=== PATIENT | male | born 1965 | race Caucasian/White ===

== ENCOUNTER 2017-09-20 08:11 | Emergency (ER) | payer SELFPAY ==
[~2017-09-20] VITALS: Ht 180.3 cm; Wt 84.0 kg
[~2017-09-20 08:11] MED LIST: ASPI81TA82 PO; DOXY100T PO; HYDR-3533 PO; SULF-154 PO
[2017-09-20 08:15] VITALS: BP 157/87; PULSE 79; RESP 16; TEMP 97.5; O2SAT 97
[2017-09-20] MEDS ORDERED: SODIUM CHLOR 0.9% 1000 ML INJ 1,000 ML IV SCH (08:56)
[2017-09-20] MEDS ORDERED: SODIUM CHLORIDE 0.9% FLUSH 10 ML FLUSH IV FLUSH PRN (09:00)
[2017-09-20] MEDS ORDERED: ONDANSETRON HCL 4 MG/2 ML VIAL IVP ONE (09:00)
--- NOTE | 2017-09-20 09:21 | PD ---
HPI . 1 month post-meal emesis Chief Complaint: GI Complaint Time Seen by Provider: 08:54 Travel History International Travel<30 days: No Contact w/Intl Traveler<30days: No Traveled to known affect area: No History of Present Illness HPI 51 yo C M presents to ED with 1 month of post-meal emesis, bloody stool and weight loss. He states it feels as if something is stuck in his throat/chest and after the first bite begins retching and vomiting immediately. He is still able to tolerate liquids. His main source of sustenance is Ensure. He states his emesis is a dark brown color but denies an appearance similar to coffee grounds, yellow/green in color or any bloody emesis. He also complains of bright red stool for the last month. The stools have remained firm. He has lost 45 pounds in the last 3 months. Symptoms have been continuous. There have been no modifying factors. He is also complaining of a diffuse itchy rash present on bilateral arms, chest , abdomen and bilateral legs. PFSH Past Medical History Arthritis: No Autoimmune Disease: No Blood Disorders: No Anxiety: No Depression: No Heart Rhythm Problems: No Cancer: No Cardiac Catheterization: Yes Cardiovascular Problems: Yes High Cholesterol: Yes Chemotherapy: No Chest Pain: Yes Congestive Heart Failure: No COPD: No Cerebrovascular Accident: No Coronary Artery Disease: Yes Diabetes: Yes (type 2 ) Patient Takes Glucophage: No Diminished Hearing: No Endocrine: Yes Gastrointestinal Disorders: Yes (PANCREATITIS) GERD: No Genitourinary: Yes Hiatal Hernia: No Hypertension: Yes Immune Disorder: No Kidney Stones: Yes Musculoskeletal: No Neurologic: No Psychiatric: No Reproductive: No Respiratory: No Migraines: No Myocardial Infarction: Yes ( 02/2009. ) Pancreatitis: Yes Radiation Therapy: No Renal Failure: No Seizures: No Sickle Cell Disease: No Sleep Apnea: No Thyroid Disease: No Ulcer: No Tetanus Vaccination: > 5 Years Influenza Vaccination: No Past Surgical History Abdominal Surgery: No AICD: No Arteriovenous Shunt: No Cardiac Surgery: Yes Coronary Stent: Yes Ear Surgery: No Endocrine Surgery: No Eye Surgery: No Genitourinary Surgery: Yes (KIDNEY STONE SURGICALLY REMOVED) Gynecologic Surgery: No Insulin Pump: No Joint Replacement: No Oral Surgery: Yes (WISDOM TEETH REMOVED) Pacemaker: No Thoracic Surgery: No Social History Alcohol Use: No Tobacco Use: Yes (1/2 cigs daily) Substance Use: No Allergies-Medications (Allergen,Severity, Reaction): Coded Allergies: No Known Allergies (Verified Adverse Reaction, Unknown, 09/20/17) Reported Meds & Prescriptions Reported Meds & Active Scripts Active No Active Prescriptions or Reported Medications Review of Systems Except as stated in HPI: all other systems reviewed are Neg General / Constitutional: Positive: Weight Loss, No: Fever, Chills Gastrointestinal: Positive: Nausea, Vomiting, No: Diarrhea, Abdominal Pain, Hematemesis, Hematochezia, Constipation, Loss of Appetite Genitourinary: No: Hematuria Skin: Positive Rash, Positive Itching Physical Exam Narrative General: alert and oriented middle aged male laying in bed in no acute distress HEENT: Atraumatic, normocephalic. Pupils round and symmetric. No scleral icterus. No nasal discharge. Nasal mucosa pink and moist. Oral mucosa pink and moist. Cardiovascular: Normal sinus rhythm. No rubs, murmurs or gallops. Capillary refill < 3 secs Pulmonary: No accessory muscle use. Clear to auscultation bilaterally. No wheezes, rales, rhonchi. Abdomen: Soft, non-tender, non-distended abdomen. No rebound tenderness. Skin: diffuse pinpoint rash with excoriations present on bilateral arms, chest, back, abdomen and bilateral legs. Musculoskeletal: Able to move all 4 extremities Neuro: No obvious cranial nerve deficits Data Data Last Documented VS Vital Signs Date Time Temp Pulse Resp B/P (MAP) Pulse Ox O2 Delivery O2 Flow Rate FiO2 09/20/17 11:10 62 16 141/95 (110) 99 Room Air 09/20/17 08:15 97.5 Orders Orders Complete Blood Count With Diff (09/20/17 08:56) Comprehensive Metabolic Panel (09/20/17 08:56) Lipase (09/20/17 08:56) Lactic Acid (09/20/17 08:56) Prothrombin Time / Inr (Pt) (09/20/17 08:56) Act Partial Throm Time (Ptt) (09/20/17 08:56) Urinalysis - C+S If Indicated (09/20/17 08:56) Iv Access Insert/Monitor (09/20/17 08:56) Ecg Monitoring (09/20/17 08:56) Oximetry (09/20/17 08:56) Ondansetron Inj (Zofran Inj) (09/20/17 09:00) Sodium Chlor 0.9% 1000 Ml Inj (Ns 1000 M (09/20/17 08:56) Sodium Chloride 0.9% Flush (Ns Flush) (09/20/17 09:00) Ct Abd/Pel W Iv Contrast(Rout) (09/20/17 09:08) Iohexol 350 Inj (Omnipaque 350 Inj) (09/20/17 10:41) Labs Laboratory Tests Test 09/20/17 09:10 09/20/17 09:16 White Blood Count 4.9 TH/MM3 Red Blood Count 4.32 MIL/MM3 Hemoglobin 12.6 GM/DL Hematocrit 37.0 % Mean Corpuscular Volume 85.8 FL Mean Corpuscular Hemoglobin 29.1 PG Mean Corpuscular Hemoglobin Concent 34.0 % Red Cell Distribution Width 14.9 % Platelet Count 150 TH/MM3 Mean Platelet Volume 7.2 FL Neutrophils (%) (Auto) 38.1 % Lymphocytes (%) (Auto) 34.0 % Monocytes (%) (Auto) 7.3 % Eosinophils (%) (Auto) 19.8 % Basophils (%) (Auto) 0.8 % Neutrophils # (Auto) 1.8 TH/MM3 Lymphocytes # (Auto) 1.6 TH/MM3 Monocytes # (Auto) 0.4 TH/MM3 Eosinophils # (Auto) 1.0 TH/MM3 Basophils # (Auto) 0.0 TH/MM3 CBC Comment DIFF FINAL Differential Comment Prothrombin Time 10.1 SEC Prothromb Time International Ratio 1.0 RATIO Activated Partial Thromboplast Time 25.9 SEC Blood Urea Nitrogen 21 MG/DL Creatinine 0.90 MG/DL Random Glucose 241 MG/DL Total Protein 8.7 GM/DL Albumin 3.2 GM/DL Calcium Level 8.3 MG/DL Alkaline Phosphatase 77 U/L Aspartate Amino Transf (AST/SGOT) 37 U/L Alanine Aminotransferase (ALT/SGPT) 62 U/L Total Bilirubin 0.4 MG/DL Sodium Level 138 MEQ/L Potassium Level 4.0 MEQ/L Chloride Level 102 MEQ/L Carbon Dioxide Level 26.2 MEQ/L Anion Gap 10 MEQ/L Estimat Glomerular Filtration Rate 89 ML/MIN Lactic Acid Level 0.9 mmol/L Lipase 224 U/L Urine Collection Type CLEAN CATCH Urine Color YELLOW Urine Turbidity CLEAR Urine pH 6.0 Urine Specific [place] 1.021 Urine Protein 300 OR GREATER mg/dL Urine Glucose (UA) NEG mg/dL Urine Ketones NEG mg/dL Urine Occult Blood NEG Urine Nitrite NEG Urine Bilirubin NEG Urine Leukocyte Esterase NEG Urine WBC 0-2 /hpf Urine Mucus FEW /lpf Microscopic Urinalysis Comment CULT NOT INDICATED MDM Medical Decision Making Medical Screen Exam Complete: Yes Emergency Medical Condition: Yes Differential Diagnosis cancer, gastric outlet obstruction, peptic ulcer, pyloric stenosis, bezoar, volvulus, cyclical vomiting syndrome Narrative Course This patient presents for the evaluation of vomiting after eating and a 45 pound weight loss over the last 3 months. He looks cachectic. CBC Diagram 09/20/17 09:10 UA>>neg except for protein Coags are normal. Last Impressions Abdomen/Pelvis CT 09/20/17 09 Signed Impressions: Service Date/Time: , September 20, 2017 10:27 - CONCLUSION: 1. Innumerable, subcentimeter punctate nonobstructing renal calculi bilaterally, right greater than left. 2. Diminished hepatic attenuation suggesting some degree of fatty infiltration. 3. Benign 3.2 cm cyst medially at the junction of the upper and midpole of the right kidney. 4. Atrophic changes of the right rectus abdominis muscle. Has the patient had previous abdominal surgery? Lawrence Oshea MD BMP Diagram 09/20/17 09:10 Total Protein 8.7 H, Albumin 3.2 L, Calcium Level 8.3 L, Alkaline Phosphatase 77 , Aspartate Amino Transf (AST/SGOT) 37, Alanine Aminotransferase (ALT/SGPT) 62, Total Bilirubin 0.4 The history, exam, diagnostic testing, and current condition do not suggest any significant pathology to warrant further testing, continued ED treatment, admission, or surgical evaluation at this point. No EMC was found. The patient 's condition is stable and appropriate for discharge. It sounds like this patient has lost his insurance and primary care provider. I will give him a referral to [facility]. Diagnosis Primary Impression: Emesis, persistent Additional Impression: Unexplained weight loss Referrals: [facility] Patient Instructions: Acute Nausea and Vomiting (DC), General Instructions Med/Other Pt SpecificInfo: Prescription(s) given Scripts Ondansetron (Zofran) 4 Mg Tab 4 MG PO Q6HR Y for NAUSEA OR VOMITING, #15 TAB 0 Refills Prov: Tram Baird MD 09/20/17 Disposition: 01 DISCHARGE HOME Condition: Stable Tram Baird MD Sep 20, 2017 09:21
[2017-09-20 09:24] LABS: AUTOMATED NEUTROPHIL # 1.8 TH/MM3 (1.8-7.7); BASOPHIL % 0.8 % (0.0-2.0); EOSINOPHIL % 19.8 % (0.0-4.0); HEMOGLOBIN 12.6 GM/DL (13.0-17.0); LYMPHOCYTE # 1.6 TH/MM3 (1.0-4.8); MEAN CELL VOLUME 85.8 FL (80.0-100.0); MEAN CORPUSCULAR HEMOGLOBIN 29.1 PG (27.0-34.0); MEAN PLATELET VOLUME 7.2 FL (7.0-11.0); MONO % 7.3 % (0.0-8.0); MONOCYTE # 0.4 TH/MM3 (0-0.9); NEUT % 38.1 % (16.0-70.0); PLATELET COUNT 150 TH/MM3 (150-450); RED BLOOD COUNT 4.32 MIL/MM3 (4.50-5.90); RED CELL DISTRIBUTION WIDTH 14.9 % (11.6-17.2); WHITE BLOOD COUNT 4.9 TH/MM3 (4.0-11.0)
[2017-09-20 09:27] LABS: BILIRUBIN, URINE NEG (NEG); BLOOD, URINE NEG (NEG); GLUCOSE,URINE NEG (NEG); KETONE, URINE NEG (NEG); NITRITE,URINE NEG (NEG); URINE LEUKOCYTE ESTERASE NEG (NEG)
[2017-09-20 09:31] LABS: URINE COLOR YELLOW (YELLW/STRAW)
[2017-09-20 09:33] LABS: MUCUS URINE FEW /lpf (OCC); WBC, URINE 0-2 /hpf (0-5)
[2017-09-20 09:36] LABS: PROTHROMBIN TIME - PATIENT 10.1 SEC (9.8-11.6)
[2017-09-20 09:45] LABS: BLOOD UREA NITROGEN 21 MG/DL (7-18); CHLORIDE 102 MEQ/L (98-107); GLOMERULAR FILTRATION RATE 89 ML/MIN (>89); GLUCOSE,RANDOM 241 MG/DL (74-106); SODIUM (NA) 138 MEQ/L (136-145)
[2017-09-20 10:18] VITALS: O2SAT 96
[2017-09-20] MEDS ORDERED: IOHEXOL 350 MG/ML 10 ML VIAL (for RAD DIAG) IVCONTRAST ONE (10:41)
--- NOTE | 2017-09-20 11:08 | RADRPT ---
EXAM DATE/TIME: 09/20/2017 10:27 [facility] COMPARISON: No previous studies available for comparison. INDICATIONS : Post meal emesis x 1 month, bloody stool and weight loss. Constipation x 2 days. IV CONTRAST: 90 cc Omnipaque 350 (iohexol) IV ORAL CONTRAST: No oral contrast ingested. RADIATION DOSE: 14.41 CTDIvol (mGy) MEDICAL HISTORY : Renal calculi. Myocardial infarction. Pancreatitis.Diabetes. SURGICAL HISTORY : Coronary artery stent. ENCOUNTER: Initial ACUITY: 1 month PAIN SCALE: 0/10 LOCATION: Abdomen. TECHNIQUE: Volumetric scanning of the abdomen and pelvis was performed. Using automated exposure control and ad justment of the mA and/or kV according to patient size, radiation dose was kept as low as reasonably achievable to obtain optimal diagnostic quality images. DICOM format image data is available electro nically for review and comparison. FINDINGS: LOWER LUNGS: Minimal atelectatic changes dependently at both lung bases. No confluent infiltrate LIVER: Homogeneous, but decreased density without lesion. There is no dilation of the biliary tree. No glenys cified gallstones. SPLEEN: Normal size without lesion. PANCREAS: Within normal limits. KIDNEYS: Normal in size and shape. Benign-appearing 3.3 cm cyst medially at the junction of the upper and midp ole of left kidney. Multiple nonobstructing subcentimeter renal calculi bilaterally, right greater th an left. ADRENAL GLANDS: Within normal limits. VASCULAR: There is no aortic aneurysm. BOWEL/MESENTERY: The stomach, small bowel, and colon demonstrate no acute abnormality. There is no free intraperitone al air or fluid. Benign-appearing 1 cm calcification posterior to the ascending colon in the upper ri ght pelvis probably represents a small lymph node. ABDOMINAL WALL: Atrophic changes in the right rectus abdominis RETROPERITONEUM: There is no lymphadenopathy. BLADDER: No wall thickening or mass. REPRODUCTIVE: Within normal limits. INGUINAL: There is no lymphadenopathy or hernia. MUSCULOSKELETAL: Within normal limits for patient age. CONCLUSION: 1. Innumerable, subcentimeter punctate nonobstructing renal calculi bilaterally, right greater than l eft. 2. Diminished hepatic attenuation suggesting some degree of fatty infiltration. 3. Benign 3.2 cm cyst medially at the junction of the upper and midpole of the right kidney. 4. Atrophic changes of the right rectus abdominis muscle. Has the patient had previous abdominal surg paul? Lawrence Oshea MD on September 20, 2017 at 10:50 Board Certified Radiologist. This report was verified electronically.
[2017-09-20 11:10] VITALS: BP 141/95; PULSE 62; RESP 16; O2SAT 99
[2017-09-20 12:19] LABS: ALBUMIN 3.2 GM/DL (3.4-5.0); AST (GOT) 37 U/L (15-37); BICARBONATE 26.2 MEQ/L (21.0-32.0); CALCIUM 8.3 MG/DL (8.5-10.1); LIPASE 224 U/L (73-393)
[2017-09-20 12:31] LABS: ALKALINE PHOSPHATASE 77 U/L (45-117); ALT (GPT) 62 U/L (12-78); TOTAL BILIRUBIN ADULT 0.4 MG/DL (0.2-1.0); TOTAL PROTEIN 8.7 GM/DL (6.4-8.2)
[2017-09-20] MEDS ORDERED: ZOFR4TAB PO (12:41)
[2017-09-20 13:04] VITALS: BP 143/80
== END 2017-09-20 13:06 | disposition home or self-care (01) ==
LOC: PHED 08:11
DX: R11.10 Vomiting, unspecified (principal); R63.4 Abnormal weight loss; R21 Rash and other nonspecific skin eruption; N20.0 Calculus of kidney; F17.210 Nicotine dependence, cigarettes, uncomplicated; K92.1 Melena
CPT/HCPCS: 74177; 80053; 81001; 83605; 83690; 85025; 85610; 85730; 96361; 96374; 99285; J2405; J7030; Q9967

== ENCOUNTER 2018-01-09 08:59 | Emergency (ER) | payer SELFPAY ==
[~2018-01-09] VITALS: Ht 180.3 cm; Wt 77.0 kg
[~2018-01-09 08:59] MED LIST changes: -ASPI81TA82 PO; -DOXY100T PO; -HYDR-3533 PO; -SULF-154 PO; +ZOFR4TAB PO
[2018-01-09 09:10] VITALS: BP 141/81; PULSE 85; RESP 18; TEMP 97.4; O2SAT 98
[2018-01-09] MEDS: RESP: ALBUTEROL 2.5 MG/3 ML NEB (SCH) INH (09:26)
[2018-01-09] MEDS ORDERED: SODIUM CHLORIDE 0.9% FLUSH 10 ML FLUSH IVF PRN (09:30)
[2018-01-09 09:35] VITALS: RESP 16; O2SAT 97
[2018-01-09 09:40] VITALS: BP 136/80; PULSE 88; RESP 16; O2SAT 97
[2018-01-09 09:44] LABS: AUTOMATED NEUTROPHIL # 3.1 TH/MM3 (1.8-7.7); BASOPHIL % 0.7 % (0.0-2.0); EOSINOPHIL # 0.7 TH/MM3 (0-0.4); EOSINOPHIL % 11.6 % (0.0-4.0); HEMATOCRIT 37.8 % (39.0-51.0); HEMOGLOBIN 13.1 GM/DL (13.0-17.0); LYMPH % 30.1 % (9.0-44.0); LYMPHOCYTE # 1.8 TH/MM3 (1.0-4.8); MEAN CELL VOLUME 85.5 FL (80.0-100.0); MEAN CORPUSCULAR HEMOGLOBIN 29.6 PG (27.0-34.0); MEAN CORPUSCULAR HGB CONC 34.7 % (32.0-36.0); MEAN PLATELET VOLUME 7.5 FL (7.0-11.0); MONO % 8.1 % (0.0-8.0); MONOCYTE # 0.5 TH/MM3 (0-0.9); NEUT % 49.5 % (16.0-70.0); PLATELET COUNT 132 TH/MM3 (150-450); RED BLOOD COUNT 4.42 MIL/MM3 (4.50-5.90); RED CELL DISTRIBUTION WIDTH 16.6 % (11.6-17.2); WHITE BLOOD COUNT 6.1 TH/MM3 (4.0-11.0)
--- NOTE | 2018-01-09 09:45 | PD ---
HPI Chief Complaint: Respiratory Symptoms Time Seen by Provider: 09:13 Travel History International Travel<30 days: No Contact w/Intl Traveler<30days: No Traveled to known affect area: No History of Present Illness HPI 52-year-old male describes shortness of breath and dyspnea on exertion for approximately one month. It he reports it seems to be intermittent. There is no chest pain. Associated symptoms include nausea and occasional vomiting. Occasional diarrhea is reported. The patient quit smoking about one month ago. He denies a history of asthma/COPD. The patient reports a history of coronary artery disease and one stent. Coronary catheter was 6 years ago at an outside hospital. He denies aspirin compliance. He has a history of diabetes. At one point took medication for hypertension however has not been taking any lately. He denies a history of hyperlipidemia. Patient denies cough. He reports night sweats. He has no primary care provider right now. The reason has had difficulty maintaining compliance with medications. PFSH Past Medical History Arthritis: No Autoimmune Disease: No Blood Disorders: No Anxiety: No Depression: No Heart Rhythm Problems: No Cancer: No Cardiac Catheterization: Yes Cardiovascular Problems: Yes High Cholesterol: Yes Chemotherapy: No Chest Pain: Yes Congestive Heart Failure: No COPD: No Cerebrovascular Accident: No Coronary Artery Disease: Yes Diabetes: Yes (type 2 ) Patient Takes Glucophage: No Diminished Hearing: No Endocrine: Yes Gastrointestinal Disorders: Yes (PANCREATITIS) GERD: No Genitourinary: Yes Hiatal Hernia: No Hypertension: Yes Immune Disorder: No Kidney Stones: Yes Musculoskeletal: No Neurologic: No Psychiatric: No Reproductive: No Respiratory: No Migraines: No Myocardial Infarction: Yes ( 02/2009. ) Pancreatitis: Yes Radiation Therapy: No Renal Failure: No Seizures: No Sickle Cell Disease: No Sleep Apnea: No Thyroid Disease: No Ulcer: No Influenza Vaccination: No ?: Not Past Surgical History Abdominal Surgery: No AICD: No Arteriovenous Shunt: No Cardiac Surgery: Yes Coronary Stent: Yes Ear Surgery: No Endocrine Surgery: No Eye Surgery: No Genitourinary Surgery: Yes (KIDNEY STONE SURGICALLY REMOVED) Gynecologic Surgery: No Insulin Pump: No Joint Replacement: No Oral Surgery: Yes (WISDOM TEETH REMOVED) Pacemaker: No Thoracic Surgery: No Other Surgery: Yes Social History Alcohol Use: No Tobacco Use: Yes (1/2 cigs daily) Substance Use: No Allergies-Medications (Allergen,Severity, Reaction): Coded Allergies: No Known Allergies (Verified Adverse Reaction, Unknown, 01/09/18) Reported Meds & Prescriptions Reported Meds & Active Scripts Active Proventil Hfa 6.7 GM Inh (Albuterol Sulfate) 90 Mcg/Act Aer 2 Puff INH Q6H PRN Prednisone 20 Mg Tab 40 Mg PO DAILY 5 Days Take 40 mg (2 tablets) daily for 5 days Azithromycin 250 Mg Tab 250 Mg PO DIRECTED Take 2 tabs (500 mg) on day 1 then 1 tab daily x 4 days. Review of Systems Except as stated in HPI: all other systems reviewed are Neg General / Constitutional: No: Fever Physical Exam Narrative GENERAL: 32-year-old male pleasant well-nourished well-developed Vital Signs Date Time Temp Pulse Resp B/P (MAP) Pulse Ox O2 Delivery O2 Flow Rate FiO2 01/09/18 09:10 97.4 85 18 141/81 (101) 98 SKIN: Warm and dry. HEAD: Atraumatic. Normocephalic. EYES: Pupils equal and round. No scleral icterus. No injection or drainage. ENT: No nasal bleeding or discharge. Mucous membranes pink and moist. NECK: Trachea midline. No JVD. CARDIOVASCULAR: Regular rate and rhythm. RESPIRATORY: There is wheezing in the right lung. There is no significant tachypnea or dyspnea. GASTROINTESTINAL: Abdomen soft, non-tender, nondistended. Hepatic and splenic margins not palpable. MUSCULOSKELETAL: Extremities without clubbing, cyanosis, or edema. No obvious deformities. NEUROLOGICAL: Awake and alert. No obvious cranial nerve deficits. Motor grossly within normal limits. Five out of 5 muscle strength in the arms and legs. Normal speech. PSYCHIATRIC: Appropriate mood and affect; insight and judgment normal. Data Data Last Documented VS Vital Signs Date Time Temp Pulse Resp B/P (MAP) Pulse Ox O2 Delivery O2 Flow Rate FiO2 01/09/18 10:10 92 16 118/68 (85) 96 Room Air 01/09/18 09:10 97.4 Orders Orders Complete Blood Count With Diff (01/09/18 09:18) Comprehensive Metabolic Panel (01/09/18 09:18) B-Type Natriuretic Peptide (01/09/18 09:18) D-Dimer (01/09/18 09:18) Act Partial Throm Time (Ptt) (01/09/18 09:18) Prothrombin Time / Inr (Pt) (01/09/18 09:18) Ckmb (Isoenzyme) Profile (01/09/18 09:18) Troponin I (01/09/18 09:18) Iv Access Insert/Monitor (01/09/18 09:18) Electrocardiogram (01/09/18 09:18) Ecg Monitoring (01/09/18 09:18) Oximetry (01/09/18 09:18) Oxygen Administration (01/09/18 09:18) Chest, Pa & Lat (01/09/18 09:18) Sodium Chloride 0.9% Flush (Ns Flush) (01/09/18 09:30) Albuterol Neb (Albuterol Neb) (01/09/18 09:30) Ct Pulmonary Angiogram (01/09/18 10:35) Sodium Chlor 0.9% 1000 Ml Inj (Ns 1000 M (01/09/18 10:45) Iohexol 350 Inj (Omnipaque 350 Inj) (01/09/18 11:22) Ed Discharge Order (01/09/18 12:02) Labs Laboratory Tests Test 01/09/18 09:35 White Blood Count 6.1 TH/MM3 Red Blood Count 4.42 MIL/MM3 Hemoglobin 13.1 GM/DL Hematocrit 37.8 % Mean Corpuscular Volume 85.5 FL Mean Corpuscular Hemoglobin 29.6 PG Mean Corpuscular Hemoglobin Concent 34.7 % Red Cell Distribution Width 16.6 % Platelet Count 132 TH/MM3 Mean Platelet Volume 7.5 FL Neutrophils (%) (Auto) 49.5 % Lymphocytes (%) (Auto) 30.1 % Monocytes (%) (Auto) 8.1 % Eosinophils (%) (Auto) 11.6 % Basophils (%) (Auto) 0.7 % Neutrophils # (Auto) 3.1 TH/MM3 Lymphocytes # (Auto) 1.8 TH/MM3 Monocytes # (Auto) 0.5 TH/MM3 Eosinophils # (Auto) 0.7 TH/MM3 Basophils # (Auto) 0.0 TH/MM3 CBC Comment DIFF FINAL Differential Comment Prothrombin Time 10.5 SEC Prothromb Time International Ratio 1.0 RATIO Activated Partial Thromboplast Time 27.0 SEC D-Dimer Quantitative (PE/DVT) 0.68 MG/L FEU Blood Urea Nitrogen 28 MG/DL Creatinine 1.00 MG/DL Random Glucose 152 MG/DL Total Protein 9.0 GM/DL Albumin 3.1 GM/DL Calcium Level 8.2 MG/DL Alkaline Phosphatase 91 U/L Aspartate Amino Transf (AST/SGOT) 31 U/L Alanine Aminotransferase (ALT/SGPT) 47 U/L Total Bilirubin 0.5 MG/DL Sodium Level 138 MEQ/L Potassium Level 3.9 MEQ/L Chloride Level 106 MEQ/L Carbon Dioxide Level 25.7 MEQ/L Anion Gap 6 MEQ/L Estimat Glomerular Filtration Rate 78 ML/MIN Total Creatine Kinase 27 U/L Troponin I LESS THAN 0.02 NG/ML B-Type Natriuretic Peptide 8 PG/ML MDM Medical Decision Making Medical Screen Exam Complete: Yes Emergency Medical Condition: Yes Medical Record Reviewed: Yes Differential Diagnosis COPD, CHF, pneumonia, anemia, coronary disease Narrative Course CBC & BMP Diagram 01/09/18 09:35 Total Protein 9.0 H, Albumin 3.1 L, Calcium Level 8.2 L, Alkaline Phosphatase 91 , Aspartate Amino Transf (AST/SGOT) 31, Alanine Aminotransferase (ALT/SGPT) 47, Total Bilirubin 0.5 BNP/TN unremarkable we discussed the need for follow-up for the CT chest abnormalities patient agreeable with plan. Overall presentation could reflect infectious etiology with an inflammatory component. Scripts as below. Diagnosis Primary Impression: URI (upper respiratory infection) Qualified Codes: J06.9 - Acute upper respiratory infection, unspecified Additional Impression: Abnormal CT of the chest Referrals: [facility] call for appointment Additional Instructions: FOLLOW UP WITH THE [facility] IN THREE MONTHS FOR A REPEAT CT SCAN OF THE CHEST. WE WANT TO BE SURE YOUR LUNGS ARE CLEAR OF ANY SERIOUS DISEASE INCLUDING POTENTIALLY A CANCER SO BE SURE TO FOLLOW UP WITHOUT FAIL. Med/Other Pt SpecificInfo: Prescription(s) given Scripts Albuterol 6.7 GM Inh (Proventil Hfa 6.7 GM Inh) 90 Mcg/Act Aer 2 PUFF INH Q6H Y for SHORTNESS OF BREATH, #1 INHALER 0 Refills Prov: Chaim Sanchez MD 01/09/18 Prednisone (Prednisone) 20 Mg Tab 40 MG PO DAILY for 5 Days, #10 TAB 0 Refills Take 40 mg (2 tablets) daily for 5 days Prov: Chaim Sanchez MD 01/09/18 Azithromycin (Azithromycin) 250 Mg Tab 250 MG PO DIRECTED for Infection, #6 TAB 0 Refills Take 2 tabs (500 mg) on day 1 then 1 tab daily x 4 days. Prov: Chaim Sanchez MD 01/09/18 Disposition: 01 DISCHARGE HOME Condition: Chaim Baltazar MD January 09, 2018 09:45
[2018-01-09 10:10] VITALS: BP 118/68; PULSE 92; RESP 16; O2SAT 96
--- NOTE | 2018-01-09 10:10 | RADRPT ---
EXAM DATE/TIME: 01/09/2018 09:30 [facility] COMPARISON: No previous studies available for comparison. INDICATIONS : Short of breath. MEDICAL HISTORY : Renal calculi. Myocardial infarction. Pancreatitis.Diabetes.hypertension SURGICAL HISTORY : Coronary artery stent ENCOUNTER: Initial ACUITY: 1 month PAIN SCORE: 0/10 LOCATION: Bilateral chest FINDINGS: PA and lateral views of the chest demonstrate the lungs to be symmetrically aerated without evidence of mass, infiltrate or effusion. There is some coarsening of lung markings bilaterally suggestive of chronic interstitial changes. The cardiomediastinal contours are unremarkable. Osseous structures a re intact. CONCLUSION: No acute disease. Joseluis Moise MD on January 09, 2018 at 10:08 Board Certified Radiologist. This report was verified electronically.
[2018-01-09 10:16] LABS: CHLORIDE 106 MEQ/L (98-107); SODIUM (NA) 138 MEQ/L (136-145)
[2018-01-09 10:23] LABS: BICARBONATE 25.7 MEQ/L (21.0-32.0); BLOOD UREA NITROGEN 28 MG/DL (7-18); CALCIUM 8.2 MG/DL (8.5-10.1); GLUCOSE,RANDOM 152 MG/DL (74-106)
[2018-01-09 10:26] LABS: ALBUMIN 3.1 GM/DL (3.4-5.0); AST (GOT) 31 U/L (15-37); GLOMERULAR FILTRATION RATE 78 ML/MIN (>89)
[2018-01-09 10:27] LABS: TOTAL BILIRUBIN ADULT 0.5 MG/DL (0.2-1.0)
[2018-01-09 10:28] LABS: ALKALINE PHOSPHATASE 91 U/L (45-117)
[2018-01-09 10:29] LABS: ALT (GPT) 47 U/L (12-78); PROTHROMBIN TIME - PATIENT 10.5 SEC (9.8-11.6)
[2018-01-09 10:30] LABS: D-DIMER 0.68 MG/L FEU (0.00-0.50)
[2018-01-09 10:31] LABS: TROPONIN I LESS THAN 0.02 NG/ML (0.02-0.05)
[2018-01-09] MEDS ORDERED: SODIUM CHLOR 0.9% 1000 ML INJ 1,000 ML IV ONE (10:45)
[2018-01-09] MEDS ORDERED: IOHEXOL 350 MG/ML 10 ML VIAL (for RAD DIAG) IVCONTRAST ONE (11:22)
--- NOTE | 2018-01-09 11:42 | RADRPT ---
EXAM DATE/TIME: 01/09/2018 11:09 [facility] COMPARISON: CT ABDOMEN & PELVIS W CONTRAST, September 20, 2017, 10:27. CHEST PA & LAT, January 09, 2018, 9:30. INDICATIONS : Short of breath. IV CONTRAST: 75 cc Omnipaque 350 (iohexol) IV RADIATION DOSE: 13.52 CTDIvol (mGy) MEDICAL HISTORY : Renal calculi. Myocardial infarction. Pancreatitis.Diabetes. SURGICAL HISTORY : Coronary artery stent. ENCOUNTER: Initial ACUITY: 1 month PAIN SCALE: 0/10 LOCATION: chest TECHNIQUE: Volumetric scanning of the chest was performed using a pulmonary embolism protocol MIP images were re constructed. Using automated exposure control and adjustment of the mA and/or kV according to patien t size, radiation dose was kept as low as reasonably achievable to obtain optimal diagnostic quality images. DICOM format image data is available electronically for review and comparison. Follow-up recommendations for detected pulmonary nodules are based at a minimum on nodule size and pa tient risk factors according to Fleischner Society Guidelines. FINDINGS: PULMONARY ARTERIES: No filling defects are seen in the pulmonary arteries through the segmental level. LUNGS: There are mild patchy areas of groundglass attenuation in the left upper lobe. No consolidation or pn eumothorax is present. There is mild dependent atelectasis bilaterally. No concerning pulmonary nodul e is seen. PLEURAE: There is no pleural thickening or pleural effusion. MEDIASTINUM: Heart and great vessels demonstrate no acute finding. There is mild coronary artery calcification. Se cretions appear to be present within the trachea. MUSCULOSKELETAL: No acute abnormality is identified. MISCELLANEOUS: The visualized upper abdominal organs demonstrate no acute abnormality. Spleen is mildly enlarged luda suring 13.4 cm in length. CONCLUSION: 1. No PE is identified. 2. Mild patchy areas of groundglass opacity in the left upper lobe. This is a nonspecific finding but typically it is associated with inflammatory or infectious processes. Consider followup to confirm r esolution. 3. Secretions in the trachea suggesting aspiration. Chin Wilson MD on January 09, 2018 at 11:30 Board Certified Radiologist. This report was verified electronically.
[2018-01-09] MEDS ORDERED: PRED20 PO (12:04)
[2018-01-09] MEDS ORDERED: ALBU6.7H INH (12:04)
[2018-01-09] MEDS ORDERED: AZIT250T3 PO (12:04)
[2018-01-09 12:35] VITALS: BP 113/80
--- NOTE | 2018-01-09 12:39 | EKG ---
Date Performed: 01/09/2018 Time Performed: 09:12:15 PTAGE: 52 years EKG: Normal Sinus rhythm PREVIOUS TRACING 05/04/11 Cannot exclude old lateral and inferior infarcts, but no change from the prior tracing. DOCTOR: Krish Dye Interpretating Date/Time 01/09/2018 12:39:13
== END 2018-01-09 12:40 | disposition home or self-care (01) ==
LOC: PHED 08:59
DX: J06.9 Acute upper respiratory infection, unspecified (principal); R91.8 Other nonspecific abnormal finding of lung field; I25.10 Atherosclerotic heart disease of native coronary artery without angina pectoris; E11.9 Type 2 diabetes mellitus without complications; I10 Essential (primary) hypertension; E78.00 Pure hypercholesterolemia, unspecified; I25.2 Old myocardial infarction; Z87.891 Personal history of nicotine dependence; Z95.5 Presence of coronary angioplasty implant and graft
CPT/HCPCS: 71046; 71275; 80053; 82550; 83880; 84484; 85025; 85379; 85610; 85730; 93005; 94640; 94664; 96360; 96361; 99285; J7030; J7613; Q9967

== ENCOUNTER 2018-03-16 17:06 | Inpatient (IN) ==
[2018-03-16] MEDS ORDERED: Aspirin 325 MG Tablet PO ONE (17:34)
[2018-03-16 18:15] LABS: Chloride 101 meq/L (98-107); Sodium 134 meq/L (136-145)
[2018-03-16 18:19] LABS: Albumin 2.7 g/dL (3.4-5.0); Anion Gap 10 meq/L (5-15); Calcium 8.6 mg/dL (8.5-10.1); Carbon Dioxide 23.3 meq/L (21.0-32.0); Glucose,Random 103 mg/dL (74-106); Lipase 209 U/L (73-393)
[2018-03-16 18:20] LABS: Blood Urea Nitrogen 22 mg/dL (7-18)
[2018-03-16 18:22] LABS: Alanine Aminotransferase 20 U/L (12-78); Aspartate Aminotransferase 23 U/L (15-37); Glomerular Filtration Rate 78 mL/min (>89)
[2018-03-16 18:24] LABS: Total Protein 9.1 g/dL (6.4-8.2)
[2018-03-16 18:25] LABS: Alkaline Phosphatase 89 U/L (45-117); Baso % (Auto) 0.4 % (0.0-2.0); Eos # (Auto) 0.4 th/mm3 (0.0-0.4); Eos % (Auto) 6.8 % (0.0-4.0); Hematocrit 36.4 % (39.0-51.0); Hemoglobin 11.9 gm/dL (13.0-17.0); Lymph # (Auto) 0.9 th/mm3 (1.0-4.8); Lymph % (Auto) 17.2 % (9.0-44.0); Mean Corpuscular HGB Conc 32.8 % (32.0-36.0); Mean Corpuscular Hemoglobin 28.3 pg (27.0-34.0); Mean Corpuscular Volume 86.1 fL (80.0-100.0); Mean Platelet Volume 6.7 fL (7.0-11.0); Mono # (Auto) 0.4 th/mm3 (0.0-0.9); Mono % (Auto) 6.8 % (0.0-8.0); Neut # (Auto) 3.7 th/mm3 (1.8-7.7); Neut % (Auto) 68.8 % (16.0-70.0); Platelet Count 153 th/mm3 (150-450); Red Blood Count 4.23 mil/mm3 (4.50-5.90); Red Cell Distribution Width 15.6 % (11.6-17.2); White Blood Count 5.4 th/mm3 (4.0-11.0)
[2018-03-16] MEDS ORDERED: Morphine Sulfate Inj 2 MG/ML Vial IV.PUSH ONE (18:25)
--- NOTE | 2018-03-16 18:26 | XR ---
EXAM DATE: 03/16/2018 6:04 PM EDT AGE/SEX: 52 years / Male INDICATIONS: Angina. CLINICAL DATA: This is the patient's initial encounter. Patient reports that signs and symptoms have been present for 1 day and indicates a pain score of 8/10. MEDICAL/SURGICAL HISTORY: . Diabetes. Renal calculi. . Cardiac catheter. COMPARISON: [facility], CHEST PA & LAT, 01/09/2018. . FINDINGS: Compare January 09. There is development of bilateral mostly patchy airspace disease. Heart size upper alas its normal. No significant effusion. No pneumothorax. No acute bony abnormality. CONCLUSION: Patchy bilateral airspace disease of unknown etiology. Differential diagnosis atelectasis and broncho pneumonia. Electronically signed by: Sid Huff MD 03/16/2018 6:25 PM EDT
[2018-03-16 18:40] LABS: D-Dimer 1.11 mg/L FEU (0.00-0.50)
[2018-03-16 18:41] LABS: Activated Partial Thrombo Time 28.5 sec (24.3-30.1); Creatine Kinase 23 U/L (39-308); INR 1.1 Ratio; Prothrombin Time 10.9 sec (9.8-11.6)
--- NOTE | 2018-03-16 19:20 | ED ---
HPI General Chief complaint: Chest Pain Stated complaint: Chest Pain/Sob Time Seen by Provider: 03/16/18 17:34 History of Present Illness HPI narrative: 52-year-old male history of diabetes presented to the ER for evaluation of chest pain that has been going on and off for the last week ago got worse this morning. Pain is located in the mid chest, no radiation, rated 6 out of 10, constant for the last 40 minutes prior to arrival to the ER, occurred at rest while watching TV, no sweating or palpitations, no cough or fever or chills or night sweats. Patient history of smoking 1 pack a day, he had 2 cardiac stents done at an outside facility. Denies any lung disease. Related Data Home Medications Medication Instructions Recorded Confirmed metformin 500 mg PO BID 03/11/18 03/16/18 aspirin 325 mg PO DAILY 03/16/18 03/16/18 Allergies Allergy/AdvReac Type Severity Reaction Status Date / Time No Known Allergies Allergy Verified 03/16/18 17:23 Review of Systems Except as stated in HPI: all other systems reviewed are negative [facility] Medical History Medical History Myocardial infarction (Acute) Decreased vision (Acute) Diabetes (Acute) History of dental problems (Acute) Kidney stones (Acute) Surgical History Surgical History Hx of cardiac cath (Acute) Social History Social History Substance History: No History of Abuse Second Hand Smoke Exposure: No Smoking Status: Former smoker Tobacco Type: Cigarettes How Often Do You Have a Drink Containing Alcohol: Never Recent Travel in [facility] within the Last 8 Weeks: No Recent Out of Country Travel within the Last 8 Weeks: No Immunization History Tetanus Immunization: >5 Years Hx Influenza Vaccine This Season: No Exam Narrative Exam Narrative: GENERAL: Alert oriented 3 no acute distress. SKIN: Focused skin assessment warm/dry. HEAD: Atraumatic. Normocephalic. EYES: Pupils equal and round. No scleral icterus. No injection or drainage. ENT: No nasal bleeding or discharge. Mucous membranes pink and moist. NECK: Trachea midline. No JVD. CARDIOVASCULAR: Regular rate and rhythm. No murmur appreciated. RESPIRATORY: No accessory muscle use. Clear to auscultation. Breath sounds equal bilaterally. GASTROINTESTINAL: Abdomen soft, non-tender, nondistended. Hepatic and splenic margins not palpable. MUSCULOSKELETAL: No obvious deformities. No clubbing. No cyanosis. No edema. NEUROLOGICAL: Awake and alert. No obvious cranial nerve deficits. Motor grossly within normal limits. Normal speech. PSYCHIATRIC: Appropriate mood and affect; insight and judgment normal. Course Initial Documented Vital Signs Temperature 97.4 F L 03/16/18 17:21 Pulse Rate 88 03/16/18 17:21 Respiratory Rate 18 03/16/18 17:21 Blood Pressure 127/84 03/16/18 17:21 Pulse Oximetry 93 L 03/16/18 17:21 Last Documented Vital Signs Temperature 97.4 F L 03/16/18 17:21 Pulse Rate 78 03/16/18 19:20 Respiratory Rate 16 03/16/18 20:01 Blood Pressure 125/82 03/16/18 19:20 Pulse Oximetry 98 03/16/18 19:20 Clinical Decision Support HEART Score Questions History: Moderately suspicious EKG: Normal Age: 45-64 years Risk Factors: 3 or more Risk Factors or Hx of Atherosclerotic Disease Initial Troponin: Normal Limit Heart Score HEART Score: 4 Medical Decision Making [facility] Narrative Medical decision making narrative: 51-year-old male history of diabetes he takes oral glycemic for, here for chest pain, occurred at rest, first EKG showed Q waves but no ST segment elevation or depression, normal sinus rhythm with left axis deviation, T-wave inversion on, V4 repeat EKG unchanged. First troponin is negative, chest x-ray shows right lower lobe infiltrate, elevated d- dimer, CTA lung shows groundglass appearance in the upper lobes which is suspicious for hypersensitivity reaction of some kind which also could explain the Eosinophilia. I am unsure if the patient has pneumonia but his chest pain could be due to the lung rather than the heart. For now patient heart score is for which high risk for KS so we will admit the patient for chest pain to rule out KS and to further evaluate the groundglass appearance on the CTA. Lab Data Result diagrams: 03/16/18 17:50 03/16/18 17:50 Lab Results 03/16/18 03/16/18 03/16/18 Range/Units 17:50 17:50 17:50 CBC w Diff WBC (4.0-11.0) th/mm3 RBC (4.50-5.90) mil/mm3 Hgb (13.0-17.0) gm/dL Hct (39.0-51.0) % MCV (80.0-100.0) fL MCH (27.0-34.0) pg MCHC (32.0-36.0) % RDW (11.6-17.2) % Plt Count (150-450) th/mm3 MPV (7.0-11.0) fL Neut % (Auto) (16.0-70.0) % Lymph % (Auto) (9.0-44.0) % [place] % (Auto) (0.0-8.0) % Eos % (Auto) (0.0-4.0) % Baso % (Auto) (0.0-2.0) % Neut # (Auto) (1.8-7.7) th/mm3 Lymph # (Auto) (1.0-4.8) th/mm3 [place] # (Auto) (0.0-0.9) th/mm3 Eos # (Auto) (0.0-0.4) th/mm3 Baso # (Auto) (0.0-0.2) th/mm3 WBC Differential Differential Comment PT (9.8-11.6) sec INR Ratio APTT (24.3-30.1) sec D-Dimer Quant (PE/DVT) Cancelled Sodium (136-145) meq/L Potassium (3.5-5.1) meq/L Chloride (98-107) meq/L Carbon Dioxide (21.0-32.0) meq/L Anion Gap (5-15) meq/L BUN (7-18) mg/dL Creatinine (0.60-1.30) mg/dL Estimated GFR (>89) mL/min Random Glucose (74-106) mg/dL Calcium (8.5-10.1) mg/dL Total Bilirubin (0.2-1.0) mg/dL AST (15-37) U/L ALT (12-78) U/L Alkaline Phosphatase (45-117) U/L Total Creatine Kinase (39-308) U/L Troponin I (0.02-0.05) ng/mL B-Natriuretic Peptide 17 (0-100) pg/mL Total Protein (6.4-8.2) g/dL Albumin (3.4-5.0) g/dL Lipase Cancelled 07/07/18 07/07/18 07/07/18 Range/Units 17:50 17:50 17:50 CBC w Diff Auto diff final WBC 5.4 (4.0-11.0) th/mm3 RBC 4.23 L (4.50-5.90) mil/mm3 Hgb 11.9 L (13.0-17.0) gm/dL Hct 36.4 L (39.0-51.0) % MCV 86.1 (80.0-100.0) fL MCH 28.3 (27.0-34.0) pg MCHC 32.8 (32.0-36.0) % RDW 15.6 (11.6-17.2) % Plt Count 153 (150-450) th/mm3 MPV 6.7 L (7.0-11.0) fL Neut % (Auto) 68.8 (16.0-70.0) % Lymph % (Auto) 17.2 (9.0-44.0) % [place] % (Auto) 6.8 (0.0-8.0) % Eos % (Auto) 6.8 H (0.0-4.0) % Baso % (Auto) 0.4 (0.0-2.0) % Neut # (Auto) 3.7 (1.8-7.7) th/mm3 Lymph # (Auto) 0.9 L (1.0-4.8) th/mm3 [place] # (Auto) 0.4 (0.0-0.9) th/mm3 Eos # (Auto) 0.4 (0.0-0.4) th/mm3 Baso # (Auto) 0.0 (0.0-0.2) th/mm3 WBC Differential . Differential Comment . PT 10.9 (9.8-11.6) sec INR 1.1 Ratio APTT 28.5 (24.3-30.1) sec D-Dimer Quant (PE/DVT) 1.11 H Sodium 134 L (136-145) meq/L Potassium 4.0 (3.5-5.1) meq/L Chloride 101 (98-107) meq/L Carbon Dioxide 23.3 (21.0-32.0) meq/L Anion Gap 10 (5-15) meq/L BUN 22 H (7-18) mg/dL Creatinine 1.00 (0.60-1.30) mg/dL Estimated GFR 78 L (>89) mL/min Random Glucose 103 (74-106) mg/dL Calcium 8.6 (8.5-10.1) mg/dL Total Bilirubin 0.6 (0.2-1.0) mg/dL AST 23 (15-37) U/L ALT 20 (12-78) U/L Alkaline Phosphatase 89 (45-117) U/L Total Creatine Kinase 23 L (39-308) U/L Troponin I Less than 0.02 L (0.02-0.05) ng/mL B-Natriuretic Peptide (0-100) pg/mL Total Protein 9.1 H (6.4-8.2) g/dL Albumin 2.7 L (3.4-5.0) g/dL Lipase 209 Imaging Data Radiologist's impression: ITS Impressions Chest X-Ray 03/16/18 17:35 CONCLUSION: Patchy bilateral airspace disease of unknown etiology. Differential diagnosis atelectasis and bronchopneumonia. Chest CTA 03/16/18 18:47 CONCLUSION: 1. Negative for pulmonary embolus. 2. Marked progression of predominantly upper lobe lung disease since January 09, 2018. Differential diagnosis includes drug reaction or chronic hypersensitivity type reaction to extrinsic exposure. Also consider infection. Discharge Plan Discharge Disposition Patient Disposition: 30 Still Patient Discharge Condition Condition: Stable Physicians Team ED Provider: Maximo Rodríguez Primary Care Provider: Primary Care Shante Akbar Rxs /Orders / Referrals /Forms Prescriptions: No Action aspirin 325 mg Tablet 325 mg PO DAILY RF: 0 metformin 1,000 mg Tablet 500 mg PO BID RF: 0 Discharge Instructions Patient Printed Instructions: Chest Pain (ED) Discharge Interventions Interventions: Vital Signs Last Done: 03/16/18 19:20 Status ED Status: Pending Admission
--- NOTE | 2018-03-16 19:40 | CT ---
EXAM DATE: 03/16/2018 7:25 PM EDT AGE/SEX: 52 years / Male INDICATIONS: Shortness of breath. CLINICAL DATA: This is the patient's initial encounter. Patient reports that signs and symptoms have been present for 1 day and indicates a pain score of 0/10. MEDICAL/SURGICAL HISTORY: Diabetes. . Cardiac cath. RADIATION DOSE: 11.15 CTDI (mGy) COMPARISON: [facility], CT PULMONARY ANGIOGRAM, 01/09/2018. . TECHNIQUE: Volumetric scanning was performed using a multi-row detector CT scanner during bolus infu [place] of 73 ml Omnipaque 350 (iohexol) nonionic water-soluble contrast as a single exam dose. The devang a was post processed with a variety of visualization algorithms including full volume maximum intensi ty projection and sliding thin slab reformation. Using automated exposure control and adjustment of the mA and/or kV according to patient size, radiation dose was kept as low as reasonably achievable t o obtain optimal diagnostic quality images. DICOM format image data is available electronically for review and comparison. FINDINGS: No filling defects identified to suggest pulmonary embolic disease. Compared with January 09 there is quite marked progression in lung disease predominantly at the lung apice s with patchy airspace disease, intralobular septal thickening, groundglass opacity and probably some fibrosis. There is basilar disease but is less prevalent. Moderate coronary artery calcifications ar e noted. CONCLUSION: 1. Negative for pulmonary embolus. 2. Marked progression of predominantly upper lobe lung disease since January 09, 2018. Differential diagn osis includes drug reaction or chronic hypersensitivity type reaction to extrinsic exposure. 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 Electronically signed by: Sid Huff MD 03/16/2018 7:39 PM EDT
[2018-03-16] MEDS ORDERED: Bisacodyl 10 MG Supp RECTAL PRN (20:06)
[2018-03-16] MEDS ORDERED: Acetaminophen 325 MG Tablet PO PRN (20:06)
[2018-03-16] MEDS: Sod Chloride 0.9% Inj 1,000 ML IV.CONT SCH (20:53)
[2018-03-16] MEDS: Morphine Sulfate Inj 2 MG/ML Vial IV.PUSH PRN (20:56)
--- NOTE | 2018-03-16 23:07 | ECG ---
Date Performed: 03/16/2018 Time Performed: 18:43:38 PTAGE: 52 years EKG: Sinus rhythm LATERAL MYOCARDIAL INFARCTION ABNORMAL ECG PREVIOUS TRACING : 01/09/2018 09.12 No significant change from previous tracing noted. DOCTOR: Rhett Flores Interpretating Date/Time 03/16/2018 23:06:22
--- NOTE | 2018-03-16 23:12 | ECG ---
Date Performed: 03/16/2018 Time Performed: 17:15:52 PTAGE: 52 years EKG: Sinus rhythm LEFT AXIS DEVIATION LATERAL MYOCARDIAL INFARCTION ABNORMAL ECG INTERPRETATION BASED ON A DEFAULT AGE OF 89 YEARS NO PREVIOUS TRACING DOCTOR: Rhett Flores Interpretating Date/Time 03/16/2018 23:10:38
[2018-03-16 23:49] LABS: Creatine Kinase 21 U/L (39-308)
[2018-03-17] MEDS: Morphine Sulfate Inj 2 MG/ML Vial IV.PUSH PRN ×4 (04:29→17:31)
[2018-03-17] MEDS: Senna/Docusate Sodium 8.6/50 MG Tablet PO SCH ×3 (05:13→21:01)
[2018-03-17 06:22] LABS: Baso % (Auto) 0.2 % (0.0-2.0); Eos # (Auto) 0.3 th/mm3 (0.0-0.4); Eos % (Auto) 8.1 % (0.0-4.0); Hematocrit 31.3 % (39.0-51.0); Hemoglobin 10.8 gm/dL (13.0-17.0); Lymph # (Auto) 0.8 th/mm3 (1.0-4.8); Lymph % (Auto) 20.6 % (9.0-44.0); Mean Corpuscular HGB Conc 34.3 % (32.0-36.0); Mean Corpuscular Volume 84.6 fL (80.0-100.0); Mean Platelet Volume 7.1 fL (7.0-11.0); Mono # (Auto) 0.3 th/mm3 (0.0-0.9); Mono % (Auto) 8.6 % (0.0-8.0); Neut # (Auto) 2.5 th/mm3 (1.8-7.7); Neut % (Auto) 62.5 % (16.0-70.0); Platelet Count 137 th/mm3 (150-450); Red Cell Distribution Width 15.8 % (11.6-17.2); White Blood Count 3.9 th/mm3 (4.0-11.0)
[2018-03-17 06:30] LABS: Potassium 3.9 meq/L (3.5-5.1)
[2018-03-17 06:32] LABS: Calcium 8.6 mg/dL (8.5-10.1); Carbon Dioxide 23.5 meq/L (21.0-32.0)
[2018-03-17 06:45] LABS: Creatine Kinase 18 U/L (39-308)
[2018-03-17] MEDS: Sod Chloride 0.9% Inj 1,000 ML IV.CONT SCH ×2 (06:58→17:32)
[2018-03-17] MEDS ORDERED: Dextrose 50% in Water 50 ML Vial IV.PUSH PRN (08:40)
[2018-03-17] MEDS: Aspirin 325 MG Tablet PO SCH (08:41)
--- NOTE | 2018-03-17 08:50 | P.HP ---
History of Present Illness Primary Care Physician: No Primary Care Physician Chief Complaint: Chest pain History of Present Illness: 52-year-old male with known history of coronary disease status post stenting, history of myocardial infarction, hyperlipidemia, diabetes, family history of heart disease, history of tobacco use who presented to the hospital because of acute onset of chest pain. Patient states that he was in normal state of health yesterday until 2 PM when he developed the sudden onset of chest pressure 8/10 on a pain scale while he was watching TV. There is some mild radiation into his back. He did have associated shortness of breath. Denied any nausea, vomiting, diaphoresis, lightheadedness, dizziness. Patient states that the pain remained constant until he came to emergency department last evening and was given morphine with complete resolution of his pain. Patient had workup done in the emergency department and found to have a abnormal CT scan with worsening of bilateral upper lobe lung opacities which radiologist indicates could be multiple etiologies to include inflammatory, medication induced, infective. Because the above reasons is recommended by the ER physician that the patient be observed in the hospital for further evaluation and management. Patient denies any fever, chills, night sweats, cough, congestion, abdominal pain. - Diagnosis (1) Chest pain (2) Pancytopenia (3) Abnormal CT of the chest (4) Diabetes Review of Systems All other systems reviewed negative except as stated in HPI Cardiovascular: Reports chest pain, Reports shortness of breath PMFSH - History History Provided By: Patient, Medical Record - Medical History Medical History: Medical History (Last Updated 03/17/18 @ 08:21 by NANDINI Spence) Coronary artery disease History of nephrolithiasis History of pancreatitis Hyperlipemia Myocardial infarction Decreased vision Diabetes History of dental problems Kidney stones - Surgical History Surgical History: Surgical History (Last Updated 03/17/18 @ 08:16 by NANDINI Spence) History of coronary artery stent placement History of lithotripsy Hx of cardiac cath - Family History Family History: Family History (Last Updated 03/17/18 @ 08:24 by NANDINI Spence) Mother Family history of renal failure Grandparent No problems noted. Father Family history of coronary artery disease - Tobacco History Second Hand Smoke Exposure: No Smoking Status: Former smoker Tobacco Type: Cigarettes - Alcohol History How Often Do You Have a Drink Containing Alcohol: Never - Substance Use History Substance History: No History of Abuse - Travel History Recent Travel in the [place] Within the Last 8 Weeks: No Recent Travel Out of the Country Within the Last 8 Weeks: No - Immunization History Tetanus Immunization: >5 Years Hx Influenza Vaccine This Season: No Medications and Allergies Active Medications: Active Medications Acetaminophen (Tylenol) 650 mg PO Q4H PRN PRN Reason: Temp > 100.4 Al Hydroxide/Mg Hydroxide (Milk Of Magnesia Liq) 30 ml PO Q12H PRN PRN Reason: Mild Constipation Aspirin (Aspirin) 325 mg PO DAILY [facility] Bisacodyl (Dulcolax Supp) 10 mg RECTAL DAILY PRN PRN Reason: SEVERE CONSITIPATION Sodium Chloride (Ns Inj) 1,000 mls @ 100 mls/hr IV.CONT .Q10H [facility] Last Admin: 03/17/18 06:58 Dose: 100 mls/hr Lactulose (Lactulose Liq) 30 ml PO DAILY PRN PRN Reason: SEVERE CONSITIPATION Morphine Sulfate (Morphine Inj) 2 mg IV.PUSH Q3H PRN PRN Reason: pain 6-10 Last Admin: 03/17/18 04:29 Dose: 2 mg Ondansetron HCl (Zofran Inj) 4 mg IV.PUSH Q6H PRN PRN Reason: NAUSEA OR VOMITING Senna/Docusate Sodium (Amada-Colace) 1 tab PO BID [facility] Last Admin: 03/17/18 05:13 Dose: Not Given Sennosides (Senokot) 17.2 mg PO Q12H PRN PRN Reason: Moderate Constipation Temazepam (Restoril) 15 mg PO HS PRN PRN Reason: INSOMNIA Allergies Allergy/AdvReac Type Severity Reaction Status Date / Time No Known Allergies Allergy Verified 03/16/18 17:23 Home Medications Medication Instructions Recorded Confirmed Type metformin 500 mg PO BID 03/11/18 03/16/18 History aspirin 325 mg PO DAILY 03/16/18 03/16/18 History Exam Vital signs: Vital Signs 03/16/18 17:21 03/16/18 17:45 03/16/18 19:20 Temperature 97.4 F L Pulse Rate 88 86 78 Respiratory Rate 18 18 16 Blood Pressure 127/84 120/82 125/82 Pulse Oximetry 93 L 94 L 98 03/16/18 20:01 03/16/18 20:06 07/07/18 20:58 Temperature Pulse Rate 74 78 Respiratory Rate 16 16 16 Blood Pressure 114/72 108/69 Pulse Oximetry 99 03/16/18 22:10 03/16/18 23:50 03/17/18 03:20 Temperature Pulse Rate 78 85 Respiratory Rate 16 16 16 Blood Pressure 108/70 122/68 Pulse Oximetry 99 03/17/18 06:04 03/17/18 06:59 03/17/18 07:48 Temperature 97.8 F Pulse Rate 74 72 75 Respiratory Rate 16 16 20 Blood Pressure 117/66 120/79 129/82 Pulse Oximetry 97 93 L Intake & Output 03/16/18 03/17/18 03/17/18 18:59 06:59 18:59 Intake Total 1000 / 1000 Balance 1000 / 1000 Weight 75.8 kg Intake: IV 1000 / 1000 NS Inj 1,000 ML @ 100 mls/hr IV 1000 / 1000 .CONT .Q10H ELENA Rx#:[id number] Narrative: GENERAL: Well-developed, well-nourished, in no acute distress. alert and orientated HEENT: Head is normocephalic without any lesions or masses noted. Facial features are symmetric. Eyes: Pupils equal round reactive to light. Extraocular muscles are intact. Conjunctivae were clear. Oropharyngeal: Pharynx without any erythema edema. Tongue is midline without deviation. Buccal mucosa is moist without any masses or lesions NECK: Supple without any masses. Trachea midline no deviation. No JVD, no bruits are appreciated CARDIAC: Regular rhythm, regular rate. S1/S2 are heard. No murmurs gallops or rubs. LUNGS: Clear to auscultation bilaterally. No wheeze, rhonchi or rales. No use of accessory muscles on inspiration or expiration. ABDOMEN: Soft, nontender. Nondistended. Bowel sounds heard in all 4 quadrants. No organomegaly or masses. Negative rebound, negative guarding EXTREMITIES: No edema, pulses are equal bilaterally. No cyanosis or clubbing NEUROLOGY: Mood and affect appear appropriate. Cranial nerves II through XII grossly intact. Muscle strength 5/5 in upper and lower extremities bilaterally. Deep tendon reflexes are 2+ in upper and lower extremities bilaterally. Results - Labs CBC & Chem 7: 03/17/18 06:00 03/17/18 06:00 Labs: Laboratory Results - last 24 hr 03/16/18 03/16/18 03/16/18 17:50 17:50 17:50 CBC w Diff WBC RBC Hgb Hct MCV MCH MCHC RDW Plt Count MPV Neut % (Auto) Lymph % (Auto) [place] % (Auto) Eos % (Auto) Baso % (Auto) Neut # (Auto) Lymph # (Auto) [place] # (Auto) Eos # (Auto) Baso # (Auto) WBC Differential Differential Comment PT INR APTT D-Dimer Quant (PE/DVT) Cancelled Sodium Potassium Chloride Carbon Dioxide Anion Gap BUN Creatinine Estimated GFR Random Glucose Calcium Total Bilirubin AST ALT Alkaline Phosphatase Total Creatine Kinase Troponin I B-Natriuretic Peptide 17 Total Protein Albumin Lipase Cancelled 03/16/18 03/16/18 03/16/18 17:50 17:50 17:50 CBC w Diff Auto diff final WBC 5.4 RBC 4.23 L Hgb 11.9 L Hct 36.4 L MCV 86.1 MCH 28.3 MCHC 32.8 RDW 15.6 Plt Count 153 MPV 6.7 L Neut % (Auto) 68.8 Lymph % (Auto) 17.2 [place] % (Auto) 6.8 Eos % (Auto) 6.8 H Baso % (Auto) 0.4 Neut # (Auto) 3.7 Lymph # (Auto) 0.9 L [place] # (Auto) 0.4 Eos # (Auto) 0.4 Baso # (Auto) 0.0 WBC Differential . Differential Comment . PT 10.9 INR 1.1 APTT 28.5 D-Dimer Quant (PE/DVT) 1.11 H Sodium 134 L Potassium 4.0 Chloride 101 Carbon Dioxide 23.3 Anion Gap 10 BUN 22 H Creatinine 1.00 Estimated GFR 78 L Random Glucose 103 Calcium 8.6 Total Bilirubin 0.6 AST 23 ALT 20 Alkaline Phosphatase 89 Total Creatine Kinase 23 L Troponin I Less than 0.02 L B-Natriuretic Peptide Total Protein 9.1 H Albumin 2.7 L Lipase 209 03/16/18 03/17/18 03/17/18 22:33 06:00 06:00 CBC w Diff Auto diff final WBC 3.9 L RBC 3.70 L Hgb 10.8 L Hct 31.3 L MCV 84.6 MCH 29.0 MCHC 34.3 RDW 15.8 Plt Count 137 L MPV 7.1 Neut % (Auto) 62.5 Lymph % (Auto) 20.6 [place] % (Auto) 8.6 H Eos % (Auto) 8.1 H Baso % (Auto) 0.2 Neut # (Auto) 2.5 Lymph # (Auto) 0.8 L [place] # (Auto) 0.3 Eos # (Auto) 0.3 Baso # (Auto) 0.0 WBC Differential . Differential Comment . PT INR APTT D-Dimer Quant (PE/DVT) Sodium Potassium Chloride Carbon Dioxide Anion Gap BUN Creatinine Estimated GFR Random Glucose Calcium Total Bilirubin AST ALT Alkaline Phosphatase Total Creatine Kinase 21 L 18 L Troponin I Less than 0.02 L Less than 0.02 L B-Natriuretic Peptide Total Protein Albumin Lipase 03/17/18 06:00 CBC w Diff WBC RBC Hgb Hct MCV MCH MCHC RDW Plt Count MPV Neut % (Auto) Lymph % (Auto) [place] % (Auto) Eos % (Auto) Baso % (Auto) Neut # (Auto) Lymph # (Auto) [place] # (Auto) Eos # (Auto) Baso # (Auto) WBC Differential Differential Comment PT INR APTT D-Dimer Quant (PE/DVT) Sodium 137 Potassium 3.9 Chloride 103 Carbon Dioxide 23.5 Anion Gap 11 BUN 21 H Creatinine 0.94 Estimated GFR 84 L Random Glucose 99 Calcium 8.6 Total Bilirubin AST ALT Alkaline Phosphatase Total Creatine Kinase Troponin I B-Natriuretic Peptide Total Protein Albumin Lipase - Imaging Impressions Chest X-Ray 03/16/18 17:35 CONCLUSION: Patchy bilateral airspace disease of unknown etiology. Differential diagnosis atelectasis and bronchopneumonia. Chest CTA 03/16/18 18:47 CONCLUSION: 1. Negative for pulmonary embolus. 2. Marked progression of predominantly upper lobe lung disease since January 09, 2018. Differential diagnosis includes drug reaction or chronic hypersensitivity type reaction to extrinsic exposure. Also consider infection. Caprini VTE Risk Assessment Caprini VTE Risk Assessment: Moderate/High Risk (score >= 2) Caprini Risk Assessment Model: Point Value = 1 Point Value = 2 Point Value = 3 Point Value = 5 Age 41-60 Minor surgery BMI > 25 kg/m2 Swollen legs Varicose veins or History of unexplained or recurrent spontaneous Oral contraceptives or hormone replacement Sepsis (< 1 month) Serious lung disease, including pneumonia (< 1 month) Abnormal pulmonary function Acute myocardial infarction Congestive heart failure (< 1 month) History of inflammatory bowel disease Medical patient at bed rest Age 61-74 Arthroscopic surgery Major open surgery (> 45 min) Laparoscopic surgery (> 45 min) Malignancy Confined to bed (> 72 hours) Immobilizing plaster cast Central venous access Age >= 75 History of VTE Family history of VTE Factor V Leiden Prothrombin [id number] Lupus anticoagulant Anticardiolipin antibodies Elevated serum homocysteine Heparin-induced thrombocytopenia Other congenital or acquired thrombophilia Stroke (< 1 month) Elective arthroplasty Hip, pelvis, or leg fracture Acute spinal cord injury (< 1 month) Prophylaxis Regimen: Total Risk Factor Score Risk Level Prophylaxis Regimen 0-1 Low Early ambulation 2 Moderate Order ONE of the following: *Sequential Compression Device (SCD) *Heparin 5000 units SQ BID 3-4 Higher Order ONE of the following medications: *Heparin 5000 units SQ TID *Enoxaparin/Lovenox 40 mg SQ daily (WT < 150 kg, CrCl > 30 mL/min) *Enoxaparin/Lovenox 30 mg SQ daily (WT < 150 kg, CrCl > 10-29 mL/min) *Enoxaparin/Lovenox 30 mg SQ BID (WT < 150 kg, CrCl > 30 mL/min) AND/OR *Sequential Compression Device (SCD) 5 or more Highest Order ONE of the following medications: *Heparin 5000 units SQ TID (Preferred with Epidurals) *Enoxaparin/Lovenox 40 mg SQ daily (WT < 150 kg, CrCl > 30 mL/min) *Enoxaparin/Lovenox 30 mg SQ daily (WT < 150 kg, CrCl > 10-29 mL/min) *Enoxaparin/Lovenox 30 mg SQ BID (WT < 150 kg, CrCl > 30 mL/min) AND *Sequential Compression Device (SCD) Assessment and Plan - Assessment (1) Chest pain Code(s): R07.9 - Chest pain, unspecified Status: Acute Plan: -Patient does have increased risk factors include age, male, history of myocardial infarction, coronary disease, history of tobacco use, hyperlipidemia , family history of heart disease, diabetes -Patient has been ruled out for acute coronary event with serial cardiac enzymes that have remained negative -Serial EKGs reviewed by myself shows changes indicative of old inferior and lateral WA. No acute changes -Myocardial perfusion study was performed and indicated -Continue aspirin, nitroglycerin as needed, morphine for pain control -Continue monitor telemetry -Continue oxygen as needed -Obtain lipid panel (2) Pancytopenia Code(s): D61.818 - Other pancytopenia Status: Acute Plan: -Etiology unknown at this time, liver enzymes are unremarkable for any underlying liver disease. Will need further evaluation -Obtain anemia workup, autoimmune testing (3) Abnormal CT of the chest Code(s): R93.8 - Abnormal findings on diagnostic imaging of other specified body structures Status: Acute Plan: -CT scan shows worsening upper lobe lung disease of unknown etiology -Patient has not been having any clinical symptoms, patient does not have any fever, cough. No leukocytosis -We will need to obtain further testing to include sputum culture, Legionella testing, pneumococcal testing, mycoplasma and testing, sed rate, C-reactive protein, EMELI, RA, alpha-1 antitrypsin -Consult pulmonology for further evaluation and recommendations -Discussed with president + publisher who indicated the patient would also benefit from HIV testing, patient will require bronchoscopy with lavage and biopsy. Unable to schedule until Sunday. Plan transfer to the [facility] tomorrow (4) Diabetes Code(s): E11.9 - Type 2 diabetes mellitus without complications Status: Chronic Plan: -We will start diabetic diet after stress testing -Accu-Cheks with sliding scale insulin - Plan DVT prevention -Sequential compression devices
--- NOTE | 2018-03-17 11:12 | ECG ---
Date Performed: 03/17/2018 Time Performed: 05:49:35 PTAGE: 52 years EKG: Sinus rhythm LATERAL MYOCARDIAL INFARCTION NONSPECIFIC LATERAL T WAVE ABNORMALITY ABNORMAL ECG PREVIOUS TRACING : 03/16/2018 18.43 No significant change from previous tracing noted. DOCTOR: Rhett Flores Interpretating Date/Time 03/17/2018 11:11:02
[2018-03-17] MEDS: Insulin NovoLOG Aspart Correctional Sugar Inj SQ SCH ×3 (12:38→21:01)
[2018-03-17 12:52] LABS: Reticulocyte Percent 1.7 % (0.4-3.0)
[2018-03-17 13:12] LABS: Chol/HDL Ratio 3.87 Ratio; HDL Cholesterol 30.2 mg/dL (40.0-60.0)
[2018-03-17] MEDS ORDERED: Regadenoson Inj 0.4 MG/5 ML Syringe IV.PUSH ONE (13:13)
[2018-03-17 13:35] LABS: % Iron Saturation 13.4 % (20-50); Ferritin 1548 ng/mL (26-388); Folate 16.6 ng/mL (3.1-17.5); Iron 26 mcg/dL (65-175); Lactate Dehydrogenase 201 U/L (87-241); Total Iron Binding Capacity 195 mcg/dL (250-450); Vitamin B12 409 pg/mL (193-986)
--- NOTE | 2018-03-17 14:09 | NM ---
EXAM DATE: 03/17/2018 2:05 PM EDT AGE/SEX: 52 years / Male INDICATIONS:Angina. Myocardial infarction Mid chest pain for one day. CLINICAL DATA: This is the patient's initial encounter. Patient reports that signs and symptoms have been present for 1 day and indicates a pain score of 4/10. MEDICAL/SURGICAL HISTORY: Diabetes mellitus type II. Cardiovascular disease. Coronary artery s tent. COMPARISON: No prior exams available for comparison. No external comparison. DOSE: 8.6 mCi Tc 99m Myoview at rest 25.5 mCi [id number] at stress 0.4 mg Lexiscan STRESS SYMPTOMS: Shortness of breath with nausea. EJECTION FRACTION: 52 % TECHNIQUE: The patient underwent pharmacologic stress with infusion of prescribed dose. Continuous ECG tracing was monitored during stress. Gated SPECT imaging was performed after stress and conventi onal SPECT imaging was performed at rest. The examination was performed on a SPECT/CT scanner, both attenuation and non-corrected datasets were reviewed. FINDINGS: Distribution: The maximum perfused segment at stress is in the wall. Perfusion Study: No reversible perfusion defects. Matched defect inferior wall likely infarct.. Gated Study: There are intact wall motion and wall thickening without hypokinetic or dyskinetic segm ents. The ejection fraction is calculated at 52%. RISK CATEGORY: Intermediate (1-3 % Annual Mortality Rate) CONCLUSION: 1. No reversible perfusion defects to suggest ischemia. 2. 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 3. Ejection fraction 52%. Electronically signed by: Carmine Cruz MD 03/17/2018 2:08 PM EDT
--- NOTE | 2018-03-17 16:44 | MB ---
cc: Vonda Lopez MD DATE: 03/17/2018 HISTORY OF PRESENT ILLNESS: Mr. Gentile is a 52-year-old white male who has been chronically ill for months with weight loss, loss of appetite, persistent cough, intermittent chest discomfort who presented on 03/16/2018 with chest discomfort. He has a significant prior cardiac history including coronary artery disease and cardiac stents. Cardiac evaluation during this hospital stay has been negative, including a nuclear stress test, which was done today and revealed no reversible ischemia and an ejection fraction of 52%. It does not appear that his chest pain at present is due to angina. The patient has had a nonproductive cough and progressive dyspnea. He has been a smoker since the age of 12, but he says he has not smoked within the last 2 or 3 weeks because he had difficulty breathing. CT scan was done because chest discomfort and there was no evidence of thromboembolism, but he has diffuse predominantly mid to upper lobe ground glass densities and bronchial thickening. This could be consistent with an inflammatory response to infection, inhalation or possibly an interstitial lung disease. No effusions noted. Laboratory was also remarkable for white count of only 3900, platelet count of 137 and a hemoglobin of 10.8. Multiple serologies have been sent and an HIV is being sent as well, as he is homosexual living with a male partner. Sedimentation rate was elevated at 140. CRP high at 2.1. LDH was normal. Liver functions were normal. The patient has had no recent change in environment. No obvious inhalation exposures that are new. Smoking noted, although no prior history of pulmonary disease including pneumonia, asthma or emphysema. No animals at home. He has had no travel within the last 3 months. Apparently had an HIV study about 4 years ago, which was negative. PAST MEDICAL HISTORY: Coronary artery disease. History of pancreatitis several years ago, not clear what it was caused by. Diabetes, which he really has not cared for other than taking metformin. He said he could not afford insulin and he has had no primary care within the last 5-7 years consistently. History of kidney stones. History of lithotripsy. SOCIAL HISTORY: Homosexual, lives with a male partner for about 6-7 years. No animal exposures. Currently unemployed. 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 He worked in the business for about 4 years, from [id number] and did have exposure to formaldehyde and fixatives, preparing bodies. None since 2005, however. He denies current alcohol use and quit smoking 2-3 weeks ago. REVIEW OF SYSTEMS: He denies nausea or vomiting. Appetite has been very poor though and he has lost 50 to 60 pounds over about the last 6 months. No diarrhea. No swelling in his legs. No headaches. No skin rashes. PHYSICAL EXAMINATION: GENERAL: Thin, chronically ill-appearing white male, in no acute distress. VITAL SIGNS: Afebrile, pulse is 77, respirations are 16-18. O2 saturation on room air is 94%. His blood pressure is 130/80. HEENT: Sclerae pale and anicteric. He does have thrush on his tongue. NECK: No palpable adenopathy in the neck or supraclavicular region. CHEST: Remarkably clear, somewhat diminished. No basilar rales. No congestion or wheezing. HEART: Regular rhythm. No harsh murmur. ABDOMEN: Soft. No hepatosplenomegaly. EXTREMITIES: No peripheral edema or calf tenderness. No cyanosis or clubbing. DISCUSSION: Mr. Gentile presents with a very abnormal CT scan. Also, an active homosexual, possibly at risk for human immunodeficiency virus. Also a smoker. This may be a respiratory bronchiolitis or one of the other interstitial diseases. In light of the severe decline in status over the last several months, including weight loss and progressive dyspnea with this CT scan, I have recommended proceeding with a diagnostic bronchoscopy to try to establish a more definitive diagnosis. I have explained this procedure to him in simple terms so that he understands what it involves. I have also reviewed risks including, although not limited to anesthetic risks, respiratory failure post-bronchoscopy, bleeding or pneumothorax. He also understands that it may not be a definitive procedure and he could need to proceed with an open biopsy if no answers are forthcoming. I have discussed this with the hospitalist. I have suggested putting him in respiratory isolation as well in light of multiple potential etiologies, including TB. Further diagnostic and/or therapeutic intervention will depend on his ongoing clinical course and the results of these initial diagnostic studies. He is agreeable to proceed with bronchoscopy. R. MD KENA Jacob/SPENSER , 04:19 PM , 04:41 PM
[2018-03-17 18:11] LABS: Bilirubin,Urine Negative (Negative); Clarity,Urine Clear (Clear); Color,Urine Yellow (Yellw/Straw); Glucose,Urine (UA) Negative (Negative); Leukocyte Esterase,Urine Negative (Negative); Nitrite,Urine Negative (Negative); Specific Gravity,Urine 1.015 (1.002-1.035)
[2018-03-17 18:17] LABS: RBC,Urine 0-3 /hpf (0-3); WBC,Urine 0-5 /hpf (0-5)
[2018-03-18] MEDS: Sod Chloride 0.9% Inj 1,000 ML IV.CONT SCH ×3 (02:04→22:36)
[2018-03-18 05:16] LABS: Baso % (Auto) 0.1 % (0.0-2.0); Eos # (Auto) 0.2 th/mm3 (0.0-0.4); Eos % (Auto) 3.6 % (0.0-4.0); Hematocrit 30.4 % (39.0-51.0); Hemoglobin 10.4 gm/dL (13.0-17.0); Lymph # (Auto) 0.7 th/mm3 (1.0-4.8); Lymph % (Auto) 15.4 % (9.0-44.0); Mean Corpuscular Hemoglobin 28.6 pg (27.0-34.0); Mean Platelet Volume 6.9 fL (7.0-11.0); Mono # (Auto) 0.3 th/mm3 (0.0-0.9); Mono % (Auto) 7.2 % (0.0-8.0); Neut # (Auto) 3.1 th/mm3 (1.8-7.7); Neut % (Auto) 73.7 % (16.0-70.0); Platelet Count 133 th/mm3 (150-450); Red Blood Count 3.62 mil/mm3 (4.50-5.90); White Blood Count 4.3 th/mm3 (4.0-11.0)
[2018-03-18] MEDS: Morphine Sulfate Inj 2 MG/ML Vial IV.PUSH PRN ×3 (05:21→15:37)
[2018-03-18 05:23] LABS: Chloride 103 meq/L (98-107); Potassium 3.8 meq/L (3.5-5.1); Sodium 135 meq/L (136-145)
[2018-03-18 05:26] LABS: Anion Gap 10 meq/L (5-15); Calcium 7.9 mg/dL (8.5-10.1); Carbon Dioxide 22.1 meq/L (21.0-32.0); Glucose,Random 107 mg/dL (74-106)
[2018-03-18 05:27] LABS: Blood Urea Nitrogen 19 mg/dL (7-18)
[2018-03-18 05:30] LABS: Glomerular Filtration Rate Greater Than 89 mL/min (>89)
[2018-03-18] MEDS: Aspirin 325 MG Tablet PO SCH (09:52)
[2018-03-18] MEDS: Senna/Docusate Sodium 8.6/50 MG Tablet PO SCH ×2 (09:52→22:35)
--- NOTE | 2018-03-18 10:04 | P.PN ---
Subjective Interval history: Patient seen and examined today for follow-up on chest pain, abnormal CT. Patient resting comfortably on oxygen. Patient denies any recurrent chest pain. Still awaiting for the results. Awaiting for transfer to main hospital so patient undergo bronchoscopy as requested by twine reeling machine operator. Vital signs are stable, patient remains afebrile. Physical Exam Vital signs: Vital Signs 03/17/18 11:24 03/17/18 12:34 03/17/18 16:17 Temperature 97.4 F L 97.9 F Pulse Rate 77 74 Respiratory Rate 20 18 20 Blood Pressure 132/78 128/80 Pulse Oximetry 94 L 94 L 03/17/18 17:33 03/17/18 19:54 03/17/18 20:00 Temperature 99.5 F Pulse Rate 80 Respiratory Rate 18 20 Blood Pressure 131/81 Pulse Oximetry 94 L 88 L 03/18/18 00:00 03/18/18 04:00 03/18/18 06:44 Temperature 99.8 F H 98.2 F Pulse Rate 85 89 Respiratory Rate 20 20 Blood Pressure 159/84 H 148/87 H Pulse Oximetry 95 94 L 95 03/18/18 08:00 03/18/18 08:18 Temperature 96.5 F L Pulse Rate 74 Respiratory Rate 18 Blood Pressure 134/82 Pulse Oximetry 97 97 Intake & Output 03/17/18 03/18/18 03/18/18 18:59 06:59 18:59 Intake Total 780 / 780 1240 / 1240 Output Total 700 / 700 Balance 80 / 80 1240 / 1240 Weight 76 kg Intake: IV 1000 / 1000 NS Inj 1,000 ML @ 100 mls/hr IV 1000 / 1000 .CONT .Q10H [facility] Rx#:[id number] Oral 780 / 780 240 / 240 Output: Urine 700 / 700 Other: # Voids 1 # Bowel Movements 0 Narrative: GENERAL: Well-developed, well-nourished, in no acute distress. alert and orientated HEENT: Head is normocephalic without any lesions or masses noted. Facial features are symmetric. Eyes: Extraocular muscles are intact. Conjunctivae were clear. NECK: Supple without any masses. Trachea midline no deviation. No JVD, CARDIAC: Regular rhythm, regular rate. S1/S2 are heard. No murmurs gallops or rubs. LUNGS: Clear to auscultation bilaterally. No wheeze, rhonchi or rales. No use of accessory muscles on inspiration or expiration. ABDOMEN: Soft, nontender. Nondistended. Bowel sounds heard in all 4 quadrants. No organomegaly or masses. Negative rebound, negative guarding EXTREMITIES: No edema, pulses are equal bilaterally. No cyanosis or clubbing NEUROLOGY: Mood and affect appear appropriate. Cranial nerves II through XII grossly intact. Moving all extremities, speech is clear Results - Labs CBC & Chem 7: 03/18/18 04:53 03/18/18 04:53 Laboratory Results - last 24 hr 03/17/18 03/17/18 03/17/18 09:50 09:50 09:50 CBC w Diff WBC RBC Hgb Hct MCV MCH MCHC RDW Plt Count MPV Neut % (Auto) Lymph % (Auto) Sac % (Auto) Eos % (Auto) Baso % (Auto) Neut # (Auto) Lymph # (Auto) Sac # (Auto) Eos # (Auto) Baso # (Auto) WBC Differential Differential Comment ESR Greater than 140 H Retic Count 1.7 Absolute Retic 61.8 Haptoglobin Sodium Potassium Chloride Carbon Dioxide Anion Gap BUN Creatinine Estimated GFR POC Glucose Random Glucose Calcium Iron TIBC % Saturation Ferritin Lactate Dehydrogenase C-Reactive Protein C-React Prot High Sens Cancelled Triglycerides Cholesterol LDL Cholesterol, Calc HDL Cholesterol Cholesterol/HDL Ratio Vitamin B12 Folate Urine Color Urine Clarity Urine pH Ur Specific [place] Urine Protein Urine Glucose (UA) Urine Ketones Urine Occult Blood Urine Nitrate Urine Bilirubin Urine Urobilinogen Ur Leukocyte Esterase Urine RBC Urine WBC Urine Culture Comments Rheumatoid Factor Scrn Rheumatoid Factor Titer 03/17/18 03/17/18 03/17/18 09:50 09:50 09:50 CBC w Diff WBC RBC Hgb Hct MCV MCH MCHC RDW Plt Count MPV Neut % (Auto) Lymph % (Auto) Sac % (Auto) Eos % (Auto) Baso % (Auto) Neut # (Auto) Lymph # (Auto) Sac # (Auto) Eos # (Auto) Baso # (Auto) WBC Differential Differential Comment ESR Retic Count Absolute Retic Haptoglobin 279 H Sodium Potassium Chloride Carbon Dioxide Anion Gap BUN Creatinine Estimated GFR POC Glucose Random Glucose Calcium Iron 26 L TIBC 195 L % Saturation 13.4 L Ferritin 1548 H Lactate Dehydrogenase 201 C-Reactive Protein 2.14 H C-React Prot High Sens Triglycerides 255 H Cholesterol 117 L LDL Cholesterol, Calc 36 HDL Cholesterol 30.2 L Cholesterol/HDL Ratio 3.87 Vitamin B12 409 Folate 16.6 Urine Color Urine Clarity Urine pH Ur Specific [place] Urine Protein Urine Glucose (UA) Urine Ketones Urine Occult Blood Urine Nitrate Urine Bilirubin Urine Urobilinogen Ur Leukocyte Esterase Urine RBC Urine WBC Urine Culture Comments Rheumatoid Factor Scrn Negative Rheumatoid Factor Titer Not Reportable 03/17/18 03/17/18 03/17/18 12:38 16:53 17:50 CBC w Diff WBC RBC Hgb Hct MCV MCH MCHC RDW Plt Count MPV Neut % (Auto) Lymph % (Auto) Sac % (Auto) Eos % (Auto) Baso % (Auto) Neut # (Auto) Lymph # (Auto) Sac # (Auto) Eos # (Auto) Baso # (Auto) WBC Differential Differential Comment ESR Retic Count Absolute Retic Haptoglobin Sodium Potassium Chloride Carbon Dioxide Anion Gap BUN Creatinine Estimated GFR POC Glucose 101 105 Random Glucose Calcium Iron TIBC % Saturation Ferritin Lactate Dehydrogenase C-Reactive Protein C-React Prot High Sens Triglycerides Cholesterol LDL Cholesterol, Calc HDL Cholesterol Cholesterol/HDL Ratio Vitamin B12 Folate Urine Color Yellow Urine Clarity Clear Urine pH 6.0 Ur Specific [place] 1.015 Urine Protein 100 H Urine Glucose (UA) Negative Urine Ketones Negative Urine Occult Blood Negative Urine Nitrate Negative Urine Bilirubin Negative Urine Urobilinogen 2.0 H Ur Leukocyte Esterase Negative Urine RBC 0-3 Urine WBC 0-5 Urine Culture Comments Culture not ind Rheumatoid Factor Scrn Rheumatoid Factor Titer 03/17/18 03/18/18 03/18/18 20:49 04:53 04:53 CBC w Diff Auto diff final WBC 4.3 RBC 3.62 L Hgb 10.4 L Hct 30.4 L MCV 84.0 MCH 28.6 MCHC 34.0 RDW 16.0 Plt Count 133 L MPV 6.9 L Neut % (Auto) 73.7 H Lymph % (Auto) 15.4 Sac % (Auto) 7.2 Eos % (Auto) 3.6 Baso % (Auto) 0.1 Neut # (Auto) 3.1 Lymph # (Auto) 0.7 L Sac # (Auto) 0.3 Eos # (Auto) 0.2 Baso # (Auto) 0.0 WBC Differential . Differential Comment . ESR Retic Count Absolute Retic Haptoglobin Sodium 135 L Potassium 3.8 Chloride 103 Carbon Dioxide 22.1 Anion Gap 10 BUN 19 H Creatinine 0.85 Estimated GFR Greater than 89 POC Glucose 108 Random Glucose 107 H Calcium 7.9 L Iron TIBC % Saturation Ferritin Lactate Dehydrogenase C-Reactive Protein C-React Prot High Sens Triglycerides Cholesterol LDL Cholesterol, Calc HDL Cholesterol Cholesterol/HDL Ratio Vitamin B12 Folate Urine Color Urine Clarity Urine pH Ur Specific [place] Urine Protein Urine Glucose (UA) Urine Ketones Urine Occult Blood Urine Nitrate Urine Bilirubin Urine Urobilinogen Ur Leukocyte Esterase Urine RBC Urine WBC Urine Culture Comments Rheumatoid Factor Scrn Rheumatoid Factor Titer Microbiology 03/17/18 17:50 Urine - Clean Catch Urine Streptococcus pneumoniae Antigen ( M - Final Presumptive negative for streptococcus pneumoniae antigen, suggesting no current or recent infection. Infection due to Streptococcus pneumoniae cannot be ruled out since the antigen present in the sample may be below the detection limit of the test. 03/17/18 17:50 Urine - Clean Catch Urine Legionella Antigen - Final Presumptive negative for Legionella pneumophila serogroup 1 antigen in urine, suggesting no recent or recurrent infection. Infection due to Legionella cannot be ruled out since other serogroups and species may cause disease, antigen may not be present in urine in early infection, and the level of antigen present in the urine may be below the detection limit of the test. - Imaging Impressions Myocardial Perfusion Scan Nuc Med 03/17/18 08:24 CONCLUSION: 1. No reversible perfusion defects to suggest ischemia. 2. 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 3. Ejection fraction 52%. Assessment and Plan - Assessment (1) Chest pain Code(s): R07.9 - Chest pain, unspecified Status: Acute Plan: -Patient does have increased risk factors include age, male, history of myocardial infarction, coronary disease, history of tobacco use, hyperlipidemia , family history of heart disease, diabetes -Patient has been ruled out for acute coronary event with serial cardiac enzymes that have remained negative -Serial EKGs reviewed by myself shows changes indicative of old inferior and lateral UT. No acute changes -Myocardial perfusion study was performed and indicated no signs of ischemia, low risk -Continue aspirin, nitroglycerin as needed, -Continue monitor telemetry -Continue oxygen as needed -LDL 36 (2) Pancytopenia Code(s): D61.818 - Other pancytopenia Status: Acute Plan: -Etiology unknown at this time, liver enzymes are unremarkable for any underlying liver disease. Will need further evaluation -B12, folate, reticulocyte count are all within normal limits. Patient does have a low iron, however elevated ferritin level, haptoglobin also mildly elevated, however LDH is normal. -Obtain protein and hemoglobin electrophoresis -Consult hematology for recommendations (3) Abnormal CT of the chest Code(s): R93.8 - Abnormal findings on diagnostic imaging of other specified body structures Status: Acute Plan: -CT scan shows worsening upper lobe lung disease of unknown etiology -Patient has not been having any clinical symptoms, patient does not have any fever, cough. No leukocytosis -Patient does have elevated sed rate, C-reactive protein -Rheumatoid factor with negative, Streptococcus pneumonia antigen, Legionella antigen were negative -HIV, mycoplasma testing, alpha-1 antitrypsin are still pending -Awaiting sputum culture -Consult pulmonology for further evaluation and recommendations -Discussed with twine reeling machine operator who requested the patient be transferred to the main hospital for bronchoscopy, twine reeling machine operator requested patient have airborne isolation (4) Diabetes Code(s): E11.9 - Type 2 diabetes mellitus without complications Status: Chronic Plan: -We will start diabetic diet after stress testing -Accu-Cheks with sliding scale insulin - Plan DVT prevention -Sequential compression devices Discharge Planning: Discharge planning in 2-3 days depending on when patient is to have bronchoscopy and cleared by twine reeling machine operator
[2018-03-18] MEDS ORDERED: RESP: Lidocaine PF 4% 5 ML Neb NEB SCH (12:30)
[2018-03-18] MEDS ORDERED: RESP: Albuterol Concentrated 2.5 MG/0.5 ML Neb NEB SCH (12:30)
[2018-03-18] MEDS: Insulin NovoLOG Aspart Correctional Sugar Inj SQ SCH ×4 (17:44→22:26)
--- NOTE | 2018-03-18 19:00 | P.CON ---
History of Present Illness Service: Hematology/oncology Consult date: 03/18/18 Primary Care Provider: No Primary Care Physician Family Provider: No Primary Care Physician Chief Complaint: Substernal chest pain. 100 pound unintended weight loss over the past 4mth History of Present Illness: Mr. 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 Patient reports over the past month and a half having had unexplained weight loss of up to 100 pounds. He tells me his appetite had been fair but despite eating close to normal quantities of food he has lost significant amount of weight. On the day of presentation to this facility he developed substernal chest pain which was sudden in onset. Reports generalized difficulty breathing with exertion and a dry chronic cough. After presentation to the hospital the patient underwent CT angiogram of the chest to rule out pulmonary embolism as a part of the chest pain workup. There was no evidence of pulmonary emboli however he was found to have diffuse patchy infiltrates involving all lobes of the lungs bilaterally. The patient has been ovale by pulmonology and has been recommended bronchoscopy with bronchial washings and possible biopsies. CBC revealed anemia which is unexplained as well as thrombocytopenia which is mild. The patient has a normal WBC count but absolute lymphocyte count is depleted. LDH levels are noted to be elevated, there is no definite evidence of hemolysis given normal total bilirubin levels. HIV testing and hepatitis panel is pending. Review of Systems Constitutional: Reports fatigue, Reports lack of energy, Reports malaise, Reports weakness, Reports weight loss, Denies anorexia, Denies body ache(s), Denies chills, Denies daytime sleepiness, Denies excessive sweating, Denies fever(s), Denies headache(s), Denies increased appetite, Denies night sweats, Denies weight gain Ears, Nose, Mouth, and Throat: Denies abnormal hearing, Denies bleeding gums, Denies bad breath, Denies change in voice, Denies dental pain, Denies difficulty swallowing, Denies dizziness, Denies dry mouth, Denies ear discharge , Denies ear pain, Denies facial pain, Denies headache(s), Denies hearing loss, Denies hoarseness, Denies lip swelling, Denies nosebleed, Denies mouth lesions, Denies mouth pain, Denies nasal congestion, Denies nasal discharge, Denies nasal obstruction, Denies nasal trauma, Denies neck lump, Denies neck pain, Denies nose pain, Denies pain with swallowing, Denies poor balance, Denies post nasal drip, Denies ringing in the ears, Denies sinus pain, Denies sinus pressure , Denies sore throat, Denies throat swelling, Denies tongue swelling, Denies other Cardiovascular: Reports chest pain, Reports chest pain at rest, Reports shortness of breath when lying down, Denies chest pain with activity, Denies excessive sweating, Denies fainting, Denies fast heart rate, Denies foot swelling, Denies generalized swelling, Denies irregular heart rhythm, Denies leg pain with activity, Denies leg sores, Denies leg swelling, Denies lightheadedness, Denies radiating jaw, neck or arm pain, Denies rapid, pounding , or irregular heartbeat, Denies shortness of breath, Denies shortness of breath with activity, Denies shortness of breath causing sudden awakening, Denies slow heart rate, Denies other Respiratory: Reports change in phlegm color, Reports cough, Reports pain on inspiration, Reports shortness of breath, Reports shortness of breath with activity, Denies chest congestion, Denies coughing up blood, Denies excessive phlegm production, Denies pain with cough, Denies snoring, Denies stridor, Denies wheezing Gastrointestinal: Reports change in bowel habits, Reports loose stools, Denies abdominal pain, Denies belching, Denies black, tarry stools, Denies bloating, Denies bright, red blood in stools, Denies constant urge to pass stool, Denies change in stools, Denies coffee ground vomit, Denies constipation, Denies cramping, Denies difficulty swallowing, Denies excessive passing of gas, Denies feeling full early, Denies heartburn, Denies incontinent of stools, Denies nausea, Denies pain with swallowing, Denies vomiting, Denies vomiting blood Genitourinary: Denies blood in semen, Denies blood in urine, Denies decreased urination, Denies difficulty urinating, Denies difficulty with ejaculations, Denies erectile dysfunction, Denies genital lesions, Denies genital pain, Denies painful urination, Denies side pain, Denies frequent nighttime urination , Denies painful ejaculations, Denies penile discharge, Denies scrotal swelling , Denies testicle lump, Denies testicle pain, Denies urinary frequency, Denies urinary hesitancy, Denies urinary incontinence, Denies urinary urgency, Denies other Musculoskeletal: Denies abnormal walking, Denies back pain, Denies body aches, Denies decreased muscle mass, Denies deformity, Denies joint pain, Denies joint swelling, Denies limited joint movement, Denies loss of height, Denies muscle cramps, Denies muscle weakness, Denies neck pain, Denies numbness, Denies radiating pain into limb, Denies stiffness, Denies tingling, Denies other Skin/Breast: Denies acne, Denies bleeding lesions, Denies boil, Denies breast swelling, Denies breast skin changes, Denies breast pain, Denies breast lump, Denies change in breast shape, Denies change in hair, Denies change in skin color, Denies changing lesions, Denies dry skin, Denies excessive hair growth, Denies hair loss, Denies itching, Denies lesions, Denies nail changes, Denies new lesions, Denies nipple discharge, Denies non-healing lesions, Denies redness , Denies sensitivity to light, Denies rash, Denies skin pain, Denies skin ulcer , Denies sores, Denies stretch muller, Denies unusual bruising, Denies wounds, Denies yellowing of the skin, Denies other Neurologic: Denies abnormal hearing, Denies abnormal movements, Denies abnormal speech, Denies abnormal walking, Denies behavioral changes, Denies burning sensations, Denies confusion, Denies dizziness, Denies fainting, Denies frequent falls, Denies headache(s), Denies lack of coordination, Denies localized weakness, Denies loss of vision, Denies memory loss, Denies numbness, Denies other visual disturbances, Denies radiating pain, Denies restless legs, Denies convulsions, Denies seizure-like activity, Denies sensory deficit, Denies tingling, Denies tingling/numbness/burning sensations, Denies tremor(s), Denies unsteadiness, Denies weakness, Denies other Psychiatric: Denies abnormal sleep pattern, Denies anxiety, Denies behavioral changes, Denies change in appetite, Denies change in sex drive, Denies confusion , Denies depression, Denies difficulty concentrating, Denies hearing things others do not hear, Denies hopelessness, Denies irritability, Denies lack of enjoyment, Denies memory loss, Denies mood swings, Denies panic attacks, Denies paranoia, Denies seeing things others do not see, Denies sensing things others do not sense, Denies tactile hallucinations, Denies thoughts of hurting/killing others, Denies thoughts of hurting/killing yourself, Denies other Endocrine: Denies cold intolerance, Denies excessive sweating, Denies flushing, Denies heat intolerance, Denies increased hunger, Denies increased thirst, Denies increased urination, Denies rapid, pounding, or irregular heartbeat, Denies other Hematologic/Lymphatic: Denies easy bleeding, Denies easy bruising, Denies enlarged lymph nodes, Denies other Allergic/Immunologic: Denies GI upset with certain foods, Denies hives, Denies itchy eyes, Denies lip swelling, Denies seasonal runny nose, Denies throat swelling, Denies tongue swelling, Denies wheezing, Denies other PMFSH - History History Provided By: Patient, Medical Record - Medical History Medical History: Medical History (Last Updated 03/17/18 @ 08:21 by NANDINI Spence) Coronary artery disease History of nephrolithiasis History of pancreatitis Hyperlipemia Myocardial infarction Decreased vision Diabetes History of dental problems Kidney stones - Surgical History Surgical History: Surgical History (Last Updated 03/17/18 @ 08:16 by NANDINI Spence) History of coronary artery stent placement History of lithotripsy Hx of cardiac cath - Family History Family History: Family History (Last Updated 03/17/18 @ 08:24 by NANDINI Spence) Mother Family history of renal failure Grandparent No problems noted. Father Family history of coronary artery disease - Tobacco History Second Hand Smoke Exposure: No Tobacco Use In Past 30 Days: Yes Smoking Status: Former smoker (Smoked for total of 30 years, quit 2 months ago.) Tobacco Type: Cigarettes - Alcohol History How Often Do You Have a Drink Containing Alcohol: Never - Substance Use History Substance History: No History of Abuse - Travel History Recent Travel in the [place] Within the Last 8 Weeks: No Recent Travel Out of the Country Within the Last 8 Weeks: No - Immunization History Tetanus Immunization: >5 Years Hx Influenza Vaccine This Season: No Medications and Allergies Active Medications: Active Medications Acetaminophen (Tylenol) 650 mg PO Q4H PRN PRN Reason: Temp > 100.4 Hydrocodone Bitart/Acetaminophen ([place] 7.5/325) 1 tab PO Q6H PRN PRN Reason: PAIN SCALE 6 TO 10 Al Hydroxide/Mg Hydroxide (Milk Of Magnesia Liq) 30 ml PO Q12H PRN PRN Reason: Mild Constipation Albuterol (Albuterol Concentrated Neb) 2.5 mg [employer] [facility] Stop: 03/22/18 12:29 Bisacodyl (Dulcolax Supp) 10 mg RECTAL DAILY PRN PRN Reason: SEVERE CONSITIPATION Dextrose (D50w Vial) 50 ml IV.PUSH UNSCH PRN PRN Reason: PER HYPOGLYCEMIA PROTOCOL Glucagon (Glucagon Inj) 1 mg OTHER PRN PRN PRN Reason: for Hypoglycemia Protocol Sodium Chloride (Ns Inj) 1,000 mls @ 100 mls/hr IV.CONT .Q10H [facility] Last Admin: 03/18/18 15:39 Dose: Not Given Dextrose/Sodium Chloride (D5w/1/2 Ns Inj) 1,000 mls @ 30 mls/hr IV.CONT .Q24H [facility] Stop: 03/19/18 20:00 Insulin Aspart (Novolog Insulin Suppl Scale Inj) 0 unit SQ ACHS [facility]; Protocol Last Admin: 03/18/18 17:46 Dose: Not Given Lactulose (Lactulose Liq) 30 ml PO DAILY PRN PRN Reason: SEVERE CONSITIPATION Lidocaine HCl (Lidocaine Pf 4% Neb) 3 ml [employer] [facility] Stop: 03/22/18 12:29 Nitroglycerin (Nitrostat Sl) 0.4 mg SL Q5M PRN PRN Reason: CHEST PAIN Ondansetron HCl (Zofran Inj) 4 mg IV.PUSH Q6H PRN PRN Reason: NAUSEA OR VOMITING Senna/Docusate Sodium (Amada-Colace) 1 tab PO BID [facility] Last Admin: 03/18/18 09:52 Dose: 1 tab Sennosides (Senokot) 17.2 mg PO Q12H PRN PRN Reason: Moderate Constipation Temazepam (Restoril) 15 mg PO HS PRN PRN Reason: INSOMNIA Allergies Allergy/AdvReac Type Severity Reaction Status Date / Time No Known Allergies Allergy Verified 03/16/18 17:23 Home Medications Medication Instructions Recorded Confirmed Type metformin 500 mg PO BID 03/11/18 03/16/18 History aspirin 325 mg PO DAILY 03/16/18 03/16/18 History Physical Exam Vital signs: Vital Signs 03/17/18 19:54 03/17/18 20:00 03/18/18 00:00 Temperature 99.5 F 99.8 F H Pulse Rate 80 85 Respiratory Rate 20 20 Blood Pressure 131/81 159/84 H Pulse Oximetry 94 L 88 L 95 03/18/18 04:00 03/18/18 06:44 03/18/18 08:00 Temperature 98.2 F 96.5 F L Pulse Rate 89 74 Respiratory Rate 20 18 Blood Pressure 148/87 H 134/82 Pulse Oximetry 94 L 95 97 03/18/18 08:18 03/18/18 12:00 03/18/18 16:00 Temperature 96.8 F L 97.0 F L Pulse Rate 67 64 Respiratory Rate 16 16 Blood Pressure 134/77 149/82 H Pulse Oximetry 97 92 L 93 L 03/18/18 16:20 Temperature Pulse Rate Respiratory Rate Blood Pressure Pulse Oximetry 91 L Intake & Output 03/17/18 03/18/18 03/18/18 18:59 06:59 18:59 Intake Total 780 / 780 1240 / 1240 Output Total 700 / 700 Balance 80 / 80 1240 / 1240 Weight 76 kg Intake: IV 1000 / 1000 NS Inj 1,000 ML @ 100 mls/hr IV 1000 / 1000 .CONT .Q10H [facility] Rx#:[id number] Oral 780 / 780 240 / 240 Output: Urine 700 / 700 Other: # Voids 1 # Bowel Movements 0 - Constitutional no acute distress, somnolent - Routine HEENT Exam Head: Present: normocephalic, atraumatic. Absent: cushingoid faces, abrasion, laceration, hematoma, Guaman's sign, CSF rhinorrhea, CSF otorrhea, scalp tenderness, tenderness of temporal artery, facial swelling Eye: Present: EOMI, PERRL, normal accommodation. Absent: conjunctival icterus, scleral injection, conjunctivae pink, periorbital ecchymosis, periorbital swelling, periorbital tenderness ENT: Present: mucous membranes moist, oropharynx clear. Absent: dentition normal, nares patent, sinus tenderness, septal deviation, external ear normal - Routine Neck Exam Present: supple, full ROM. Absent: carotid bruit, normal carotid upstroke, lymphadenopathy, thyromegaly, tenderness, swelling, trachea midline, tracheal deviation, trauma - Routine Respiratory Exam Present: prolonged expiratory phase, crackles (Faint crackles). Absent: accessory muscle use, patient mechanically ventilated, decreased breath sounds, rales, respiratory distress, rhonchi, stridor, wheezes, distant breath sounds, diminished air movement - Routine Cardiovascular Exam Present: RRR, S1, S2. Absent: murmur, gallop, rubs, S3, S4, click, bradycardia , tachycardia, irregular rhythm - Routine Abdominal Exam Present: soft, normoactive bowel sounds, guarding. Absent: tenderness, distended, rebound, firm, rigid, organomegaly, mass, hernia, bruit, surgical scars - Routine Extremities Exam Absent: cyanosis, clubbing, edema, full ROM, pulses intact, normal capillary refill, calf tenderness, palpable cord, Blessing's sign, tenderness, joint swelling - Routine Skin Exam Present: intact, warm. Absent: cyanosis, erythema, dry, pallor, mottling, petechiae, urticaria, lesions, jaundice, normal turgor, scars, rash - Routine Neurological Exam Present: alert, oriented X3, CN II-XII intact, moving all extremities, normal tone, vision grossly intact, hearing grossly intact, normal speech. Absent: sensory deficit, motor deficit, plantar reflex, altered mental status, nystagmus , hemineglect, fasciculations, facial asymmetry, tremors, asterixis - Detailed Neurological Exam: Coma Scale Eye Opening: Spontaneous Verbal Response: Oriented Motor Response: Obey commands Mily Coma Scale Total: 15 - Routine Psychiatric Exam Present: normal affect - Additional findings Additional findings: CT angiogram dated 03/16/2018: Conclusion: 1. Negative for pulmonary embolus. 2. Marked progression of predominantly upper lobe parenchymal disease when compared to 01/09/2018. Differential diagnosis includes drug reaction, chronic hypersensitivity or atypical infection. Assessment and Plan - Assessment (1) Anemia Code(s): D64.9 - Anemia, unspecified Status: Acute Plan: Review peripheral blood smear. Initiate anemia workup including serum iron studies, folic acid and vitamin B12 levels. Serum protein electrophoresis has been ordered. Patient's LDH and ESR elevated indicating possible inflammatory process. We will order stool for occult blood testing. (2) Thrombocytopenia Code(s): D69.6 - Thrombocytopenia, unspecified Status: Acute Plan: Review peripheral smear. Hepatitis and HIV screening studies ordered. Possibly related to acute inflammatory process such as atypical pneumonia. - Plan Await results of anemia and thrombocytopenia workup. I suspect the anemia and thrombus cytopenia both secondary to acute inflammatory issues which are likely causing the bilateral pulmonary infiltrates. HIV and hepatitis panels are pending; the patient is a homosexual. 100 pound unintended weight loss of past several months; only increases my concern of a chronic inflammatory/infectious disorder. The distribution and appearance of the bilateral patchy infiltrates in the lungs raise the concern for possible underlying opportunistic pneumonia. Discussed Condition With: Patient (1) Anemia Qualifiers: Anemia type: unspecified type Qualified Code(s): D64.9 - Anemia, unspecified
[2018-03-19 02:15] LABS: Hepatitis A IgM Antibody Nonreactive (Nonreactive); Hepatitits B Surface Antigen Nonreactive (Nonreactive)
[2018-03-19] MEDS ORDERED: Dextrose 5%/NaCl 0.45% Inj 1,000 ML IV.CONT SCH (09:30)
--- NOTE | 2018-03-19 15:01 | P.PN ---
Subjective Interval history: Follow up for chest pain, abnormal chest CT, pancytopenia. The patient reports continued diffuse anterior chest pain, only with deep inspiration and occasional dry nonproductive cough. Denies fevers/chills. He does report occasional night sweats but none recently. Denies any shortness of breath. He is anxious to proceed with bronchoscopy today. He has no other medical complaints at this time. Physical Exam Vital signs: Vital Signs 03/18/18 16:00 03/18/18 16:20 03/18/18 20:00 Temperature 97.0 F L 98.8 F Pulse Rate 64 61 Respiratory Rate 16 18 Blood Pressure 149/82 H 141/82 H Pulse Oximetry 93 L 91 L 94 L 03/18/18 23:35 03/19/18 03:35 03/19/18 05:55 Temperature 99.3 F 99.3 F Pulse Rate 78 82 74 Respiratory Rate 20 20 Blood Pressure 154/76 H 138/81 Pulse Oximetry 94 L 93 L 03/19/18 07:34 Temperature 98.2 F Pulse Rate 79 Respiratory Rate 18 Blood Pressure 129/81 Pulse Oximetry 97 Intake & Output 03/18/18 03/19/18 03/19/18 18:59 06:59 18:59 Intake Total 720 / 720 750 / 750 Output Total 950 / 950 Balance -230 / -230 750 / 750 Weight 76 kg Intake: Oral 720 / 720 750 / 750 Output: Urine 950 / 950 Other: # Voids 3 # Bowel Movements 1 Narrative: GENERAL: Well-nourished, well-developed middle aged male patient in [facility]. SKIN: Warm and dry. No rash. HEENT: Normocephalic. Atraumatic. Pupils equal and round. Mucous membranes pink and moist. NECK: Supple. Trachea midline. CARDIOVASCULAR: Regular rate and rhythm. No murmur appreciated. RESPIRATORY: No accessory muscle use. Clear to auscultation. Breath sounds equal bilaterally. GASTROINTESTINAL: Abdomen soft, non-tender, nondistended. Normoactive bowel sounds x4. MUSCULOSKELETAL: No obvious deformities. Extremities without clubbing, cyanosis , or edema. NEUROLOGICAL: Awake and alert. No obvious cranial nerve deficits. Motor grossly within normal limits. Moving all extremities spontaneously. Normal speech. PSYCHIATRIC: Appropriate mood and affect; insight and judgment normal. Results - Labs CBC & Chem 7: 03/18/18 04:53 03/18/18 04:53 Laboratory Results - last 24 hr 03/17/18 03/18/18 03/18/18 09:50 10:34 17:44 POC Glucose 129 H Total Protein (PEP) 7.6 Vitamin B12 Folate Hepatitis A IgM Ab Hep Bs Antigen Hep B Core IgM Ab Hep C IgG Ab M. pneumoniae Interp . Mycoplasma pneumon IgG Positive Mycoplasma pneumon IgM Negative 03/18/18 03/18/18 03/18/18 19:28 19:28 19:28 POC Glucose Total Protein (PEP) Vitamin B12 364 Folate 13.5 Hepatitis A IgM Ab Nonreactive Hep Bs Antigen Nonreactive Hep B Core IgM Ab Nonreactive Hep C IgG Ab Nonreactive M. pneumoniae Interp Mycoplasma pneumon IgG Mycoplasma pneumon IgM 03/18/18 03/19/18 21:19 10:33 POC Glucose 120 H 98 Total Protein (PEP) Vitamin B12 Folate Hepatitis A IgM Ab Hep Bs Antigen Hep B Core IgM Ab Hep C IgG Ab M. pneumoniae Interp Mycoplasma pneumon IgG Mycoplasma pneumon IgM Assessment and Plan - Assessment (1) Chest pain Code(s): R07.9 - Chest pain, unspecified Status: Acute (2) Pancytopenia Code(s): D61.818 - Other pancytopenia Status: Acute (3) Abnormal CT of the chest Code(s): R93.8 - Abnormal findings on diagnostic imaging of other specified body structures Status: Acute (4) Diabetes Code(s): E11.9 - Type 2 diabetes mellitus without complications Status: Chronic - Plan 52-year-old male with known history of CAD/UT s/p stenting, hyperlipidemia, diabetes, history of tobacco use who presented to the hospital due to acute onset of chest pain. Chest Pain: atypical. Patient does have increased risk factors include age, male , history of CAD/UT, history of tobacco use, hyperlipidemia, family history of heart disease, diabetes. -ACS ruled out with negative serial cardiac enzymes -EKGs reviewed, no acute ischemic changes -Nuclear stress test negative for ischemia, low risk -Continue aspirin, nitro prn, O2 prn -Monitor on telemetry -LDL 36 -Suspect pleuritic with abnormal chest CT, and pain mostly on deep inspiration, see below Pancytopenia: WBC 3.9, Hgb 10.8, Hct 31.3, Plt 137K -Etiology unknown at this time, liver enzymes are unremarkable for any underlying liver disease. -B12, folate, reticulocyte count are all within normal limits. -Patient does have a low iron, however elevated ferritin level, haptoglobin also mildly elevated, however LDH is normal. -Obtain protein and hemoglobin electrophoresis -Obtain stool Hemoccult -Consult hematology, appreciate recommendations Abnormal Chest CT: Patient has minimal clinical symptoms, nonproductive cough with mild pleuritic chest pain. No fever, no sputum production, no leukocytosis. -CT scan shows worsening upper lobe lung disease of unknown etiology -Patient does have elevated sed rate, C-reactive protein -Rheumatoid factor negative, Streptococcus pneumonia antigen negative, Legionella antigen were negative -HIV pending -mycoplasma IgG positive -alpha-1 antitrypsin are still pending -Awaiting sputum culture however patient without any sputum production -Consulted pulmonology, plan for bronchoscopy today -traffic recorder requested patient to have airborne isolation Diabetes Mellitus: -Start diabetic diet after bronchoscopy -Monitor Accu-checks and cover with sliding scale insulin DVT Prophylaxis: teds/SCDs Discharge Planning: Discharge pending bronchoscopy and clearance from pulmonology and hematology.
[2018-03-19] MEDS ORDERED: Sugammadex Inj 200 MG/2 ML Vial IV.PUSH ONE (16:44)
--- NOTE | 2018-03-19 16:48 | MP ---
cc: Vonda Lopez MD, Steven MD DATE OF OPERATION: 03/19/2018 PROCEDURE PERFORMED: Bronchoscopy. INDICATIONS FOR PROCEDURE: Diffuse pulmonary infiltrate. PROCEDURAL STATEMENT: After informed consent was obtained, the patient underwent diagnostic bronchoscopy with general anesthesia. Examination of the mid to distal trachea was unremarkable. Examination of the left upper lobe, lingula and lower lobe orifices was entirely unremarkable. Examination of the right main stem bronchus, right upper lobe, lower lobe, middle lobe, all normal with no endobronchial pathology. In light of the diffuse nature of the infiltrates, left upper lobe was cannulated and lavaged and submitted for cytologies P. carinii as well as cytology. Examination of the right upper lobe and then cannulation with bronchoalveolar lavage submitted for all cultures including AFB and fungus. P. carinii and cytology. Utilizing fluoroscopic guidance, we then did a transbronchial biopsy from the right upper lobe. There was fairly brisk bleeding initially that was controlled with iced saline. No active bleeding at the end of the procedure and fluoroscopically the right upper lobe looked normal. The patient is being prepared for recovery. Portable chest x-ray Stat is pending. RMD KENA Carrion/ , 04:35 PM , 04:46 PM
[2018-03-19] MEDS ORDERED: MethylPREDNISolone Sod Succinate Inj 40 MG/ML Vial ONE (17:09)
[2018-03-19] MEDS ORDERED: fentaNYL Citrate Inj 100 MCG/2 ML Ampul ONE (17:17)
[2018-03-19 17:24] LABS: HIV 1 Antibody Positive (Negative); HIV 2 Antibody Negative (Negative)
[2018-03-19] MEDS: Insulin NovoLOG Aspart Correctional Sugar Inj SQ SCH ×4 (17:58→21:21)
--- NOTE | 2018-03-19 18:16 | XR ---
EXAM DATE: 03/19/2018 6:12 PM EDT AGE/SEX: 52 years / Male INDICATIONS: Status post bronchoscopy. Evaluate for pneumothorax. CLINICAL DATA: This is the patient's subsequent encounter. Patient reports that signs and symptoms h ave been present for 1 day and indicates a pain score of Nonresponsive. MEDICAL/SURGICAL HISTORY: . Diabetes. Renal calculi. . Cardiac catheter. COMPARISON: [facility], CHEST 1V SINGLE AP, 03/16/2018. . FINDINGS: Patchy airspace consolidation seen of both lungs. An area of more confluent and probably worsening co nsolidation is seen in the right upper lobe. No pleural effusion. No pneumothorax. Heart size stable, within normal limits. CONCLUSION: No pneumothorax. Patchy bilateral and right upper lobe infiltrates are again seen. Please see above. Electronically signed by: Chin Jaffe MD 03/19/2018 6:14 PM EDT
[2018-03-19] MEDS: Senna/Docusate Sodium 8.6/50 MG Tablet PO SCH ×2 (20:15→21:41)
[2018-03-19] MEDS: Sod Chloride 0.9% Inj 1,000 ML IV.CONT SCH ×2 (21:41→21:43)
[2018-03-19] MEDS: MethylPREDNISolone Sod Succinate Inj 40 MG/ML Vial IV.PUSH SCH (21:42)
[2018-03-20] MEDS: MethylPREDNISolone Sod Succinate Inj 40 MG/ML Vial IV.PUSH SCH ×3 (05:53→22:17)
[2018-03-20] MEDS: Sod Chloride 0.9% Inj 1,000 ML IV.CONT SCH ×2 (05:53→17:26)
[2018-03-20] MEDS: Insulin NovoLOG Aspart Correctional Sugar Inj SQ SCH ×4 (08:50→22:11)
[2018-03-20] MEDS: Senna/Docusate Sodium 8.6/50 MG Tablet PO SCH ×2 (08:50→22:12)
[2018-03-20 10:39] LABS: Baso % (Auto) 0.2 % (0.0-2.0); Hematocrit 31.1 % (39.0-51.0); Hemoglobin 10.4 gm/dL (13.0-17.0); Lymph # (Auto) 0.2 th/mm3 (1.0-4.8); Lymph % (Auto) 6.4 % (9.0-44.0); Mean Corpuscular HGB Conc 33.6 % (32.0-36.0); Mean Corpuscular Hemoglobin 28.3 pg (27.0-34.0); Mean Corpuscular Volume 84.2 fL (80.0-100.0); Mean Platelet Volume 7.1 fL (7.0-11.0); Mono # (Auto) 0.1 th/mm3 (0.0-0.9); Neut # (Auto) 2.6 th/mm3 (1.8-7.7); Neut % (Auto) 88.4 % (16.0-70.0); Platelet Count 140 th/mm3 (150-450); Red Blood Count 3.69 mil/mm3 (4.50-5.90); Red Cell Distribution Width 16.4 % (11.6-17.2)
[2018-03-20 11:00] LABS: Calcium 8.3 mg/dL (8.5-10.1); Carbon Dioxide 20.8 meq/L (21.0-32.0); Potassium 3.7 meq/L (3.5-5.1)
--- NOTE | 2018-03-20 11:27 | P.PN ---
Subjective Interval history: Follow up for pleuritic chest pain, atypical pulmonary infiltrates with hypoxemia, newly diagnosed HIV. The patient reports continued dry nonproductive cough with associated pleuritic chest pains across bilateral upper anterior chest. Denies any fevers/chills/night sweats overnight. He states when he starts coughing, sometimes he has trouble catching his breath. Denies any wheezing. Denies any dyspnea on exertion. Denies any lower extremity edema or orthopnea. We discussed his new diagnosis of HIV. Recommended the patient become established with HIV provider as outpatient. Also discussed importance of notifying any sexual contacts. Multiple questions answered. He has no other medical complaints at this time. Physical Exam Vital signs: Vital Signs 03/19/18 16:00 03/19/18 17:04 03/19/18 17:15 Temperature 97.5 F L Pulse Rate 83 83 80 Respiratory Rate 18 15 16 Blood Pressure 128/77 117/78 Pulse Oximetry 93 L 95 03/19/18 17:30 03/19/18 17:45 03/19/18 17:59 Temperature 97.8 F Pulse Rate 79 78 79 Respiratory Rate 20 16 20 Blood Pressure 118/74 118/75 114/68 Pulse Oximetry 96 95 95 03/19/18 20:00 03/19/18 21:41 03/19/18 23:59 Temperature 98.4 F 98.5 F Pulse Rate 76 76 74 Respiratory Rate 17 15 18 Blood Pressure 115/80 126/77 Pulse Oximetry 96 95 03/20/18 03:15 03/20/18 03:34 03/20/18 08:36 Temperature Pulse Rate 72 86 73 Respiratory Rate 17 17 18 Blood Pressure 134/75 Pulse Oximetry 93 L 85 L Intake & Output 03/19/18 03/20/18 03/20/18 18:59 06:59 18:59 Intake Total 1720 / 1720 Balance 1720 / 1720 Intake: IV 1000 / 1000 NS Inj 1,000 ML @ 100 mls/hr IV 1000 / 1000 .CONT .Q10H [facility] Rx#:[id number] Oral 720 / 720 Other: # Voids 2 3 # Incontinent Voids 1 Date of Last Bowel Movement 03/19/18 03/19/18 # Incontinent Bowel Movements 1 Narrative: GENERAL: Well-nourished, well-developed middle aged male patient in [facility]. SKIN: Warm and dry. No rash. HEENT: Normocephalic. Atraumatic. Pupils equal and round. Mucous membranes pink and moist. CARDIOVASCULAR: Regular rate and rhythm. No murmur appreciated. RESPIRATORY: No accessory muscle use. Faint rales at bilateral upper lobes, otherwise clear to auscultation. Breath sounds equal bilaterally. GASTROINTESTINAL: Abdomen soft, non-tender, nondistended. Normoactive bowel sounds x4. MUSCULOSKELETAL: No obvious deformities. Extremities without clubbing, cyanosis , or edema. NEUROLOGICAL: Awake and alert. No obvious cranial nerve deficits. Motor grossly within normal limits. Moving all extremities spontaneously. Normal speech. PSYCHIATRIC: Appropriate mood and affect; insight and judgment normal. Results - Labs CBC & Chem 7: 03/20/18 10:12 03/20/18 10:12 Laboratory Results - last 24 hr 03/17/18 03/17/18 03/17/18 09:50 09:50 21:23 WBC RBC Hgb Hct MCV MCH MCHC RDW Plt Count MPV Neut % (Auto) Lymph % (Auto) [place] % (Auto) Eos % (Auto) Baso % (Auto) Neut # (Auto) Lymph # (Auto) [place] # (Auto) Eos # (Auto) Baso # (Auto) WBC Differential Differential Comment Sodium Potassium Chloride Carbon Dioxide Anion Gap BUN Creatinine Estimated GFR POC Glucose Random Glucose Calcium C-React Prot High Sens Cancelled [id number] 171 HIV-1 Antibody Positive HIV-2 Antibody Negative HIV (1&2) Ag & Ab Refer Reactive M. pneumoniae Interp . Mycoplasma pneumon IgG Positive Mycoplasma pneumon IgM Negative Misc Test Result Misc Test Comment 03/19/18 03/19/18 03/19/18 15:31 16:15 17:30 WBC RBC Hgb Hct MCV MCH MCHC RDW Plt Count MPV Neut % (Auto) Lymph % (Auto) [place] % (Auto) Eos % (Auto) Baso % (Auto) Neut # (Auto) Lymph # (Auto) [place] # (Auto) Eos # (Auto) Baso # (Auto) WBC Differential Differential Comment Sodium Potassium Chloride Carbon Dioxide Anion Gap BUN Creatinine Estimated GFR POC Glucose 94 152 H Random Glucose Calcium C-React Prot High Sens [id number] HIV-1 Antibody HIV-2 Antibody HIV (1&2) Ag & Ab Refer M. pneumoniae Interp Mycoplasma pneumon IgG Mycoplasma pneumon IgM Misc Test Result Cancelled Misc Test Comment Cancelled 03/19/18 03/20/18 03/20/18 21:12 10:12 10:12 WBC 3.0 L RBC 3.69 L Hgb 10.4 L Hct 31.1 L MCV 84.2 MCH 28.3 MCHC 33.6 RDW 16.4 Plt Count 140 L MPV 7.1 Neut % (Auto) 88.4 H Lymph % (Auto) 6.4 L [place] % (Auto) 5.0 Eos % (Auto) 0.0 Baso % (Auto) 0.2 Neut # (Auto) 2.6 Lymph # (Auto) 0.2 L [place] # (Auto) 0.1 Eos # (Auto) 0.0 Baso # (Auto) 0.0 WBC Differential . Differential Comment Auto diff final Sodium 138 Potassium 3.7 Chloride 104 Carbon Dioxide 20.8 L Anion Gap 13 BUN 22 H Creatinine 1.02 Estimated GFR 76 L POC Glucose 169 H Random Glucose 234 H Calcium 8.3 L C-React Prot High Sens [id number] HIV-1 Antibody HIV-2 Antibody HIV (1&2) Ag & Ab Refer M. pneumoniae Interp Mycoplasma pneumon IgG Mycoplasma pneumon IgM Misc Test Result Misc Test Comment - Imaging Impressions Chest X-Ray 03/19/18 16:27 CONCLUSION: No pneumothorax. Patchy bilateral and right upper lobe infiltrates are again seen. Please see above. Chest CTA 03/16/18 18:47 CONCLUSION: 1. Negative for pulmonary embolus. 2. Marked progression of predominantly upper lobe lung disease since January 09, 2018. Differential diagnosis includes drug reaction or chronic hypersensitivity type reaction to extrinsic exposure. Also consider infection. Myocardial Perfusion Scan Nuc Med 03/17/18 08:24 CONCLUSION: 1. No reversible perfusion defects to suggest ischemia. 2. 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 3. Ejection fraction 52%. - Procedures 03/19/18 - Bronchoscopy with washings, by Dr. Lopez Assessment and Plan - Assessment (1) Chest pain Code(s): R07.9 - Chest pain, unspecified Status: Acute (2) Pancytopenia Code(s): D61.818 - Other pancytopenia Status: Acute (3) Abnormal CT of the chest Code(s): R93.8 - Abnormal findings on diagnostic imaging of other specified body structures Status: Acute (4) Diabetes Code(s): E11.9 - Type 2 diabetes mellitus without complications Status: Chronic - Plan 52-year-old male with known history of CAD/SC s/p stenting, hyperlipidemia, diabetes, history of tobacco use who presented to the hospital due to acute onset of chest pain. Chest Pain: atypical. Patient does have increased risk factors include age, male , history of CAD/SC, history of tobacco use, hyperlipidemia, family history of heart disease, diabetes. -ACS ruled out with negative serial cardiac enzymes -EKGs reviewed, no acute ischemic changes -Nuclear stress test negative for ischemia, low risk -Continue aspirin, nitro prn, O2 prn -Monitor on telemetry -LDL 36 -Suspect pleuritic with abnormal chest CT, and pain mostly on deep inspiration, see below Pancytopenia: WBC 3.9, Hgb 10.8, Hct 31.3, Plt 137K. Suspect secondary to HIV. -Liver enzymes are unremarkable for any underlying liver disease. -B12, folate, reticulocyte count are all within normal limits. -Patient does have a low iron, however elevated ferritin level, haptoglobin also mildly elevated, however LDH is normal. -Obtain protein and hemoglobin electrophoresis -Obtain stool Hemoccult -Consult hematology, appreciate recommendations Bilateral Pulmonary Infiltrates: Abnormal Chest CT shows worsening upper lobe lung disease. Patient with nonproductive cough, pleuritic chest pain. No fever, no sputum production, no leukocytosis. -Patient does have elevated sed rate, C-reactive protein -Rheumatoid factor negative, Streptococcus pneumonia antigen negative, Legionella antigen were negative -HIV POSITIVE -mycoplasma IgG positive -alpha-1 antitrypsin wnl -Ordered sputum culture however patient without any sputum production -Consulted pulmonology, performed bronchoscopy 03/19, washings sent for studies -continue airborne isolation until TB ruled out -consulted infectious disease, appreciate recommendations HIV Positive: patient diagnosed with HIV on this admission -consult ID -needs to establish with HIV provider as outpatient -started on empiric Bactrim 2tab po tid -lymphocyte profile pending Diabetes Mellitus: -Diabetic diet -Monitor Accu-checks and cover with sliding scale insulin DVT Prophylaxis: teds/SCDs I spent 35 minutes [id number] with the patient or on the mcdowell discussing the patient's disposition, prognosis, and plan of care with his caregivers. Over half the time spent was devoted to counseling the patient regarding placement and coordinating care with caregivers and other providers. Discharge Planning: Discharge pending further clinical improvement, culture results, and clearance from pulmonology, hematology, and ID.
--- NOTE | 2018-03-20 13:47 | P.CONID ---
History of Present Illness Service: Infectious disease Consult date: 03/20/18 Requesting Physician: Gio Gordillo Reason for Consult: Evaluate patient with bilateral infiltrates, newly diagnosed HIV Primary Care Provider: No Primary Care Physician Family Provider: No Primary Care Physician Chief Complaint: Substernal chest pain. 100 pound unintended weight loss over the past 4mth History of Present Illness: Patient seen and examined. Records reviewed. Patient is a 52-year-old male, who has had problem with weight loss, poor appetite, and some intermittent chest pain and dry cough for several months. He actually had an ED visit, and at that time he had a CT of the chest which showed some groundglass opacity in his left upper lobe. He presented this time because of worsening chest pain and increasing shortness of breath and was initially admitted at [facility] on March 16. There is been no fever chills or sweats. He has a fairly dry cough which is not bad, and has not had any problem with nausea vomiting, diaphoresis, dizziness, lightheadedness, or abdominal pain. He has not had any exposure to animals or recent travel or anyone with known infection or tuberculosis. He has had some exposure to formaldehyde in fixatives when he was to work in the [employer] business from 2001- 2005. On his admission he was found to have bilateral infiltrates, and CT of the chest did not show any evidence of pulmonary embolism, but did show progression of the groundglass densities which is now involving both upper lung ruggiero as well as mid lung ruggiero. He was also found to be pancytopenic. HIV testing was done and it came back positive. Patient underwent bronchoscopy yesterday and there was no endobronchial lesions seen, and specimens were sent for cytology and he also had lung biopsy. Since admission he has not been febrile. He has been increasingly requiring more oxygen and currently on Ventimask. Patient has not been on any systemic antibiotics, but he was started on steroids yesterday. Patient feels a little bit better compared to on admission. He has fairly dry cough. His chest discomfort is better. His cardiac workup on this admission has been negative. CD4 counts are pending, and his LDH is normal. Infectious disease consultation has been requested to evaluate this patient with newly diagnosed HIV, and with bilateral infiltrates. Patient stated that he is homosexual, and has been with his partner for at least 7-8 years. Before he started his relationship he had HIV testing which was reportedly negative. He has had previous multiple partners prior to this current partner. Review of Systems Constitutional: Reports anorexia, Reports malaise, Reports weight loss, Denies chills, Denies fever(s) Eyes: Denies change in vision, Denies discharge, Denies dry eyes Ears, Nose, Mouth, and Throat: Denies dizziness, Denies dry mouth, Denies headache(s), Denies nasal discharge, Denies sore throat, Denies throat swelling Cardiovascular: Reports chest pain, Reports shortness of breath Respiratory: Reports cough, Reports shortness of breath, Denies coughing up blood, Denies pain with cough Gastrointestinal: Denies abdominal pain, Denies loose stools, Denies nausea, Denies pain with swallowing, Denies vomiting Genitourinary: Denies painful urination, Denies penile discharge Musculoskeletal: Denies joint pain, Denies muscle weakness Skin/Breast: Denies rash Neurologic: Denies headache(s) [facility] - History History Provided By: Patient, Medical Record - Medical History Medical History: Medical History (Last Updated 03/17/18 @ 08:21 by NANDINI Spence) Coronary artery disease History of nephrolithiasis History of pancreatitis Hyperlipemia Myocardial infarction Decreased vision Diabetes History of dental problems Kidney stones - Surgical History Surgical History: Surgical History (Last Updated 03/17/18 @ 08:16 by NANDINI Spence) History of coronary artery stent placement History of lithotripsy Hx of cardiac cath - Family History Family History: Family History (Last Updated 03/17/18 @ 08:24 by NANDINI Spence) Mother Family history of renal failure Grandparent No problems noted. Father Family history of coronary artery disease - Tobacco History Second Hand Smoke Exposure: No Tobacco Use In Past 30 Days: Yes Smoking Status: Former smoker (Smoked for total of 30 years, quit 2 months ago.) Tobacco Type: Cigarettes - Alcohol History How Often Do You Have a Drink Containing Alcohol: Never - Substance Use History Substance History: No History of Abuse - Travel History Recent Travel in the [place] Within the Last 8 Weeks: No Recent Travel Out of the Country Within the Last 8 Weeks: No - Immunization History Tetanus Immunization: >5 Years Hx Influenza Vaccine This Season: No Medications and Allergies Active Medications: Active Medications Acetaminophen (Tylenol) 650 mg PO Q4H PRN PRN Reason: Temp > 100.4 Hydrocodone Bitart/Acetaminophen ([place] 7.5/325) 1 tab PO Q6H PRN PRN Reason: PAIN SCALE 6 TO 10 Last Admin: 03/20/18 08:49 Dose: 1 tab Al Hydroxide/Mg Hydroxide (Milk Of Magnesia Liq) 30 ml PO Q12H PRN PRN Reason: Mild Constipation Albuterol (Albuterol Concentrated Neb) 2.5 mg NEB [employer] [facility] Stop: 03/22/18 12:29 Last Admin: 03/19/18 17:22 Dose: 2.5 mg Albuterol (Duoneb Neb ([facility])) 1 ampul NEB Q6HR NEB [facility] Last Admin: 03/20/18 08:33 Dose: 1 ampul Bisacodyl (Dulcolax Supp) 10 mg RECTAL DAILY PRN PRN Reason: SEVERE CONSITIPATION Dextrose (D50w Vial) 50 ml IV.PUSH UNSCH PRN PRN Reason: PER HYPOGLYCEMIA PROTOCOL Glucagon (Glucagon Inj) 1 mg OTHER PRN PRN PRN Reason: for Hypoglycemia Protocol Sodium Chloride (Ns Inj) 1,000 mls @ 100 mls/hr IV.CONT .Q10H [facility] Last Admin: 03/20/18 05:53 Dose: 100 mls/hr Insulin Aspart (Novolog Insulin Suppl Scale Inj) 0 unit SQ [facility]; Protocol Last Admin: 03/20/18 13:13 Dose: Not Given Lactulose (Lactulose Liq) 30 ml PO DAILY PRN PRN Reason: SEVERE CONSITIPATION Lidocaine HCl (Lidocaine Pf 4% Neb) 3 ml NEB [employer] [facility] Stop: 03/22/18 12:29 Last Admin: 03/19/18 17:23 Dose: 3 ml Methylprednisolone Sodium Succinate (Solumedrol Inj) 40 mg IV.PUSH Q8HR [facility] Last Admin: 03/20/18 05:53 Dose: 40 mg Miscellaneous Information ([facility] Information) 1 each OTHER UNSCH PRN PRN Reason: SEE LABEL COMMENTS Stop: 03/20/18 17:04 Nitroglycerin (Nitrostat Sl) 0.4 mg SL Q5M PRN PRN Reason: CHEST PAIN Ondansetron HCl (Zofran Inj) 4 mg IV.PUSH Q6H PRN PRN Reason: NAUSEA OR VOMITING Senna/Docusate Sodium (Amada-Colace) 1 tab PO BID [facility] Last Admin: 03/20/18 08:50 Dose: Not Given Sennosides (Senokot) 17.2 mg PO Q12H PRN PRN Reason: Moderate Constipation Temazepam (Restoril) 15 mg PO HS PRN PRN Reason: INSOMNIA Trimethoprim/Sulfamethoxazole (Bactrim Ds) 2 tab PO Q8HR [facility] Allergies Allergy/AdvReac Type Severity Reaction Status Date / Time No Known Allergies Allergy Verified 03/16/18 17:23 Home Medications Medication Instructions Recorded Confirmed Type metformin 500 mg PO BID 03/11/18 03/16/18 History aspirin 325 mg PO DAILY 03/16/18 03/16/18 History Exam Vital signs: Vital Signs 03/19/18 16:00 03/19/18 17:04 03/19/18 17:15 Temperature 97.5 F L Pulse Rate 83 83 80 Respiratory Rate 18 15 16 Blood Pressure 128/77 117/78 Pulse Oximetry 93 L 95 03/19/18 17:30 03/19/18 17:45 03/19/18 17:59 Temperature 97.8 F Pulse Rate 79 78 79 Respiratory Rate 20 16 20 Blood Pressure 118/74 118/75 114/68 Pulse Oximetry 96 95 95 03/19/18 20:00 03/19/18 21:41 03/19/18 23:59 Temperature 98.4 F 98.5 F Pulse Rate 76 76 74 Respiratory Rate 17 15 18 Blood Pressure 115/80 126/77 Pulse Oximetry 96 95 03/20/18 03:15 03/20/18 03:34 03/20/18 08:26 Temperature Pulse Rate 72 86 73 Respiratory Rate 17 17 Blood Pressure 134/75 Pulse Oximetry 93 L 03/20/18 08:36 03/20/18 12:18 03/20/18 13:12 Temperature 98.4 F Pulse Rate 73 84 Respiratory Rate 18 20 18 Blood Pressure 136/78 Pulse Oximetry 85 L Intake & Output 03/19/18 03/20/18 03/20/18 18:59 06:59 18:59 Intake Total 1720 / 1720 Balance 1720 / 1720 Intake: IV 1000 / 1000 NS Inj 1,000 ML @ 100 mls/hr IV 1000 / 1000 .CONT .Q10H [facility] Rx#:[id number] Oral 720 / 720 Other: # Voids 2 3 # Incontinent Voids 1 Date of Last Bowel Movement 03/19/18 03/19/18 03/19/18 # Incontinent Bowel Movements 1 Narrative: Physical Examination GENERAL: Patient is a well-nourished, well-developed male, awake and alert, not in respiratory distress. SKIN: Warm and dry. No generalized rash, no ecchymoses and no evidence of embolic lesions. HEAD: Atraumatic. Normocephalic. No temporal wasting, or tenderness. EYES: [place] conjunctiva. No petechia or hemorrhage. Pupils equal, round and reactive to light. Extraocular movements full and intact. No scleral icterus. No injection or drainage. EARS, NOSE AND THROAT: Nose without bleeding or purulent nasal discharge. No sinus tenderness. Mucous membranes pink and moist. No oral lesions noted. No exudate. No oral thrush. Has hairy leukoplakia NECK: Trachea midline. Supple and not tender, no meningeal signs CARDIOVASCULAR: Regular rate and rhythm. No murmurs, rubs or gallops heard RESPIRATORY: Breath sounds equal bilaterally. No wheezing or rhonchi. Few rales upper lung ruggiero ABDOMEN: Soft, non-tender, nondistended. Bowel sounds present and normoactive. No guarding. No rebound. No organomegaly. EXTREMITIES: No clubbing, cyanosis, or edema.No joint effusion, has good ROM. No calf tenderness. Well perfused and warm. NEUROLOGICAL: Awake and alert. Cranial nerves grossly intact. Motor grossly within normal limits. PSYCHIATRIC: Normal affect, calm and cooperative. LINE: No evidence of infection Results - Labs CBC & Chem 7: 03/20/18 10:12 03/20/18 10:12 Labs: Laboratory Results - last 24 hr 03/17/18 03/17/18 03/17/18 09:50 09:50 21:23 WBC RBC Hgb Hct MCV MCH MCHC RDW Plt Count MPV Neut % (Auto) Lymph % (Auto) [place] % (Auto) Eos % (Auto) Baso % (Auto) Neut # (Auto) Lymph # (Auto) [place] # (Auto) Eos # (Auto) Baso # (Auto) WBC Differential Differential Comment Sodium Potassium Chloride Carbon Dioxide Anion Gap BUN Creatinine Estimated GFR POC Glucose Random Glucose Calcium C-React Prot High Sens Cancelled [id number] 171 HIV-1 Antibody Positive HIV-2 Antibody Negative HIV (1&2) Ag & Ab Refer Reactive M. pneumoniae Interp . Mycoplasma pneumon IgG Positive Mycoplasma pneumon IgM Negative Misc Test Result Misc Test Comment 03/19/18 03/19/18 03/19/18 15:31 16:15 17:30 WBC RBC Hgb Hct MCV MCH MCHC RDW Plt Count MPV Neut % (Auto) Lymph % (Auto) [place] % (Auto) Eos % (Auto) Baso % (Auto) Neut # (Auto) Lymph # (Auto) [place] # (Auto) Eos # (Auto) Baso # (Auto) WBC Differential Differential Comment Sodium Potassium Chloride Carbon Dioxide Anion Gap BUN Creatinine Estimated GFR POC Glucose 94 152 H Random Glucose Calcium C-React Prot High Sens [id number] HIV-1 Antibody HIV-2 Antibody HIV (1&2) Ag & Ab Refer M. pneumoniae Interp Mycoplasma pneumon IgG Mycoplasma pneumon IgM Misc Test Result Cancelled Misc Test Comment Cancelled 03/19/18 03/20/18 03/20/18 21:12 10:12 10:12 WBC 3.0 L RBC 3.69 L Hgb 10.4 L Hct 31.1 L MCV 84.2 MCH 28.3 MCHC 33.6 RDW 16.4 Plt Count 140 L MPV 7.1 Neut % (Auto) 88.4 H Lymph % (Auto) 6.4 L [place] % (Auto) 5.0 Eos % (Auto) 0.0 Baso % (Auto) 0.2 Neut # (Auto) 2.6 Lymph # (Auto) 0.2 L [place] # (Auto) 0.1 Eos # (Auto) 0.0 Baso # (Auto) 0.0 WBC Differential . Differential Comment Auto diff final Sodium 138 Potassium 3.7 Chloride 104 Carbon Dioxide 20.8 L Anion Gap 13 BUN 22 H Creatinine 1.02 Estimated GFR 76 L POC Glucose 169 H Random Glucose 234 H Calcium 8.3 L C-React Prot High Sens [id number] HIV-1 Antibody HIV-2 Antibody HIV (1&2) Ag & Ab Refer M. pneumoniae Interp Mycoplasma pneumon IgG Mycoplasma pneumon IgM Misc Test Result Misc Test Comment - Imaging Impressions Chest X-Ray 03/19/18 16:27 CONCLUSION: No pneumothorax. Patchy bilateral and right upper lobe infiltrates are again seen. Please see above. Chest CTA 03/16/18 18:47 CONCLUSION: 1. Negative for pulmonary embolus. 2. Marked progression of predominantly upper lobe lung disease since January 09, 2018. Differential diagnosis includes drug reaction or chronic hypersensitivity type reaction to extrinsic exposure. Also consider infection. Myocardial Perfusion Scan Nuc Med 03/17/18 08:24 CONCLUSION: 1. No reversible perfusion defects to suggest ischemia. 2. 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 3. Ejection fraction 52%. Assessment and Plan - Plan Impression Bilateral pulmpnary infiltrates, with hypoxemia, patient with newly diagnosed HIV, CD4 not known - ?PCP, LDH normal - ?other interstitial lung disease Known CAD, and previous stent Recommendation Follow path report and cytology Will repeat LDH On steroids Follow CD4 counts Add empiric PCP Rx - Bactrim If CD4 counts high, will D/C PCP RX Will need referral with HIV provider Will follow along with you Thank you for this consultation D/W Dr Cesario Lopez ([employer]) Explained plan to the patient I will be off March 21- Other ID MD covering in my absence
[2018-03-21] MEDS: Sod Chloride 0.9% Inj 1,000 ML IV.CONT SCH ×3 (05:44→20:56)
[2018-03-21] MEDS: MethylPREDNISolone Sod Succinate Inj 40 MG/ML Vial IV.PUSH SCH ×4 (05:45→21:02)
[2018-03-21] MEDS: Insulin NovoLOG Aspart Correctional Sugar Inj SQ SCH ×4 (10:12→21:01)
[2018-03-21] MEDS: Senna/Docusate Sodium 8.6/50 MG Tablet PO SCH ×2 (10:13→20:46)
[2018-03-21] MEDS ORDERED: Lidocaine PF 1% Inj 5 ML Syringe INFILTRATN ONE (12:00)
[2018-03-21] MEDS ORDERED: Glycopyrrolate Inj 1 MG/5 ML Syringe IV.PUSH ONE (12:00)
[2018-03-21] MEDS ORDERED: Neostigmine Inj 5 MG/5 ML Syringe IV.PUSH ONE (12:00)
[2018-03-21] MEDS ORDERED: Labetalol HCl Inj 100 MG/20 ML Vial IV.CONT ONE (12:00)
[2018-03-21] MEDS ORDERED: Sodium Chlor 0.9% Inj 1,000 ML IV.SIG ONE (12:00)
--- NOTE | 2018-03-21 14:31 | P.PN ---
Subjective Interval history: Follow up for bilateral pulmonary infiltrates, newly diagnosed HIV. The patient reports feeling slightly better today. He reports continued nonproductive cough. Denies fevers/chills. He is using less oxygen today, currently on room air. He complains of a headache that started yesterday, requesting medication. Denies any other medical complaints at this time. Physical Exam Vital signs: Vital Signs 03/20/18 16:00 03/20/18 19:19 03/20/18 20:55 Temperature 97.6 F 98.2 F Pulse Rate 86 65 74 Respiratory Rate 18 17 18 Blood Pressure 139/79 125/75 Pulse Oximetry 91 L 91 L 03/21/18 00:00 03/21/18 03:00 03/21/18 03:43 Temperature 98.4 F Pulse Rate 92 H 91 H Respiratory Rate 18 18 Blood Pressure 128/64 Pulse Oximetry 90 L 94 L 03/21/18 03:55 03/21/18 09:15 03/21/18 09:36 Temperature 98.4 F 98.4 F Pulse Rate 95 H 82 83 Respiratory Rate 17 20 20 Blood Pressure 126/69 130/69 Pulse Oximetry 96 03/21/18 10:38 03/21/18 14:01 Temperature 98.5 F Pulse Rate 80 Respiratory Rate 18 18 Blood Pressure 129/69 Pulse Oximetry Intake & Output 03/20/18 03/21/18 03/21/18 18:59 06:59 18:59 Intake Total 1240 / 1240 1000 / 1000 720 / 720 Balance 1240 / 1240 1000 / 1000 720 / 720 Intake: IV 1000 / 1000 1000 / 1000 NS Inj 1,000 ML @ 100 mls/hr IV 1000 / 1000 1000 / 1000 .CONT .Q10H [facility] Rx#:[id number] Oral 240 / 240 720 / 720 Other: # Voids 3 Date of Last Bowel Movement 03/19/18 Narrative: GENERAL: Well-nourished, well-developed middle aged male patient in [facility]. SKIN: Warm and dry. Dry eczematous diffuse facial rash. HEENT: Normocephalic. Atraumatic. Pupils equal and round. Mucous membranes pink and moist. CARDIOVASCULAR: Regular rate and rhythm. No murmur appreciated. RESPIRATORY: No accessory muscle use. Mostly clear to auscultation today. Breath sounds equal bilaterally. GASTROINTESTINAL: Abdomen soft, non-tender, nondistended. Normoactive bowel sounds x4. MUSCULOSKELETAL: No obvious deformities. Extremities without clubbing, cyanosis , or edema. NEUROLOGICAL: Awake and alert. No obvious cranial nerve deficits. Motor grossly within normal limits. Moving all extremities spontaneously. Normal speech. PSYCHIATRIC: Appropriate mood and affect; insight and judgment normal. Results - Labs CBC & Chem 7: 03/20/18 10:12 03/20/18 10:12 Laboratory Results - last 24 hr 03/18/18 03/20/18 03/21/18 10:34 22:10 07:51 POC Glucose 135 H 257 H Albumin (PEP) 3.14 L Albumin/Globulin Ratio 0.70 L Zwjtk-1-Rracsfjsf 0.28 Sirtj-5-Eptuyqcfi 0.91 Beta Globulins 0.87 Gamma Globulins 2.40 H 03/21/18 12:56 POC Glucose 186 H Albumin (PEP) Albumin/Globulin Ratio Rhcqm-3-Uqmpihhbi Ftzev-1-Vaqbfadln Beta Globulins Gamma Globulins Microbiology 03/19/18 16:15 Bronchial Washings - Right Upper Lobe Acid Fast Bacilli Smear - Final No acid fast bacilli seen 03/19/18 16:15 Bronchial Washings - Left Upper Lobe Acid Fast Bacilli Smear - Final No acid fast bacilli seen 03/19/18 16:15 Bronchial - Right Upper Lobe Gram Stain - Final 03/19/18 16:15 Bronchial - Right Upper Lobe Bronchial Culture - Preliminary Moderate growth normal respiratory batsheva at 24 hours 03/19/18 16:15 Bronchial - Left Upper Lobe Gram Stain - Final 03/19/18 16:15 Bronchial - Left Upper Lobe Bronchial Culture - Preliminary Rare growth normal respiratory batsheva at 24 hours 03/19/18 16:15 Bronchial Washings - Right Upper Lobe Fungal Smear - Final No fungal elements seen 03/19/18 16:15 Bronchial Washings - Left Upper Lobe Fungal Smear - Final No fungal elements seen - Procedures 03/19/18 - Bronchoscopy with washings, by Dr. Lopez Assessment and Plan - Assessment (1) Chest pain Code(s): R07.9 - Chest pain, unspecified Status: Acute (2) Pancytopenia Code(s): D61.818 - Other pancytopenia Status: Acute (3) Abnormal CT of the chest Code(s): R93.8 - Abnormal findings on diagnostic imaging of other specified body structures Status: Acute (4) Diabetes Code(s): E11.9 - Type 2 diabetes mellitus without complications Status: Chronic - Plan 52-year-old male with known history of CAD/OK s/p stenting, hyperlipidemia, diabetes, history of tobacco use who presented to the hospital due to acute onset of chest pain. Chest Pain: atypical. Patient does have increased risk factors include age, male , history of CAD/OK, history of tobacco use, hyperlipidemia, family history of heart disease, diabetes. -ACS ruled out with negative serial cardiac enzymes -EKGs reviewed, no acute ischemic changes -Nuclear stress test negative for ischemia, low risk -Continue aspirin, nitro prn, O2 prn -Monitor on telemetry -LDL 36 -Suspect pleuritic with abnormal chest CT, and pain mostly on deep inspiration, see below Pancytopenia: WBC 3.9, Hgb 10.8, Hct 31.3, Plt 137K. Suspect secondary to HIV. -Liver enzymes are unremarkable for any underlying liver disease. -B12, folate, reticulocyte count are all within normal limits. -Patient does have a low iron, however elevated ferritin level, haptoglobin also mildly elevated, however LDH is normal. -Obtain protein and hemoglobin electrophoresis -Consult hematology, appreciate recommendations Bilateral Pulmonary Infiltrates: Abnormal Chest CT shows worsening upper lobe lung disease. Patient with nonproductive cough, pleuritic chest pain. No fever, no sputum production, no leukocytosis. -Patient does have elevated sed rate, C-reactive protein -Rheumatoid factor negative, Streptococcus pneumonia antigen negative, Legionella antigen were negative -HIV POSITIVE -mycoplasma IgG positive -alpha-1 antitrypsin wnl -Ordered sputum culture however patient without any sputum production -Consulted pulmonology, performed bronchoscopy 03/19, washings sent for studies, pending -continue airborne isolation until TB ruled out -consulted infectious disease, appreciate recommendations -discussed with Dr. Goins, started on IV Rocephin and Azithro HIV+: patient diagnosed with HIV on this admission -consult ID -needs to establish with HIV provider as outpatient -started on empiric Bactrim 2tab po tid -lymphocyte profile pending Diabetes Mellitus: -Diabetic diet -Monitor Accu-checks and cover with sliding scale insulin DVT Prophylaxis: teds/SCDs Discharge Planning: Discharge pending further clinical improvement, culture results, and clearance from pulmonology, hematology, and ID.
--- NOTE | 2018-03-21 14:51 | P.PNID ---
Subjective Remarks: Patient is a 52-year-old male, who has had problem with weight loss, poor appetite, and some intermittent chest pain and dry cough for several months. He actually had an ED visit, and at that time he had a CT of the chest which showed some groundglass opacity in his left upper lobe. He presented this time because of worsening chest pain and increasing shortness of breath and was initially admitted at [facility] on March 16. There is been no fever chills or sweats. He has a fairly dry cough which is not bad, and has not had any problem with nausea vomiting, diaphoresis, dizziness, lightheadedness, or abdominal pain. He has not had any exposure to animals or recent travel or anyone with known infection or tuberculosis. He has had some exposure to formaldehyde in fixatives when he was to work in the [employer] business from 2001- 2005. On his admission he was found to have bilateral infiltrates, and CT of the chest did not show any evidence of pulmonary embolism, but did show progression of the groundglass densities which is now involving both upper lung ruggiero as well as mid lung ruggiero. He was also found to be pancytopenic. HIV testing was done and it came back positive. Patient underwent bronchoscopy yesterday and there was no endobronchial lesions seen, and specimens were sent for cytology and he also had lung biopsy. Since admission he has not been febrile. He has been increasingly requiring more oxygen and currently on Ventimask. Patient has not been on any systemic antibiotics, but he was started on steroids yesterday. Patient feels a little bit better compared to on admission. He has fairly dry cough. His chest discomfort is better. His cardiac workup on this admission has been negative. CD4 counts are pending, and his LDH is normal. Infectious disease consultation has been requested to evaluate this patient with newly diagnosed HIV, and with bilateral infiltrates. Patient stated that he is homosexual, and has been with his partner for at least 7-8 years. Before he started his relationship he had HIV testing which was reportedly negative. He has had previous multiple partners prior to this current partner. Overnight events reviewed No fevers No rash Needs oxygen off and on Reports dry cough. Antibiotics: Vanco oral Dificid oral Asacol oral Lines: Line sites okay Hemodialysis catheter site okay Past Medical History: Medical History: Medical History Coronary artery disease History of nephrolithiasis History of pancreatitis Hyperlipemia Myocardial infarction Decreased vision Diabetes History of dental problems Kidney stones Surgical History History of coronary artery stent placement History of lithotripsy Hx of cardiac cath Allergies/Adverse Reactions: Allergies No Known Allergies Allergy (Verified 03/16/18 17:23) Objective Vital Signs 03/20/18 16:00 03/20/18 19:19 03/20/18 20:55 Temperature 97.6 F 98.2 F Pulse Rate 86 65 74 Respiratory Rate 18 17 18 Blood Pressure 139/79 125/75 Pulse Oximetry 91 L 91 L 03/21/18 00:00 03/21/18 03:00 03/21/18 03:43 Temperature 98.4 F Pulse Rate 92 H 91 H Respiratory Rate 18 18 Blood Pressure 128/64 Pulse Oximetry 90 L 94 L 03/21/18 03:55 03/21/18 09:15 03/21/18 09:36 Temperature 98.4 F 98.4 F Pulse Rate 95 H 82 83 Respiratory Rate 17 20 20 Blood Pressure 126/69 130/69 Pulse Oximetry 96 03/21/18 10:38 03/21/18 14:01 Temperature 98.5 F Pulse Rate 80 Respiratory Rate 18 18 Blood Pressure 129/69 Pulse Oximetry Intake & Output 03/20/18 03/21/18 03/21/18 18:59 06:59 18:59 Intake Total 1240 / 1240 1000 / 1000 720 / 720 Balance 1240 / 1240 1000 / 1000 720 / 720 Intake: IV 1000 / 1000 1000 / 1000 NS Inj 1,000 ML @ 100 mls/hr IV 1000 / 1000 1000 / 1000 .CONT .Q10H [facility] Rx#:[id number] Oral 240 / 240 720 / 720 Other: # Voids 3 Date of Last Bowel Movement 03/19/18 03/19/18 16:15 Bronchial Washings - Right Upper Lobe Acid Fast Bacilli Smear - Final No acid fast bacilli seen 03/19/18 16:15 Bronchial Washings - Right Upper Lobe Mycobacterial Culture - Pending 03/19/18 16:15 Bronchial Washings - Left Upper Lobe Acid Fast Bacilli Smear - Final No acid fast bacilli seen 03/19/18 16:15 Bronchial Washings - Left Upper Lobe Mycobacterial Culture - Pending 03/19/18 16:15 Bronchial - Right Upper Lobe Gram Stain - Final 03/19/18 16:15 Bronchial - Right Upper Lobe Bronchial Culture - Preliminary Moderate growth normal respiratory batsheva at 24 hours 03/19/18 16:15 Bronchial - Left Upper Lobe Gram Stain - Final 03/19/18 16:15 Bronchial - Left Upper Lobe Bronchial Culture - Preliminary Rare growth normal respiratory batsheva at 24 hours 03/19/18 16:15 Bronchial Washings - Right Upper Lobe Fungal Smear - Final No fungal elements seen 03/19/18 16:15 Bronchial Washings - Right Upper Lobe Fungal Culture - Pending 03/19/18 16:15 Bronchial Washings - Left Upper Lobe Fungal Smear - Final No fungal elements seen 03/19/18 16:15 Bronchial Washings - Left Upper Lobe Fungal Culture - Pending Lab - Hematology Results 03/20/18 10:12 WBC 3.0 L RBC 3.69 L Hgb 10.4 L Hct 31.1 L MCV 84.2 MCH 28.3 MCHC 33.6 RDW 16.4 Plt Count 140 L MPV 7.1 Neut % (Auto) 88.4 H Lymph % (Auto) 6.4 L [place] % (Auto) 5.0 Eos % (Auto) 0.0 Baso % (Auto) 0.2 Neut # (Auto) 2.6 Lymph # (Auto) 0.2 L [place] # (Auto) 0.1 Eos # (Auto) 0.0 Baso # (Auto) 0.0 WBC Differential . Differential Comment Auto diff final Lab - Chemistry Results 03/17/18 03/18/18 03/19/18 09:50 10:34 15:31 Sodium Potassium Chloride Carbon Dioxide Anion Gap BUN Creatinine Estimated GFR POC Glucose 94 Random Glucose Calcium Lactate Dehydrogenase C-React Prot High Sens Cancelled Albumin (PEP) 3.14 L Albumin/Globulin Ratio 0.70 L Kjuxg-9-Qlfozqfhc 0.28 Elysr-5-Hhbgyuahu 0.91 Beta Globulins 0.87 Gamma Globulins 2.40 H Vjvsr-5-Qzmimwjbktv 171 03/19/18 03/19/18 03/20/18 17:30 21:12 10:12 Sodium 138 Potassium 3.7 Chloride 104 Carbon Dioxide 20.8 L Anion Gap 13 BUN 22 H Creatinine 1.02 Estimated GFR 76 L POC Glucose 152 H 169 H Random Glucose 234 H Calcium 8.3 L Lactate Dehydrogenase C-React Prot High Sens Albumin (PEP) Albumin/Globulin Ratio Pkfbk-7-Ygaskbenx Rhxbq-8-Vlsolazgp Beta Globulins Gamma Globulins Qpnhf-5-Upamhfylsvw 03/20/18 03/20/18 03/21/18 10:12 22:10 07:51 Sodium Potassium Chloride Carbon Dioxide Anion Gap BUN Creatinine Estimated GFR POC Glucose 135 H 257 H Random Glucose Calcium Lactate Dehydrogenase 184 C-React Prot High Sens Albumin (PEP) Albumin/Globulin Ratio Uxoef-8-Lydhqlmly Qodcl-1-Roxspepkw Beta Globulins Gamma Globulins Wncez-9-Gtujjhluetj 03/21/18 12:56 Sodium Potassium Chloride Carbon Dioxide Anion Gap BUN Creatinine Estimated GFR POC Glucose 186 H Random Glucose Calcium Lactate Dehydrogenase C-React Prot High Sens Albumin (PEP) Albumin/Globulin Ratio Asijp-3-Sqlgyimmv Grutx-5-Jkqurpbcs Beta Globulins Gamma Globulins Gpzse-8-Weequxnmoqg Imaging: ITS Impressions Chest CTA 03/16/18 18:47 CONCLUSION: 1. Negative for pulmonary embolus. 2. Marked progression of predominantly upper lobe lung disease since January 09, 2018. Differential diagnosis includes drug reaction or chronic hypersensitivity type reaction to extrinsic exposure. Also consider infection. Myocardial Perfusion Scan Nuc Med 03/17/18 08:24 CONCLUSION: 1. No reversible perfusion defects to suggest ischemia. 2. 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 3. Ejection fraction 52%. Chest X-Ray 03/19/18 16:27 CONCLUSION: No pneumothorax. Patchy bilateral and right upper lobe infiltrates are again seen. Please see above. Physical Exam: GENERAL: Well-nourished well-developed, not in acute distress SKIN: Cool and dry, no generalized rash HEAD: Atraumatic. Normocephalic. No temporal or scalp tenderness. EYES: Pupils equal round and reactive. Scleral icterus. No injection or drainage. No petechia ENT: Nothing abnormal detected NECK: Trachea midline. Supple, nontender, no meningeal signs. CARDIOVASCULAR: HS audible. RESPIRATORY: Clear to auscultation bilaterally. GASTROINTESTINAL: Abdomen soft nontender. MUSCULOSKELETAL: Extremities without clubbing, cyanosis. NEUROLOGICAL: Alert oriented 3. Nonfocal. Psych cooperative IV line sites ok. Assessment and Plan - Plan Impression Bilateral pulmonary infiltrates, with hypoxemia, patient with newly diagnosed HIV, CD4 not known - ?PCP, LDH normal - ?other interstitial lung disease Will cover for community-acquired pneumonia as well Known CAD, and previous stent Recommendation Start ceftriaxone IV Start azithromycin oral Continue Bactrim oral for now. Pathology reported as positive for PCP now, reports seen at 8:22 PM Follow CD4 count to determine if prophylaxis for CRISTIANE needed. Follow path and cytology On steroids Follow CD4 counts If CD4 counts high, will D/C PCP RX Will need referral with HIV provider
[2018-03-21] MEDS: Azithromycin 250 MG Tablet PO SCH (16:55)
[2018-03-21] MEDS: Temazepam 15 MG Capsule PO PRN (21:00)
[2018-03-22] MEDS: MethylPREDNISolone Sod Succinate Inj 40 MG/ML Vial IV.PUSH SCH ×2 (06:51→14:09)
[2018-03-22] MEDS: Sod Chloride 0.9% Inj 1,000 ML IV.CONT SCH ×2 (06:51→21:30)
[2018-03-22] MEDS: Senna/Docusate Sodium 8.6/50 MG Tablet PO SCH ×2 (09:04→21:29)
[2018-03-22] MEDS: Insulin NovoLOG Aspart Correctional Sugar Inj SQ SCH ×4 (10:09→21:33)
--- NOTE | 2018-03-22 10:28 | P.PN ---
Subjective Interval history: Follow up for newly diagnosed HIV, pneumonia. The patient reports feeling slightly better today. Still with pleuritic chest pains and mild shortness of breath. He reports cough, now productive of yellow sputum. Denies fevers/ chills. Denies any other medical complaints at this time. Physical Exam Vital signs: Vital Signs 03/21/18 10:38 03/21/18 14:01 03/21/18 19:04 Temperature 98.5 F 98.4 F Pulse Rate 80 81 Respiratory Rate 18 18 17 Blood Pressure 129/69 131/76 Pulse Oximetry 91 L 03/21/18 21:00 03/22/18 00:00 03/22/18 03:11 Temperature 98.7 F 98.5 F Pulse Rate 95 H 76 79 Respiratory Rate 18 17 17 Blood Pressure 137/73 132/78 Pulse Oximetry 93 L 95 92 L 03/22/18 03:38 03/22/18 08:00 03/22/18 09:15 Temperature 98.3 F Pulse Rate 98 H 77 104 H Respiratory Rate 18 18 16 Blood Pressure 138/81 Pulse Oximetry 91 L Intake & Output 03/21/18 03/22/18 03/22/18 18:59 06:59 18:59 Intake Total 1820 / 1820 1999 Balance 1820 / 1820 1999 Intake: IV 1100 / 1100 1999 NS Inj 1,000 ML @ 100 mls/hr IV 1000 / 1000 1999 .CONT .Q10H [facility] Rx#:[id number] Rocephin Inj 1,000 MG In NS Inj 100 / 100 100 ML @ 200 mls/hr IV.SIG Q24H [facility] Rx#:[id number] Oral 720 / 720 Other: # Voids 3 Date of Last Bowel Movement 03/19/18 Narrative: GENERAL: Well-nourished, well-developed middle aged male patient in [facility]. SKIN: Warm and dry. Dry eczematous diffuse facial rash. HEENT: Normocephalic. Atraumatic. Pupils equal and round. Mucous membranes pink and moist. CARDIOVASCULAR: Regular rate and rhythm. No murmur appreciated. RESPIRATORY: No accessory muscle use. Mostly clear to auscultation today. Breath sounds equal bilaterally. GASTROINTESTINAL: Abdomen soft, non-tender, nondistended. Normoactive bowel sounds x4. MUSCULOSKELETAL: No obvious deformities. Extremities without clubbing, cyanosis , or edema. NEUROLOGICAL: Awake and alert. No obvious cranial nerve deficits. Motor grossly within normal limits. Moving all extremities spontaneously. Normal speech. PSYCHIATRIC: Appropriate mood and affect; insight and judgment normal. Results - Labs CBC & Chem 7: 03/20/18 10:12 03/20/18 10:12 Laboratory Results - last 24 hr 03/20/18 03/21/18 03/21/18 11:54 12:56 21:00 POC Glucose 186 H 250 H Absolute Lymphocytes 233 L % CD3 Cells 76 Absolute CD3 Count 178 L % CD3-/CD16+/CD56+ 13 Abs CD3-/CD16+/CD56+ 31 L % CD4 Cells 11 L Absolute CD4 Count 25 L T-Help/Suppress Ratio 0.20 L % CD8 Cells 64 H Absolute CD8 Count 144 L % CD19 Cells 10 Absolute CD19 Count 24 L Microbiology 03/19/18 16:15 Bronchial - Right Upper Lobe Gram Stain - Final 03/19/18 16:15 Bronchial - Right Upper Lobe Bronchial Culture - Preliminary Moderate growth normal respiratory batsheva at 24 hours 03/19/18 16:15 Bronchial - Left Upper Lobe Gram Stain - Final 03/19/18 16:15 Bronchial - Left Upper Lobe Bronchial Culture - Final Rare growth normal respiratory batsheva 03/19/18 16:15 Bronchial Washings - Right Upper Lobe Acid Fast Bacilli Smear - Final No acid fast bacilli seen 03/19/18 16:15 Bronchial Washings - Left Upper Lobe Acid Fast Bacilli Smear - Final No acid fast bacilli seen - Procedures 03/19/18 - Bronchoscopy with washings, by Dr. Lopez Assessment and Plan - Assessment (1) Chest pain Code(s): R07.9 - Chest pain, unspecified Status: Acute Plan: -Patient does have increased risk factors include age, male, history of myocardial infarction, coronary disease, history of tobacco use, hyperlipidemia , family history of heart disease, diabetes -Patient has been ruled out for acute coronary event with serial cardiac enzymes that have remained negative -Serial EKGs reviewed by myself shows changes indicative of old inferior and lateral ME. No acute changes -Myocardial perfusion study was performed and indicated no signs of ischemia, low risk -Continue aspirin, nitroglycerin as needed, -Continue monitor telemetry -Continue oxygen as needed -LDL 36 (2) Pancytopenia Code(s): D61.818 - Other pancytopenia Status: Acute Plan: -Etiology unknown at this time, liver enzymes are unremarkable for any underlying liver disease. Will need further evaluation -B12, folate, reticulocyte count are all within normal limits. Patient does have a low iron, however elevated ferritin level, haptoglobin also mildly elevated, however LDH is normal. -Obtain protein and hemoglobin electrophoresis -Consult hematology for recommendations (3) Abnormal CT of the chest Code(s): R93.8 - Abnormal findings on diagnostic imaging of other specified body structures Status: Acute Plan: -CT scan shows worsening upper lobe lung disease of unknown etiology -Patient has not been having any clinical symptoms, patient does not have any fever, cough. No leukocytosis -Patient does have elevated sed rate, C-reactive protein -Rheumatoid factor with negative, Streptococcus pneumonia antigen, Legionella antigen were negative -HIV, mycoplasma testing, alpha-1 antitrypsin are still pending -Awaiting sputum culture -Consult pulmonology for further evaluation and recommendations -Discussed with [employer] consultant who requested the patient be transferred to the main hospital for bronchoscopy, [employer] financial[employer] consultant requested patient have airborne isolation (4) Diabetes Code(s): E11.9 - Type 2 diabetes mellitus without complications Status: Chronic Plan: -We will start diabetic diet after stress testing -Accu-Cheks with sliding scale insulin - Plan 52-year-old male with known history of CAD/ME s/p stenting, hyperlipidemia, diabetes, history of tobacco use who presented to the hospital due to acute onset of chest pain. Chest Pain: atypical. Patient does have increased risk factors include age, male , history of CAD/ME, history of tobacco use, hyperlipidemia, family history of heart disease, diabetes. -ACS ruled out with negative serial cardiac enzymes -EKGs reviewed, no acute ischemic changes -Nuclear stress test negative for ischemia, low risk -Continue aspirin, nitro prn, O2 prn -Monitor on telemetry -LDL 36 -Suspect pleuritic with abnormal chest CT and pain mostly on deep inspiration , see below Pancytopenia: WBC 3.9, Hgb 10.8, Hct 31.3, Plt 137K. Suspect secondary to newly diagnosed HIV. -Liver enzymes are unremarkable for any underlying liver disease. -B12, folate, reticulocyte count are all within normal limits. -Patient does have a low iron, however elevated ferritin level, haptoglobin also mildly elevated, however LDH is normal. -Obtain protein and hemoglobin electrophoresis -Consult hematology, appreciate recommendations, likely secondary to HIV Bilateral Pulmonary Infiltrates, +PCP: Abnormal Chest CT shows worsening upper lobe lung disease. Patient with nonproductive cough, pleuritic chest pain. No fever, no sputum production, no leukocytosis. -Patient does have elevated sed rate, C-reactive protein -Rheumatoid factor negative, Streptococcus pneumonia antigen negative, Legionella antigen were negative -HIV POSITIVE -mycoplasma IgG positive -alpha-1 antitrypsin wnl -Ordered sputum culture however patient without any sputum production -Consulted pulmonology, performed bronchoscopy 03/19, washings sent for studies -pathology positive for pneumocytis -continue airborne isolation until TB ruled out -consulted infectious disease, appreciate recommendations -discussed with Dr. Goins, started on IV Rocephin and Azithro, also on Bactrim HIV+ with AIDS: patient diagnosed with HIV on this admission -consult ID -needs to establish with HIV provider as outpatient, patient without insurance, will need referral to [facility] -started on empiric Bactrim 2tab po tid -lymphocyte profile with CD4 count of 25 Diabetes Mellitus: -Diabetic diet -Monitor Accu-checks and cover with sliding scale insulin DVT Prophylaxis: teds/SCDs Discharge Planning: Discharge pending further clinical improvement, and clearance from pulmonology and ID.
[2018-03-22] MEDS ORDERED: predniSONE 20 MG Tablet PO ONE (14:39)
[2018-03-22] MEDS: Azithromycin 250 MG Tablet PO SCH (15:54)
--- NOTE | 2018-03-22 16:45 | P.PNONC ---
Subjective Interval history: Patient seen and examined, vital signs, labs, medications imaging studies, procedure notes and microbiology reviewed. Subjective; patient denies acute complaints. He reports feeling comfortable. He is visibly denies overt bleeding, worsening fevers or chills or difficulty breathing. Objective Vital Signs/Intake & Output: Vital Signs 03/21/18 19:04 03/21/18 21:00 03/22/18 00:00 Temperature 98.4 F 98.7 F Pulse Rate 81 95 H 76 Respiratory Rate 17 18 17 Blood Pressure 131/76 137/73 Pulse Oximetry 91 L 93 L 95 03/22/18 03:11 03/22/18 03:38 03/22/18 08:00 Temperature 98.5 F 98.3 F Pulse Rate 79 98 H 77 Respiratory Rate 17 18 18 Blood Pressure 132/78 138/81 Pulse Oximetry 92 L 91 L 03/22/18 09:15 03/22/18 11:46 03/22/18 15:39 Temperature Pulse Rate 104 H 82 89 Respiratory Rate 16 18 16 Blood Pressure 141/78 H Pulse Oximetry 03/22/18 16:00 Temperature 98.2 F Pulse Rate 81 Respiratory Rate 18 Blood Pressure 147/79 H Pulse Oximetry 91 L Intake & Output 03/21/18 03/22/18 03/22/18 18:59 06:59 18:59 Intake Total 1820 / 1820 1999 Balance 1820 / 1820 1999 Intake: IV 1100 / 1100 1999 NS Inj 1,000 ML @ 100 mls/hr IV 1000 / 1000 1999 .CONT .Q10H [facility] Rx#:[id number] Rocephin Inj 1,000 MG In NS Inj 100 / 100 100 ML @ 200 mls/hr IV.SIG Q24H [facility] Rx#:[id number] Oral 720 / 720 Other: # Voids 3 Date of Last Bowel Movement 03/19/18 03/19/18 Result Diagrams: 03/20/18 10:12 03/20/18 10:12 Laboratory Results: Laboratory Results - last 24 hr 03/18/18 03/18/18 03/20/18 10:34 10:34 11:54 Hgb ELP Interp Adult normal hgb POC Glucose PEP Pathologist Comment Absolute Lymphocytes 233 L % CD3 Cells 76 Absolute CD3 Count 178 L % CD3-/CD16+/CD56+ 13 Abs CD3-/CD16+/CD56+ 31 L % CD4 Cells 11 L Absolute CD4 Count 25 L T-Help/Suppress Ratio 0.20 L % CD8 Cells 64 H Absolute CD8 Count 144 L % CD19 Cells 10 Absolute CD19 Count 24 L M.tuberculosis DNA (PCR) Rifampin Resistance 03/21/18 03/22/18 03/22/18 21:00 09:50 11:48 Hgb ELP Interp POC Glucose 250 H 228 H PEP Pathologist Comment Absolute Lymphocytes % CD3 Cells Absolute CD3 Count % CD3-/CD16+/CD56+ Abs CD3-/CD16+/CD56+ % CD4 Cells Absolute CD4 Count T-Help/Suppress Ratio % CD8 Cells Absolute CD8 Count % CD19 Cells Absolute CD19 Count M.tuberculosis DNA (PCR) Not detected Rifampin Resistance Not Reportable Culture Results: Microbiology 03/19/18 16:15 Gram Stain - Final Bronchial - Right Upper Lobe Bronchial Culture - Final Moderate growth normal respiratory batsheva 03/19/18 16:15 Gram Stain - Final Bronchial - Left Upper Lobe Bronchial Culture - Final Rare growth normal respiratory batsheva 03/19/18 16:15 Acid Fast Bacilli Smear - Final Bronchial Washings - Right Upper Lobe No acid fast bacilli seen 03/19/18 16:15 Acid Fast Bacilli Smear - Final Bronchial Washings - Left Upper Lobe No acid fast bacilli seen 03/19/18 16:15 Fungal Smear - Final Bronchial Washings - Right Upper Lobe No fungal elements seen 03/19/18 16:15 Fungal Smear - Final Bronchial Washings - Left Upper Lobe No fungal elements seen Medications: Active Medications Generic Name Dose Route Start Last Admin Trade Name Freq PRN Reason Stop Dose Admin Hydrocodone Bitart/Acetaminophen 1 tab 03/18/18 16:48 03/22/18 11:49 [place] 7.5/325 PO 1 tab Q6H PRN Administration PAIN SCALE 6 TO 10 Albuterol 1 ampul 03/19/18 22:00 03/22/18 15:38 Duoneb Neb ([facility]) NEB 1 ampul Q6HR NEB HELEN Administration Azithromycin 500 mg 03/21/18 16:00 03/22/18 15:54 Zithromax PO 500 mg Q24H HELEN Administration Sodium Chloride 1,000 mls @ 100 mls/hr 03/16/18 20:15 03/22/18 06:51 Ns Inj IV.CONT 100 mls/hr .Q10H HELEN Administration Ceftriaxone Sodium 1,000 mg/ 100 mls @ 200 mls/hr 03/21/18 16:00 03/22/18 15: 52 Sodium Chloride IV.SIG 100 mls/hr Q24H HELEN Administration Insulin Aspart 0 unit 03/17/18 12:00 03/22/18 14:09 Novolog Insulin Suppl Scale Inj SQ 3 unit ACHS HELEN Administration Protocol Ondansetron HCl 4 mg 03/22/18 15:44 03/22/18 15:55 Zofran Odt SL 4 mg Q6H PRN Administration NAUSEA OR VOMITING Senna/Docusate Sodium 1 tab 03/16/18 21:00 03/22/18 09:04 Amada-Colace PO Not Given BID HELEN Temazepam 15 mg 03/16/18 20:06 03/21/18 21:00 Restoril PO 15 mg HS PRN Administration INSOMNIA Trimethoprim/Sulfamethoxazole 2 tab 03/20/18 15:00 03/22/18 15:55 Bactrim Ds PO 2 tab Q8HR HELEN Administration Objective Remarks: GENERAL: Middle-aged male, sitting up in bed, no acute distress. SKIN: Warm and dry. HEAD: Normocephalic. EYES: No scleral icterus. No injection or drainage. NECK: Supple, trachea midline. No JVD or lymphadenopathy. LYMPHATIC: No adenopathy. CARDIOVASCULAR: Regular rate and rhythm without murmurs. RESPIRATORY: Good air movement bilaterally over the upper, middle and lower lung zones, bibasilar crepitus noted.. GASTROINTESTINAL: Abdomen soft, non-tender, nondistended. EXTREMITIES: No cyanosis, or edema. MUSCULOSKELETAL: Adequate muscle tone. NEUROLOGICAL: No obvious focal deficit. Awake, alert, and oriented x3. PSYCHIATRIC: Appropriate mood and affect; insight and judgment normal. Assessment/Plan (1) Anemia Code(s): D64.9 - Anemia, unspecified Status: Acute (2) Thrombocytopenia Code(s): D69.6 - Thrombocytopenia, unspecified Status: Acute - Plan Mr. Gentile is a 52-year-old male with a new diagnosis of HIV, CD4 count is less than 25, he presented to the hospital with unintended weight loss, difficulty breathing, chest pain and cough. Was found to have bilateral patchy infiltrates concerning for atypical pneumonia. The patient was evaluated by hematology initially due to cytopenias. A workup revealed positivity for HIV, this is a new diagnosis. Based on his new diagnosis of HIV and pneumonia it would be my assessment that the patient's cytopenias are secondary and related to uncontrolled HIV and his acute infectious issue which is an opportunistic pneumonia. Typically; cytopenias tend to improve as HIV titers received specifically the lymphopenia and thrombus cytopenia. bone marrow biopsy is not required at this time. Thank you for asking us to evaluate this patient for cytopenias. (1) Anemia Qualifiers: Anemia type: unspecified type Qualified Code(s): D64.9 - Anemia, unspecified
--- NOTE | 2018-03-22 17:40 | P.PNID ---
Subjective Remarks: Patient is a 52-year-old male, who has had problem with weight loss, poor appetite, and some intermittent chest pain and dry cough for several months. He actually had an ED visit, and at that time he had a CT of the chest which showed some groundglass opacity in his left upper lobe. He presented this time because of worsening chest pain and increasing shortness of breath and was initially admitted at [facility] on March 16. There is been no fever chills or sweats. He has a fairly dry cough which is not bad, and has not had any problem with nausea vomiting, diaphoresis, dizziness, lightheadedness, or abdominal pain. He has not had any exposure to animals or recent travel or anyone with known infection or tuberculosis. He has had some exposure to formaldehyde in fixatives when he was to work in the [employer] business from 2001- 2005. On his admission he was found to have bilateral infiltrates, and CT of the chest did not show any evidence of pulmonary embolism, but did show progression of the groundglass densities which is now involving both upper lung ruggiero as well as mid lung ruggiero. He was also found to be pancytopenic. HIV testing was done and it came back positive. Patient underwent bronchoscopy yesterday and there was no endobronchial lesions seen, and specimens were sent for cytology and he also had lung biopsy. Since admission he has not been febrile. He has been increasingly requiring more oxygen and currently on Ventimask. Patient has not been on any systemic antibiotics, but he was started on steroids yesterday. Patient feels a little bit better compared to on admission. He has fairly dry cough. His chest discomfort is better. His cardiac workup on this admission has been negative. CD4 counts are pending, and his LDH is normal. Infectious disease consultation has been requested to evaluate this patient with newly diagnosed HIV, and with bilateral infiltrates. Patient stated that he is homosexual, and has been with his partner for at least 7-8 years. Before he started his relationship he had HIV testing which was reportedly negative. He has had previous multiple partners prior to this current partner. Overnight events reviewed No fevers No rash Needs oxygen off and on Reports dry cough. Antibiotics: Bactrim DS Prednisone Azithro oral Rocephin IV Lines: Line sites okay Hemodialysis catheter site okay Past Medical History: Medical History: Medical History Coronary artery disease History of nephrolithiasis History of pancreatitis Hyperlipemia Myocardial infarction Decreased vision Diabetes History of dental problems Kidney stones Surgical History History of coronary artery stent placement History of lithotripsy Hx of cardiac cath Allergies/Adverse Reactions: Allergies No Known Allergies Allergy (Verified 03/16/18 17:23) Objective Vital Signs 03/21/18 19:04 03/21/18 21:00 03/22/18 00:00 Temperature 98.4 F 98.7 F Pulse Rate 81 95 H 76 Respiratory Rate 17 18 17 Blood Pressure 131/76 137/73 Pulse Oximetry 91 L 93 L 95 03/22/18 03:11 03/22/18 03:38 03/22/18 08:00 Temperature 98.5 F 98.3 F Pulse Rate 79 98 H 77 Respiratory Rate 17 18 18 Blood Pressure 132/78 138/81 Pulse Oximetry 92 L 91 L 03/22/18 09:15 03/22/18 11:46 03/22/18 15:39 Temperature Pulse Rate 104 H 82 89 Respiratory Rate 16 18 16 Blood Pressure 141/78 H Pulse Oximetry 03/22/18 16:00 Temperature 98.2 F Pulse Rate 81 Respiratory Rate 18 Blood Pressure 147/79 H Pulse Oximetry 91 L Intake & Output 03/21/18 03/22/18 03/22/18 18:59 06:59 18:59 Intake Total 1820 / 1820 1999 Balance 1820 / 1820 1999 Intake: IV 1100 / 1100 1999 NS Inj 1,000 ML @ 100 mls/hr IV 1000 / 1000 1999 .CONT .Q10H [facility] Rx#:[id number] Rocephin Inj 1,000 MG In NS Inj 100 / 100 100 ML @ 200 mls/hr IV.SIG Q24H [facility] Rx#:[id number] Oral 720 / 720 Other: # Voids 3 Date of Last Bowel Movement 03/19/18 03/19/18 03/19/18 16:15 Bronchial - Right Upper Lobe Gram Stain - Final 03/19/18 16:15 Bronchial - Right Upper Lobe Bronchial Culture - Final Moderate growth normal respiratory batshvea 03/19/18 16:15 Bronchial - Left Upper Lobe Gram Stain - Final 03/19/18 16:15 Bronchial - Left Upper Lobe Bronchial Culture - Final Rare growth normal respiratory batsheva 03/19/18 16:15 Bronchial Washings - Right Upper Lobe Acid Fast Bacilli Smear - Final No acid fast bacilli seen 03/19/18 16:15 Bronchial Washings - Right Upper Lobe Mycobacterial Culture - Pending 03/19/18 16:15 Bronchial Washings - Left Upper Lobe Acid Fast Bacilli Smear - Final No acid fast bacilli seen 03/19/18 16:15 Bronchial Washings - Left Upper Lobe Mycobacterial Culture - Pending 03/19/18 16:15 Bronchial Washings - Right Upper Lobe Fungal Smear - Final No fungal elements seen 03/19/18 16:15 Bronchial Washings - Right Upper Lobe Fungal Culture - Pending 03/19/18 16:15 Bronchial Washings - Left Upper Lobe Fungal Smear - Final No fungal elements seen 03/19/18 16:15 Bronchial Washings - Left Upper Lobe Fungal Culture - Pending Lab - Hematology Results 03/18/18 10:34 Hgb ELP Interp Adult normal hgb Lab - Chemistry Results 03/18/18 03/20/18 03/21/18 10:34 22:10 07:51 POC Glucose 135 H 257 H Albumin (PEP) 3.14 L Albumin/Globulin Ratio 0.70 L Pckfe-9-Rixjfxrnd 0.28 Yrbtz-6-Zyjefkrgq 0.91 Beta Globulins 0.87 Gamma Globulins 2.40 H PEP Pathologist Comment 03/21/18 03/21/18 03/22/18 12:56 21:00 11:48 POC Glucose 186 H 250 H 228 H Albumin (PEP) Albumin/Globulin Ratio Kdazg-0-Zhftoarwd Kmohm-8-Adodnvpud Beta Globulins Gamma Globulins PEP Pathologist Comment Imaging: ITS Impressions Chest CTA 03/16/18 18:47 CONCLUSION: 1. Negative for pulmonary embolus. 2. Marked progression of predominantly upper lobe lung disease since January 09, 2018. Differential diagnosis includes drug reaction or chronic hypersensitivity type reaction to extrinsic exposure. Also consider infection. Myocardial Perfusion Scan Nuc Med 03/17/18 08:24 CONCLUSION: 1. No reversible perfusion defects to suggest ischemia. 2. 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 3. Ejection fraction 52%. Chest X-Ray 03/19/18 16:27 CONCLUSION: No pneumothorax. Patchy bilateral and right upper lobe infiltrates are again seen. Please see above. Physical Exam: GENERAL: Well-nourished well-developed, not in acute distress SKIN: Cool and dry, no generalized rash HEAD: Atraumatic. Normocephalic. No temporal or scalp tenderness. EYES: Pupils equal round and reactive. Scleral icterus. No injection or drainage. No petechia ENT: Nothing abnormal detected NECK: Trachea midline. Supple, nontender, no meningeal signs. CARDIOVASCULAR: HS audible. RESPIRATORY: Clear to auscultation bilaterally. GASTROINTESTINAL: Abdomen soft nontender. MUSCULOSKELETAL: Extremities without clubbing, cyanosis. NEUROLOGICAL: Alert oriented 3. Nonfocal. Psych cooperative IV line sites ok. Assessment and Plan - Plan Impression HIV AIDS with CD4 count of 24. Bilateral pulmonary infiltrates, with hypoxemia, patient with newly diagnosed HIV, CD4 not known PCP pneumonia Will cover for community-acquired pneumonia as well Known CAD, and previous stent Recommendation Continue ceftriaxone IV Continue azithromycin oral Continue Bactrim oral for now. Pathology reported as positive for PCP. Will need CRISTIANE prophylaxis with azithromycin 1200 mg p.o. once a week on discharge. Follow path and cytology On steroids Follow CD4 counts Will need referral with HIV provider at [facility]. Dr. Deluca to resume care on March 25, 2018. Dr. Gilman covering over the weekend.
[2018-03-22] MEDS: Temazepam 15 MG Capsule PO PRN (21:29)
--- NOTE | 2018-03-23 13:44 | P.PN ---
Subjective Interval history: Follow up for newly diagnosed HIV/AIDS, atypical PNA, PCP. The patient is seen immediately after a fall report was called to his room. He states he was sitting on the side of the bed using the urinal and upon completion, he stood up to pull up his pants, became weak, and just slowly lowered himself to the ground. Denies any lightheadedness/dizziness or loss of consciousness. Denies hitting his head. He denies suffering any injury. He reports continued diffuse anterior pleuritic chest pains with some mild associated shortness of breath. He states his cough is improving, productive of yellow sputum. Denies fevers/ chills. Discussed extensively with patient and patient's aunt at bedside. Physical Exam Vital signs: Vital Signs 03/22/18 15:39 03/22/18 16:00 03/22/18 20:34 Temperature 98.2 F 98.0 F Pulse Rate 89 81 76 Respiratory Rate 16 18 21 Blood Pressure 147/79 H 136/81 Pulse Oximetry 91 L 91 L 03/22/18 21:26 03/23/18 00:09 03/23/18 04:22 Temperature 97.6 F 97.8 F Pulse Rate 90 69 78 Respiratory Rate 20 18 21 Blood Pressure 116/62 121/71 Pulse Oximetry 96 91 L 91 L 03/23/18 07:41 03/23/18 08:51 03/23/18 12:00 Temperature 98.3 F 98.3 F Pulse Rate 73 73 93 H Respiratory Rate 14 15 14 Blood Pressure 133/79 136/74 Pulse Oximetry 90 L 98 91 L Intake & Output 03/22/18 03/23/18 03/23/18 18:59 06:59 18:59 Intake Total 1000 / 1000 Output Total 600 / 600 Balance 1000 / 1000 -600 / -600 Intake: IV 1000 / 1000 NS Inj 1,000 ML @ 100 mls/hr IV 1000 / 1000 .CONT .Q10H [facility] Rx#:[id number] Output: Urine 600 / 600 Other: Date of Last Bowel Movement 03/19/18 Narrative: GENERAL: Well-nourished, well-developed middle aged male patient in [facility]. SKIN: Warm and dry. Dry eczematous diffuse facial rash. HEENT: Normocephalic. Atraumatic. Pupils equal and round. Mucous membranes pink and moist. CARDIOVASCULAR: Regular rate and rhythm. No murmur appreciated. RESPIRATORY: No accessory muscle use. Mostly clear to auscultation today. Breath sounds equal bilaterally. GASTROINTESTINAL: Abdomen soft, non-tender, nondistended. Normoactive bowel sounds x4. MUSCULOSKELETAL: No obvious deformities. Extremities without clubbing, cyanosis , or edema. NEUROLOGICAL: Awake and alert. No obvious cranial nerve deficits. Motor grossly within normal limits. Moving all extremities spontaneously. Normal speech. PSYCHIATRIC: Appropriate mood and affect; insight and judgment normal. Results - Labs CBC & Chem 7: 03/20/18 10:12 03/20/18 10:12 Laboratory Results - last 24 hr 03/18/18 03/18/18 03/22/18 10:34 10:34 09:50 Hgb ELP Interp Adult normal hgb POC Glucose PEP Pathologist Comment M.tuberculosis DNA (PCR) Not detected Rifampin Resistance Not Reportable 03/22/18 03/23/18 17:57 09:26 Hgb ELP Interp POC Glucose 196 H 83 PEP Pathologist Comment M.tuberculosis DNA (PCR) Rifampin Resistance Microbiology 03/19/18 16:15 Bronchial - Right Upper Lobe Gram Stain - Final 03/19/18 16:15 Bronchial - Right Upper Lobe Bronchial Culture - Final Moderate growth normal respiratory batsheva 03/19/18 16:15 Bronchial - Left Upper Lobe Gram Stain - Final 03/19/18 16:15 Bronchial - Left Upper Lobe Bronchial Culture - Final Rare growth normal respiratory batsheva - Procedures 03/19/18 - Bronchoscopy with washings, by Dr. Lopez Assessment and Plan - Assessment (1) Chest pain Code(s): R07.9 - Chest pain, unspecified Status: Acute Plan: -Patient does have increased risk factors include age, male, history of myocardial infarction, coronary disease, history of tobacco use, hyperlipidemia , family history of heart disease, diabetes -Patient has been ruled out for acute coronary event with serial cardiac enzymes that have remained negative -Serial EKGs reviewed by myself shows changes indicative of old inferior and lateral [place]. No acute changes -Myocardial perfusion study was performed and indicated no signs of ischemia, low risk -Continue aspirin, nitroglycerin as needed, -Continue monitor telemetry -Continue oxygen as needed -LDL 36 (2) Pancytopenia Code(s): D61.818 - Other pancytopenia Status: Acute Plan: -Etiology unknown at this time, liver enzymes are unremarkable for any underlying liver disease. Will need further evaluation -B12, folate, reticulocyte count are all within normal limits. Patient does have a low iron, however elevated ferritin level, haptoglobin also mildly elevated, however LDH is normal. -Obtain protein and hemoglobin electrophoresis -Consult hematology for recommendations (3) Abnormal CT of the chest Code(s): R93.8 - Abnormal findings on diagnostic imaging of other specified body structures Status: Acute Plan: -CT scan shows worsening upper lobe lung disease of unknown etiology -Patient has not been having any clinical symptoms, patient does not have any fever, cough. No leukocytosis -Patient does have elevated sed rate, C-reactive protein -Rheumatoid factor with negative, Streptococcus pneumonia antigen, Legionella antigen were negative -HIV, mycoplasma testing, alpha-1 antitrypsin are still pending -Awaiting sputum culture -Consult pulmonology for further evaluation and recommendations -Discussed with dredge mechanic who requested the patient be transferred to the main hospital for bronchoscopy, dredge mechanic requested patient have airborne isolation (4) Diabetes Code(s): E11.9 - Type 2 diabetes mellitus without complications Status: Chronic Plan: -We will start diabetic diet after stress testing -Accu-Cheks with sliding scale insulin - Plan 52-year-old male with known history of CAD/[place] s/p stenting, hyperlipidemia, diabetes, history of tobacco use who presented to the hospital due to acute onset of chest pain. Chest Pain: atypical. Patient does have increased risk factors include age, male , history of CAD/[place], history of tobacco use, hyperlipidemia, family history of heart disease, diabetes. -ACS ruled out with negative serial cardiac enzymes -EKGs reviewed, no acute ischemic changes -Nuclear stress test negative for ischemia, low risk -Continue aspirin, nitro prn, O2 prn -Monitor on telemetry -LDL 36 -Suspect pleuritic with abnormal chest CT and pain mostly on deep inspiration , see below Pancytopenia: WBC 3.9, Hgb 10.8, Hct 31.3, Plt 137K. Suspect secondary to newly diagnosed HIV. -Liver enzymes are unremarkable for any underlying liver disease. -B12, folate, reticulocyte count are all within normal limits. -Patient does have a low iron, however elevated ferritin level, haptoglobin also mildly elevated, however LDH is normal. -Obtain protein and hemoglobin electrophoresis -Consult hematology, appreciate recommendations, likely secondary to HIV Bilateral Pulmonary Infiltrates, +PCP: Abnormal Chest CT shows worsening upper lobe lung disease. Patient with nonproductive cough, pleuritic chest pain. No fever, no sputum production, no leukocytosis. -Patient does have elevated sed rate, C-reactive protein -Rheumatoid factor negative, Streptococcus pneumonia antigen negative, Legionella antigen were negative -HIV POSITIVE -mycoplasma IgG positive, alpha-1 antitrypsin wnl -Consulted pulmonology, performed bronchoscopy 03/19, washings sent for studies -pathology positive for PCP -TB ruled out, discontinue Airborne isolation -consulted infectious disease, appreciate recommendations -discussed with Dr. Goins, started on IV Rocephin and po Azithro, also on Bactrim HIV+ with AIDS: patient diagnosed with HIV on this admission -consult ID -needs to establish with HIV provider as outpatient, patient without insurance, will need referral to [facility], case management consulted -started on empiric Bactrim 2tab po tid -lymphocyte profile with CD4 count of 25 -Will need CRISTIANE prophylaxis with azithromycin 1200 mg p.o. once a week on discharge, per ID Acute Hypoxic Respiratory Failure: O2 sat dropped to 88% today 03/23, secondary to above -continue nebs -give Incentive Spirometer, Acapella -consult respiratory therapist -give O2 as need to keep O2 sat > 92% -continue on prednisone 40mg bid Diabetes Mellitus: chronic -Diabetic diet however patient not eating due to diet restrictions, will give regular diet and advise to choose diabetic friendly foods, add ensure to meals -Monitor Accu-checks and cover with sliding scale insulin Generalized Weakness: suspect to above diagnoses -consult PT Insomnia: patient requesting sleeping medication while in hospital -will give Restoril 15mg hs prn insomnia DVT Prophylaxis: teds/SCDs Discharge Planning: Discharge pending further clinical improvement, and clearance from pulmonology and ID.
[2018-03-23] MEDS: Sod Chloride 0.9% Inj 1,000 ML IV.CONT SCH (19:00)
[2018-03-23] MEDS: Temazepam 15 MG Capsule PO PRN (21:31)
[2018-03-23] MEDS: predniSONE 20 MG Tablet PO SCH (21:33)
[2018-03-23] MEDS: Senna/Docusate Sodium 8.6/50 MG Tablet PO SCH (21:35)
[2018-03-23] MEDS: Insulin NovoLOG Aspart Correctional Sugar Inj SQ SCH (21:35)
[2018-03-24] MEDS: Sod Chloride 0.9% Inj 1,000 ML IV.CONT SCH ×3 (04:11→14:31)
[2018-03-24] MEDS: predniSONE 20 MG Tablet PO SCH ×2 (09:35→20:57)
[2018-03-24] MEDS: Senna/Docusate Sodium 8.6/50 MG Tablet PO SCH ×2 (09:35→21:02)
[2018-03-24] MEDS: Insulin NovoLOG Aspart Correctional Sugar Inj SQ SCH ×4 (09:36→21:03)
--- NOTE | 2018-03-24 12:18 | P.PN ---
Subjective Interval history: Follow-up PCP/AIDS/chest pain March 24, 2018-patient seen and examined, afebrile and denies any chest pain or shortness of breath. Physical Exam Vital signs: Vital Signs 03/23/18 13:45 03/23/18 14:34 03/23/18 15:45 Temperature 98.7 F 98.4 F Pulse Rate 95 H 95 H 70 Respiratory Rate 14 12 16 Blood Pressure 136/78 137/78 Pulse Oximetry 92 L 88 L 03/23/18 16:00 03/23/18 20:00 03/23/18 20:04 Temperature 98.4 F 98.2 F Pulse Rate 99 H 84 82 Respiratory Rate 14 22 19 Blood Pressure 128/77 133/79 Pulse Oximetry 92 L 95 03/23/18 20:05 03/24/18 00:00 03/24/18 04:00 Temperature 98.1 F 98.2 F Pulse Rate 74 72 Respiratory Rate 20 20 Blood Pressure 128/78 130/78 Pulse Oximetry 94 L 96 95 03/24/18 08:00 Temperature 97.8 F Pulse Rate 65 Respiratory Rate 20 Blood Pressure 135/82 Pulse Oximetry 96 Intake & Output 03/23/18 03/24/18 03/24/18 18:59 06:59 18:59 Intake Total 1000 / 1000 Output Total 350 / 350 Balance 650 / 650 Intake: IV 1000 / 1000 NS Inj 1,000 ML @ 100 mls/hr IV 1000 / 1000 .CONT .Q10H ELENA Rx#:[id number] Output: Urine 350 / 350 Other: # Bowel Movements 1 Narrative: GENERAL: NAD. SKIN: Warm and dry. Dry eczematous diffuse facial rash. HEENT: Normocephalic. Atraumatic. Pupils equal and round. Mucous membranes pink and moist. CARDIOVASCULAR: Regular rate and rhythm. No murmur appreciated. RESPIRATORY: No accessory muscle use. Mostly clear to auscultation today. Breath sounds equal bilaterally. GASTROINTESTINAL: Abdomen soft, non-tender, nondistended. Normoactive bowel sounds x4. MUSCULOSKELETAL: No obvious deformities. Extremities without clubbing, cyanosis , or edema. NEUROLOGICAL: Awake and alert. No obvious cranial nerve deficits. Motor grossly within normal limits. Moving all extremities spontaneously. Normal speech. PSYCHIATRIC: Appropriate mood and affect; insight and judgment normal. Results - Labs CBC & Chem 7: 03/20/18 10:12 03/20/18 10:12 Laboratory Results - last 24 hr 03/23/18 03/23/18 03/24/18 15:53 20:32 07:33 POC Glucose 103 113 H 189 H - Procedures 03/19/18 - Bronchoscopy with washings, by Dr. Lopez Assessment and Plan - Assessment (1) Chest pain Code(s): R07.9 - Chest pain, unspecified Status: Acute Plan: -Patient does have increased risk factors include age, male, history of myocardial infarction, coronary disease, history of tobacco use, hyperlipidemia , family history of heart disease, diabetes -Patient has been ruled out for acute coronary event with serial cardiac enzymes that have remained negative -Serial EKGs reviewed by myself shows changes indicative of old inferior and lateral OR. No acute changes -Myocardial perfusion study was performed and indicated no signs of ischemia, low risk -Continue aspirin, nitroglycerin as needed, -Continue monitor telemetry -Continue oxygen as needed -LDL 36 (2) Pancytopenia Code(s): D61.818 - Other pancytopenia Status: Acute Plan: -Etiology unknown at this time, liver enzymes are unremarkable for any underlying liver disease. Will need further evaluation -B12, folate, reticulocyte count are all within normal limits. Patient does have a low iron, however elevated ferritin level, haptoglobin also mildly elevated, however LDH is normal. -Obtain protein and hemoglobin electrophoresis -Consult hematology for recommendations (3) Abnormal CT of the chest Code(s): R93.8 - Abnormal findings on diagnostic imaging of other specified body structures Status: Acute Plan: -CT scan shows worsening upper lobe lung disease of unknown etiology -Patient has not been having any clinical symptoms, patient does not have any fever, cough. No leukocytosis -Patient does have elevated sed rate, C-reactive protein -Rheumatoid factor with negative, Streptococcus pneumonia antigen, Legionella antigen were negative -HIV, mycoplasma testing, alpha-1 antitrypsin are still pending -Awaiting sputum culture -Consult pulmonology for further evaluation and recommendations -Discussed with prize fighter who requested the patient be transferred to the main hospital for bronchoscopy, prize fighter requested patient have airborne isolation (4) Diabetes Code(s): E11.9 - Type 2 diabetes mellitus without complications Status: Chronic Plan: -We will start diabetic diet after stress testing -Accu-Cheks with sliding scale insulin - Plan 52-year-old man with Chest Pain: atypical. Patient does have increased risk factors include age, male , history of CAD/OR, history of tobacco use, hyperlipidemia, family history of heart disease, diabetes. -ACS ruled out with negative serial cardiac enzymes -Nuclear stress test negative for ischemia, low risk -Continue aspirin, nitro prn, O2 prn -Suspect pleuritic with abnormal chest CT and pain mostly on deep inspiration , see below Pancytopenia: Suspect secondary to newly diagnosed HIV. -Liver enzymes are unremarkable for any underlying liver disease. -B12, folate, reticulocyte count are all within normal limits. -Patient does have a low iron, however elevated ferritin level, haptoglobin also mildly elevated, however LDH is normal. -Obtain protein and hemoglobin electrophoresis -Consult hematology, appreciate recommendations, likely secondary to HIV Bilateral Pulmonary Infiltrates, +PCP: Abnormal Chest CT shows worsening upper lobe lung disease. Patient with nonproductive cough, pleuritic chest pain. No fever, no sputum production, no leukocytosis. 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 once a week on discharge, per ID Acute Hypoxic Respiratory Failure: O2 sat dropped to 88% today 03/23, secondary to above -continue nebs -continue on prednisone 40mg bid Diabetes Mellitus: chronic -Monitor Accu-checks and cover with sliding scale insulin Generalized Weakness: suspect to above diagnoses - PT to treat Insomnia: patient requesting sleeping medication while in hospital -Restoril 15mg hs prn insomnia DVT Prophylaxis: teds/SCDs
--- NOTE | 2018-03-24 13:10 | P.DIET ---
Nutritional Evaluation Type of nutrition evaluation: initial Nutrition screening: Weight Loss > 10 lbs Subjective Subjective Comments: Pt reports wt loss and a poor appetite Objective - Diagnosis Chest Pain, SOB - Objective % IBW: 97 Body Weight Used for Calculations: Actual (76kg) Energy Needs - Lower Range (kCal/kg): 33 Energy Needs - Upper Range (kCal/kg): 38 Lower Limit kCal/kg (kCals): 2,508 Upper Limit kCal/kg (kCals): 2,888 Lower Limit Protein Factor (Grams per Kg): 1.2 Upper Limit Protein Factor (Grams per Kg): 1.5 Lower Protein Needs (Protein): 91 Upper Protein Needs (Protein): 114 Fluid Factor (ml/kg): 33 Estimated Fluid Needs (ml): 2,508 Dietitian Reviewed in Medical Record: Current diet, Curent medications, Intake & Output, Labs, Medical history Objective Comments: PMH: CAD s/p SC, stent, DM, HLD, pancreatitis, nephrolithiasis New dx HIV/AIDS with CD4 count of 24 Labs include: POC Glu 189, 107 +1 BM Assessment Assessment: Pt at nutritional risk r/t recent reported wt loss, new dx of HIV/AIDS. Nutritional needs as assessed above. Pt has been eating 75-100% of most meals. Pt is receiving Enlive tid, each provides 350 kcals and 20 gms protein. Will continue to monitor po intake, clinical course. Recommendations: Regular diet w/Enlive TID Dietitian to Monitor: Lab values, Diet tolerance, Weight change, PO Intake, Medical course
[2018-03-24] MEDS: Azithromycin 250 MG Tablet PO SCH ×2 (17:59→18:01)
[2018-03-24] MEDS: Temazepam 15 MG Capsule PO PRN (20:57)
[2018-03-25] MEDS: Sod Chloride 0.9% Inj 1,000 ML IV.CONT SCH ×4 (00:32→20:27)
[2018-03-25] MEDS: predniSONE 20 MG Tablet PO SCH ×2 (08:03→20:26)
[2018-03-25] MEDS: Senna/Docusate Sodium 8.6/50 MG Tablet PO SCH ×2 (08:06→20:28)
[2018-03-25] MEDS: Insulin NovoLOG Aspart Correctional Sugar Inj SQ SCH ×3 (10:14→18:57)
--- NOTE | 2018-03-25 11:53 | P.PNIM ---
Subjective Interval history: Breathing much better trying to do well off the oxygen. No active shortness of breath or chest pain at this time. Physical Exam Vital signs: Vital Signs 03/24/18 12:00 03/24/18 16:00 03/24/18 20:00 Temperature 98 F 98 F 98.0 F Pulse Rate 73 78 72 Respiratory Rate 20 20 20 Blood Pressure 142/85 H 142/85 H 137/86 Pulse Oximetry 95 95 94 L 03/24/18 20:40 03/25/18 00:00 03/25/18 01:53 Temperature 98 F Pulse Rate 69 67 61 Respiratory Rate 18 Blood Pressure 122/78 Pulse Oximetry 92 L 03/25/18 04:00 03/25/18 08:00 Temperature 97.3 F L 97.7 F Pulse Rate 68 64 Respiratory Rate 20 18 Blood Pressure 131/74 132/78 Pulse Oximetry 93 L 96 Intake & Output 03/24/18 03/25/18 03/25/18 18:59 06:59 18:59 Intake Total 1340 / 1340 1100 / 1100 Output Total 600 / 600 Balance 740 / 740 1100 / 1100 Intake: IV 1100 / 1100 1100 / 1100 NS Inj 1,000 ML @ 100 mls/hr IV 1000 / 1000 1000 / 1000 .CONT .Q10H ELENA Rx#:[id number] Rocephin Inj 1,000 MG In NS Inj 100 / 100 100 / 100 100 ML @ 200 mls/hr IV.SIG Q24H ELENA Rx#:[id number] Oral 240 / 240 Output: Urine 600 / 600 Other: Date of Last Bowel Movement 03/19/18 03/24/18 03/24/18 Narrative: GENERAL: This is a well-nourished, well-developed patient, in no apparent distress. CARDIOVASCULAR: Regular rate and rhythm RESPIRATORY: Relatively clear to auscultation. Breath sounds equal bilaterally. No wheezes, rales, or rhonchi. GASTROINTESTINAL: Abdomen soft, non-tender, nondistended. Normal active bowel sounds MUSCULOSKELETAL: Extremities without clubbing, cyanosis, or edema. NEURO: Alert & Oriented x4 to person, place, time, situation. Moves all ext x4 Results - Labs CBC & Chem 7: 03/20/18 10:12 03/20/18 10:12 Laboratory Results - last 24 hr 03/24/18 03/24/18 03/24/18 12:30 17:20 20:55 POC Glucose 107 184 H 143 H 03/25/18 08:42 POC Glucose 157 H - Procedures 03/19/18 - Bronchoscopy with washings, by Dr. Lopez Assessment and Plan - Assessment (1) Chest pain Code(s): R07.9 - Chest pain, unspecified Status: Acute (2) Pancytopenia Code(s): D61.818 - Other pancytopenia Status: Acute (3) Abnormal CT of the chest Code(s): R93.8 - Abnormal findings on diagnostic imaging of other specified body structures Status: Acute (4) Diabetes Code(s): E11.9 - Type 2 diabetes mellitus without complications Status: Chronic Plan: - - Plan 52-year-old man with Chest Pain: atypical. Likely due to PCP. Patient does have increased risk factors include age, male, history of CAD/AR, history of tobacco use, hyperlipidemia, family history of heart disease, diabetes mellitus. -ACS ruled out with negative serial cardiac enzymes -Nuclear stress test negative for ischemia, low risk -Continue aspirin, nitro prn, O2 prn -Suspect pleuritic with abnormal chest CT and pain mostly on deep inspiration , see below Pancytopenia: Suspect secondary to newly diagnosed HIV. -Liver enzymes are unremarkable for any underlying liver disease. -B12, folate, reticulocyte count are all within normal limits. -Patient does have a low iron, however elevated ferritin level, haptoglobin also mildly elevated, however LDH is normal. -Obtain protein and hemoglobin electrophoresis -Appreciate hematology recommendations, likely secondary to HIV Bilateral Pulmonary Infiltrates, +PCP: Abnormal Chest CT shows worsening upper lobe lung disease. Patient with nonproductive cough, pleuritic chest pain. No fever, no sputum production, no leukocytosis. -HIV POSITIVE -mycoplasma IgG positive, alpha-1 antitrypsin wnl -Consulted pulmonology, performed bronchoscopy 03/19, washings sent for studies -pathology positive for PCP -consulted infectious disease, appreciate recommendations -On IV Rocephin and po Azithro, also on Bactrim, will need 1200 mg of p.o. 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 once a week on discharge, per ID Acute Hypoxic Respiratory Failure: O2 sat dropped to 88% on 03/23, secondary to above -continue nebs -continue on prednisone 40mg bid Will continue to wean off oxygen and obtain and walk fit test today Diabetes Mellitus type II: chronic -Monitor Accu-checks and cover with sliding scale insulin Generalized Weakness: suspect to above diagnoses - PT to treat Insomnia: patient requesting sleeping medication while in hospital -Restoril 15mg hs prn insomnia DVT Prophylaxis: teds/SCDs (4) Diabetes Qualifiers: Diabetes mellitus type: type 2
--- NOTE | 2018-03-25 12:28 | P.PNID ---
Subjective Remarks: Patient is a 52-year-old male, who has had problem with weight loss, poor appetite, and some intermittent chest pain and dry cough for several months. He actually had an ED visit, and at that time he had a CT of the chest which showed some groundglass opacity in his left upper lobe. He presented this time because of worsening chest pain and increasing shortness of breath and was initially admitted at [facility] on March 16. There is been no fever chills or sweats. He has a fairly dry cough which is not bad, and has not had any problem with nausea vomiting, diaphoresis, dizziness, lightheadedness, or abdominal pain. He has not had any exposure to animals or recent travel or anyone with known infection or tuberculosis. He has had some exposure to formaldehyde in fixatives when he was to work in the [employer] business from 2001- 2005. On his admission he was found to have bilateral infiltrates, and CT of the chest did not show any evidence of pulmonary embolism, but did show progression of the groundglass densities which is now involving both upper lung ruggiero as well as mid lung ruggiero. He was also found to be pancytopenic. HIV testing was done and it came back positive. Patient underwent bronchoscopy yesterday and there was no endobronchial lesions seen, and specimens were sent for cytology and he also had lung biopsy. Since admission he has not been febrile. He has been increasingly requiring more oxygen and currently on Ventimask. Patient has not been on any systemic antibiotics, but he was started on steroids yesterday. Patient feels a little bit better compared to on admission. He has fairly dry cough. His chest discomfort is better. His cardiac workup on this admission has been negative. CD4 counts are pending, and his LDH is normal. Infectious disease consultation has been requested to evaluate this patient with newly diagnosed HIV, and with bilateral infiltrates. Patient stated that he is homosexual, and has been with his partner for at least 7-8 years. Before he started his relationship he had HIV testing which was reportedly negative. He has had previous multiple partners prior to this current partner. Notes reviewed No fever Still requiring O2 - on simple FM, but e takes it off, on and off cause it bothers him CD4 25 PCP (+) No rash Antibiotics: Bactrim DS Prednisone Azithro oral Rocephin IV Past Medical History: Medical History: Medical History Coronary artery disease History of nephrolithiasis History of pancreatitis Hyperlipemia Myocardial infarction Decreased vision Diabetes History of dental problems Kidney stones Surgical History History of coronary artery stent placement History of lithotripsy Hx of cardiac cath Allergies/Adverse Reactions: Allergies No Known Allergies Allergy (Verified 03/16/18 17:23) Objective Vital Signs 03/24/18 16:00 03/24/18 20:00 03/24/18 20:40 Temperature 98 F 98.0 F Pulse Rate 78 72 69 Respiratory Rate 20 20 Blood Pressure 142/85 H 137/86 Pulse Oximetry 95 94 L 03/25/18 00:00 03/25/18 01:53 03/25/18 04:00 Temperature 98 F 97.3 F L Pulse Rate 67 61 68 Respiratory Rate 18 20 Blood Pressure 122/78 131/74 Pulse Oximetry 92 L 93 L 03/25/18 08:00 Temperature 97.7 F Pulse Rate 64 Respiratory Rate 18 Blood Pressure 132/78 Pulse Oximetry 96 Intake & Output 03/24/18 03/25/18 03/25/18 18:59 06:59 18:59 Intake Total 1340 / 1340 1100 / 1100 Output Total 600 / 600 Balance 740 / 740 1100 / 1100 Intake: IV 1100 / 1100 1100 / 1100 NS Inj 1,000 ML @ 100 mls/hr IV 1000 / 1000 1000 / 1000 .CONT .Q10H ELENA Rx#:[id number] Rocephin Inj 1,000 MG In NS Inj 100 / 100 100 / 100 100 ML @ 200 mls/hr IV.SIG Q24H ELENA Rx#:[id number] Oral 240 / 240 Output: Urine 600 / 600 Other: Date of Last Bowel Movement 03/19/18 03/24/18 03/24/18 03/19/18 16:15 Bronchial - Right Upper Lobe Gram Stain - Final 03/19/18 16:15 Bronchial - Right Upper Lobe Bronchial Culture - Final Moderate growth normal respiratory batsheva 03/19/18 16:15 Bronchial - Left Upper Lobe Gram Stain - Final 03/19/18 16:15 Bronchial - Left Upper Lobe Bronchial Culture - Final Rare growth normal respiratory batsheva Lab - Chemistry Results 03/23/18 03/23/18 03/24/18 15:53 20:32 07:33 POC Glucose 103 113 H 189 H 03/24/18 03/24/18 03/24/18 12:30 17:20 20:55 POC Glucose 107 184 H 143 H 03/25/18 08:42 POC Glucose 157 H Imaging: ITS Impressions Chest CTA 03/16/18 18:47 CONCLUSION: 1. Negative for pulmonary embolus. 2. Marked progression of predominantly upper lobe lung disease since January 09, 2018. Differential diagnosis includes drug reaction or chronic hypersensitivity type reaction to extrinsic exposure. Also consider infection. Myocardial Perfusion Scan Nuc Med 03/17/18 08:24 CONCLUSION: 1. No reversible perfusion defects to suggest ischemia. 2. 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 3. Ejection fraction 52%. Chest X-Ray 03/19/18 16:27 CONCLUSION: No pneumothorax. Patchy bilateral and right upper lobe infiltrates are again seen. Please see above. Physical Exam: GENERAL: Well-nourished well-developed, not in acute distress SKIN: Cool and dry, no generalized rash HEAD: Atraumatic. Normocephalic. No temporal or scalp tenderness. EYES: Pupils equal round and reactive. Scleral icterus. No injection or drainage. No petechia ENT: Nothing abnormal detected NECK: Trachea midline. Supple, nontender, no meningeal signs. CARDIOVASCULAR: HS audible. RESPIRATORY: Clear to auscultation bilaterally. GASTROINTESTINAL: Abdomen soft nontender. MUSCULOSKELETAL: Extremities without clubbing, cyanosis. NEUROLOGICAL: Alert oriented 3. Nonfocal. Psych cooperative IV line sites ok. Assessment and Plan - Plan Impression HIV AIDS with CD4 count of 24. Bilateral pulmonary infiltrates, with hypoxemia, path and cytology C/W PCP - still requiring O2 PCP pneumonia Will cover for community-acquired pneumonia as well Known CAD, and previous stent Recommendation Stop ceftriaxone IV Stop azithromycin oral Continue Bactrim oral for now. Pathology reported as positive for PCP. Will start CRISTIANE prophylaxis with azithromycin 1200 mg p.o. once a week on discharge. On steroids Will need referral with HIV provider at [facility] Repeat CXR He needs 3 weeks of PCP RX, and tapering dose of steroids Explained plan to patient D/W Dr Kevon Akhtar ([facility])
--- NOTE | 2018-03-25 12:58 | XR ---
EXAM DATE: 03/25/2018 12:51 PM EDT AGE/SEX: 52 years / Male INDICATIONS: . Short of breath. CLINICAL DATA: This is the patient's subsequent encounter. Patient reports that signs and symptoms h ave been present for 1 week and indicates a pain score of 2/10. MEDICAL/SURGICAL HISTORY: . Diabetes. Renal calculi. None. COMPARISON: No prior exams available for comparison. FINDINGS: AP and lateral views of the chest demonstrate bilateral patchy infiltrates greater in the upper lobes and greatest within the left upper lobe. The cardiomediastinal contours are unremarkable. Osseous structures are intact. CONCLUSION: Bilateral upper lobe infiltrates greater left upper lobe. Electronically signed by: Carmine rCuz MD 03/25/2018 12:57 PM EDT
[2018-03-25] MEDS: Temazepam 15 MG Capsule PO PRN (20:27)
[2018-03-26] MEDS: Insulin NovoLOG Aspart Correctional Sugar Inj SQ SCH ×5 (04:07→20:13)
[2018-03-26] MEDS: Sod Chloride 0.9% Inj 1,000 ML IV.CONT SCH ×2 (04:08→17:38)
[2018-03-26] MEDS: Senna/Docusate Sodium 8.6/50 MG Tablet PO SCH ×3 (08:39→20:14)
[2018-03-26] MEDS: predniSONE 20 MG Tablet PO SCH ×2 (08:39→20:14)
--- NOTE | 2018-03-26 09:41 | P.PNIM ---
Subjective Interval history: Patient eating breakfast. Reports no shortness of breath. No coughing. Still feeling weak and ambulates at the bedside commode. Physical Exam Vital signs: Vital Signs 03/25/18 12:00 03/25/18 13:45 03/25/18 16:00 Temperature 97.9 F 97.9 F Pulse Rate 73 65 Respiratory Rate 18 18 Blood Pressure 129/77 147/81 H Pulse Oximetry 94 L 93 L Pulse Oximetry [Exertion on Room Air] 87 L Pulse Oximetry [Exertion with Oxygen] 92 L Pulse Oximetry [Resting on Room Air] 94 L 03/25/18 17:26 03/25/18 20:00 03/26/18 00:00 Temperature 98.9 F 99 F Pulse Rate 55 L 61 Respiratory Rate 18 17 Blood Pressure 115/70 107/82 Pulse Oximetry 94 L 95 94 L Pulse Oximetry [Exertion on Room Air] Pulse Oximetry [Exertion with Oxygen] Pulse Oximetry [Resting on Room Air] 03/26/18 04:00 Temperature 98 F Pulse Rate 64 Respiratory Rate 16 Blood Pressure 129/57 L Pulse Oximetry 95 Pulse Oximetry [Exertion on Room Air] Pulse Oximetry [Exertion with Oxygen] Pulse Oximetry [Resting on Room Air] Intake & Output 03/25/18 03/26/18 03/26/18 18:59 06:59 18:59 Intake Total 1480 / 1480 1240 / 1240 Output Total 1000 / 1000 1000 / 1000 Balance 480 / 480 240 / 240 Weight 73.7 kg Intake: IV 1000 / 1000 1000 / 1000 NS Inj 1,000 ML @ 100 mls/hr IV 1000 / 1000 1000 / 1000 .CONT .Q10H [facility] Rx#:[id number] Oral 480 / 480 240 / 240 Output: Urine 1000 / 1000 1000 / 1000 Other: Date of Last Bowel Movement 03/24/18 # Bowel Movements 0 Weight On Admission 73.7 kg Narrative: GENERAL: This is a well-nourished, well-developed patient, in no apparent distress. CARDIOVASCULAR: Regular rate and rhythm RESPIRATORY: Diminished breath sounds bilaterally GASTROINTESTINAL: Abdomen soft, non-tender, nondistended. Normal active bowel sounds MUSCULOSKELETAL: Extremities without clubbing, cyanosis, or edema. NEURO: Alert & Oriented x4 to person, place, time, situation. Moves all ext x4 Results - Labs CBC & Chem 7: 03/20/18 10:12 03/20/18 10:12 Laboratory Results - last 24 hr 03/25/18 03/25/18 03/25/18 12:53 16:39 21:10 POC Glucose 172 H 196 H 106 03/26/18 07:47 POC Glucose 161 H - Imaging Impressions Chest X-Ray 03/25/18 00:00 CONCLUSION: Bilateral upper lobe infiltrates greater left upper lobe. - Procedures 03/19/18 - Bronchoscopy with washings, by Dr. Lopez Assessment and Plan - Assessment (1) Chest pain Code(s): R07.9 - Chest pain, unspecified Status: Acute (2) Pancytopenia Code(s): D61.818 - Other pancytopenia Status: Acute (3) Abnormal CT of the chest Code(s): R93.8 - Abnormal findings on diagnostic imaging of other specified body structures Status: Acute Plan: - (4) Diabetes Code(s): E11.9 - Type 2 diabetes mellitus without complications Status: Chronic Plan: - - Plan 52-year-old man with Chest Pain: atypical. Likely due to PCP. Patient does have increased risk factors include age, male, history of CAD/MS, history of tobacco use, hyperlipidemia, family history of heart disease, diabetes mellitus. -ACS ruled out with negative serial cardiac enzymes -Nuclear stress test negative for ischemia, low risk -Continue aspirin, nitro prn, O2 prn -Suspect pleuritic with abnormal chest CT and pain mostly on deep inspiration , see below Pancytopenia: Suspect secondary to newly diagnosed HIV. -Liver enzymes are unremarkable for any underlying liver disease. -B12, folate, reticulocyte count are all within normal limits. -Patient does have a low iron, however elevated ferritin level, haptoglobin also mildly elevated, however LDH is normal. -Obtain protein and hemoglobin electrophoresis -Appreciate hematology recommendations, likely secondary to HIV Bilateral Pulmonary Infiltrates, +PCP: Abnormal Chest CT shows worsening upper lobe lung disease. Patient with nonproductive cough, pleuritic chest pain. No fever, no sputum production, no leukocytosis. -HIV POSITIVE -mycoplasma IgG positive, alpha-1 antitrypsin wnl -Consulted pulmonology, performed bronchoscopy 03/19, washings sent for studies -pathology positive for PCP -consulted infectious disease, appreciate recommendations -On IV Rocephin, also on Bactrim for treatment, will need 1200 mg of p.o. 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 once a week on discharge, per ID Acute Hypoxic Respiratory Failure: O2 sat dropped to 88% on 03/23, secondary to above -continue nebs -continue on prednisone 40mg bid Will continue to wean off oxygen and obtain walk fit test yesterday which showed a O2 sat of 87% room air Diabetes Mellitus type II: chronic -Monitor Accu-checks and cover with sliding scale insulin Generalized Weakness: suspect to above diagnoses - PT to treat DVT Prophylaxis: teds/SCDs Discharge Planning: Patient continues to be hypoxic, will need improved O2 sat prior to discharge to home on oral medication. (4) Diabetes Qualifiers: Diabetes mellitus type: type 2
[2018-03-26] MEDS: Temazepam 15 MG Capsule PO PRN (21:27)
[2018-03-27] MEDS: Sod Chloride 0.9% Inj 1,000 ML IV.CONT SCH (04:58)
[2018-03-27] MEDS: Senna/Docusate Sodium 8.6/50 MG Tablet PO SCH (08:11)
[2018-03-27] MEDS: predniSONE 20 MG Tablet PO SCH (08:11)
[2018-03-27] MEDS: Insulin NovoLOG Aspart Correctional Sugar Inj SQ SCH ×2 (08:11→13:08)
--- NOTE | 2018-03-27 09:59 | P.DS ---
Date of admission: 03/20/18 13:53 Primary care physician: No Primary Care Physician Anticipated date of discharge: 03/27/18 Brief History from admission: 52-year-old male with known history of coronary disease status post stenting, history of myocardial infarction, hyperlipidemia, diabetes, family history of heart disease, history of tobacco use who presented to the hospital because of acute onset of chest pain. Patient states that he was in normal state of health yesterday until 2 PM when he developed the sudden onset of chest pressure 8/10 on a pain scale while he was watching TV. There is some mild radiation into his back. He did have associated shortness of breath. Denied any nausea, vomiting, diaphoresis, lightheadedness, dizziness. Patient states that the pain remained constant until he came to emergency department last evening and was given morphine with complete resolution of his pain. Patient had workup done in the emergency department and found to have a abnormal CT scan with worsening of bilateral upper lobe lung opacities which radiologist indicates could be multiple etiologies to include inflammatory, medication induced, infective. Because the above reasons is recommended by the ER physician that the patient be observed in the hospital for further evaluation and management. Patient denies any fever, chills, night sweats, cough, congestion, abdominal pain. DS: Diagnosis - Discharge Diagnosis (1) PCP (pneumocystis carinii pneumonia) Status: Acute (2) Pancytopenia Status: Chronic (3) Abnormal CT of the chest Status: Acute (4) Diabetes Status: Chronic (5) HIV (human immunodeficiency virus infection) Status: Chronic DS: Summary Hospital Course: These are the medical issues addressed during this hospitalization: 52-year-old man with Chest Pain: atypical. Likely due to PCP. Patient does have increased risk factors include age, male, history of CAD/AL, history of tobacco use, hyperlipidemia, family history of heart disease, diabetes mellitus. -ACS ruled out with negative serial cardiac enzymes -Nuclear stress test negative for ischemia, low risk -Continue aspirin, nitro prn, O2 prn -Suspect pleuritic with abnormal chest CT and pain mostly on deep inspiration , see below Pancytopenia: Suspect secondary to newly diagnosed HIV. -Liver enzymes are unremarkable for any underlying liver disease. -B12, folate, reticulocyte count are all within normal limits. -Patient does have a low iron, however elevated ferritin level, haptoglobin also mildly elevated, however LDH is normal. -Obtain protein and hemoglobin electrophoresis -Appreciate hematology recommendations, likely secondary to HIV Bilateral Pulmonary Infiltrates, +PCP: Abnormal Chest CT shows worsening upper lobe lung disease. Patient with nonproductive cough, pleuritic chest pain. No fever, no sputum production, no leukocytosis. -HIV POSITIVE -mycoplasma IgG positive, alpha-1 antitrypsin wnl -Consulted pulmonology, performed bronchoscopy 03/19, washings sent for studies -pathology positive for PCP -consulted infectious disease, appreciate recommendations -On IV Rocephin, also on Bactrim for treatment, will need 1200 mg of p.o. azithromycin on discharge weekly Appreciate infectious disease recommendations for Bactrim DS 1 p.o. 3 times daily for 3 more weeks along with prednisone taper for 3 more weeks. 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 once a week on discharge, per ID Acute Hypoxic Respiratory Failure: O2 sat dropped to 88% on 03/23, secondary to above -continue nebs -continue on prednisone 40mg bid Will continue to wean off oxygen and obtain walk fit test today to ensure greater than 92% prior to discharge. Diabetes Mellitus type II: chronic -Monitor Accu-checks and cover with sliding scale insulin, resume home metformin. Generalized Weakness: suspect to above diagnoses - PT to treat At this time, patient has gained maximum benefit from hospitalization and ready to be discharged to home. DVT Prophylaxis: teds/SCDs - Time Spent with Patient Total time spent providing and/or coordinating discharge services: Less than 30 minutes - Quality: VTE Deep Vein Thrombosis/Pulmonary Embolism Present on Admission: No Exam Vital signs: Vital Signs 03/26/18 13:36 03/26/18 15:55 03/26/18 15:57 Temperature 97.6 F Pulse Rate 70 70 Respiratory Rate 18 18 Blood Pressure 119/76 Pulse Oximetry 96 96 03/26/18 16:00 03/26/18 19:42 03/26/18 20:00 Temperature 97.7 F 97.4 F L Pulse Rate 87 87 97 H Respiratory Rate 18 16 19 Blood Pressure 119/71 159/73 H Pulse Oximetry 94 L 95 03/27/18 04:09 03/27/18 04:17 Temperature 98.8 F Pulse Rate 68 90 Respiratory Rate 20 16 Blood Pressure 143/78 H Pulse Oximetry 96 Intake & Output 03/26/18 03/27/18 03/27/18 18:59 06:59 18:59 Intake Total 1840 / 1840 0 / 0 Output Total 700 / 700 1600 / 1600 Balance 1140 / 1140 -1600 / -1600 Weight 74.3 kg Intake: IV 1000 / 1000 0 / 0 NS Inj 1,000 ML @ 100 mls/hr IV 1000 / 1000 0 / 0 .CONT .Q10H [facility] Rx#:[id number] Oral 840 / 840 Output: Urine 700 / 700 1600 / 1600 Other: Date of Last Bowel Movement 03/26/18 Narrative: GENERAL: This is a well-nourished, well-developed patient, in no apparent distress. CARDIOVASCULAR: Regular rate and rhythm RESPIRATORY: Clear to auscultation. Breath sounds equal bilaterally. No wheezes , rales, or rhonchi. GASTROINTESTINAL: Abdomen soft, non-tender, nondistended. Normal active bowel sounds MUSCULOSKELETAL: Extremities without clubbing, cyanosis, or edema. NEURO: Alert & Oriented x4 to person, place, time, situation. Moves all ext x4 Results Procedures completed during hospitalization: 03/19/18 - Bronchoscopy with washings, by Dr. Lopez Labs on day of discharge: Labs from last 24 hours 03/27/18 03/26/18 03/26/18 07:28 20:12 17:13 POC Glucose 315 H 273 H 211 H 03/26/18 12:40 POC Glucose 178 H Preliminary micro results at discharge 03/19/18 16:15 Fungal Culture - Preliminary Bronchial Washings - Right Upper Lobe No growth in 1 week 03/19/18 16:15 Mycobacterial Culture - Preliminary Bronchial Washings - Right Upper Lobe No growth in 1 week 03/19/18 16:15 Fungal Culture - Preliminary Bronchial Washings - Left Upper Lobe No growth in 1 week 03/19/18 16:15 Mycobacterial Culture - Preliminary Bronchial Washings - Left Upper Lobe No growth in 1 week - Impressions ITS Impressions Chest CTA 03/16/18 18:47 CONCLUSION: 1. Negative for pulmonary embolus. 2. Marked progression of predominantly upper lobe lung disease since January 09, 2018. Differential diagnosis includes drug reaction or chronic hypersensitivity type reaction to extrinsic exposure. Also consider infection. Myocardial Perfusion Scan Nuc Med 03/17/18 08:24 CONCLUSION: 1. No reversible perfusion defects to suggest ischemia. 2. 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 3. Ejection fraction 52%. Chest X-Ray 03/25/18 00:00 CONCLUSION: Bilateral upper lobe infiltrates greater left upper lobe. Discharge Plan - Discharge Disposition Patient Disposition: 01 Discharge Home - Discharge Condition Condition: Stable - Discharge Order Discharge Orders: Discharge Order (Routine); Ordered 03/27/18 Ordered By: Nicole Akhtar - Discharge Details Anticipated Discharge Date: 03/27/18 - Physicians Team Primary Care Provider: Primary Care Shante Akbar Attending Provider: Nicole Akhtar Other Providers: Tyrell Lopez MD ; Loyda Deluca MD ; Jacob Mello MD
[2018-03-28 20:47] LABS: Darunavir w Ritonavir SUSC; Fosamprenavir w Ritonavir SUSC; HIV 1 Genotyping INTERP; Indinavir w Ritonavir SUSC; Lopinavir w Ritonavir SUSC; Nefinavir SUSC; Saquinavir w Ritonavir SUSC; Tipranavir with Ritanavir SUSC
== END 2018-03-27 14:14 | disposition home or self-care (01) ==
LOC: PHEDA 17:06 → PHED 17:06 → PH3 03-17 07:36 → NEPHCDU 03-18 20:53 → N04 03-23 18:26 → UNDODISIN 03-26 10:43
PROVIDERS: ADMIT Family Medicine; ATTEND Family Medicine
DX: I25.10 Atherosclerotic heart disease of native coronary artery without angina pectoris; H54.7 Unspecified visual loss; B59 Pneumocystosis; G47.00 Insomnia, unspecified; Z87.891 Personal history of nicotine dependence; Z83.3 Family history of diabetes mellitus; E11.9 Type 2 diabetes mellitus without complications; Z95.5 Presence of coronary angioplasty implant and graft; R63.4 Abnormal weight loss; Z79.84 Long term (current) use of oral hypoglycemic drugs; J96.01 Acute respiratory failure with hypoxia; E78.5 Hyperlipidemia, unspecified; Z82.49 Family history of ischemic heart disease and other diseases of the circulatory system; I25.2 Old myocardial infarction; B20 Human immunodeficiency virus [HIV] disease

== ENCOUNTER 2018-04-03 16:39 | Inpatient (IN) ==
[2018-04-03] MEDS ORDERED: Acetaminophen 325 MG Tablet PO ONE (16:56)
[2018-04-03] MEDS ORDERED: Vancomycin Inj 1,200 MG in Sodium Chlor 0.9% Inj 250 ML IV.SIG STA (17:01)
--- NOTE | 2018-04-03 17:04 | ED ---
HPI General Chief complaint: Fever Stated complaint: Nausea/Vomiting Time Seen by Provider: 04/03/18 16:56 Source: patient Mode of arrival: EMS Limitations: no limitations History of Present Illness HPI Narrative: Patient is a 52-year-old male, with recent diagnosis of HIV with AIDS and PCP pneumonia, discharged from the hospital yesterday, who presents with complaint of general ill feeling. He states that while in the hospital he had started to feel better after being discharged yesterday he has started to feel worse. He has had a productive sputum and believes he had a fever. He has also had several episodes of nausea and nonbilious, nonbloody emesis without abdominal pain. EMS reports that he was febrile en route here today. He denies diarrhea, chest pain, dyspnea. He denies headache, neck pain. He reports taking the medications he was prescribed which include antibiotics and steroids. MD Complaint: generalized weakness and lack of energy Related Data Home Medications Medication Instructions Recorded Confirmed metformin 500 mg PO BID 03/11/18 03/16/18 aspirin 325 mg PO DAILY 03/16/18 03/16/18 Previous Rx's Medication Instructions Recorded albuterol sulfate [Ventolin HFA] 2 puff INHALATION Q4H PRN #1 g 03/27/18 azithromycin 1,200 mg PO WEEKLY #10 tab 03/27/18 prednisone 40 mg PO BID #25 tab 03/27/18 sulfamethoxazole-trimethoprim 2 tab PO Q8HR #42 tab 03/27/18 Allergies Allergy/AdvReac Type Severity Reaction Status Date / Time No Known Allergies Allergy Verified 04/03/18 16:43 Review of Systems Except as stated in HPI: all other systems reviewed are negative Constitutional Reports chills, Reports fatigue, Reports fever(s), Reports malaise and Reports weakness Eyes Denies blurry vision ENT Denies nasal congestion Cardiovascular Denies chest pain Respiratory Reports cough Gastrointestinal Denies abdominal pain, Denies diarrhea, Reports nausea and Reports vomiting Genitourinary Denies flank pain Musculoskeletal Denies back pain Integumentary/Breasts Denies wounds Neurologic Denies headache(s) Psychiatric Denies confusion Endocrine Reports fatigue Hematologic/Lymphatic Denies easy bruising [facility] Medical History Medical History Coronary artery disease (Acute) Decreased vision (Acute) Diabetes (Acute) History of dental problems (Acute) History of nephrolithiasis (Acute) History of pancreatitis (Acute) Hyperlipemia (Acute) Kidney stones (Acute) Myocardial infarction (Acute) Surgical History Surgical History History of coronary artery stent placement (Acute) History of lithotripsy (Acute) Hx of cardiac cath (Acute) Family History Family History Mother Family history of renal failure Grandparent No problems noted. Father Family history of coronary artery disease Social History Social History Substance History: No History of Abuse Second Hand Smoke Exposure: No Smoking Status: Former smoker Tobacco Type: Cigarettes How Often Do You Have a Drink Containing Alcohol: Never Recent Travel in [facility] within the Last 8 Weeks: No Recent Out of Country Travel within the Last 8 Weeks: No Exam Narrative Exam Narrative: GENERAL: Ill-appearing, disheveled male, in no acute distress SKIN: Focused skin assessment warm/dry. HEAD: Atraumatic. Normocephalic. EYES: Pupils equal and round. No scleral icterus. No injection or drainage. ENT: No nasal bleeding or discharge. Mucous membranes pink and moist. NECK: Trachea midline. No JVD. CARDIOVASCULAR: Tachycardic but regular. No murmur appreciated. Intact peripheral pulses RESPIRATORY: No accessory muscle use. Rhonchi present throughout. Breath sounds equal bilaterally. GASTROINTESTINAL: Abdomen soft, non-tender, nondistended. Hepatic and splenic margins not palpable. MUSCULOSKELETAL: No obvious deformities. No clubbing. No cyanosis. No edema. NEUROLOGICAL: Awake and alert. No obvious cranial nerve deficits. Motor grossly within normal limits. Normal speech. PSYCHIATRIC: Appropriate mood and affect; insight and judgment normal. Course Hospital Course: On patient arrival he was placed on a residential monitor and IV was established. Sepsis protocol was initiated including a 30 cc/kg bolus of fluids and antibiotics including vancomycin, cefepime and micafungin. Labs were drawn and sent. Initial Documented Vital Signs Temperature 100.8 F H 04/03/18 16:45 Pulse Rate 117 H 04/03/18 16:45 Respiratory Rate 20 04/03/18 16:45 Blood Pressure 142/74 H 04/03/18 16:45 Pulse Oximetry 94 L 04/03/18 16:45 Last Documented Vital Signs Temperature 99.7 F H 04/03/18 18:39 Pulse Rate 115 H 04/03/18 18:39 Respiratory Rate 20 04/03/18 18:39 Blood Pressure 99/60 L 04/03/18 18:39 Pulse Oximetry 95 04/03/18 18:39 Critical Care Time Critical Care Time: Yes Total Critical Care Time: 32 Attestation: Aggregate critical care time was 32 minutes. Time to perform other separately billable procedures was not included in the critical care time. My time did not include minutes spent treating any other patients simultaneously or on activities that did not directly contribute to the patient's treatment. The services I provided to this patient were to treat and/or prevent clinically significant deterioration that could result in: , disability. I provided critical care services requiring my management, as noted below: Chart data review, documentation time, medication orders and management, vital sign assessments/reviewing monitor data, ordering and reviewing lab tests, ordering and interpreting/reviewing x-rays and diagnostic studies, care of the patient and discussion of the patient with the admitting physicians. Medical Decision Making MDM Narrative Medical decision making narrative: Patient is a 52-year-old male, with recent diagnosis of HIV and AIDS, who presents with complaint of generalized ill feeling after being discharged yesterday. On arrival he was febrile and tachycardic at which time the sepsis bundle was initiated. He was given vancomycin, cefepime, micafungin empirically. He was also given 30/kg of fluids as a bolus, after which he remained tachycardic and blood pressure was in the 90s. I spoke with Dr. Jeanmarie De La Fuente, hospitalist regarding the patient's admission and she suggested that we send the patient to the ICU at the [facility] in case he needs further intervention such as vasopressors later this evening. Differential Diagnosis Differential Diagnosis: Differential diagnosis includes but is not limited to ongoing PCP pneumonia, AIDS, hospital-acquired pneumonia, hospital-acquired urinary tract infection, meningitis. Medical Records Medical records reviewed: Yes I reviewed the patient's medical records. Medical records reveal a recent diagnosis of HIV with AIDS and PCP pneumonia, patient was discharged yesterday. Lab Data Lab results reviewed: Yes I reviewed the patient's lab results. Lab results narrative: Labs reveal hyponatremia, hyperglycemia, and lactic acidosis. Result diagrams: 04/03/18 17:00 04/03/18 17:00 Lab Results 04/03/18 04/03/18 04/03/18 Range/Units 17:00 17:00 17:00 CBC w Diff Auto diff final WBC 8.5 (4.0-11.0) th/mm3 RBC 3.72 L (4.50-5.90) mil/mm3 Hgb 10.8 L (13.0-17.0) gm/dL Hct 31.1 L (39.0-51.0) % MCV 83.6 (80.0-100.0) fL MCH 29.1 (27.0-34.0) pg MCHC 34.8 (32.0-36.0) % RDW 17.2 (11.6-17.2) % Plt Count 131 L (150-450) th/mm3 MPV 7.1 (7.0-11.0) fL Neut % (Auto) 96.8 H (16.0-70.0) % Lymph % (Auto) 1.5 L (9.0-44.0) % [place] % (Auto) 1.0 (0.0-8.0) % Eos % (Auto) 0.7 (0.0-4.0) % Baso % (Auto) 0.0 (0.0-2.0) % Neut # (Auto) 8.2 H (1.8-7.7) th/mm3 Lymph # (Auto) 0.1 L (1.0-4.8) th/mm3 [place] # (Auto) 0.1 (0.0-0.9) th/mm3 Eos # (Auto) 0.1 (0.0-0.4) th/mm3 Baso # (Auto) 0.0 (0.0-0.2) th/mm3 WBC Differential . Differential Comment . Sodium 132 L (136-145) meq/L Potassium 3.9 (3.5-5.1) meq/L Chloride 98 (98-107) meq/L Carbon Dioxide 25.7 (21.0-32.0) meq/L Anion Gap 8 (5-15) meq/L BUN 15 (7-18) mg/dL Creatinine 0.87 (0.60-1.30) mg/dL Estimated GFR Greater than 89 (>89) mL/min POC Glucose (68-110) mg/dl Random Glucose 265 H (74-106) mg/dL Lactic Acid 2.9 H (0.4-2.0) mmol/L Calcium 8.2 L (8.5-10.1) mg/dL Total Bilirubin 0.5 (0.2-1.0) mg/dL AST 23 (15-37) U/L ALT 32 (12-78) U/L Alkaline Phosphatase 102 (45-117) U/L Total Protein 7.2 (6.4-8.2) g/dL Albumin 2.3 L (3.4-5.0) g/dL Lipase 131 (73-393) U/L 04/03/18 Range/Units 18:11 CBC w Diff WBC (4.0-11.0) th/mm3 RBC (4.50-5.90) mil/mm3 Hgb (13.0-17.0) gm/dL Hct (39.0-51.0) % MCV (80.0-100.0) fL MCH (27.0-34.0) pg MCHC (32.0-36.0) % RDW (11.6-17.2) % Plt Count (150-450) th/mm3 MPV (7.0-11.0) fL Neut % (Auto) (16.0-70.0) % Lymph % (Auto) (9.0-44.0) % [place] % (Auto) (0.0-8.0) % Eos % (Auto) (0.0-4.0) % Baso % (Auto) (0.0-2.0) % Neut # (Auto) (1.8-7.7) th/mm3 Lymph # (Auto) (1.0-4.8) th/mm3 [place] # (Auto) (0.0-0.9) th/mm3 Eos # (Auto) (0.0-0.4) th/mm3 Baso # (Auto) (0.0-0.2) th/mm3 WBC Differential Differential Comment Sodium (136-145) meq/L Potassium (3.5-5.1) meq/L Chloride (98-107) meq/L Carbon Dioxide (21.0-32.0) meq/L Anion Gap (5-15) meq/L BUN (7-18) mg/dL Creatinine (0.60-1.30) mg/dL Estimated GFR (>89) mL/min POC Glucose 254 H (68-110) mg/dl Random Glucose (74-106) mg/dL Lactic Acid (0.4-2.0) mmol/L Calcium (8.5-10.1) mg/dL Total Bilirubin (0.2-1.0) mg/dL AST (15-37) U/L ALT (12-78) U/L Alkaline Phosphatase (45-117) U/L Total Protein (6.4-8.2) g/dL Albumin (3.4-5.0) g/dL Lipase (73-393) U/L Imaging Data Attestation: I personally reviewed and interpreted this imaging study as follows : My impression: X-ray shows improved aeration in comparison to the previous. Radiologist's impression: Chest X-Ray 04/03/18 16:56 CONCLUSION: ECG Data EKG Prior to Arrival: No Attestation: I personally reviewed and interpreted this ECG as follows: (Sinus tachycardia at a rate of [address] depression in lead V2, otherwise no acute ST or T-wave changes.) Discharge Plan Discharge Disposition Patient Disposition: 30 Still Patient Discharge Condition Condition: Serious Discharge Details Diagnosis: Sepsis, HIV (human immunodeficiency virus infection) Physicians Team ED Provider: Belle Stringer Primary Care Provider: Primary Care Shante Akbar Rxs /Orders / Referrals /Forms Prescriptions: No Action aspirin 325 mg Tablet 325 mg PO DAILY RF: 0 prednisone 20 mg Tablet 40 mg PO BID Qty: 25 RF: 0 sulfamethoxazole-trimethoprim 800-160 mg Tablet 2 tab PO Q8HR Qty: 42 RF: 0 azithromycin 600 mg Tablet 1,200 mg PO WEEKLY Qty: 10 RF: 0 albuterol sulfate [Ventolin HFA] 90 mcg/actuation Hfa Aerosol Inhaler 2 puff INHALATION Q4H PRN (Reason: sob) Qty: 1 RF: 0 metformin 1,000 mg Tablet 500 mg PO BID RF: 0 Discharge Interventions Interventions: Vital Signs Last Done: 04/03/18 18:39 Status ED Status: With Doctor
[2018-04-03] MEDS ORDERED: Sod Chloride 0.9% Inj 400 ML IV.SIG SCH (17:15)
[2018-04-03] MEDS ORDERED: Sod Chloride 0.9% Inj 1,000 ML IV.SIG SCH ×2 (17:15)
[2018-04-03 17:38] LABS: Eos # (Auto) 0.1 th/mm3 (0.0-0.4); Eos % (Auto) 0.7 % (0.0-4.0); Hematocrit 31.1 % (39.0-51.0); Hemoglobin 10.8 gm/dL (13.0-17.0); Lymph # (Auto) 0.1 th/mm3 (1.0-4.8); Lymph % (Auto) 1.5 % (9.0-44.0); Mean Corpuscular HGB Conc 34.8 % (32.0-36.0); Mean Corpuscular Hemoglobin 29.1 pg (27.0-34.0); Mean Corpuscular Volume 83.6 fL (80.0-100.0); Mean Platelet Volume 7.1 fL (7.0-11.0); Mono # (Auto) 0.1 th/mm3 (0.0-0.9); Neut # (Auto) 8.2 th/mm3 (1.8-7.7); Neut % (Auto) 96.8 % (16.0-70.0); Platelet Count 131 th/mm3 (150-450); Red Blood Count 3.72 mil/mm3 (4.50-5.90); Red Cell Distribution Width 17.2 % (11.6-17.2); White Blood Count 8.5 th/mm3 (4.0-11.0)
[2018-04-03 17:53] LABS: Chloride 98 meq/L (98-107); Potassium 3.9 meq/L (3.5-5.1); Sodium 132 meq/L (136-145)
[2018-04-03 17:56] LABS: Calcium 8.2 mg/dL (8.5-10.1)
[2018-04-03 17:57] LABS: Albumin 2.3 g/dL (3.4-5.0); Anion Gap 8 meq/L (5-15); Blood Urea Nitrogen 15 mg/dL (7-18); Carbon Dioxide 25.7 meq/L (21.0-32.0); Glucose,Random 265 mg/dL (74-106); Lipase 131 U/L (73-393)
[2018-04-03 18:00] LABS: Alanine Aminotransferase 32 U/L (12-78); Aspartate Aminotransferase 23 U/L (15-37); Glomerular Filtration Rate Greater Than 89 mL/min (>89)
[2018-04-03 18:01] LABS: Total Protein 7.2 g/dL (6.4-8.2)
[2018-04-03 18:03] LABS: Alkaline Phosphatase 102 U/L (45-117)
--- NOTE | 2018-04-03 18:18 | XR ---
EXAM DATE: 04/03/2018 6:02 PM EDT AGE/SEX: 52 years / Male INDICATIONS: . Cough. CLINICAL DATA: This is the patient's initial encounter. Patient reports that signs and symptoms have been present for 3 days and indicates a pain score of 0/10. MEDICAL/SURGICAL HISTORY: . Diabetes. Renal calculi None. COMPARISON: [facility] [place] [facility] [place] 2[place] AP&LAT, 03/25/2018. . FINDINGS: The heart size is normal. The lungs demonstrate diffuse prominence of interstitial markings. There is minimal residual left perihilar consolidation. Aeration in the lungs has improved when compared to t he prior exam. The right lung appears free of focal alveolar consolidation. No effusion is seen. CONCLUSION: Prominence of the interstitium which may reflect underlying interstitial disease versus pulmonary dexter ous hypertension. When compared to the prior exam, the aeration of the lungs, especially in the upper lungs, has improved. Electronically signed by: Chin Longo MD 04/03/2018 6:16 PM EDT
[2018-04-03] MEDS ORDERED: fentaNYL Citrate Inj 100 MCG/2 ML Ampul IV.PUSH ONE (19:33)
--- NOTE | 2018-04-03 21:38 | ECG ---
Date Performed: 04/03/2018 Time Performed: 17:10:46 PTAGE: 52 years EKG: SINUS TACHYCARDIA MARKED LEFT AXIS DEVIATION NONSPECIFIC T-WAVE ABNORMALITY ABNORMAL ECG Co mpared to prior electrocardiogram, rate has increased. PREVIOUS TRACING : 03/17/2018 05.49 DOCTOR: Shahbaz Segovia Interpretating Date/Time 04/03/2018 21:37:29
[2018-04-04] MEDS ORDERED: Acetaminophen 325 MG Tablet PO PRN (00:19)
[2018-04-04] MEDS ORDERED: Morphine Sulfate Inj 2 MG/ML Vial IV.PUSH PRN (00:27)
[2018-04-04] MEDS ORDERED: Morphine Inj 4 MG/ML Vial IV.PUSH PRN (00:30)
[2018-04-04] MEDS ORDERED: Bisacodyl 10 MG Supp RECTAL PRN (03:11)
[2018-04-04] MEDS ORDERED: HYDROmorphone PF Inj 2 MG/ML Vial IV.PUSH ONE (03:30)
[2018-04-04] MEDS ORDERED: Chlorhexidine Gluconate 2% 1 Pack (2 Cloths) TOPICAL PRN (04:00)
[2018-04-04] MEDS: Sod Chloride 0.9% Inj 1,000 ML IV.CONT SCH ×3 (04:06→23:45)
--- NOTE | 2018-04-04 04:10 | P.HPIM ---
History of Present Illness Primary Care Physician: No Primary Care Physician History of Present Illness: 52 y/o male recently diagnosed with HIV and PCP pneumonia was discharged on March 27. Today he presents with worsening ill feeling. He states he just does not feel up to par. Patient is confused and states he was just discharged from the hospital yesterday. He is complaining of sternal chest pain, worse with a deep breath and no associated symptoms. He is also complaining of a cough with productive sputum and fevers. Denies any nausea or vomiting. Inpatient Certification: I certify that the inpatient services were ordered in accordance with Medicare regulations governing the order. 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 - Medical History Medical History: Medical History (Last Reviewed 04/03/18 @ 17:51 by Belle Stringer MD) Coronary artery disease Decreased vision Diabetes History of dental problems History of nephrolithiasis History of pancreatitis Hyperlipemia Kidney stones Myocardial infarction - Surgical History Surgical History: Surgical History (Last Reviewed 04/03/18 @ 17:51 by Belle Stringer MD) History of coronary artery stent placement History of lithotripsy Hx of cardiac cath - Family History Family History: Family History (Last Reviewed 04/03/18 @ 17:51 by Belle Stringer MD) Mother Family history of renal failure Grandparent No problems noted. Father Family history of coronary artery disease - Tobacco History Second Hand Smoke Exposure: No Tobacco Use In Past 30 Days: No Smoking Status: Former smoker Tobacco Type: Cigarettes - Alcohol History How Often Do You Have a Drink Containing Alcohol: Never - Substance Use History Substance History: No History of Abuse - Travel History Recent Travel in the [place] Within the Last 8 Weeks: No Recent Travel Out of the Country Within the Last 8 Weeks: No - Immunization History Tetanus Immunization: Unsure Hx Influenza Vaccine This Season: No Medications and Allergies Active Medications: Active Medications Acetaminophen (Tylenol) 650 mg PO Q4H PRN PRN Reason: FEVER > 101 F Last Admin: 04/04/18 00:36 Dose: 650 mg Al Hydroxide/Mg Hydroxide (Milk Of Magnesia Liq) 30 ml PO Q12H PRN PRN Reason: Mild Constipation Albuterol (Duoneb Neb (Prn)) 1 ampul NEB Q4HR NEB PRN PRN Reason: SHORTNESS OF BREATH/WHEEZING Bisacodyl (Dulcolax Supp) 10 mg RECTAL DAILY PRN PRN Reason: SEVERE CONSITIPATION Chlorhexidine Gluconate (Chlorhexidine 2% Cloth) 3 pack TOPICAL DAILY@0400 ELENA Stop: 04/09/18 03:59 Chlorhexidine Gluconate (Chlorhexidine 2% Cloth) 3 pack TOPICAL DAILY@0400 PRN PRN Reason: Extra cloth needed Stop: 04/09/18 03:59 Last Admin: 04/04/18 04:07 Dose: 3 pack Heparin Sodium (Porcine) (Heparin Inj) 5,000 units SQ Q8H ELENA Sodium Chloride (Ns Inj) 1,000 mls @ 0 mls/hr IV.SIG .Q0M [facility] Last Infusion: 04/03/18 17:54 Dose: Infused Sodium Chloride (Ns Inj) 1,000 mls @ 0 mls/hr IV.SIG .Q0M ELE[facility] Last Infusion: 04/03/18 18:31 Dose: Infused Sodium Chloride (Ns Inj) 400 mls @ 0 mls/hr IV.SIG .Q0M [facility] Last Infusion: 04/03/18 18:31 Dose: Infused Cefepime HCl 2,000 mg/ Sodium (Chloride) 100 mls @ 200 mls/hr IV.SIG Q8H [facility] Last Admin: 04/04/18 01:57 Dose: 100 mls/hr Sodium Chloride (Ns Inj) 1,000 mls @ 100 mls/hr IV.CONT .Q10H [facility] Last Admin: 04/04/18 04:06 Dose: 100 mls/hr Lactulose (Lactulose Liq) 30 ml PO DAILY PRN PRN Reason: SEVERE CONSITIPATION Morphine Sulfate (Morphine Inj) 2 mg IV.PUSH Q3H PRN PRN Reason: PAIN SCALE 6 TO 10 Last Admin: 04/04/18 00:36 Dose: 2 mg Ondansetron HCl (Zofran Inj) 4 mg IV.PUSH Q6H PRN PRN Reason: NAUSEA OR VOMITING Sennosides (Senokot) 17.2 mg PO Q12H PRN PRN Reason: Moderate Constipation Allergies Allergy/AdvReac Type Severity Reaction Status Date / Time No Known Allergies Allergy Verified 04/03/18 16:43 Home Medications Medication Instructions Recorded Confirmed Type metformin 500 mg PO BID 03/11/18 03/16/18 History aspirin 325 mg PO DAILY 03/16/18 03/16/18 History Exam Vital signs: Vital Signs 04/03/18 16:45 04/03/18 18:05 04/03/18 18:39 Temperature 100.8 F H 99.7 F H Pulse Rate 117 H 116 H 115 H Respiratory Rate 20 20 20 Blood Pressure 142/74 H 119/61 99/60 L Pulse Oximetry 94 L 94 L 95 04/03/18 20:03 04/03/18 22:02 04/03/18 23:00 Temperature Pulse Rate 109 H 104 H 98 H Respiratory Rate 20 18 22 Blood Pressure 89/52 L 87/53 L 106/74 Pulse Oximetry 04/04/18 00:38 Temperature 98.1 F Pulse Rate 99 H Respiratory Rate 22 Blood Pressure 99/62 L Pulse Oximetry Intake & Output 04/03/18 04/03/18 04/04/18 06:59 18:59 06:59 Intake Total 2400 / 2400 200 / 200 Balance 2400 / 2400 200 / 200 Weight 76 kg Intake: IV 2400 / 2400 200 / 200 Maxipime Inj 2,000 MG In NS Inj 100 / 100 100 ML @ 200 mls/hr IV.SIG Q8H [facility] Rx#:[id number] Mycamine Inj 100 MG In NS Inj 100 / 100 100 ML @ 100 mls/hr IV.SIG STAT STA Rx#:[id number] NS Inj 400 ML @ Wide Open IV. 2400 / 2400 SIG .Q0M ELENA Rx#:[id number] Narrative: GENERAL: This is a well-nourished, well-developed patient, in no apparent distress. CARDIOVASCULAR: tachycardic rate and rhythm without murmurs, gallops, or rubs. RESPIRATORY: Scattered rhonchi throughout GASTROINTESTINAL: Abdomen soft, non-tender, nondistended. Normal active bowel sounds MUSCULOSKELETAL: Extremities without clubbing, cyanosis, or edema. NEURO: Alert & Oriented x4 to person, place, time, situation. Moves all ext x4 Results - Labs CBC & Chem 7: 04/03/18 17:00 04/03/18 17:00 Labs: Short CBC 04/03/18 Range/Units 17:00 WBC 8.5 (4.0-11.0) th/mm3 Hgb 10.8 L (13.0-17.0) gm/dL Hct 31.1 L (39.0-51.0) % Plt Count 131 L (150-450) th/mm3 BMP 04/03/18 17:00 Sodium 132 L Potassium 3.9 Chloride 98 Carbon Dioxide 25.7 BUN 15 Creatinine 0.87 Calcium 8.2 L Liver Function 04/03/18 Range/Units 17:00 Total Bilirubin 0.5 (0.2-1.0) mg/dL AST 23 (15-37) U/L ALT 32 (12-78) U/L Alkaline Phosphatase 102 (45-117) U/L Albumin 2.3 L (3.4-5.0) g/dL - Imaging Impressions Chest X-Ray 04/03/18 16:56 CONCLUSION: Caprini VTE Risk Assessment Caprini VTE Risk Assessment: Moderate/High Risk (score >= 2) Caprini Risk Assessment Model: Point Value = 1 Point Value = 2 Point Value = 3 Point Value = 5 Age 41-60 Minor surgery BMI > 25 kg/m2 Swollen legs Varicose veins or History of unexplained or recurrent spontaneous Oral contraceptives or hormone replacement Sepsis (< 1 month) Serious lung disease, including pneumonia (< 1 month) Abnormal pulmonary function Acute myocardial infarction Congestive heart failure (< 1 month) History of inflammatory bowel disease Medical patient at bed rest Age 61-74 Arthroscopic surgery Major open surgery (> 45 min) Laparoscopic surgery (> 45 min) Malignancy Confined to bed (> 72 hours) Immobilizing plaster cast Central venous access Age >= 75 History of VTE Family history of VTE Factor V Leiden Prothrombin [id number] Lupus anticoagulant Anticardiolipin antibodies Elevated serum homocysteine Heparin-induced thrombocytopenia Other congenital or acquired thrombophilia Stroke (< 1 month) Elective arthroplasty Hip, pelvis, or leg fracture Acute spinal cord injury (< 1 month) Prophylaxis Regimen: Total Risk Factor Score Risk Level Prophylaxis Regimen 0-1 Low Early ambulation 2 Moderate Order ONE of the following: *Sequential Compression Device (SCD) *Heparin 5000 units SQ BID 3-4 Higher Order ONE of the following medications: *Heparin 5000 units SQ TID *Enoxaparin/Lovenox 40 mg SQ daily (WT < 150 kg, CrCl > 30 mL/min) *Enoxaparin/Lovenox 30 mg SQ daily (WT < 150 kg, CrCl > 10-29 mL/min) *Enoxaparin/Lovenox 30 mg SQ BID (WT < 150 kg, CrCl > 30 mL/min) AND/OR *Sequential Compression Device (SCD) 5 or more Highest Order ONE of the following medications: *Heparin 5000 units SQ TID (Preferred with Epidurals) *Enoxaparin/Lovenox 40 mg SQ daily (WT < 150 kg, CrCl > 30 mL/min) *Enoxaparin/Lovenox 30 mg SQ daily (WT < 150 kg, CrCl > 10-29 mL/min) *Enoxaparin/Lovenox 30 mg SQ BID (WT < 150 kg, CrCl > 30 mL/min) AND *Sequential Compression Device (SCD) Assessment and Plan - Plan sepsis, HR 10, lactic 2.9, hypotension source PCP pneumonia Chest xray shows some improvement in consolidation -Antibiotics: cefepime IV -IVF -Duonebs -Repeat lactic in am -Morphine IV prn -consult ID for further recommendation if patient worsens Diabetes, chronic -Accu checks with SSI -Diabetic diet HIV, chronic -Patient will need to follow outpatient for antivirals DVT prophylaxis: heparin Discussed Condition With: patient and rn H&P: Quality - VTE Deep Vein Thrombosis/Pulmonary Embolism Present on Admission: No
[2018-04-04] MEDS ORDERED: Dextrose 50% in Water 50 ML Vial IV.PUSH PRN (04:14)
[2018-04-04 04:56] LABS: Baso % (Auto) 0.8 % (0.0-2.0); Eos # (Auto) 0.2 th/mm3 (0.0-0.4); Eos % (Auto) 3.9 % (0.0-4.0); Hematocrit 28.4 % (39.0-51.0); Hemoglobin 9.7 gm/dL (13.0-17.0); Lymph # (Auto) 0.2 th/mm3 (1.0-4.8); Lymph % (Auto) 4.9 % (9.0-44.0); Mean Corpuscular Hemoglobin 28.5 pg (27.0-34.0); Mean Corpuscular Volume 83.7 fL (80.0-100.0); Mono # (Auto) 0.3 th/mm3 (0.0-0.9); Neut # (Auto) 4.2 th/mm3 (1.8-7.7); Neut % (Auto) 84.4 % (16.0-70.0); Platelet Count 103 th/mm3 (150-450); Red Cell Distribution Width 17.7 % (11.6-17.2)
[2018-04-04 05:25] LABS: Anion Gap 10 meq/L (5-15); Blood Urea Nitrogen 14 mg/dL (7-18); Calcium 7.6 mg/dL (8.5-10.1); Carbon Dioxide 24.1 meq/L (21.0-32.0); Chloride 105 meq/L (98-107); Glomerular Filtration Rate Greater Than 89 mL/min (>89); Glucose,Random 146 mg/dL (74-106); Sodium 139 meq/L (136-145)
[2018-04-04] MEDS: Heparin - SQ 10,000 UNITS/ML Vial SQ SCH ×3 (05:46→21:59)
[2018-04-04 06:46] LABS: Bilirubin,Urine Negative (Negative); Clarity,Urine Clear (Clear); Color,Urine Yellow (Yellw/Straw); Glucose,Urine (UA) 50 mg/dL (Negative); Leukocyte Esterase,Urine Negative (Negative); Mucus,Urine Few /lpf (Occasional); Nitrite,Urine Negative (Negative); Specific Gravity,Urine 1.014 (1.002-1.035); Squamous Epithelial Cell,Urine <1 /hpf (0-5)
[2018-04-04] MEDS: Insulin NovoLOG Aspart Correctional Sugar Inj SQ SCH ×4 (08:27→21:58)
--- NOTE | 2018-04-04 09:43 | P.PN ---
Subjective Interval history: BRIEF NOTE -patient seen, lying in bed, no acute distress, unlabored breathing. Remarkably clear lungs bilaterally. Has sternal tenderness to palpation which the patient affirms is his pleuritic chest pain. I independently reviewed the plain films of his chest x-ray which show substantial improvement upon this admission. The source of his fever is not clear. I will resume steroids as this was something the patient was discharged on as a tapering regimen per infectious disease upon the patient's most recent hospitalization for PCP+ PNA. Will consult infectious disease to help co-manage antibiotics given that the patient was discharged on Bactrim, and CRISTIANE prophylaxis with azithromycin, along with steroids. Physical Exam Vital signs: Vital Signs 04/03/18 16:45 04/03/18 18:05 04/03/18 18:39 Temperature 100.8 F H 99.7 F H Pulse Rate 117 H 116 H 115 H Respiratory Rate 20 20 20 Blood Pressure 142/74 H 119/61 99/60 L Pulse Oximetry 94 L 94 L 95 04/03/18 20:03 04/03/18 22:02 04/03/18 23:00 Temperature Pulse Rate 109 H 104 H 98 H Respiratory Rate 20 18 22 Blood Pressure 89/52 L 87/53 L 106/74 Pulse Oximetry 04/04/18 00:38 04/04/18 04:00 Temperature 98.1 F 99.3 F Pulse Rate 99 H 81 Respiratory Rate 22 22 Blood Pressure 99/62 L 111/64 Pulse Oximetry 95 Intake & Output 04/03/18 04/04/18 04/04/18 18:59 06:59 18:59 Intake Total 2400 / 2400 200 / 200 100 / 100 Output Total 915 / 915 Balance 2400 / 2400 200 / 200 -815 / -815 Weight 76 kg Intake: IV 2400 / 2400 200 / 200 100 / 100 Maxipime Inj 2,000 MG In NS Inj 100 / 100 100 / 100 100 ML @ 200 mls/hr IV.SIG Q8H [facility] Rx#:[id number] Mycamine Inj 100 MG In NS Inj 100 / 100 100 ML @ 100 mls/hr IV.SIG STAT STA Rx#:[id number] NS Inj 400 ML @ Wide Open IV. 2400 / 2400 SIG .Q0M [facility]LE[facility] Rx#:[id number] Output: Urine Amount (Catheter) 915 / 915 Straight 915 / 915 - Urinary Catheter Management Straight Cath placed during this visit: no Results - Labs CBC & Chem 7: 04/04/18 04:45 04/04/18 04:45 Laboratory Results - last 24 hr 04/03/18 04/03/18 04/03/18 17:00 17:00 17:00 CBC w Diff Auto diff final WBC 8.5 RBC 3.72 L Hgb 10.8 L Hct 31.1 L MCV 83.6 MCH 29.1 MCHC 34.8 RDW 17.2 Plt Count 131 L MPV 7.1 Neut % (Auto) 96.8 H Lymph % (Auto) 1.5 L [place] % (Auto) 1.0 Eos % (Auto) 0.7 Baso % (Auto) 0.0 Neut # (Auto) 8.2 H Lymph # (Auto) 0.1 L [place] # (Auto) 0.1 Eos # (Auto) 0.1 Baso # (Auto) 0.0 WBC Differential . Differential Comment . Sodium 132 L Potassium 3.9 Chloride 98 Carbon Dioxide 25.7 Anion Gap 8 BUN 15 Creatinine 0.87 Estimated GFR Greater than 89 POC Glucose Random Glucose 265 H Lactic Acid 2.9 H Calcium 8.2 L Total Bilirubin 0.5 AST 23 ALT 32 Alkaline Phosphatase 102 Total Protein 7.2 Albumin 2.3 L Lipase 131 Urine Color Urine Clarity Urine pH Ur Specific [place] Urine Protein Urine Glucose (UA) Urine Ketones Urine Occult Blood Urine Nitrate Urine Bilirubin Urine Urobilinogen Ur Leukocyte Esterase Urine RBC Urine WBC Ur Squamous Epith Cells Urine Mucus Micro UA Comment Urine Culture Comments Nasal Screen MRSA (PCR) 04/03/18 04/03/18 04/04/18 18:11 22:10 01:40 CBC w Diff WBC RBC Hgb Hct MCV MCH MCHC RDW Plt Count MPV Neut % (Auto) Lymph % (Auto) [place] % (Auto) Eos % (Auto) Baso % (Auto) Neut # (Auto) Lymph # (Auto) [place] # (Auto) Eos # (Auto) Baso # (Auto) WBC Differential Differential Comment Sodium Potassium Chloride Carbon Dioxide Anion Gap BUN Creatinine Estimated GFR POC Glucose 254 H Random Glucose Lactic Acid 2.9 H Calcium Total Bilirubin AST ALT Alkaline Phosphatase Total Protein Albumin Lipase Urine Color Urine Clarity Urine pH Ur Specific [place] Urine Protein Urine Glucose (UA) Urine Ketones Urine Occult Blood Urine Nitrate Urine Bilirubin Urine Urobilinogen Ur Leukocyte Esterase Urine RBC Urine WBC Ur Squamous Epith Cells Urine Mucus Micro UA Comment Urine Culture Comments Nasal Screen MRSA (PCR) Not detected 04/04/18 04/04/18 04/04/18 04:45 04:45 04:45 CBC w Diff WBC 5.0 RBC 3.40 L Hgb 9.7 L Hct 28.4 L MCV 83.7 MCH 28.5 MCHC 34.0 RDW 17.7 H Plt Count 103 L MPV 7.0 Neut % (Auto) 84.4 H Lymph % (Auto) 4.9 L [place] % (Auto) 6.0 Eos % (Auto) 3.9 Baso % (Auto) 0.8 Neut # (Auto) 4.2 Lymph # (Auto) 0.2 L [place] # (Auto) 0.3 Eos # (Auto) 0.2 Baso # (Auto) 0.0 WBC Differential . Differential Comment Auto diff final Sodium 139 Potassium 4.0 Chloride 105 Carbon Dioxide 24.1 Anion Gap 10 BUN 14 Creatinine 0.77 Estimated GFR Greater than 89 POC Glucose Random Glucose 146 H D Lactic Acid 1.8 Calcium 7.6 L Total Bilirubin AST ALT Alkaline Phosphatase Total Protein Albumin Lipase Urine Color Urine Clarity Urine pH Ur Specific [place] Urine Protein Urine Glucose (UA) Urine Ketones Urine Occult Blood Urine Nitrate Urine Bilirubin Urine Urobilinogen Ur Leukocyte Esterase Urine RBC Urine WBC Ur Squamous Epith Cells Urine Mucus Micro UA Comment Urine Culture Comments Nasal Screen MRSA (PCR) 04/04/18 04/04/18 05:51 07:32 CBC w Diff WBC RBC Hgb Hct MCV MCH MCHC RDW Plt Count MPV Neut % (Auto) Lymph % (Auto) [place] % (Auto) Eos % (Auto) Baso % (Auto) Neut # (Auto) Lymph # (Auto) [place] # (Auto) Eos # (Auto) Baso # (Auto) WBC Differential Differential Comment Sodium Potassium Chloride Carbon Dioxide Anion Gap BUN Creatinine Estimated GFR POC Glucose 142 H Random Glucose Lactic Acid Calcium Total Bilirubin AST ALT Alkaline Phosphatase Total Protein Albumin Lipase Urine Color Yellow Urine Clarity Clear Urine pH 6.0 Ur Specific [place] 1.014 Urine Protein 30 H Urine Glucose (UA) 50 Urine Ketones Negative Urine Occult Blood Negative Urine Nitrate Negative Urine Bilirubin Negative Urine Urobilinogen Less than 2 Ur Leukocyte Esterase Negative Urine RBC 3 Urine WBC 1 Ur Squamous Epith Cells <1 Urine Mucus Few H Micro UA Comment Cath-culture not ind Urine Culture Comments Cath-cult not ind Nasal Screen MRSA (PCR) - Imaging Impressions Chest X-Ray 04/03/18 16:56 CONCLUSION:
[2018-04-04] MEDS: predniSONE 20 MG Tablet PO SCH ×2 (10:14→21:58)
[2018-04-04] MEDS: Ketorolac Inj 30 MG/ML (IVP) Vial IV.PUSH PRN ×3 (10:15→23:48)
--- NOTE | 2018-04-04 11:44 | P.CONID ---
History of Present Illness Service: Infectious disease Consult date: 04/04/18 Requesting Physician: Gaurang Nickerson Reason for Consult: Evaluate patient with HIV, and recurrent fevers Primary Care Provider: No Primary Care Physician Family Provider: No Primary Care Physician History of Present Illness: Patient seen and examined. Records reviewed. Patient is a 52-year-old male, who was recently hospitalized here at [facility] March 20 - March 27. During that admission he was worked up for respiratory problem and pneumonia, and he was diagnosed to have HIV, CD4 counts 24. Bronchoscopy results showed evidence of PCP. He was initially hypoxic, and his oxygen was successfully weaned. He was discharged March 27 and was supposed to be on Bactrim and tapering doses of prednisone. Patient seems to be confused and stating that he was discharge the day before he came into the hospital April 03. He remembers only taking 1 day of prednisone. He presented this time because he apparently became very confused. Patient stated that he had some chills, and was just not feeling well, and the next thing he know he was being awakened by his roommate. He is not coughing much. He is not on any oxygen. He was initially hypotensive and that has improved. Denies any nausea or vomiting, diarrhea. Patient had some urinary retention and had a straight cath. He has not voided since he was straight cathed. He had low-grade temp on initial presentation. His chest x-ray showing improvement in his infiltrates. His WBC is normal. Infectious disease consultation has been requested to evaluate the patient. 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, [employer]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 - Medical History Medical History: Medical History (Last Updated 04/04/18 @ 11:40 by Loyda Deluca MD) HIV (human immunodeficiency virus infection) Pneumocystis carinii pneumonia Coronary artery disease Decreased vision Diabetes History of dental problems History of nephrolithiasis History of pancreatitis Hyperlipemia Kidney stones Myocardial infarction - Surgical History Surgical History: Surgical History (Last Reviewed 04/03/18 @ 17:51 by Belle Stringer MD) History of coronary artery stent placement History of lithotripsy Hx of cardiac cath - Family History Family History: Family History (Last Reviewed 04/03/18 @ 17:51 by Belle Stringer MD) Mother Family history of renal failure Grandparent No problems noted. Father Family history of coronary artery disease - Tobacco History Second Hand Smoke Exposure: No Tobacco Use In Past 30 Days: No Smoking Status: Former smoker Tobacco Type: Cigarettes - Alcohol History How Often Do You Have a Drink Containing Alcohol: Never - Substance Use History Substance History: No History of Abuse - Travel History Recent Travel in the [place] Within the Last 8 Weeks: No Recent Travel Out of the Country Within the Last 8 Weeks: No - Immunization History Tetanus Immunization: Unsure Hx Influenza Vaccine This Season: No Medications and Allergies Active Medications: Active Medications Acetaminophen (Tylenol) 650 mg PO Q4H PRN PRN Reason: FEVER > 101 F Last Admin: 04/04/18 00:36 Dose: 650 mg Al Hydroxide/Mg Hydroxide (Milk Of Surya Elizondo) 30 ml PO Q12H PRN PRN Reason: Mild Constipation Albuterol (Duoneb Neb (Prn)) 1 ampul NEB Q4HR NEB PRN PRN Reason: SHORTNESS OF BREATH/WHEEZING Albuterol (Ventolin Hfa Inh) 2 puff INH Q4H PRN PRN Reason: SHORTNESS OF BREATH Bisacodyl (Dulcolax Supp) 10 mg RECTAL DAILY PRN PRN Reason: SEVERE CONSITIPATION Chlorhexidine Gluconate (Chlorhexidine 2% Cloth) 3 pack TOPICAL DAILY@0400 [facility] Stop: 04/09/18 03:59 Chlorhexidine Gluconate (Chlorhexidine 2% Cloth) 3 pack TOPICAL DAILY@0400 PRN PRN Reason: Extra cloth needed Stop: 04/09/18 03:59 Last Admin: 04/04/18 04:07 Dose: 3 pack Dextrose (D50w Vial) 50 ml IV.PUSH UNSCH PRN PRN Reason: PER HYPOGLYCEMIA PROTOCOL Glucagon (Glucagon Inj) 1 mg OTHER PRN PRN PRN Reason: for Hypoglycemia Protocol Heparin Sodium (Porcine) (Heparin Inj) 5,000 units SQ Q8H [facility] Last Admin: 04/04/18 05:46 Dose: 5,000 units Sodium Chloride (Ns Inj) 1,000 mls @ 0 mls/hr IV.SIG .Q0M [facility] Last Infusion: 04/03/18 17:54 Dose: Infused Sodium Chloride (Ns Inj) 1,000 mls @ 0 mls/hr IV.SIG .Q0M [facility] Last Infusion: 04/03/18 18:31 Dose: Infused Sodium Chloride (Ns Inj) 400 mls @ 0 mls/hr IV.SIG .Q0M [facility] Last Infusion: 04/03/18 18:31 Dose: Infused Cefepime HCl 2,000 mg/ Sodium (Chloride) 100 mls @ 200 mls/hr IV.SIG Q8H [facility] Last Admin: 04/04/18 10:15 Dose: 100 mls/hr Sodium Chloride (Ns Inj) 1,000 mls @ 100 mls/hr IV.CONT .Q10H [facility] Last Admin: 04/04/18 04:06 Dose: 100 mls/hr Insulin Aspart (Novolog Insulin Correctional Sugar Inj) 0 unit SQ ACHS [facility]; Protocol Last Admin: 04/04/18 08:27 Dose: Not Given Ketorolac Tromethamine (Toradol Inj) 15 mg IV.PUSH Q6H PRN PRN Reason: Acute Pain Stop: 04/09/18 09:44 Last Admin: 04/04/18 10:15 Dose: 15 mg Lactulose (Lactulose Liq) 30 ml PO DAILY PRN PRN Reason: SEVERE CONSITIPATION Ondansetron HCl (Zofran Inj) 4 mg IV.PUSH Q6H PRN PRN Reason: NAUSEA OR VOMITING Prednisone (Deltasone) 40 mg PO BID [facility] Stop: 04/10/18 21:01 Last Admin: 04/04/18 10:14 Dose: 40 mg Prednisone (Deltasone) 40 mg PO DAILY [facility] Stop: 04/17/18 09:01 Prednisone (Deltasone) 20 mg PO DAILY [facility] Stop: 04/24/18 09:01 Sennosides (Senokot) 17.2 mg PO Q12H PRN PRN Reason: Moderate Constipation Trimethoprim/Sulfamethoxazole (Bactrim) 2 tab PO Q8HR [facility] Allergies Allergy/AdvReac Type Severity Reaction Status Date / Time No Known Allergies Allergy Verified 04/03/18 16:43 Home Medications Medication Instructions Recorded Confirmed Type metformin 500 mg PO BID 03/11/18 03/16/18 History aspirin 325 mg PO DAILY 03/16/18 03/16/18 History Exam Vital signs: Vital Signs 04/03/18 16:45 04/03/18 18:05 04/03/18 18:39 Temperature 100.8 F H 99.7 F H Pulse Rate 117 H 116 H 115 H Respiratory Rate 20 20 20 Blood Pressure 142/74 H 119/61 99/60 L Pulse Oximetry 94 L 94 L 95 04/03/18 20:03 04/03/18 22:02 04/03/18 23:00 Temperature Pulse Rate 109 H 104 H 98 H Respiratory Rate 20 18 22 Blood Pressure 89/52 L 87/53 L 106/74 Pulse Oximetry 04/04/18 00:38 04/04/18 04:00 04/04/18 07:17 Temperature 98.1 F 99.3 F Pulse Rate 99 H 81 75 Respiratory Rate 22 22 17 Blood Pressure 99/62 L 111/64 Pulse Oximetry 95 91 L 04/04/18 07:30 04/04/18 08:00 04/04/18 08:30 Temperature 99 F Pulse Rate 77 74 80 Respiratory Rate 16 19 19 Blood Pressure 113/72 112/66 111/73 Pulse Oximetry 96 94 L 93 L 04/04/18 09:00 04/04/18 09:30 Temperature Pulse Rate 74 80 Respiratory Rate 22 22 Blood Pressure 110/76 116/70 Pulse Oximetry 94 L 95 Intake & Output 04/03/18 04/04/18 04/04/18 18:59 06:59 18:59 Intake Total 2400 / 2400 200 / 200 100 / 100 Output Total 915 / 915 Balance 2400 / 2400 200 / 200 -815 / -815 Weight 76 kg Intake: IV 2400 / 2400 200 / 200 100 / 100 Maxipime Inj 2,000 MG In NS Inj 100 / 100 100 / 100 100 ML @ 200 mls/hr IV.SIG Q8H [facility] Rx#:[id number] Mycamine Inj 100 MG In NS Inj 100 / 100 100 ML @ 100 mls/hr IV.SIG STAT STA Rx#:[id number] NS Inj 400 ML @ Wide Open IV. 2400 / 2400 SIG .Q0M [facility] Rx#:[id number] Output: Urine Amount (Catheter) Straight Narrative: GENERAL: Patient is a well-nourished, well-developed male, awake and alert, not in respiratory distress. He is on RA SKIN: Cool and dry. No generalized rash, no ecchymoses and no evidence of embolic lesions. HEAD: Atraumatic. Normocephalic. No temporal wasting, or tenderness. EYES: [place] conjunctiva. No petechia or hemorrhage. Pupils equal, round and reactive to light. Extraocular movements full and intact. No scleral icterus. No injection or drainage. EARS, NOSE AND THROAT: Nose without bleeding or purulent nasal discharge. No sinus tenderness. Mucous membranes pink and moist. No oral lesions noted. No exudate. No oral thrush. NECK: Trachea midline. Supple and not tender, no meningeal signs CARDIOVASCULAR: Regular rate and rhythm. No murmurs, rubs or gallops heard RESPIRATORY: Clear breath sounds on auscultation. Breath sounds equal bilaterally. No wheezing or rhonchi. ABDOMEN: Soft, non-tender, nondistended. Bowel sounds present and normoactive. No guarding. No rebound. No organomegaly. EXTREMITIES: No clubbing, cyanosis, or edema.No joint effusion, has good ROM. No calf tenderness. Well perfused and warm. NEUROLOGICAL: Awake and alert. Cranial nerves grossly intact. Motor grossly within normal limits. PSYCHIATRIC: Normal affect, calm and cooperative. LINE: No evidence of infection Results - Labs CBC & Chem 7: 04/04/18 04:45 04/04/18 04:45 Labs: Laboratory Results - last 24 hr 04/03/18 04/03/18 04/03/18 17:00 17:00 17:00 CBC w Diff Auto diff final WBC 8.5 RBC 3.72 L Hgb 10.8 L Hct 31.1 L MCV 83.6 MCH 29.1 MCHC 34.8 RDW 17.2 Plt Count 131 L MPV 7.1 Neut % (Auto) 96.8 H Lymph % (Auto) 1.5 L [place] % (Auto) 1.0 Eos % (Auto) 0.7 Baso % (Auto) 0.0 Neut # (Auto) 8.2 H Lymph # (Auto) 0.1 L [place] # (Auto) 0.1 Eos # (Auto) 0.1 Baso # (Auto) 0.0 WBC Differential . Differential Comment . Sodium 132 L Potassium 3.9 Chloride 98 Carbon Dioxide 25.7 Anion Gap 8 BUN 15 Creatinine 0.87 Estimated GFR Greater than 89 POC Glucose Random Glucose 265 H Lactic Acid 2.9 H Calcium 8.2 L Total Bilirubin 0.5 AST 23 ALT 32 Alkaline Phosphatase 102 Total Protein 7.2 Albumin 2.3 L Lipase 131 Urine Color Urine Clarity Urine pH Ur Specific [place] Urine Protein Urine Glucose (UA) Urine Ketones Urine Occult Blood Urine Nitrate Urine Bilirubin Urine Urobilinogen Ur Leukocyte Esterase Urine RBC Urine WBC Ur Squamous Epith Cells Urine Mucus Micro UA Comment Urine Culture Comments Nasal Screen MRSA (PCR) 04/03/18 04/03/18 04/04/18 18:11 22:10 01:40 CBC w Diff WBC RBC Hgb Hct MCV MCH MCHC RDW Plt Count MPV Neut % (Auto) Lymph % (Auto) [place] % (Auto) Eos % (Auto) Baso % (Auto) Neut # (Auto) Lymph # (Auto) [place] # (Auto) Eos # (Auto) Baso # (Auto) WBC Differential Differential Comment Sodium Potassium Chloride Carbon Dioxide Anion Gap BUN Creatinine Estimated GFR POC Glucose 254 H Random Glucose Lactic Acid 2.9 H Calcium Total Bilirubin AST ALT Alkaline Phosphatase Total Protein Albumin Lipase Urine Color Urine Clarity Urine pH Ur Specific [place] Urine Protein Urine Glucose (UA) Urine Ketones Urine Occult Blood Urine Nitrate Urine Bilirubin Urine Urobilinogen Ur Leukocyte Esterase Urine RBC Urine WBC Ur Squamous Epith Cells Urine Mucus Micro UA Comment Urine Culture Comments Nasal Screen MRSA (PCR) Not detected 04/04/18 04/04/18 04/04/18 04:45 04:45 04:45 CBC w Diff WBC 5.0 RBC 3.40 L Hgb 9.7 L Hct 28.4 L MCV 83.7 MCH 28.5 MCHC 34.0 RDW 17.7 H Plt Count 103 L MPV 7.0 Neut % (Auto) 84.4 H Lymph % (Auto) 4.9 L [place] % (Auto) 6.0 Eos % (Auto) 3.9 Baso % (Auto) 0.8 Neut # (Auto) 4.2 Lymph # (Auto) 0.2 L [place] # (Auto) 0.3 Eos # (Auto) 0.2 Baso # (Auto) 0.0 WBC Differential . Differential Comment Auto diff final Sodium 139 Potassium 4.0 Chloride 105 Carbon Dioxide 24.1 Anion Gap 10 BUN 14 Creatinine 0.77 Estimated GFR Greater than 89 POC Glucose Random Glucose 146 H D Lactic Acid 1.8 Calcium 7.6 L Total Bilirubin AST ALT Alkaline Phosphatase Total Protein Albumin Lipase Urine Color Urine Clarity Urine pH Ur Specific [place] Urine Protein Urine Glucose (UA) Urine Ketones Urine Occult Blood Urine Nitrate Urine Bilirubin Urine Urobilinogen Ur Leukocyte Esterase Urine RBC Urine WBC Ur Squamous Epith Cells Urine Mucus Micro UA Comment Urine Culture Comments Nasal Screen MRSA (PCR) 04/04/18 04/04/18 04/04/18 05:51 07:32 11:19 CBC w Diff WBC RBC Hgb Hct MCV MCH MCHC RDW Plt Count MPV Neut % (Auto) Lymph % (Auto) [place] % (Auto) Eos % (Auto) Baso % (Auto) Neut # (Auto) Lymph # (Auto) [place] # (Auto) Eos # (Auto) Baso # (Auto) WBC Differential Differential Comment Sodium Potassium Chloride Carbon Dioxide Anion Gap BUN Creatinine Estimated GFR POC Glucose 142 H 175 H Random Glucose Lactic Acid Calcium Total Bilirubin AST ALT Alkaline Phosphatase Total Protein Albumin Lipase Urine Color Yellow Urine Clarity Clear Urine pH 6.0 Ur Specific [place] 1.014 Urine Protein 30 H Urine Glucose (UA) 50 Urine Ketones Negative Urine Occult Blood Negative Urine Nitrate Negative Urine Bilirubin Negative Urine Urobilinogen Less than 2 Ur Leukocyte Esterase Negative Urine RBC 3 Urine WBC 1 Ur Squamous Epith Cells <1 Urine Mucus Few H Micro UA Comment Cath-culture not ind Urine Culture Comments Cath-cult not ind Nasal Screen MRSA (PCR) - Imaging Impressions Chest X-Ray 04/03/18 16:56 CONCLUSION: Assessment and Plan - Plan IMPRESSION Episode of low grade temps, and hypotension, etiology? - CXR better, was being treated for PCP - ?due to stopping prednisone too quickly (Confused about his D/C and unclear if he was taking his meds as prescribed on D/C) - UA ok HIV, AIDS with Hx PCP and low CD4 count PCP, has not completed Rx, CXR better, clinically looks better Confusion, etiology? Hx CAD Urinary retention RECOMMENDATION Follow C/S Check crypto Ag Follow temps Continue PCP Rx: bactrim and steroids Hold off other Abx Continue Zithromax prophylaxis BC for AFB May need to do brain MRI to evaluate confusion if persists D/W RN I will follow along with you Thank you for this consultation
[2018-04-04] MEDS: Sulfamethoxazole/Trimethoprim 400/80 MG Tablet PO SCH ×2 (14:16→21:59)
[2018-04-05] MEDS: Chlorhexidine Gluconate 2% 1 Pack (2 Cloths) TOPICAL SCH (05:00)
[2018-04-05] MEDS: Heparin - SQ 10,000 UNITS/ML Vial SQ SCH ×2 (05:27→14:22)
[2018-04-05] MEDS: Sulfamethoxazole/Trimethoprim 400/80 MG Tablet PO SCH ×3 (05:27→21:25)
[2018-04-05] MEDS: Ketorolac Inj 30 MG/ML (IVP) Vial IV.PUSH PRN (06:40)
--- NOTE | 2018-04-05 08:03 | P.PNID ---
Subjective Remarks: Patient is a 52-year-old male, who was recently hospitalized here at [facility] March 20 - March 27. During that admission he was worked up for respiratory problem and pneumonia, and he was diagnosed to have HIV, CD4 counts 24. Bronchoscopy results showed evidence of PCP. He was initially hypoxic, and his oxygen was successfully weaned. He was discharged March 27 and was supposed to be on Bactrim and tapering doses of prednisone. Patient seems to be confused and stating that he was discharge the day before he came into the hospital April 03. He remembers only taking 1 day of prednisone. He presented this time because he apparently became very confused. Patient stated that he had some chills, and was just not feeling well, and the next thing he know he was being awakened by his roommate. He is not coughing much. He is not on any oxygen. He was initially hypotensive and that has improved. Denies any nausea or vomiting, diarrhea. Patient had some urinary retention and had a straight cath. He has not voided since he was straight cathed. He had low-grade temp on initial presentation. His chest x-ray showing improvement in his infiltrates. His WBC is normal. Infectious disease consultation has been requested to evaluate the patient. Notes reviewed D/W RN Had chest pain since last night - dull heavy type SOB but stable Minimal dry cough Temps ok BP ok Wants pain meds for his chest pain Antibiotics: Bactrim/steroids Zithromax prophylaxis Lines: PIV no evid of infection Past Medical History: HIV (human immunodeficiency virus infection) Pneumocystis carinii pneumonia Coronary artery disease Decreased vision Diabetes History of dental problems History of nephrolithiasis History of pancreatitis Hyperlipemia Kidney stones Myocardial infarction History of coronary artery stent placement History of lithotripsy Hx of cardiac cath Allergies/Adverse Reactions: Allergies No Known Allergies Allergy (Verified 04/03/18 16:43) Objective Vital Signs 04/04/18 08:00 04/04/18 08:30 04/04/18 09:00 Temperature 99 F Pulse Rate 74 80 74 Respiratory Rate 19 19 22 Blood Pressure 112/66 111/73 110/76 Pulse Oximetry 94 L 93 L 94 L 04/04/18 09:30 04/04/18 10:00 04/04/18 10:30 Temperature Pulse Rate 80 82 73 Respiratory Rate 22 23 19 Blood Pressure 116/70 117/62 107/69 Pulse Oximetry 95 91 L 100 04/04/18 11:00 04/04/18 11:01 04/04/18 11:30 Temperature Pulse Rate 75 76 75 Respiratory Rate 20 20 18 Blood Pressure 120/62 104/70 Pulse Oximetry 98 96 93 L 04/04/18 12:00 04/04/18 12:30 04/04/18 13:00 Temperature 98.6 F Pulse Rate 81 67 73 Respiratory Rate 36 H 19 17 Blood Pressure 95/75 L 114/70 106/64 Pulse Oximetry 92 L 98 90 L 04/04/18 13:31 04/04/18 14:00 04/04/18 14:30 Temperature Pulse Rate 72 70 71 Respiratory Rate 20 21 19 Blood Pressure 107/67 104/67 117/71 Pulse Oximetry 91 L 100 92 L 04/04/18 15:00 04/04/18 15:01 04/04/18 15:30 Temperature Pulse Rate 67 78 75 Respiratory Rate 18 22 21 Blood Pressure 130/65 115/74 Pulse Oximetry 100 97 92 L 04/04/18 16:00 04/04/18 16:30 04/04/18 17:00 Temperature 98.6 F Pulse Rate 71 71 68 Respiratory Rate 23 19 20 Blood Pressure 126/83 127/81 125/69 Pulse Oximetry 100 95 100 04/04/18 17:30 04/04/18 18:00 04/04/18 18:01 Temperature Pulse Rate 70 66 66 Respiratory Rate 15 20 20 Blood Pressure 101/59 L 131/79 Pulse Oximetry 94 L 100 100 04/04/18 18:30 04/04/18 19:00 04/04/18 19:30 Temperature Pulse Rate 67 68 65 Respiratory Rate 18 20 17 Blood Pressure 127/81 136/67 125/80 Pulse Oximetry 96 95 96 04/04/18 20:00 04/04/18 20:17 04/04/18 20:30 Temperature 98.5 F Pulse Rate 70 66 67 Respiratory Rate 25 H 18 19 Blood Pressure 125/80 125/80 122/77 Pulse Oximetry 98 96 94 L 04/04/18 21:00 04/04/18 21:30 04/04/18 22:00 Temperature Pulse Rate 72 67 63 Respiratory Rate 17 19 18 Blood Pressure 120/74 124/76 138/79 Pulse Oximetry 99 94 L 93 L 04/04/18 22:30 04/04/18 23:00 04/04/18 23:30 Temperature Pulse Rate 60 62 60 Respiratory Rate 18 18 16 Blood Pressure 140/86 136/81 120/73 Pulse Oximetry 99 100 95 04/05/18 00:00 04/05/18 00:30 04/05/18 01:00 Temperature 98.7 F Pulse Rate 74 57 L 60 Respiratory Rate 29 H 16 17 Blood Pressure 121/74 149/79 H 165/86 H Pulse Oximetry 92 L 97 94 L 04/05/18 01:30 04/05/18 02:00 04/05/18 02:31 Temperature Pulse Rate 67 66 75 Respiratory Rate 20 18 21 Blood Pressure 162/85 H 157/80 H 124/68 Pulse Oximetry 100 91 L 94 L 04/05/18 03:00 04/05/18 03:01 04/05/18 03:37 Temperature Pulse Rate 62 63 67 Respiratory Rate 18 25 H 35 H Blood Pressure 156/89 H 157/82 H Pulse Oximetry 100 100 97 04/05/18 04:00 Temperature 98.2 F Pulse Rate 73 Respiratory Rate 33 H Blood Pressure 125/71 Pulse Oximetry 91 L Intake & Output 04/04/18 04/05/18 04/05/18 18:59 06:59 18:59 Intake Total 1700 / 1700 Output Total 1265 / 1265 1700 / 1700 Balance 435 / 435 -1700 / -1700 Intake: IV 1200 / 1200 NS Inj 1,000 ML @ 100 mls/hr IV 1000 / 1000 .CONT .Q10H [facility] Rx#:[id number] Maxipime Inj 2,000 MG In NS Inj 200 / 200 100 ML @ 200 mls/hr IV.SIG Q8H [facility] Rx#:[id number] Oral 500 / 500 Output: Urine 350 / 350 1700 / 1700 Urine Amount (Catheter) 915 / 915 Straight 915 / 915 04/03/18 17:00 Blood - Peripheral Aerobic Blood Culture - Preliminary No growth in 1 day 04/03/18 17:00 Blood - Peripheral Anaerobic Blood Culture - Preliminary No growth in 1 day 04/03/18 17:10 Blood - Peripheral Aerobic Blood Culture - Preliminary No growth in 1 day 04/03/18 17:10 Blood - Peripheral Anaerobic Blood Culture - Preliminary No growth in 1 day Lab - Hematology Results 04/03/18 04/04/18 17:00 04:45 CBC w Diff Auto diff final WBC 8.5 5.0 RBC 3.72 L 3.40 L Hgb 10.8 L 9.7 L Hct 31.1 L 28.4 L MCV 83.6 83.7 MCH 29.1 28.5 MCHC 34.8 34.0 RDW 17.2 17.7 H Plt Count 131 L 103 L MPV 7.1 7.0 Neut % (Auto) 96.8 H 84.4 H Lymph % (Auto) 1.[address] [place] % (Auto) 1.0 6.0 Eos % (Auto) 0.7 3.9 Baso % (Auto) 0.0 0.8 Neut # (Auto) 8.2 H 4.2 Lymph # (Auto) 0.[address] [place] # (Auto) 0.1 0.3 Eos # (Auto) 0.1 0.2 Baso # (Auto) 0.0 0.0 WBC Differential . . Differential Comment . Auto diff final Lab - Chemistry Results 04/03/18 04/03/18 04/03/18 17:00 17:00 18:11 Sodium 132 L Potassium 3.9 Chloride 98 Carbon Dioxide 25.7 Anion Gap 8 BUN 15 Creatinine 0.87 Estimated GFR Greater than 89 POC Glucose 254 H Random Glucose 265 H Lactic Acid 2.9 H Calcium 8.2 L Total Bilirubin 0.5 AST 23 ALT 32 Alkaline Phosphatase 102 Total Protein 7.2 Albumin 2.3 L Lipase 131 04/03/18 04/04/18 04/04/18 22:10 04:45 04:45 Sodium 139 Potassium 4.0 Chloride 105 Carbon Dioxide 24.1 Anion Gap 10 BUN 14 Creatinine 0.77 Estimated GFR Greater than 89 POC Glucose Random Glucose 146 H D Lactic Acid 2.9 H 1.8 Calcium 7.6 L Total Bilirubin AST ALT Alkaline Phosphatase Total Protein Albumin Lipase 04/04/18 04/04/18 04/04/18 07:32 11:19 16:18 Sodium Potassium Chloride Carbon Dioxide Anion Gap BUN Creatinine Estimated GFR POC Glucose 142 H 175 H 241 H Random Glucose Lactic Acid Calcium Total Bilirubin AST ALT Alkaline Phosphatase Total Protein Albumin Lipase 04/04/18 04/05/18 19:41 07:24 Sodium Potassium Chloride Carbon Dioxide Anion Gap BUN Creatinine Estimated GFR POC Glucose 201 H 208 H Random Glucose Lactic Acid Calcium Total Bilirubin AST ALT Alkaline Phosphatase Total Protein Albumin Lipase Imaging: ITS Impressions Chest X-Ray 04/03/18 16:56 CONCLUSION: Physical Exam: GENERAL: awake and alert, not in respiratory distress. He is on RA SKIN: Cool and dry. No generalized rash, no ecchymoses and no evidence of embolic lesions. HEAD: Atraumatic. Normocephalic. No temporal wasting, or tenderness. EYES: [place] conjunctiva. No petechia or hemorrhage. Pupils equal, round and reactive to light. Extraocular movements full and intact. No scleral icterus. No injection or drainage. EARS, NOSE AND THROAT: Nose without bleeding or purulent nasal discharge. No sinus tenderness. Mucous membranes pink and moist. No oral lesions noted. No exudate. No oral thrush. Has white firm lesion in his L auricle (States it has been there at least 3 years, gotten bigger) NECK: Trachea midline. Supple and not tender, no meningeal signs CARDIOVASCULAR: Regular rate and rhythm. No murmurs, rubs or gallops heard RESPIRATORY: Clear breath sounds on auscultation. Breath sounds equal bilaterally. No wheezing or rhonchi. ABDOMEN: Soft, non-tender, nondistended. Bowel sounds present and normoactive. No guarding. No rebound. No organomegaly. EXTREMITIES: No clubbing, cyanosis, or edema.No joint effusion, has good ROM. No calf tenderness. Well perfused and warm. NEUROLOGICAL: Awake and alert. Cranial nerves grossly intact. Motor grossly within normal limits. PSYCHIATRIC: Normal affect, calm and cooperative. LINE: No evidence of infection Assessment and Plan - Plan IMPRESSION Episode of low grade temps, and hypotension, etiology? - CXR better, was being treated for PCP - ?due to stopping prednisone too quickly (Confused about his D/C and unclear if he was taking his meds as prescribed on D/C) - UA ok HIV, AIDS with Hx PCP and low CD4 count PCP, has not completed Rx, CXR better, clinically looks better Confusion, etiology? better Hx CAD Urinary retention - voiding ok Chest pain, etiology? - has known CAD - CXR better RECOMMENDATION Follow C/S Check crypto Ag Follow temps Continue PCP Rx: bactrim and steroids Continue Zithromax prophylaxis BC for AFB Chest pain workup per medicine - may need CTA chest D/W RN
[2018-04-05] MEDS: Insulin NovoLOG Aspart Correctional Sugar Inj SQ SCH ×4 (08:52→21:26)
[2018-04-05] MEDS: predniSONE 20 MG Tablet PO SCH ×2 (08:52→20:26)
[2018-04-05] MEDS: Sod Chloride 0.9% Inj 1,000 ML IV.CONT SCH ×2 (08:53→20:26)
--- NOTE | 2018-04-05 09:46 | P.PN ---
Subjective Interval history: Nursing reports the patient had been complaining of constant chest pain since last night. An EKG had been done this morning which shows artifact with faulty placed leads. Upon questioning the patient this morning he says it is the same pain he has had since admission now it is constant. Does not think the Toradol has helped. He affirms that this is the same pain that is exacerbated with a sternal rub. Physical Exam Vital signs: Vital Signs 04/04/18 10:00 04/04/18 10:30 04/04/18 11:00 Temperature Pulse Rate 82 73 75 Respiratory Rate 23 19 20 Blood Pressure 117/62 107/69 Pulse Oximetry 91 L 100 98 04/04/18 11:01 04/04/18 11:30 04/04/18 12:00 Temperature 98.6 F Pulse Rate 76 75 81 Respiratory Rate 20 18 36 H Blood Pressure 120/62 104/70 95/75 L Pulse Oximetry 96 93 L 92 L 04/04/18 12:30 04/04/18 13:00 04/04/18 13:31 Temperature Pulse Rate 67 73 72 Respiratory Rate 19 17 20 Blood Pressure 114/70 106/64 107/67 Pulse Oximetry 98 90 L 91 L 04/04/18 14:00 04/04/18 14:30 04/04/18 15:00 Temperature Pulse Rate 70 71 67 Respiratory Rate 21 19 18 Blood Pressure 104/67 117/71 Pulse Oximetry 100 92 L 100 04/04/18 15:01 04/04/18 15:30 04/04/18 16:00 Temperature 98.6 F Pulse Rate 78 75 71 Respiratory Rate 22 21 23 Blood Pressure 130/65 115/74 126/83 Pulse Oximetry 97 92 L 100 04/04/18 16:30 04/04/18 17:00 04/04/18 17:30 Temperature Pulse Rate 71 68 70 Respiratory Rate 19 20 15 Blood Pressure 127/81 125/69 101/59 L Pulse Oximetry 95 100 94 L 04/04/18 18:00 04/04/18 18:01 04/04/18 18:30 Temperature Pulse Rate 66 66 67 Respiratory Rate 20 20 18 Blood Pressure 131/79 127/81 Pulse Oximetry 100 100 96 04/04/18 19:00 04/04/18 19:30 04/04/18 20:00 Temperature 98.5 F Pulse Rate 68 65 70 Respiratory Rate 20 17 25 H Blood Pressure 136/67 125/80 125/80 Pulse Oximetry 95 96 98 04/04/18 20:17 04/04/18 20:30 04/04/18 21:00 Temperature Pulse Rate 66 67 72 Respiratory Rate 18 19 17 Blood Pressure 125/80 122/77 120/74 Pulse Oximetry 96 94 L 99 04/04/18 21:30 04/04/18 22:00 04/04/18 22:30 Temperature Pulse Rate 67 63 60 Respiratory Rate 19 18 18 Blood Pressure 124/76 138/79 140/86 Pulse Oximetry 94 L 93 L 99 04/04/18 23:00 04/04/18 23:30 04/05/18 00:00 Temperature 98.7 F Pulse Rate 62 60 74 Respiratory Rate 18 16 29 H Blood Pressure 136/81 120/73 121/74 Pulse Oximetry 100 95 92 L 04/05/18 00:30 04/05/18 01:00 04/05/18 01:30 Temperature Pulse Rate 57 L 60 67 Respiratory Rate 16 17 20 Blood Pressure 149/79 H 165/86 H 162/85 H Pulse Oximetry 97 94 L 100 04/05/18 02:00 04/05/18 02:31 04/05/18 03:00 Temperature Pulse Rate 66 75 62 Respiratory Rate 18 21 18 Blood Pressure 157/80 H 124/68 Pulse Oximetry 91 L 94 L 100 04/05/18 03:01 04/05/18 03:37 04/05/18 04:00 Temperature 98.2 F Pulse Rate 63 67 73 Respiratory Rate 25 H 35 H 33 H Blood Pressure 156/89 H 157/82 H 125/71 Pulse Oximetry 100 97 91 L 04/05/18 04:30 04/05/18 05:00 04/05/18 05:30 Temperature Pulse Rate 73 60 66 Respiratory Rate 27 H 17 22 Blood Pressure 134/82 133/81 125/103 H Pulse Oximetry 95 96 97 04/05/18 06:00 04/05/18 06:30 04/05/18 07:00 Temperature Pulse Rate 61 62 59 L Respiratory Rate 19 20 18 Blood Pressure 136/81 134/77 123/78 Pulse Oximetry 95 94 L 94 L 04/05/18 07:30 04/05/18 08:00 04/05/18 08:30 Temperature 98.6 F Pulse Rate 62 62 60 Respiratory Rate 19 20 19 Blood Pressure 111/73 110/66 111/67 Pulse Oximetry 95 97 94 L 04/05/18 09:00 Temperature Pulse Rate 62 Respiratory Rate 20 Blood Pressure 115/87 Pulse Oximetry 96 Intake & Output 04/04/18 04/05/18 04/05/18 18:59 06:59 18:59 Intake Total 1700 / 1700 1000 / 1000 Output Total 1265 / 1265 1700 / 1700 Balance 435 / 435 -1700 / -1700 1000 / 1000 Intake: IV 1200 / 1200 1000 / 1000 NS Inj 1,000 ML @ 100 mls/hr IV 1000 / 1000 1000 / 1000 .CONT .Q10H ELENA Rx#:[id number] Maxipime Inj 2,000 MG In NS Inj 200 / 200 100 ML @ 200 mls/hr IV.SIG Q8H ELENA Rx#:[id number] Oral 500 / 500 Output: Urine 350 / 350 1700 / 1700 Urine Amount (Catheter) 915 / 915 Straight 915 / 915 Narrative: Sternal tenderness to palpation, clear lungs bilaterally, unlabored breathing, heart sounds regular rate rhythm, no murmurs - Urinary Catheter Management Straight Cath placed during this visit: no Results - Labs CBC & Chem 7: 04/06/18 02:37 04/06/18 03:37 Laboratory Results - last 24 hr 04/04/18 04/04/18 04/04/18 11:19 16:18 19:41 POC Glucose 175 H 241 H 201 H 04/05/18 07:24 POC Glucose 208 H Microbiology 04/03/18 17:00 Blood - Peripheral Aerobic Blood Culture - Preliminary No growth in 1 day 04/03/18 17:00 Blood - Peripheral Anaerobic Blood Culture - Preliminary No growth in 1 day 04/03/18 17:10 Blood - Peripheral Aerobic Blood Culture - Preliminary No growth in 1 day 04/03/18 17:10 Blood - Peripheral Anaerobic Blood Culture - Preliminary No growth in 1 day Assessment and Plan - Plan sepsis -Now afebrile, improving clinically -antibiotics per infectious disease with therapy for aids including Bactrim and azithromycin for previous PCP PNA -Awaiting blood cultures results and crypto Ag -IVF -Duonebs Chest pain -I independently reviewed the repeat EKG that I myself ordered due to faulty artifact on the one earlier this morning, and in comparison I do not see any significant changes the ST segment suggestive of ischemia or infarction. Physical exam is very indicative of costochondritis. Ordering a Lidoderm patch. Diabetes, chronic -Accu checks with SSI -Diabetic diet HIV, chronic -Patient will need to follow outpatient for antivirals DVT prophylaxis: heparin Addendum: Due to the persistence of the chest pain I ordered a troponin and a CTA pulmonary angiogram. CTA was negative for PE, case discussed with radiology. Whereas troponin was elevated to a level of 0.22. Case was discussed with Dr. Gr extensively, felt that this was more of a metabolic phenomenon in the setting of the (1) patient being treated actively for infection with a very atypical history not consistent with coronary syndrome and having a (2) Lexiscan that was negative for any acute findings about 20 days ago. Advised against heparin drip unless the troponin elevated greater to than 1.0. Will continue aspirin and beta sridevi, routine cardiology consult placed.
[2018-04-05] MEDS: Lidocaine 5% Patch T-DERMAL SCH (11:15)
--- NOTE | 2018-04-05 12:16 | ECG ---
Date Performed: 04/05/2018 Time Performed: 08:19:50 PTAGE: 52 years EKG: Sinus rhythm POSSIBLE LEFT ATRIAL ENLARGEMENT NONSPECIFIC T-WAVE ABNORMALITY BORDERLINE ECG PREVIOUS TRACING : 04/05/2018 06.23 Since the previous tracing, no significant change noted DOCTOR: Nic Chavez Interpretating Date/Time 04/05/2018 12:15:15
[2018-04-05 13:53] LABS: Cryptococcus Ag Screen Negative (Negative)
[2018-04-05] MEDS ORDERED: Promethazine/Codeine Liq 6.25 MG/10 MG 5 ML UDC PO PRN (15:32)
[2018-04-05] MEDS: Aspirin 325 MG Tablet PO SCH (15:56)
[2018-04-05] MEDS ORDERED: Heparin Drip 25,000 UNIT/250 ML BAG IV.CONT PRN (17:36)
--- NOTE | 2018-04-05 17:45 | CT ---
EXAM DATE: 04/05/2018 5:38 PM EDT AGE/SEX: 52 years / Male INDICATIONS: Chest pain CLINICAL DATA: This is the patient's initial encounter. Patient reports that signs and symptoms have been present for 1 day and indicates a pain score of 4/10. MEDICAL/SURGICAL HISTORY: Diabetes. Renal calculi. Pancreatitis. HIV positive, Sepsis, Nephrolit hiasis, Myocardial infarction, Lithotripsy. Cardiac Cath RADIATION DOSE: 16.76 CTDI (mGy) COMPARISON: No prior exams available for comparison. TECHNIQUE: Volumetric scanning was performed using a multi-row detector CT scanner during bolus infu [place] of 73ML ml Omnipaque 350 (iohexol) nonionic water-soluble contrast as a single exam dose. The d melanie was post processed with a variety of visualization algorithms including full volume maximum inten sity projection and sliding thin slab reformation. Using automated exposure control and adjustment of the mA and/or kV according to patient size, radiation dose was kept as low as reasonably achievable to obtain optimal diagnostic quality images. DICOM format image data is available electronically for review and comparison. FINDINGS: Pulmonary Arteries: No filling defects are seen in the pulmonary arteries out to the subsegmental ve ssels. The left and right pulmonary arteries are normal in diameter. Lung: Coarse patchy infiltrates remain in both lungs which are mildly improved from the prior study. There is no new consolidation.. Effusion: None. Mediastinum: No evidence of mediastinal or hilar adenopathy. Coronary artery calcifications are agai n noted. Other: The axilla is unremarkable. There is a small hiatal hernia. CONCLUSION: 1. No evidence of pulmonary embolism. 2. Coarse patchy infiltrates are present in both lungs which are improved from the prior study. This may represent recurrent infiltrate. At least a portion of this could represent scarring. Electronically signed by: Mekhi White MD 04/05/2018 5:44 PM EDT
[2018-04-05 18:20] LABS: Hematocrit 28.4 % (39.0-51.0); Hemoglobin 9.7 gm/dL (13.0-17.0); Mean Corpuscular HGB Conc 34.2 % (32.0-36.0); Mean Corpuscular Hemoglobin 29.2 pg (27.0-34.0); Mean Corpuscular Volume 85.2 fL (80.0-100.0); Mean Platelet Volume 7.1 fL (7.0-11.0); Platelet Count 111 th/mm3 (150-450); Red Blood Count 3.34 mil/mm3 (4.50-5.90)
[2018-04-05 18:27] LABS: Activated Partial Thrombo Time 27.4 sec (24.3-30.1); INR 1.1 Ratio; Prothrombin Time 10.7 sec (9.8-11.6)
[2018-04-05] MEDS ORDERED: Metoprolol Tartrate 25 MG Tablet PO ONE (18:30)
[2018-04-06 04:19] VITALS: TEMP 98.1
[2018-04-06] MEDS: Chlorhexidine Gluconate 2% 1 Pack (2 Cloths) TOPICAL SCH (05:03)
[2018-04-06 05:23] LABS: Hemoglobin 9.8 gm/dL (13.0-17.0); Mean Corpuscular HGB Conc 33.9 % (32.0-36.0); Mean Corpuscular Hemoglobin 28.5 pg (27.0-34.0); Mean Corpuscular Volume 84.3 fL (80.0-100.0); Mean Platelet Volume 7.2 fL (7.0-11.0); Platelet Count 109 th/mm3 (150-450); Red Blood Count 3.44 mil/mm3 (4.50-5.90); Red Cell Distribution Width 18.1 % (11.6-17.2); White Blood Count 2.7 th/mm3 (4.0-11.0)
[2018-04-06] MEDS: Sulfamethoxazole/Trimethoprim 400/80 MG Tablet PO SCH (05:24)
[2018-04-06] MEDS: Sod Chloride 0.9% Inj 1,000 ML IV.CONT SCH (05:25)
[2018-04-06 05:36] LABS: Anion Gap 8 meq/L (5-15); Blood Urea Nitrogen 16 mg/dL (7-18); Calcium 7.9 mg/dL (8.5-10.1); Carbon Dioxide 25.3 meq/L (21.0-32.0); Chloride 104 meq/L (98-107); Glomerular Filtration Rate Greater Than 89 mL/min (>89); Glucose,Random 165 mg/dL (74-106); Sodium 137 meq/L (136-145)
[2018-04-06 05:41] LABS: Troponin I 0.18 ng/mL (0.02-0.05)
[2018-04-06] MEDS ORDERED: Metoprolol Tartrate 25 MG Tablet PO SCH (06:00)
[2018-04-06] MEDS: Aspirin 325 MG Tablet PO SCH (09:31)
[2018-04-06] MEDS: Lidocaine 5% Patch T-DERMAL SCH (09:31)
[2018-04-06] MEDS: predniSONE 20 MG Tablet PO SCH (09:31)
--- NOTE | 2018-04-06 09:42 | P.CONCA ---
<Stacy Banks - Last Filed: 04/06/18 09:30> History of Present Illness Service: cardiology Consult date: 04/06/18 Reason for Consult: chest pain, elevated troponin Primary Care Provider: No Primary Care Physician Family Provider: No Primary Care Physician Chief Complaint: chest pain History of Present Illness: 52 yo M with CAD, prior cardiac catheterization with reported 2 stents placed in 1997, diabetes, HIV and recent diagnosis and hospitalization for pneumocystis carinii pneumonia who presents with chest pain. He reports feeling substernal chest pain intermittently for several days, nonexertional without radiation. Chest pain is reminiscent of prior [place]. He reports last feeling chest pain last night; he is currently resting comfortably without SOB or palpitations. Troponin level initially 0.22 now trending downward to 0.18. EKG is nonischemic and recent myocardial perfusion scan on 03/27/18 did not demonstrate ischemia, EF was 52%. He is currently neutropenic with normal kidney function. 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 - Medical History Medical History: Medical History (Last Updated 04/04/18 @ 11:40 by Loyda Deluca MD) HIV (human immunodeficiency virus infection) Pneumocystis carinii pneumonia Coronary artery disease Decreased vision Diabetes History of dental problems History of nephrolithiasis History of pancreatitis Hyperlipemia Kidney stones Myocardial infarction - Surgical History Surgical History: Surgical History (Last Reviewed 04/03/18 @ 17:51 by Belle Stringer MD) History of coronary artery stent placement History of lithotripsy Hx of cardiac cath - Family History Family History: Family History (Last Reviewed 04/03/18 @ 17:51 by Belle Stringer MD) Mother Family history of renal failure Grandparent No problems noted. Father Family history of coronary artery disease - Tobacco History Second Hand Smoke Exposure: No Tobacco Use In Past 30 Days: No Smoking Status: Former smoker Tobacco Type: Cigarettes - Alcohol History How Often Do You Have a Drink Containing Alcohol: Never - Substance Use History Substance History: No History of Abuse - Travel History Recent Travel in the [place] Within the Last 8 Weeks: No Recent Travel Out of the Country Within the Last 8 Weeks: No - Immunization History Tetanus Immunization: Unsure Hx Influenza Vaccine This Season: No Medications and Allergies Allergies Allergy/AdvReac Type Severity Reaction Status Date / Time No Known Allergies Allergy Verified 04/03/18 16:43 Home Medications Medication Instructions Recorded Confirmed Type metformin 500 mg PO BID 03/11/18 03/16/18 History aspirin 325 mg PO DAILY 03/16/18 03/16/18 History Active Medications: Active Medications Acetaminophen (Tylenol) 650 mg PO Q4H PRN PRN Reason: FEVER > 101 F Last Admin: 04/04/18 00:36 Dose: 650 mg Hydrocodone Bitart/Acetaminophen ([place] 5/325) 1 tab PO Q6H PRN PRN Reason: Acute Pain Last Admin: 04/06/18 00:58 Dose: 1 tab Al Hydroxide/Mg Hydroxide (Milk Of Surya Liq) 30 ml PO Q12H PRN PRN Reason: Mild Constipation Albuterol (Duoneb Neb (Prn)) 1 ampul NEB Q4HR NEB PRN PRN Reason: SHORTNESS OF BREATH/WHEEZING Albuterol (Ventolin Hfa Inh) 2 puff INH Q4H PRN PRN Reason: SHORTNESS OF BREATH Aspirin (Aspirin) 325 mg PO DAILY [facility] Last Admin: 04/05/18 15:56 Dose: 325 mg Atorvastatin Calcium (Lipitor) 40 mg PO HS [facility] Azithromycin (Zithromax) 1,200 mg PO WEEKLY [facility] Last Admin: 04/04/18 14:16 Dose: 1,200 mg Bisacodyl (Dulcolax Supp) 10 mg RECTAL DAILY PRN PRN Reason: SEVERE CONSITIPATION Chlorhexidine Gluconate (Chlorhexidine 2% Cloth) 3 pack TOPICAL DAILY@0400 [facility] Stop: 04/09/18 03:59 Last Admin: 04/06/18 05:03 Dose: Not Given Chlorhexidine Gluconate (Chlorhexidine 2% Cloth) 3 pack TOPICAL DAILY@0400 PRN PRN Reason: Extra cloth needed Stop: 04/09/18 03:59 Last Admin: 04/04/18 04:07 Dose: 3 pack Dextrose (D50w Vial) 50 ml IV.PUSH UNSCH PRN PRN Reason: PER HYPOGLYCEMIA PROTOCOL Glucagon (Glucagon Inj) 1 mg OTHER PRN PRN PRN Reason: for Hypoglycemia Protocol Sodium Chloride (Ns Inj) 1,000 mls @ 0 mls/hr IV.SIG .Q0M [facility] Last Infusion: 04/03/18 17:54 Dose: Infused Sodium Chloride (Ns Inj) 1,000 mls @ 0 mls/hr IV.SIG .Q0M [facility] Last Infusion: 04/03/18 18:31 Dose: Infused Sodium Chloride (Ns Inj) 400 mls @ 0 mls/hr IV.SIG .Q0M [facility] Last Infusion: 04/03/18 18:31 Dose: Infused Sodium Chloride (Ns Inj) 1,000 mls @ 100 mls/hr IV.CONT .Q10H [facility] Last Admin: 04/06/18 05:25 Dose: 100 mls/hr Heparin Sodium/Dextrose (Heparin/D5w 25,000 U/250 Ml) 25,000 unit in 250 mls @ 9 mls/hr IV.CONT TITRATE PRN; Protocol PRN Reason: Per Protocol Insulin Aspart (Novolog Insulin Correctional Sugar Inj) 0 unit SQ ACHS [facility]; Protocol Last Admin: 04/05/18 21:26 Dose: 4 unit Ketorolac Tromethamine (Toradol Inj) 15 mg IV.PUSH Q6H PRN PRN Reason: Acute Pain Stop: 04/09/18 09:44 Last Admin: 04/05/18 06:40 Dose: 15 mg Lactulose (Lactulose Liq) 30 ml PO DAILY PRN PRN Reason: SEVERE CONSITIPATION Lidocaine HCl (Lidoderm 5% Patch.12 Hr) 1 patch T-DERMAL DAILY [facility] Last Admin: 04/05/18 11:15 Dose: 1 patch Metoprolol Tartrate (Lopressor) 12.5 mg PO BID@0600,1800 [facility] Last Admin: 04/06/18 05:24 Dose: 12.5 mg Miscellaneous (Pill Splitter) 1 each OTHER UNSCH PRN PRN Reason: PILL SPIT Nitroglycerin (Nitrostat Sl) 0.4 mg SL Q5M PRN PRN Reason: CHEST PAIN Ondansetron HCl (Zofran Odt) 4 mg PO Q6H PRN PRN Reason: NAUSEA OR VOMITING Last Admin: 04/04/18 12:52 Dose: 4 mg Patch Removal (Remove Old Patch) 1 each T-DERMAL HS [facility] Last Admin: 04/05/18 21:26 Dose: 1 each Prednisone (Deltasone) 40 mg PO BID [facility] Stop: 04/10/18 21:01 Last Admin: 04/05/18 20:26 Dose: 40 mg Prednisone (Deltasone) 40 mg PO DAILY [facility] Stop: 04/17/18 09:01 Prednisone (Deltasone) 20 mg PO DAILY [facility] Stop: 04/24/18 09:01 Promethazine HCl/Codeine (Phenergan/Codeine Liq) 5 ml PO Q6H PRN PRN Reason: COUGH Sennosides (Senokot) 17.2 mg PO Q12H PRN PRN Reason: Moderate Constipation Trimethoprim/Sulfamethoxazole (Bactrim) 2 tab PO Q8HR [facility] Last Admin: 04/06/18 05:24 Dose: 2 tab Exam Vital signs: Vital Signs 04/05/18 10:00 04/05/18 10:30 04/05/18 11:00 Temperature Pulse Rate 64 71 66 Respiratory Rate 16 23 21 Blood Pressure 111/66 120/70 122/73 Pulse Oximetry 96 97 97 04/05/18 11:30 04/05/18 11:47 04/05/18 12:00 Temperature 99.0 F Pulse Rate 63 63 Respiratory Rate 18 19 Blood Pressure 134/77 138/82 Pulse Oximetry 98 96 04/05/18 12:30 04/05/18 13:00 04/05/18 13:30 Temperature Pulse Rate 67 75 66 Respiratory Rate 21 24 21 Blood Pressure 137/85 121/78 113/75 Pulse Oximetry 99 94 L 95 04/05/18 14:00 04/05/18 14:30 04/05/18 15:00 Temperature Pulse Rate 63 66 65 Respiratory Rate 21 20 21 Blood Pressure 116/66 124/67 137/76 Pulse Oximetry 97 98 95 04/05/18 15:30 04/05/18 16:00 04/05/18 16:31 Temperature 98.7 F Pulse Rate 64 65 84 Respiratory Rate 22 22 29 H Blood Pressure 117/83 126/71 124/80 Pulse Oximetry 96 95 91 L 04/05/18 17:00 04/05/18 18:00 04/05/18 18:23 Temperature Pulse Rate 59 L 65 66 Respiratory Rate 20 20 21 Blood Pressure 132/78 144/75 H Pulse Oximetry 94 L 98 97 04/05/18 19:00 04/05/18 20:00 04/05/18 21:00 Temperature 97.7 F Pulse Rate 63 54 L 50 L Respiratory Rate 20 12 14 Blood Pressure 111/66 127/73 142/72 H Pulse Oximetry 95 94 L 95 04/05/18 22:00 04/05/18 23:00 04/06/18 00:00 Temperature 97.8 F Pulse Rate 53 L 53 L 56 L Respiratory Rate 15 17 18 Blood Pressure 128/78 112/75 119/76 Pulse Oximetry 96 94 L 95 04/06/18 01:00 04/06/18 02:00 04/06/18 03:00 Temperature Pulse Rate 64 52 L 53 L Respiratory Rate 25 H 13 15 Blood Pressure 124/85 132/72 113/77 Pulse Oximetry 95 96 94 L 04/06/18 04:00 04/06/18 05:00 04/06/18 06:00 Temperature 98.1 F Pulse Rate 54 L 55 L 64 Respiratory Rate 15 15 19 Blood Pressure 133/72 138/84 117/78 Pulse Oximetry 96 95 91 L 04/06/18 07:00 04/06/18 08:00 04/06/18 08:43 Temperature Pulse Rate 47 L 54 L Respiratory Rate 14 12 Blood Pressure 126/74 132/79 Pulse Oximetry 100 99 100 04/06/18 09:00 Temperature Pulse Rate 82 Respiratory Rate 27 H Blood Pressure 124/86 Pulse Oximetry 99 Intake & Output 04/05/18 04/06/18 04/06/18 18:59 06:59 18:59 Intake Total 2750 / 2750 1240 / 1240 Output Total 1400 / 1400 1750 / 1750 Balance 1350 / 1350 -510 / -510 Intake: IV 1999 1000 / 1000 NS Inj 1,000 ML @ 100 mls/hr IV 1999 1000 / 1000 .CONT .Q10H [facility] Rx#:[id number] Oral 750 / 750 240 / 240 Output: Urine 1400 / 1400 1750 / 1750 Other: # Voids 3 Narrative: GENERAL: SKIN: Warm and dry. HEAD: Normocephalic. EYES: No scleral icterus. No injection or drainage. NECK: Supple, trachea midline. No JVD or lymphadenopathy. CARDIOVASCULAR: Regular rate and rhythm without murmurs, gallops, or rubs. RESPIRATORY: Breath sounds equal bilaterally. No accessory muscle use. GASTROINTESTINAL: Abdomen soft, non-tender, nondistended. MUSCULOSKELETAL: No cyanosis, or edema. Results 04/06/18 02:37 04/06/18 03:37 Cardiac Enzymes 04/05/18 04/05/18 04/05/18 Range/Units 15:40 18:00 23:42 Troponin I 0.22 H 0.22 H 0.19 H (0.02-0.05) ng/mL 04/06/18 Range/Units 03:37 Troponin I 0.18 H (0.02-0.05) ng/mL Coagulation 04/05/18 04/05/18 Range/Units 18:00 23:42 PT 10.7 (9.8-11.6) sec APTT 27.4 25.4 (24.3-30.1) sec CBC 04/05/18 04/06/18 Range/Units 18:10 02:37 WBC 3.0 L 2.7 L (4.0-11.0) th/mm3 RBC 3.34 L 3.44 L (4.50-5.90) mil/mm3 Hgb 9.7 L 9.8 L (13.0-17.0) gm/dL Hct 28.4 L 29.0 L (39.0-51.0) % Plt Count 111 L 109 L (150-450) th/mm3 Comprehensive Metabolic Panel 04/06/18 Range/Units 03:37 Sodium 137 (136-145) meq/L Potassium 4.0 (3.5-5.1) meq/L Chloride 104 (98-107) meq/L Carbon Dioxide 25.3 (21.0-32.0) meq/L BUN 16 (7-18) mg/dL Creatinine 0.71 (0.60-1.30) mg/dL Calcium 7.9 L (8.5-10.1) mg/dL Intake and Output 04/05/18 04/06/18 04/06/18 22:59 06:59 14:59 Intake Total 1750 / 1750 1240 / 1240 Output Total 1400 / 1400 1750 / 1750 Balance 350 / 350 -510 / -510 Intake: IV 1000 / 1000 1000 / 1000 NS Inj 1,000 ML @ 100 mls/hr IV 1000 / 1000 1000 / 1000 .CONT .Q10H [facility] Rx#:[id number] Oral 750 / 750 240 / 240 Output: Urine 1400 / 1400 1750 / 1750 Other: # Voids 3 Assessment and Plan - Assessment (1) Chest pain Code(s): R07.9 - Chest pain, unspecified Status: Resolved - Plan 52 yo M with CAD, prior cardiac catheterization with reported 2 stents placed in 1997, diabetes, HIV and recent diagnosis and hospitalization for pneumocystis carinii pneumonia who presents with chest pain. He reports feeling substernal chest pain intermittently for several days, nonexertional without radiation. Chest pain is reminiscent of prior [place]. He reports last feeling chest pain last night; he is currently resting comfortably without SOB or palpitations. Troponin level initially 0.22 now trending downward to 0.18. EKG is nonischemic and recent myocardial perfusion scan on 03/27/18 did not demonstrate ischemia, EF was 52%. He is currently neutropenic with normal kidney function NSTEMI- intermediate troponin elevation 0.22-->0.18 likely demand mediated from infection, will continue to monitor trend recent lexiscan did not demonstrate ischemia. currently chest pain free cont asa, statin and bb <SimónAlvin - Last Filed: 04/06/18 09:54> History of Present Illness Primary Care Provider: No Primary Care Physician Family Provider: No Primary Care Physician [facility] - Medical History Medical History: Medical History (Last Updated 04/04/18 @ 11:40 by Loyda Deluca MD) HIV (human immunodeficiency virus infection) Pneumocystis carinii pneumonia Coronary artery disease Decreased vision Diabetes History of dental problems History of nephrolithiasis History of pancreatitis Hyperlipemia Kidney stones Myocardial infarction - Surgical History Surgical History: Surgical History (Last Reviewed 04/03/18 @ 17:51 by Belle Stringer MD) History of coronary artery stent placement History of lithotripsy Hx of cardiac cath - Family History Family History: Family History (Last Reviewed 04/03/18 @ 17:51 by Belle Stringer MD) Mother Family history of renal failure Grandparent No problems noted. Father Family history of coronary artery disease Medications and Allergies Active Medications: Active Medications Acetaminophen (Tylenol) 650 mg PO Q4H PRN PRN Reason: FEVER > 101 F Last Admin: 04/04/18 00:36 Dose: 650 mg Hydrocodone Bitart/Acetaminophen ([place] 5/325) 1 tab PO Q6H PRN PRN Reason: Acute Pain Last Admin: 04/06/18 00:58 Dose: 1 tab Al Hydroxide/Mg Hydroxide (Milk Of Magnesia Liq) 30 ml PO Q12H PRN PRN Reason: Mild Constipation Albuterol (Duoneb Neb (Prn)) 1 ampul NEB Q4HR NEB PRN PRN Reason: SHORTNESS OF BREATH/WHEEZING Albuterol (Ventolin Hfa Inh) 2 puff INH Q4H PRN PRN Reason: SHORTNESS OF BREATH Aspirin (Aspirin) 325 mg PO DAILY [facility] Last Admin: 04/06/18 09:31 Dose: 325 mg Atorvastatin Calcium (Lipitor) 40 mg PO HS [facility] Azithromycin (Zithromax) 1,200 mg PO WEEKLY [facility] Last Admin: 04/04/18 14:16 Dose: 1,200 mg Bisacodyl (Dulcolax Supp) 10 mg RECTAL DAILY PRN PRN Reason: SEVERE CONSITIPATION Chlorhexidine Gluconate (Chlorhexidine 2% Cloth) 3 pack TOPICAL DAILY@0400 [facility] Stop: 04/09/18 03:59 Last Admin: 04/06/18 05:03 Dose: Not Given Chlorhexidine Gluconate (Chlorhexidine 2% Cloth) 3 pack TOPICAL DAILY@0400 PRN PRN Reason: Extra cloth needed Stop: 04/09/18 03:59 Last Admin: 04/04/18 04:07 Dose: 3 pack Dextrose (D50w Vial) 50 ml IV.PUSH UNSCH PRN PRN Reason: PER HYPOGLYCEMIA PROTOCOL Glucagon (Glucagon Inj) 1 mg OTHER PRN PRN PRN Reason: for Hypoglycemia Protocol Sodium Chloride (Ns Inj) 1,000 mls @ 0 mls/hr IV.SIG .Q0M [facility] Last Infusion: 04/03/18 17:54 Dose: Infused Sodium Chloride (Ns Inj) 1,000 mls @ 0 mls/hr IV.SIG .Q0M [facility] Last Infusion: 04/03/18 18:31 Dose: Infused Sodium Chloride (Ns Inj) 400 mls @ 0 mls/hr IV.SIG .Q0M [facility] Last Infusion: 04/03/18 18:31 Dose: Infused Sodium Chloride (Ns Inj) 1,000 mls @ 100 mls/hr IV.CONT .Q10H [facility] Last Admin: 04/06/18 05:25 Dose: 100 mls/hr Heparin Sodium/Dextrose (Heparin/D5w 25,000 U/250 Ml) 25,000 unit in 250 mls @ 9 mls/hr IV.CONT TITRATE PRN; Protocol PRN Reason: Per Protocol Insulin Aspart (Novolog Insulin Correctional Sugar Inj) 0 unit SQ ACHS [facility]; Protocol Last Admin: 04/05/18 21:26 Dose: 4 unit Ketorolac Tromethamine (Toradol Inj) 15 mg IV.PUSH Q6H PRN PRN Reason: Acute Pain Stop: 04/09/18 09:44 Last Admin: 04/05/18 06:40 Dose: 15 mg Lactulose (Lactulose Liq) 30 ml PO DAILY PRN PRN Reason: SEVERE CONSITIPATION Lidocaine HCl (Lidoderm 5% Patch.12 Hr) 1 patch T-DERMAL DAILY [facility] Last Admin: 04/06/18 09:31 Dose: 1 patch Metoprolol Tartrate (Lopressor) 12.5 mg PO BID@0600,1800 [facility] Last Admin: 04/06/18 05:24 Dose: 12.5 mg Miscellaneous (Pill Splitter) 1 each OTHER UNSCH PRN PRN Reason: PILL SPIT Nitroglycerin (Nitrostat Sl) 0.4 mg SL Q5M PRN PRN Reason: CHEST PAIN Ondansetron HCl (Zofran Odt) 4 mg PO Q6H PRN PRN Reason: NAUSEA OR VOMITING Last Admin: 04/04/18 12:52 Dose: 4 mg Patch Removal (Remove Old Patch) 1 each T-DERMAL HS [facility] Last Admin: 04/05/18 21:26 Dose: 1 each Prednisone (Deltasone) 40 mg PO BID [facility] Stop: 04/10/18 21:01 Last Admin: 04/06/18 09:31 Dose: 40 mg Prednisone (Deltasone) 40 mg PO DAILY [facility] Stop: 04/17/18 09:01 Prednisone (Deltasone) 20 mg PO DAILY [facility] Stop: 04/24/18 09:01 Promethazine HCl/Codeine (Phenergan/Codeine Liq) 5 ml PO Q6H PRN PRN Reason: COUGH Sennosides (Senokot) 17.2 mg PO Q12H PRN PRN Reason: Moderate Constipation Trimethoprim/Sulfamethoxazole (Bactrim) 2 tab PO Q8HR [facility] Last Admin: 04/06/18 05:24 Dose: 2 tab Exam Vital signs: Vital Signs 04/05/18 10:00 04/05/18 10:30 07/27/18 11:00 Temperature Pulse Rate 64 71 66 Respiratory Rate 16 23 21 Blood Pressure 111/66 120/70 122/73 Pulse Oximetry 96 97 97 04/05/18 11:30 04/05/18 11:47 04/05/18 12:00 Temperature 99.0 F Pulse Rate 63 63 Respiratory Rate 18 19 Blood Pressure 134/77 138/82 Pulse Oximetry 98 96 04/05/18 12:30 04/05/18 13:00 04/05/18 13:30 Temperature Pulse Rate 67 75 66 Respiratory Rate 21 24 21 Blood Pressure 137/85 121/78 113/75 Pulse Oximetry 99 94 L 95 04/05/18 14:00 04/05/18 14:30 04/05/18 15:00 Temperature Pulse Rate 63 66 65 Respiratory Rate 21 20 21 Blood Pressure 116/66 124/67 137/76 Pulse Oximetry 97 98 95 04/05/18 15:30 04/05/18 16:00 04/05/18 16:31 Temperature 98.7 F Pulse Rate 64 65 84 Respiratory Rate 22 22 29 H Blood Pressure 117/83 126/71 124/80 Pulse Oximetry 96 95 91 L 04/05/18 17:00 04/05/18 18:00 04/05/18 18:23 Temperature Pulse Rate 59 L 65 66 Respiratory Rate 20 20 21 Blood Pressure 132/78 144/75 H Pulse Oximetry 94 L 98 97 04/05/18 19:00 04/05/18 20:00 04/05/18 21:00 Temperature 97.7 F Pulse Rate 63 54 L 50 L Respiratory Rate 20 12 14 Blood Pressure 111/66 127/73 142/72 H Pulse Oximetry 95 94 L 95 04/05/18 22:00 04/05/18 23:00 04/06/18 00:00 Temperature 97.8 F Pulse Rate 53 L 53 L 56 L Respiratory Rate 15 17 18 Blood Pressure 128/78 112/75 119/76 Pulse Oximetry 96 94 L 95 04/06/18 01:00 04/06/18 02:00 04/06/18 03:00 Temperature Pulse Rate 64 52 L 53 L Respiratory Rate 25 H 13 15 Blood Pressure 124/85 132/72 113/77 Pulse Oximetry 95 96 94 L 04/06/18 04:00 04/06/18 05:00 04/06/18 06:00 Temperature 98.1 F Pulse Rate 54 L 55 L 64 Respiratory Rate 15 15 19 Blood Pressure 133/72 138/84 117/78 Pulse Oximetry 96 95 91 L 04/06/18 07:00 04/06/18 08:00 04/06/18 08:43 Temperature Pulse Rate 47 L 54 L Respiratory Rate 14 12 Blood Pressure 126/74 132/79 Pulse Oximetry 100 99 100 04/06/18 09:00 Temperature Pulse Rate 82 Respiratory Rate 27 H Blood Pressure 124/86 Pulse Oximetry 99 Intake & Output 04/05/18 04/06/18 04/06/18 18:59 06:59 18:59 Intake Total 2750 / 2750 1240 / 1240 Output Total 1400 / 1400 1750 / 1750 Balance 1350 / 1350 -510 / -510 Intake: IV 1999 1000 / 1000 NS Inj 1,000 ML @ 100 mls/hr IV 1999 1000 / 1000 .CONT .Q10H [facility] Rx#:[id number] Oral 750 / 750 240 / 240 Output: Urine 1400 / 1400 1750 / 1750 Other: # Voids 3 Results 04/06/18 02:37 04/06/18 03:37 Cardiac Enzymes 04/05/18 04/05/18 04/05/18 Range/Units 15:40 18:00 23:42 Troponin I 0.22 H 0.22 H 0.19 H (0.02-0.05) ng/mL 04/06/18 Range/Units 03:37 Troponin I 0.18 H (0.02-0.05) ng/mL Coagulation 04/05/18 04/05/18 Range/Units 18:00 23:42 PT 10.7 (9.8-11.6) sec APTT 27.4 25.4 (24.3-30.1) sec CBC 04/05/18 04/06/18 Range/Units 18:10 02:37 WBC 3.0 L 2.7 L (4.0-11.0) th/mm3 RBC 3.34 L 3.44 L (4.50-5.90) mil/mm3 Hgb 9.7 L 9.8 L (13.0-17.0) gm/dL Hct 28.4 L 29.0 L (39.0-51.0) % Plt Count 111 L 109 L (150-450) th/mm3 Comprehensive Metabolic Panel 04/06/18 Range/Units 03:37 Sodium 137 (136-145) meq/L Potassium 4.0 (3.5-5.1) meq/L Chloride 104 (98-107) meq/L Carbon Dioxide 25.3 (21.0-32.0) meq/L BUN 16 (7-18) mg/dL Creatinine 0.71 (0.60-1.30) mg/dL Calcium 7.9 L (8.5-10.1) mg/dL Intake and Output 04/05/18 04/06/18 04/06/18 22:59 06:59 14:59 Intake Total 1750 / 1750 1240 / 1240 Output Total 1400 / 1400 1750 / 1750 Balance 350 / 350 -510 / -510 Intake: IV 1000 / 1000 1000 / 1000 NS Inj 1,000 ML @ 100 mls/hr IV 1000 / 1000 1000 / 1000 .CONT .Q10H [facility] Rx#:[id number] Oral 750 / 750 240 / 240 Output: Urine 1400 / 1400 1750 / 1750 Other: # Voids 3 Assessment and Plan - Assessment (1) Chest pain Code(s): R07.9 - Chest pain, unspecified Status: Resolved - Attending Attestation non-thrombotic mediated NSTEMI. metabolic/demand mediated troponin leak. trending down. no EKG changes recent lexiscan- no ischemia. no need for further ischemic workup CP noncardiac will sign off call with questions DC heparin gtt
--- NOTE | 2018-04-06 12:43 | P.DS ---
Date of admission: 04/03/18 19:41 Primary care physician: No Primary Care Physician Brief History from admission: 52 y/o male recently diagnosed with HIV and PCP pneumonia was discharged on March 27. Today he presents with worsening ill feeling. He states he just does not feel up to par. Patient is confused and states he was just discharged from the hospital yesterday. He is complaining of sternal chest pain, worse with a deep breath and no associated symptoms. He is also complaining of a cough with productive sputum and fevers. Denies any nausea or vomiting. DS: Medications - Discharge Medications Prescriptions: aspirin [Adult Low Dose Aspirin] 81 mg PO DAILY #30 tab atorvastatin 40 mg PO HS #30 tab prednisone 10 mg PO DIRECTED #34 tab DS: Summary Hospital Course: Patient was admitted to the ICU. Started initially on antibiotics. Infectious disease was consulted, de-escalate antibiotics and followed up lab results including cryptococcal antigen which was negative. Cardiology had been consulted given elevated troponin and deemed that this was due to metabolic stress. Patient has met maximal benefit from hospitalization is clinically stable for discharge. Cleared by ID for discharge. - Time Spent with Patient Total time spent providing and/or coordinating discharge services: Less than 30 minutes - Quality: VTE Deep Vein Thrombosis/Pulmonary Embolism Present on Admission: No Exam Vital signs: Vital Signs 04/05/18 13:00 04/05/18 13:30 04/05/18 14:00 Temperature Pulse Rate 75 66 63 Respiratory Rate 24 21 21 Blood Pressure 121/78 113/75 116/66 Pulse Oximetry 94 L 95 97 04/05/18 14:30 04/05/18 15:00 04/05/18 15:30 Temperature Pulse Rate 66 65 64 Respiratory Rate 20 21 22 Blood Pressure 124/67 137/76 117/83 Pulse Oximetry 98 95 96 04/05/18 16:00 04/05/18 16:31 04/05/18 17:00 Temperature 98.7 F Pulse Rate 65 84 59 L Respiratory Rate 22 29 H 20 Blood Pressure 126/71 124/80 132/78 Pulse Oximetry 95 91 L 94 L 04/05/18 18:00 04/05/18 18:23 04/05/18 19:00 Temperature Pulse Rate 65 66 63 Respiratory Rate 20 21 20 Blood Pressure 144/75 H 111/66 Pulse Oximetry 98 97 95 04/05/18 20:00 04/05/18 21:00 04/05/18 22:00 Temperature 97.7 F Pulse Rate 54 L 50 L 53 L Respiratory Rate 12 14 15 Blood Pressure 127/73 142/72 H 128/78 Pulse Oximetry 94 L 95 96 04/05/18 23:00 04/06/18 00:00 04/06/18 01:00 Temperature 97.8 F Pulse Rate 53 L 56 L 64 Respiratory Rate 17 18 25 H Blood Pressure 112/75 119/76 124/85 Pulse Oximetry 94 L 95 95 04/06/18 02:00 04/06/18 03:00 04/06/18 04:00 Temperature 98.1 F Pulse Rate 52 L 53 L 54 L Respiratory Rate 13 15 15 Blood Pressure 132/72 113/77 133/72 Pulse Oximetry 96 94 L 96 04/06/18 05:00 04/06/18 06:00 04/06/18 07:00 Temperature Pulse Rate 55 L 64 47 L Respiratory Rate 15 19 14 Blood Pressure 138/84 117/78 126/74 Pulse Oximetry 95 91 L 100 04/06/18 08:00 04/06/18 08:43 04/06/18 09:00 Temperature Pulse Rate 54 L 82 Respiratory Rate 12 27 H Blood Pressure 132/79 124/86 Pulse Oximetry 99 100 99 Intake & Output 04/05/18 04/06/18 04/06/18 18:59 06:59 18:59 Intake Total 2750 / 2750 1240 / 1240 Output Total 1400 / 1400 1750 / 1750 Balance 1350 / 1350 -510 / -510 Intake: IV 1999 / 1999 1000 / 1000 NS Inj 1,000 ML @ 100 mls/hr IV 1999 / 1999 1000 / 1000 .CONT .Q10H [facility] Rx#:[id number] Oral 750 / 750 240 / 240 Output: Urine 1400 / 1400 1750 / 1750 Other: # Voids 3 Narrative: clear lungs BL NAD Results Procedures completed during hospitalization: . Labs on day of discharge: Labs from last 24 hours 04/06/18 04/06/18 04/06/18 12:15 03:37 02:37 WBC 2.7 L RBC 3.44 L Hgb 9.8 L Hct 29.0 L MCV 84.3 MCH 28.5 MCHC 33.9 RDW 18.1 H Plt Count 109 L MPV 7.2 PT INR APTT Sodium 137 Potassium 4.0 Chloride 104 Carbon Dioxide 25.3 Anion Gap 8 BUN 16 Creatinine 0.71 Estimated GFR Greater than 89 POC Glucose 210 H Random Glucose 165 H Calcium 7.9 L Troponin I 0.18 H Cryptococcus Ag Screen 04/05/18 04/05/18 04/05/18 23:42 23:42 20:32 WBC RBC Hgb Hct MCV MCH MCHC RDW Plt Count MPV PT INR APTT 25.4 Sodium Potassium Chloride Carbon Dioxide Anion Gap BUN Creatinine Estimated GFR POC Glucose 205 H Random Glucose Calcium Troponin I 0.19 H Cryptococcus Ag Screen 04/05/18 04/05/18 04/05/18 18:10 18:00 18:00 WBC 3.0 L RBC 3.34 L Hgb 9.7 L Hct 28.4 L MCV 85.2 MCH 29.2 MCHC 34.2 RDW 17.0 Plt Count 111 L MPV 7.1 PT 10.7 INR 1.1 APTT 27.4 Sodium Potassium Chloride Carbon Dioxide Anion Gap BUN Creatinine Estimated GFR POC Glucose Random Glucose Calcium Troponin I 0.22 H Cryptococcus Ag Screen 04/05/18 04/05/18 04/04/18 15:58 15:40 13:40 WBC RBC Hgb Hct MCV MCH MCHC RDW Plt Count MPV PT INR APTT Sodium Potassium Chloride Carbon Dioxide Anion Gap BUN Creatinine Estimated GFR POC Glucose 237 H Random Glucose Calcium Troponin I 0.22 H Cryptococcus Ag Screen Negative Preliminary micro results at discharge 04/03/18 17:00 Aerobic Blood Culture - Preliminary Blood - Peripheral No growth in 3 days Anaerobic Blood Culture - Preliminary No growth in 3 days 04/03/18 17:10 Aerobic Blood Culture - Preliminary Blood - Peripheral No growth in 3 days Anaerobic Blood Culture - Preliminary No growth in 3 days - Impressions ITS Impressions Chest X-Ray 04/03/18 16:56 CONCLUSION: Prominence of the interstitium which may reflect underlying interstitial disease versus pulmonary venous hypertension. When compared to the prior exam, the aeration of the lungs, especially in the upper lungs, has improved. Chest CTA 04/05/18 00:00 CONCLUSION: 1. No evidence of pulmonary embolism. 2. Coarse patchy infiltrates are present in both lungs which are improved from the prior study. This may represent recurrent infiltrate. At least a portion of this could represent scarring. Discharge Plan - Discharge Disposition Patient Disposition: 01 Discharge Home - Discharge Condition Condition: Serious - Discharge Order Discharge Orders: Discharge Order (Routine); Ordered 04/06/18 Ordered By: Gaurang Nickerson - Physicians Team Primary Care Provider: Primary Care Shante Akbar Attending Provider: Gaurang Nickerson Other Providers: Loyda Deluca MD ; Alvin Gr MD
[2018-04-06] MEDS: Insulin NovoLOG Aspart Correctional Sugar Inj SQ SCH ×2 (13:07→13:11)
[2018-04-06 14:22] VITALS: BP 141/78; PULSE 62; RESP 19; O2SAT 97
--- NOTE | 2018-04-06 14:40 | ECG ---
Date Performed: 04/05/2018 Time Performed: 06:23:10 PTAGE: 52 years EKG: Sinus bradycardia. Left axis deviation Inferior infarct - age undetermined Lateral T wave c hanges are nonspecific Since previous tracing, no significant change noted Abnormal ECG PREVIOUS TRACING : 04/03/2018 17.10.46 DOCTOR: Bran Avila Interpretating Date/Time 04/06/2018 14:39:25
[2018-04-11] MEDS ORDERED: predniSONE 20 MG Tablet PO SCH (09:00)
[2018-04-18] MEDS ORDERED: predniSONE 20 MG Tablet PO SCH (09:00)
== END 2018-04-06 15:00 | disposition home or self-care (01) ==
LOC: PHED 16:39 → PHEDA 19:41 → HIMC 04-04 01:30
PROVIDERS: ADMIT Hospitalist; ATTEND Hospitalist

== ENCOUNTER 2018-04-08 14:12 | Observation (INO) ==
[2018-04-08] MEDS ORDERED: Sodium Chlor 0.9% Inj 500 ML IV.SIG ONE (14:35)
[2018-04-08 14:47] LABS: Baso % (Auto) 1.3 % (0.0-2.0); Eos # (Auto) 0.1 th/mm3 (0.0-0.4); Eos % (Auto) 3.5 % (0.0-4.0); Hematocrit 31.8 % (39.0-51.0); Hemoglobin 10.6 gm/dL (13.0-17.0); Lymph # (Auto) 0.3 th/mm3 (1.0-4.8); Lymph % (Auto) 11.3 % (9.0-44.0); Mean Corpuscular HGB Conc 33.2 % (32.0-36.0); Mean Corpuscular Hemoglobin 27.9 pg (27.0-34.0); Mean Corpuscular Volume 83.8 fL (80.0-100.0); Mean Platelet Volume 6.5 fL (7.0-11.0); Mono # (Auto) 0.2 th/mm3 (0.0-0.9); Neut # (Auto) 2.2 th/mm3 (1.8-7.7); Neut % (Auto) 77.9 % (16.0-70.0); Platelet Count 121 th/mm3 (150-450); Red Cell Distribution Width 17.9 % (11.6-17.2); White Blood Count 2.9 th/mm3 (4.0-11.0)
--- NOTE | 2018-04-08 14:59 | XR ---
EXAM DATE: 04/08/2018 2:52 PM EDT AGE/SEX: 52 years / Male INDICATIONS: Chest pain. CLINICAL DATA: This is the patient's initial encounter. Patient reports that signs and symptoms have been present for 1 day and indicates a pain score of 7/10. MEDICAL/SURGICAL HISTORY: . HIV, diabetes. None. COMPARISON: [facility], CHEST 2V PA&LAT, 04/03/2018. . FINDINGS: Mild interstitial prominence remains evident. There is no evidence of consolidating airspace disease or significant congestion. Heart and mediastinal structures are stable. There is no evidence of pleural effusion. CONCLUSION: 1. Interstitial lung disease as previously documented. 2. No evidence of consolidating airspace disease or significant congestion. 3. Otherwise stable chest. Electronically signed by: Charles Plunkett MD 04/08/2018 2:57 PM EDT
--- NOTE | 2018-04-08 15:14 | ED ---
HPI General Chief complaint: Chest Pain Stated complaint: Chest pain / SOB Time Seen by Provider: 04/08/18 14:29 History of Present Illness HPI narrative: This is a 52-year-old male with a history of HIV/AIDS, diabetes mellitus, pancytopenia, PCP pneumonia, mycoplasma pneumonia, presents here with complaints of right-sided pleuritic chest pain. Patient also reports global weakness. The patient was just recently discharged last night from the hospital. He states he when he got home, he did not feel well. He states he did not feel well when he was discharged home. He states that he is so weak that he can barely get around his house. He denies any worsening symptoms. He just states that he is so weak that he can barely care for himself. There are no other complaints at the time of my examination. He does report taking all his medications as prescribed. He is currently on E-Mycin and Bactrim for his pneumonia. Related Data Home Medications Medication Instructions Recorded Confirmed metformin 500 mg PO BID 03/11/18 04/08/18 albuterol sulfate [Ventolin HFA] 2 puff INHALATION Q4H PRN 04/08/18 04/08/18 sulfamethoxazole-trimethoprim 2 tab PO DAILY 04/08/18 04/08/18 Previous Rx's Medication Instructions Recorded azithromycin 1,200 mg PO WEEKLY #10 tab 03/27/18 aspirin [Adult Low Dose Aspirin] 81 mg PO DAILY #30 tab 04/06/18 atorvastatin 40 mg PO HS #30 tab 04/06/18 prednisone 10 mg PO DIRECTED #34 tab 04/06/18 Allergies Allergy/AdvReac Type Severity Reaction Status Date / Time No Known Allergies Allergy Verified 04/03/18 16:43 Review of Systems Except as stated in HPI: all other systems reviewed are negative Constitutional Reports chills and Denies fever(s) Eyes Denies blurry vision and Reports dry eyes ENT Reports dizziness and Reports dry mouth Cardiovascular Reports chest pain (Right sided), Reports chest pain at rest (Constant right- sided), Reports lightheadedness and Denies palpitations Respiratory Reports cough (Dry) and Reports dyspnea on exertion Gastrointestinal Denies abdominal pain, Denies loose stools, Reports nausea, Denies vomiting and Reports other (Decreased appetite) Genitourinary Denies difficulty urinating and Reports other Musculoskeletal Denies myalgias, Denies arthralgias (Generalized) and Reports muscle weakness Integumentary/Breasts Reports system reviewed and no additional complaints, except as docu Neurologic Reports dizziness, Denies headache(s) and Reports weakness (Generalized) [facility] Social History Social History Substance History: No History of Abuse Second Hand Smoke Exposure: No Smoking Status: Former smoker Tobacco Type: Cigarettes How Often Do You Have a Drink Containing Alcohol: Never Recent Travel in [facility] within the Last 8 Weeks: No Recent Out of Country Travel within the Last 8 Weeks: No Immunization History Tetanus Immunization: <5 Years Exam Narrative Exam Narrative: GENERAL: Weak appearing male in no acute respiratory distress. SKIN: Focused skin assessment dry and scaly. HEAD: Atraumatic. Normocephalic. EYES: No scleral icterus. No injection or drainage. ENT: Mucous membranes pink and dry. NECK: Trachea midline. Supple. CARDIOVASCULAR: Regular rate and rhythm. No murmur appreciated. RESPIRATORY: No accessory muscle use. Clear to auscultation. Breath sounds equal bilaterally. Decreased respiratory effort. GASTROINTESTINAL: Abdomen soft, non-tender, nondistended. Hepatic and splenic margins not palpable. MUSCULOSKELETAL: No obvious deformities. No clubbing. No cyanosis. No edema. NEUROLOGICAL: Awake and weak appearing. No obvious cranial nerve deficits. Motor grossly within normal limits. Normal speech. 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 Patient states since she has been discharged home yesterday, he has not been able to eat. He reports his roommate is not able to care for him. The patient also complained of right-sided constant chest pain. 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 The patient's labs are chronically low and around the same values except for his calcium which is 7.4. This was discussed with the hospice case manager who recommended we bring him in under observation and have case management work with the health department for possible [facility] follow-up. Differential Diagnosis Differential Diagnosis: Pneumonia, failed outpatient antibiotics, versus metabolic derangement versus atypical ACS Lab Data Result diagrams: 04/09/18 06:00 04/09/18 06:00 Lab Results 04/08/18 04/08/18 04/08/18 Range/Units 14:40 14:40 18:00 WBC 2.9 L (4.0-11.0) th/mm3 RBC 3.80 L (4.50-5.90) mil/mm3 Hgb 10.6 L (13.0-17.0) gm/dL Hct 31.8 L (39.0-51.0) % MCV 83.8 (80.0-100.0) fL MCH 27.9 (27.0-34.0) pg MCHC 33.2 (32.0-36.0) % RDW 17.9 H (11.6-17.2) % Plt Count 121 L (150-450) th/mm3 MPV 6.5 L (7.0-11.0) fL Prelim Diff (Auto) Slide review pending Neut % (Auto) 77.9 H (16.0-70.0) % Lymph % (Auto) 11.3 (9.0-44.0) % [place] % (Auto) 6.0 (0.0-8.0) % Eos % (Auto) 3.5 (0.0-4.0) % Baso % (Auto) 1.3 (0.0-2.0) % Neut # (Auto) 2.2 (1.8-7.7) th/mm3 Lymph # (Auto) 0.3 L (1.0-4.8) th/mm3 [place] # (Auto) 0.2 (0.0-0.9) th/mm3 Eos # (Auto) 0.1 (0.0-0.4) th/mm3 Baso # (Auto) 0.0 (0.0-0.2) th/mm3 WBC Differential Manual diff final Seg Neuts % (Manual) 87 H (16-70) % Band Neuts % (Manual) 4 (0-6) % Lymphocytes % (Manual) 3 L (9-44) % Monocytes % (Manual) 4 (0-8) % Eosinophils % (Manual) (0-4) % Myelocytes % (Man) 2 H (0-0) % Abs Neuts (Manual) 2.7 (1.8-7.7) th/mm3 Differential Comment . Platelet Estimate Low L (Normal) Platelet Morphology Normal (Normal) Ovalocytes 1+ H (None) Keratocytes Occ H (None) Sodium 138 (136-145) meq/L Potassium 3.6 (3.5-5.1) meq/L Chloride 108 H (98-107) meq/L Carbon Dioxide 23.4 (21.0-32.0) meq/L Anion Gap 7 (5-15) meq/L BUN 12 (7-18) mg/dL Creatinine 0.82 (0.60-1.30) mg/dL Estimated GFR Greater than 89 (>89) mL/min POC Glucose (68-110) mg/dl Random Glucose 147 H (74-106) mg/dL Calcium 7.0 L* (8.5-10.1) mg/dL Prot Corrected Calcium 7.4 L* (8.5-10.1) mg/dL Total Bilirubin 0.3 (0.2-1.0) mg/dL AST 13 L (15-37) U/L ALT 33 (12-78) U/L Alkaline Phosphatase 75 (45-117) U/L Total Creatine Kinase (39-308) U/L Troponin I 0.07 H (0.02-0.05) ng/mL B-Natriuretic Peptide (0-100) pg/mL Total Protein 6.4 D (6.4-8.2) g/dL Albumin 2.3 L (3.4-5.0) g/dL Urine Color Yellow (Yellw/Straw) Urine Clarity Clear (Clear) Urine pH 6.0 (5.0-8.5) Ur Specific [place] 1.014 (1.002-1.035) Urine Protein 100 H (Neg-Trace) mg/dL Urine Glucose (UA) Negative (Negative) mg/dL Urine Ketones Negative (Negative) mg/dL Urine Occult Blood Negative (Negative) Urine Nitrate Negative (Negative) Urine Bilirubin Negative (Negative) Urine Urobilinogen 4 or greater (Less than 2) mg/dL Ur Leukocyte Esterase Negative (Negative) Urine RBC 1 (0-3) /hpf Urine WBC 1 (0-5) /hpf Ur Squamous Epith Cells 3 (0-5) /hpf Hyaline Casts 1 (0-3) /lpf Urine Mucus Few H (Occasional) /lpf Micro UA Comment Culture not ind Urine Culture Comments Culture not ind 04/09/18 04/09/18 04/09/18 Range/Units 06:00 06:00 06:00 WBC 2.7 L (4.0-11.0) th/mm3 RBC 3.86 L (4.50-5.90) mil/mm3 Hgb 10.9 L (13.0-17.0) gm/dL Hct 32.2 L (39.0-51.0) % MCV 83.3 (80.0-100.0) fL MCH 28.2 (27.0-34.0) pg MCHC 33.9 (32.0-36.0) % RDW 17.9 H (11.6-17.2) % Plt Count 126 L (150-450) th/mm3 MPV 6.7 L (7.0-11.0) fL Prelim Diff (Auto) Slide review pending Neut % (Auto) 54.0 (16.0-70.0) % Lymph % (Auto) 28.9 (9.0-44.0) % [place] % (Auto) 7.3 (0.0-8.0) % Eos % (Auto) 8.8 H (0.0-4.0) % Baso % (Auto) 1.0 (0.0-2.0) % Neut # (Auto) 1.5 L (1.8-7.7) th/mm3 Lymph # (Auto) 0.8 L (1.0-4.8) th/mm3 [place] # (Auto) 0.2 (0.0-0.9) th/mm3 Eos # (Auto) 0.2 (0.0-0.4) th/mm3 Baso # (Auto) 0.0 (0.0-0.2) th/mm3 WBC Differential Manual diff final Seg Neuts % (Manual) 62 (16-70) % Band Neuts % (Manual) 7 H (0-6) % Lymphocytes % (Manual) 15 (9-44) % Monocytes % (Manual) 11 H (0-8) % Eosinophils % (Manual) 2 (0-4) % Myelocytes % (Man) 3 H (0-0) % Abs Neuts (Manual) 1.9 (1.8-7.7) th/mm3 Differential Comment . Platelet Estimate Low L (Normal) Platelet Morphology Normal (Normal) Ovalocytes 1+ H (None) Keratocytes (None) Sodium 136 (136-145) meq/L Potassium 4.1 (3.5-5.1) meq/L Chloride 104 (98-107) meq/L Carbon Dioxide 25.2 (21.0-32.0) meq/L Anion Gap 7 (5-15) meq/L BUN 13 (7-18) mg/dL Creatinine 0.86 (0.60-1.30) mg/dL Estimated GFR Greater than 89 (>89) mL/min POC Glucose (68-110) mg/dl Random Glucose 103 (74-106) mg/dL Calcium 7.9 L D (8.5-10.1) mg/dL Prot Corrected Calcium (8.5-10.1) mg/dL Total Bilirubin (0.2-1.0) mg/dL AST (15-37) U/L ALT (12-78) U/L Alkaline Phosphatase (45-117) U/L Total Creatine Kinase (39-308) U/L Troponin I (0.02-0.05) ng/mL B-Natriuretic Peptide 37 (0-100) pg/mL Total Protein (6.4-8.2) g/dL Albumin (3.4-5.0) g/dL Urine Color (Yellw/Straw) Urine Clarity (Clear) Urine pH (5.0-8.5) Ur Specific [place] (1.002-1.035) Urine Protein (Neg-Trace) mg/dL Urine Glucose (UA) (Negative) mg/dL Urine Ketones (Negative) mg/dL Urine Occult Blood (Negative) Urine Nitrate (Negative) Urine Bilirubin (Negative) Urine Urobilinogen (Less than 2) mg/dL Ur Leukocyte Esterase (Negative) Urine RBC (0-3) /hpf Urine WBC (0-5) /hpf Ur Squamous Epith Cells (0-5) /hpf Hyaline Casts (0-3) /lpf Urine Mucus (Occasional) /lpf Micro UA Comment Urine Culture Comments 04/09/18 04/09/18 04/09/18 Range/Units 14:37 16:21 21:25 WBC (4.0-11.0) th/mm3 RBC (4.50-5.90) mil/mm3 Hgb (13.0-17.0) gm/dL Hct (39.0-51.0) % MCV (80.0-100.0) fL MCH (27.0-34.0) pg MCHC (32.0-36.0) % RDW (11.6-17.2) % Plt Count (150-450) th/mm3 MPV (7.0-11.0) fL Prelim Diff (Auto) Neut % (Auto) (16.0-70.0) % Lymph % (Auto) (9.0-44.0) % [place] % (Auto) (0.0-8.0) % Eos % (Auto) (0.0-4.0) % Baso % (Auto) (0.0-2.0) % Neut # (Auto) (1.8-7.7) th/mm3 Lymph # (Auto) (1.0-4.8) th/mm3 [place] # (Auto) (0.0-0.9) th/mm3 Eos # (Auto) (0.0-0.4) th/mm3 Baso # (Auto) (0.0-0.2) th/mm3 WBC Differential Seg Neuts % (Manual) (16-70) % Band Neuts % (Manual) (0-6) % Lymphocytes % (Manual) (9-44) % Monocytes % (Manual) (0-8) % Eosinophils % (Manual) (0-4) % Myelocytes % (Man) (0-0) % Abs Neuts (Manual) (1.8-7.7) th/mm3 Differential Comment Platelet Estimate (Normal) Platelet Morphology (Normal) Ovalocytes (None) Keratocytes (None) Sodium (136-145) meq/L Potassium (3.5-5.1) meq/L Chloride (98-107) meq/L Carbon Dioxide (21.0-32.0) meq/L Anion Gap (5-15) meq/L BUN (7-18) mg/dL Creatinine (0.60-1.30) mg/dL Estimated GFR (>89) mL/min POC Glucose 244 H 207 H 127 H (68-110) mg/dl Random Glucose (74-106) mg/dL Calcium (8.5-10.1) mg/dL Prot Corrected Calcium (8.5-10.1) mg/dL Total Bilirubin (0.2-1.0) mg/dL AST (15-37) U/L ALT (12-78) U/L Alkaline Phosphatase (45-117) U/L Total Creatine Kinase (39-308) U/L Troponin I (0.02-0.05) ng/mL B-Natriuretic Peptide (0-100) pg/mL Total Protein (6.4-8.2) g/dL Albumin (3.4-5.0) g/dL Urine Color (Yellw/Straw) Urine Clarity (Clear) Urine pH (5.0-8.5) Ur Specific [place] (1.002-1.035) Urine Protein (Neg-Trace) mg/dL Urine Glucose (UA) (Negative) mg/dL Urine Ketones (Negative) mg/dL Urine Occult Blood (Negative) Urine Nitrate (Negative) Urine Bilirubin (Negative) Urine Urobilinogen (Less than 2) mg/dL Ur Leukocyte Esterase (Negative) Urine RBC (0-3) /hpf Urine WBC (0-5) /hpf Ur Squamous Epith Cells (0-5) /hpf Hyaline Casts (0-3) /lpf Urine Mucus (Occasional) /lpf Micro UA Comment Urine Culture Comments 04/10/18 04/10/18 04/10/18 Range/Units 07:20 09:07 12:57 WBC (4.0-11.0) th/mm3 RBC (4.50-5.90) mil/mm3 Hgb (13.0-17.0) gm/dL Hct (39.0-51.0) % MCV (80.0-100.0) fL MCH (27.0-34.0) pg MCHC (32.0-36.0) % RDW (11.6-17.2) % Plt Count (150-450) th/mm3 MPV (7.0-11.0) fL Prelim Diff (Auto) Neut % (Auto) (16.0-70.0) % Lymph % (Auto) (9.0-44.0) % [place] % (Auto) (0.0-8.0) % Eos % (Auto) (0.0-4.0) % Baso % (Auto) (0.0-2.0) % Neut # (Auto) (1.8-7.7) th/mm3 Lymph # (Auto) (1.0-4.8) th/mm3 [place] # (Auto) (0.0-0.9) th/mm3 Eos # (Auto) (0.0-0.4) th/mm3 Baso # (Auto) (0.0-0.2) th/mm3 WBC Differential Seg Neuts % (Manual) (16-70) % Band Neuts % (Manual) (0-6) % Lymphocytes % (Manual) (9-44) % Monocytes % (Manual) (0-8) % Eosinophils % (Manual) (0-4) % Myelocytes % (Man) (0-0) % Abs Neuts (Manual) (1.8-7.7) th/mm3 Differential Comment Platelet Estimate (Normal) Platelet Morphology (Normal) Ovalocytes (None) Keratocytes (None) Sodium (136-145) meq/L Potassium (3.5-5.1) meq/L Chloride (98-107) meq/L Carbon Dioxide (21.0-32.0) meq/L Anion Gap (5-15) meq/L BUN (7-18) mg/dL Creatinine (0.60-1.30) mg/dL Estimated GFR (>89) mL/min POC Glucose 206 H 147 H (68-110) mg/dl Random Glucose (74-106) mg/dL Calcium (8.5-10.1) mg/dL Prot Corrected Calcium (8.5-10.1) mg/dL Total Bilirubin (0.2-1.0) mg/dL AST (15-37) U/L ALT (12-78) U/L Alkaline Phosphatase (45-117) U/L Total Creatine Kinase 23 L (39-308) U/L Troponin I 0.02 (0.02-0.05) ng/mL B-Natriuretic Peptide (0-100) pg/mL Total Protein (6.4-8.2) g/dL Albumin (3.4-5.0) g/dL Urine Color (Yellw/Straw) Urine Clarity (Clear) Urine pH (5.0-8.5) Ur Specific [place] (1.002-1.035) Urine Protein (Neg-Trace) mg/dL Urine Glucose (UA) (Negative) mg/dL Urine Ketones (Negative) mg/dL Urine Occult Blood (Negative) Urine Nitrate (Negative) Urine Bilirubin (Negative) Urine Urobilinogen (Less than 2) mg/dL Ur Leukocyte Esterase (Negative) Urine RBC (0-3) /hpf Urine WBC (0-5) /hpf Ur Squamous Epith Cells (0-5) /hpf Hyaline Casts (0-3) /lpf Urine Mucus (Occasional) /lpf Micro UA Comment Urine Culture Comments 04/10/18 04/10/18 04/10/18 Range/Units 13:48 17:58 20:39 WBC (4.0-11.0) th/mm3 RBC (4.50-5.90) mil/mm3 Hgb (13.0-17.0) gm/dL Hct (39.0-51.0) % MCV (80.0-100.0) fL MCH (27.0-34.0) pg MCHC (32.0-36.0) % RDW (11.6-17.2) % Plt Count (150-450) th/mm3 MPV (7.0-11.0) fL Prelim Diff (Auto) Neut % (Auto) (16.0-70.0) % Lymph % (Auto) (9.0-44.0) % [place] % (Auto) (0.0-8.0) % Eos % (Auto) (0.0-4.0) % Baso % (Auto) (0.0-2.0) % Neut # (Auto) (1.8-7.7) th/mm3 Lymph # (Auto) (1.0-4.8) th/mm3 [place] # (Auto) (0.0-0.9) th/mm3 Eos # (Auto) (0.0-0.4) th/mm3 Baso # (Auto) (0.0-0.2) th/mm3 WBC Differential Seg Neuts % (Manual) (16-70) % Band Neuts % (Manual) (0-6) % Lymphocytes % (Manual) (9-44) % Monocytes % (Manual) (0-8) % Eosinophils % (Manual) (0-4) % Myelocytes % (Man) (0-0) % Abs Neuts (Manual) (1.8-7.7) th/mm3 Differential Comment Platelet Estimate (Normal) Platelet Morphology (Normal) Ovalocytes (None) Keratocytes (None) Sodium (136-145) meq/L Potassium (3.5-5.1) meq/L Chloride (98-107) meq/L Carbon Dioxide (21.0-32.0) meq/L Anion Gap (5-15) meq/L BUN (7-18) mg/dL Creatinine (0.60-1.30) mg/dL Estimated GFR (>89) mL/min POC Glucose 187 H 176 H (68-110) mg/dl Random Glucose (74-106) mg/dL Calcium (8.5-10.1) mg/dL Prot Corrected Calcium (8.5-10.1) mg/dL Total Bilirubin (0.2-1.0) mg/dL AST (15-37) U/L ALT (12-78) U/L Alkaline Phosphatase (45-117) U/L Total Creatine Kinase 16 L (39-308) U/L Troponin I 0.02 (0.02-0.05) ng/mL B-Natriuretic Peptide (0-100) pg/mL Total Protein (6.4-8.2) g/dL Albumin (3.4-5.0) g/dL Urine Color (Yellw/Straw) Urine Clarity (Clear) Urine pH (5.0-8.5) Ur Specific [place] (1.002-1.035) Urine Protein (Neg-Trace) mg/dL Urine Glucose (UA) (Negative) mg/dL Urine Ketones (Negative) mg/dL Urine Occult Blood (Negative) Urine Nitrate (Negative) Urine Bilirubin (Negative) Urine Urobilinogen (Less than 2) mg/dL Ur Leukocyte Esterase (Negative) Urine RBC (0-3) /hpf Urine WBC (0-5) /hpf Ur Squamous Epith Cells (0-5) /hpf Hyaline Casts (0-3) /lpf Urine Mucus (Occasional) /lpf Micro UA Comment Urine Culture Comments 04/10/18 04/11/18 Range/Units 20:45 03:02 WBC (4.0-11.0) th/mm3 RBC (4.50-5.90) mil/mm3 Hgb (13.0-17.0) gm/dL Hct (39.0-51.0) % MCV (80.0-100.0) fL MCH (27.0-34.0) pg MCHC (32.0-36.0) % RDW (11.6-17.2) % Plt Count (150-450) th/mm3 MPV (7.0-11.0) fL Prelim Diff (Auto) Neut % (Auto) (16.0-70.0) % Lymph % (Auto) (9.0-44.0) % [place] % (Auto) (0.0-8.0) % Eos % (Auto) (0.0-4.0) % Baso % (Auto) (0.0-2.0) % Neut # (Auto) (1.8-7.7) th/mm3 Lymph # (Auto) (1.0-4.8) th/mm3 [place] # (Auto) (0.0-0.9) th/mm3 Eos # (Auto) (0.0-0.4) th/mm3 Baso # (Auto) (0.0-0.2) th/mm3 WBC Differential Seg Neuts % (Manual) (16-70) % Band Neuts % (Manual) (0-6) % Lymphocytes % (Manual) (9-44) % Monocytes % (Manual) (0-8) % Eosinophils % (Manual) (0-4) % Myelocytes % (Man) (0-0) % Abs Neuts (Manual) (1.8-7.7) th/mm3 Differential Comment Platelet Estimate (Normal) Platelet Morphology (Normal) Ovalocytes (None) Keratocytes (None) Sodium (136-145) meq/L Potassium (3.5-5.1) meq/L Chloride (98-107) meq/L Carbon Dioxide (21.0-32.0) meq/L Anion Gap (5-15) meq/L BUN (7-18) mg/dL Creatinine (0.60-1.30) mg/dL Estimated GFR (>89) mL/min POC Glucose 109 (68-110) mg/dl Random Glucose (74-106) mg/dL Calcium (8.5-10.1) mg/dL Prot Corrected Calcium (8.5-10.1) mg/dL Total Bilirubin (0.2-1.0) mg/dL AST (15-37) U/L ALT (12-78) U/L Alkaline Phosphatase (45-117) U/L Total Creatine Kinase 16 L (39-308) U/L Troponin I 0.03 (0.02-0.05) ng/mL B-Natriuretic Peptide (0-100) pg/mL Total Protein (6.4-8.2) g/dL Albumin (3.4-5.0) g/dL Urine Color (Yellw/Straw) Urine Clarity (Clear) Urine pH (5.0-8.5) Ur Specific [place] (1.002-1.035) Urine Protein (Neg-Trace) mg/dL Urine Glucose (UA) (Negative) mg/dL Urine Ketones (Negative) mg/dL Urine Occult Blood (Negative) Urine Nitrate (Negative) Urine Bilirubin (Negative) Urine Urobilinogen (Less than 2) mg/dL Ur Leukocyte Esterase (Negative) Urine RBC (0-3) /hpf Urine WBC (0-5) /hpf Ur Squamous Epith Cells (0-5) /hpf Hyaline Casts (0-3) /lpf Urine Mucus (Occasional) /lpf Micro UA Comment Urine Culture Comments Imaging Data Radiologist's impression: Chest X-Ray 04/08/18 14:35 CONCLUSION: 1. Interstitial lung disease as previously documented. 2. No evidence of consolidating airspace disease or significant congestion. 3. Otherwise stable chest. Chest X-Ray 04/10/18 00:00 CONCLUSION: 1. No acute abnormality or significant interval change. Discharge Plan Discharge Disposition Patient Disposition: 30 Still Patient Discharge Details Diagnosis: Weakness, Pancytopenia, Anemia, AIDS (acquired immune deficiency syndrome), Diabetes Physicians Team ED Provider: Daniel Kat Primary Care Provider: Primary Care Shante Akbar Attending Provider: Jennifer Lion Other Providers: Roseanne Prado Discharge Interventions Interventions: ED Discharge Assessment Last Done: 04/08/18 20:28 Discharge Planning - Case Management Last Done: 04/08/18 17:15 Status ED Status: Left Department Discharge Information Discharge Date/Time: 04/08/18 20:20
[2018-04-08 15:35] LABS: Alanine Aminotransferase 33 U/L (12-78); Albumin 2.3 g/dL (3.4-5.0); Alkaline Phosphatase 75 U/L (45-117); Anion Gap 7 meq/L (5-15); Aspartate Aminotransferase 13 U/L (15-37); Blood Urea Nitrogen 12 mg/dL (7-18); Carbon Dioxide 23.4 meq/L (21.0-32.0); Chloride 108 meq/L (98-107); Glomerular Filtration Rate Greater Than 89 mL/min (>89); Glucose,Random 147 mg/dL (74-106); Potassium 3.6 meq/L (3.5-5.1); Sodium 138 meq/L (136-145); Total Protein 6.4 g/dL (6.4-8.2); Troponin I 0.07 ng/mL (0.02-0.05)
[2018-04-08 15:47] LABS: Lymphocytes 3 % (9-44); Monocytes 4 % (0-8); Myelocytes 2 % (0-0); Ovalocytes 1+; Platelet Morphology Normal (Normal)
[2018-04-08 18:28] LABS: Bilirubin,Urine Negative (Negative); Clarity,Urine Clear (Clear); Color,Urine Yellow (Yellw/Straw); Glucose,Urine (UA) Negative (Negative); Hyaline Casts,Urine 1 /lpf (0-3); Leukocyte Esterase,Urine Negative (Negative); Mucus,Urine Few /lpf (Occasional); Nitrite,Urine Negative (Negative); Specific Gravity,Urine 1.014 (1.002-1.035); Squamous Epithelial Cell,Urine 3 /hpf (0-5); Urobilinogen,Urine 4 or Greater mg/dL (Less than 2)
[2018-04-08] MEDS ORDERED: Bisacodyl 10 MG Supp RECTAL PRN (19:19)
[2018-04-08] MEDS: Temazepam 15 MG Capsule PO PRN (19:41)
--- NOTE | 2018-04-08 20:50 | P.HPIM ---
History of Present Illness Primary Care Physician: No Primary Care Physician History of Present Illness: 52 y/o male with a history of AIDS, dm, htn, hld and cad presented back to the ER with weakness. Patient states he was discharged from the hospital yesterday and feels to week to care for himself. He lives at home with a roommate and there daughter and they can not care for him. He denies any other issues, no chest pain, sob, fever or chills. His last 2 admissions he was admitted for PCP pneumonia, he seems to be showing a trend of getting discharged and then returning because no one can care for him. He may benefit from a rehab facility , although patient states he is not going to one. Review of Systems All other systems reviewed negative except as stated in HPI PMFSH - History History Provided By: Patient - Medical History Medical History: Medical History (Last Reviewed 04/08/18 @ 14:28 by Marine Morales) AIDS Coronary artery disease Decreased vision Diabetes HIV (human immunodeficiency virus infection) History of dental problems History of nephrolithiasis History of pancreatitis Hyperlipemia Kidney stones Myocardial infarction Pneumocystis carinii pneumonia - Surgical History Surgical History: Surgical History (Last Reviewed 04/08/18 @ 14:28 by Marine Morales) History of coronary artery stent placement History of lithotripsy Hx of cardiac cath - Family History Family History: Family History (Last Reviewed 04/03/18 @ 17:51 by Belle Stringer MD) Mother Family history of renal failure Grandparent No problems noted. Father Family history of coronary artery disease - Tobacco History Second Hand Smoke Exposure: No Smoking Status: Former smoker Tobacco Type: Cigarettes - Alcohol History How Often Do You Have a Drink Containing Alcohol: Never - Substance Use History Substance History: No History of Abuse - Travel History Recent Travel in the [place] Within the Last 8 Weeks: No Recent Travel Out of the Country Within the Last 8 Weeks: No - Immunization History Tetanus Immunization: <5 Years Medications and Allergies Active Medications: Active Medications Acetaminophen (Tylenol) 650 mg PO Q4H PRN PRN Reason: Temp > 100.4 Al Hydroxide/Mg Hydroxide (Milk Of Magnesia Liq) 30 ml PO Q12H PRN PRN Reason: Mild Constipation Bisacodyl (Dulcolax Supp) 10 mg RECTAL DAILY PRN PRN Reason: SEVERE CONSITIPATION Lactulose (Lactulose Liq) 30 ml PO DAILY PRN PRN Reason: SEVERE CONSITIPATION Ondansetron HCl (Zofran Odt) 4 mg PO Q6H PRN PRN Reason: NAUSEA OR VOMITING Sennosides (Senokot) 17.2 mg PO Q12H PRN PRN Reason: Moderate Constipation Sodium Chloride (Ns Flush) 2 ml IV.FLUSH PRN PRN PRN Reason: FLUSH AFTER USING IV ACCESS Temazepam (Restoril) 15 mg PO HS PRN PRN Reason: INSOMNIA Last Admin: 04/08/18 19:41 Dose: 15 mg Allergies Allergy/AdvReac Type Severity Reaction Status Date / Time No Known Allergies Allergy Verified 04/03/18 16:43 Home Medications Medication Instructions Recorded Confirmed Type metformin 500 mg PO BID 03/11/18 04/08/18 History albuterol sulfate [Ventolin HFA] 2 puff INHALATION Q4H PRN 04/08/18 04/08/18 History sulfamethoxazole-trimethoprim 2 tab PO DAILY 04/08/18 04/08/18 History Exam Vital signs: Vital Signs 04/08/18 14:24 04/08/18 14:35 04/08/18 16:00 Temperature 99.9 F H Pulse Rate 87 82 Respiratory Rate 18 19 Blood Pressure 114/73 128/70 Pulse Oximetry 96 98 97 04/08/18 18:00 04/08/18 19:30 04/08/18 19:42 Temperature Pulse Rate 76 76 76 Respiratory Rate 20 20 18 Blood Pressure 117/76 116/69 Pulse Oximetry 97 96 96 04/08/18 20:00 04/08/18 20:28 Temperature 98.7 F Pulse Rate 77 Respiratory Rate 16 16 Blood Pressure 102/62 Pulse Oximetry 95 Intake & Output 04/08/18 04/08/18 04/09/18 06:59 18:59 06:59 Intake Total 500 / 500 Balance 500 / 500 Weight 76.657 kg Intake: IV 500 / 500 NS Inj 500 ML @ Wide Open IV. 500 / 500 SIG BOLUS ONE Rx#:[id number] Narrative: GENERAL: This is a well-nourished, well-developed patient, in no apparent distress. SKIN: Dry, warm and intact CARDIOVASCULAR: Regular rate and rhythm without murmurs, gallops, or rubs. RESPIRATORY: Clear to auscultation. Breath sounds equal bilaterally. No wheezes , rales, or rhonchi. GASTROINTESTINAL: Abdomen soft, non-tender, nondistended. Normal active bowel sounds MUSCULOSKELETAL: Extremities without clubbing, cyanosis, or edema. NEURO: Alert & Oriented x4 to person, place, time, situation. Moves all ext x4 Results - Labs CBC & Chem 7: 04/08/18 14:40 04/08/18 14:40 Labs: Short CBC 04/08/18 Range/Units 14:40 WBC 2.9 L (4.0-11.0) th/mm3 Hgb 10.6 L (13.0-17.0) gm/dL Hct 31.8 L (39.0-51.0) % Plt Count 121 L (150-450) th/mm3 BMP 04/08/18 14:40 Sodium 138 Potassium 3.6 Chloride 108 H Carbon Dioxide 23.4 BUN 12 Creatinine 0.82 Calcium 7.0 L* Cardiac Enzymes 04/08/18 Range/Units 14:40 Troponin I 0.07 H (0.02-0.05) ng/mL Liver Function 04/08/18 Range/Units 14:40 Total Bilirubin 0.3 (0.2-1.0) mg/dL AST 13 L (15-37) U/L ALT 33 (12-78) U/L Alkaline Phosphatase 75 (45-117) U/L Albumin 2.3 L (3.4-5.0) g/dL Urine 04/08/18 Range/Units 18:00 Urine Color Yellow (Yellw/Straw) Urine Clarity Clear (Clear) Urine pH 6.0 (5.0-8.5) Ur Specific [place] 1.014 (1.002-1.035) Urine Protein 100 H (Neg-Trace) mg/dL Urine Glucose (UA) Negative (Negative) mg/dL - Imaging Impressions Chest X-Ray 04/08/18 14:35 CONCLUSION: 1. Interstitial lung disease as previously documented. 2. No evidence of consolidating airspace disease or significant congestion. 3. Otherwise stable chest. Caprini VTE Risk Assessment Caprini VTE Risk Assessment: No/Low Risk (score <= 1) Caprini Risk Assessment Model: Point Value = 1 Point Value = 2 Point Value = 3 Point Value = 5 Age 41-60 Minor surgery BMI > 25 kg/m2 Swollen legs Varicose veins or History of unexplained or recurrent spontaneous Oral contraceptives or hormone replacement Sepsis (< 1 month) Serious lung disease, including pneumonia (< 1 month) Abnormal pulmonary function Acute myocardial infarction Congestive heart failure (< 1 month) History of inflammatory bowel disease Medical patient at bed rest Age 61-74 Arthroscopic surgery Major open surgery (> 45 min) Laparoscopic surgery (> 45 min) Malignancy Confined to bed (> 72 hours) Immobilizing plaster cast Central venous access Age >= 75 History of VTE Family history of VTE Factor V Leiden Prothrombin [id number] Lupus anticoagulant Anticardiolipin antibodies Elevated serum homocysteine Heparin-induced thrombocytopenia Other congenital or acquired thrombophilia Stroke (< 1 month) Elective arthroplasty Hip, pelvis, or leg fracture Acute spinal cord injury (< 1 month) Prophylaxis Regimen: Total Risk Factor Score Risk Level Prophylaxis Regimen 0-1 Low Early ambulation 2 Moderate Order ONE of the following: *Sequential Compression Device (SCD) *Heparin 5000 units SQ BID 3-4 Higher Order ONE of the following medications: *Heparin 5000 units SQ TID *Enoxaparin/Lovenox 40 mg SQ daily (WT < 150 kg, CrCl > 30 mL/min) *Enoxaparin/Lovenox 30 mg SQ daily (WT < 150 kg, CrCl > 10-29 mL/min) *Enoxaparin/Lovenox 30 mg SQ BID (WT < 150 kg, CrCl > 30 mL/min) AND/OR *Sequential Compression Device (SCD) 5 or more Highest Order ONE of the following medications: *Heparin 5000 units SQ TID (Preferred with Epidurals) *Enoxaparin/Lovenox 40 mg SQ daily (WT < 150 kg, CrCl > 30 mL/min) *Enoxaparin/Lovenox 30 mg SQ daily (WT < 150 kg, CrCl > 10-29 mL/min) *Enoxaparin/Lovenox 30 mg SQ BID (WT < 150 kg, CrCl > 30 mL/min) AND *Sequential Compression Device (SCD) Assessment and Plan - Plan 52 y/o male with a history of AIDS, dm, htn, hld and cad presented back to the ER with weakness. Patient states he was discharged from the hospital yesterday and feels to week to care for himself. Self care deficit in patient with AIDS, and weakness -Consult case management for possible placement -PT eval and treat -Consult palliative care to clarify goals since patient may be resistant to rehab PCP pneumonia, with pleuritic chest pain, chronic -Cont prednisone taper -Cont azithromycin and Bactrim prophylaxis weekly, last took azithromycin on Tuesday 04/03 -Lidoderm patch DM, chronic -Resume home medications metformin -ACCU checks Aids, low cd4 count -Patient will need out patient antiviral treatment DVT prophylaxis: SCDs Discussed Condition With: Patient and RN
[2018-04-08] MEDS ORDERED: predniSONE 10 MG Tablet PO SCH (22:45)
[2018-04-09 06:23] LABS: Eos # (Auto) 0.2 th/mm3 (0.0-0.4); Eos % (Auto) 8.8 % (0.0-4.0); Hematocrit 32.2 % (39.0-51.0); Hemoglobin 10.9 gm/dL (13.0-17.0); Lymph # (Auto) 0.8 th/mm3 (1.0-4.8); Lymph % (Auto) 28.9 % (9.0-44.0); Mean Corpuscular HGB Conc 33.9 % (32.0-36.0); Mean Corpuscular Hemoglobin 28.2 pg (27.0-34.0); Mean Corpuscular Volume 83.3 fL (80.0-100.0); Mean Platelet Volume 6.7 fL (7.0-11.0); Mono # (Auto) 0.2 th/mm3 (0.0-0.9); Mono % (Auto) 7.3 % (0.0-8.0); Neut # (Auto) 1.5 th/mm3 (1.8-7.7); Platelet Count 126 th/mm3 (150-450); Red Blood Count 3.86 mil/mm3 (4.50-5.90); Red Cell Distribution Width 17.9 % (11.6-17.2); White Blood Count 2.7 th/mm3 (4.0-11.0)
[2018-04-09 07:05] LABS: Anion Gap 7 meq/L (5-15); Blood Urea Nitrogen 13 mg/dL (7-18); Calcium 7.9 mg/dL (8.5-10.1); Carbon Dioxide 25.2 meq/L (21.0-32.0); Chloride 104 meq/L (98-107); Glomerular Filtration Rate Greater Than 89 mL/min (>89); Glucose,Random 103 mg/dL (74-106); Potassium 4.1 meq/L (3.5-5.1); Sodium 136 meq/L (136-145)
[2018-04-09 08:02] LABS: Eosinophils 2 % (0-4); Lymphocytes 15 % (9-44); Monocytes 11 % (0-8); Myelocytes 3 % (0-0); Platelet Morphology Normal (Normal)
[2018-04-09 08:03] LABS: Ovalocytes 1+
[2018-04-09] MEDS: Lidocaine 5% Patch T-DERMAL SCH ×2 (08:31→08:37)
[2018-04-09] MEDS: predniSONE 20 MG Tablet PO SCH ×2 (08:36→21:36)
--- NOTE | 2018-04-09 08:56 | ECG ---
Date Performed: 04/08/2018 Time Performed: 14:25:31 PTAGE: 52 years EKG: Sinus rhythm POSSIBLE LEFT ATRIAL ENLARGEMENT MARKED LEFT AXIS DEVIATION PATTERN CONSISTENT WITH PULMONARY DISEAS E NONSPECIFIC T-WAVE ABNORMALITY ABNORMAL ECG Since the PREVIOUS TRACING , no significant change noted DOCTOR: Hardeep Moeller Interpretating Date/Time 04/09/2018 08:55:16
[2018-04-09] MEDS ORDERED: predniSONE 20 MG Tablet PO SCH (09:00)
[2018-04-09] MEDS: Acetaminophen 325 MG Tablet PO PRN (11:25)
--- NOTE | 2018-04-09 14:10 | P.CONPAL ---
Consult Service: Palliative Care Requesting Physician: Gaurang Nickerson Reason for Consult: a. To assist with evaluation and management of symptoms including: Pain, dyspnea b. To assist medical decision maker(s) with: better understanding of current medical conditions; weighing benefits/burdens of medical treatment options; making medical treatment decisions. Primary Care Provider: No Primary Care Physician History of Present Illness History of Present Illness: This 52-year-old male, with a past history of CAD, [place], hypertension, diabetes, kidney stones, and homosexuality, was diagnosed with HIV/AIDS when he presented to the hospital earlier in the month with pneumonia and was found to have PCP and a CD4 count of 24. He was discharged home 2 days ago, but returned to the hospital yesterday because of weakness and some dyspnea. Since coming back to the hospital, he has been told that he has been "kicked out" from his apartment where he had 2 roommates. He is now homeless. He has been declining for the past several months, and says that he lost 61 pounds over the past year, and has become weaker during that time. His attending had talked with him about possible rehab services, and he had initially thought he would not want to do that, but now he says he is certainly willing to try rehab. The patient's chest pain has been felt to be due to his infectious process, but the patient does not appear to be in pain while we are talking with him. Palliative Care was consulted to assist with symptom management, and to enter into discussions with the patient regarding his illness, the prognosis, and the benefits and burdens of the various treatment choices. Function/Cognitive Trajectory: The patient has been functioning independently at home, was still driving a car , but has been weaker in recent weeks and says he has had a couple falls without significant injury. Review of Systems Constitutional: Reports anorexia, Reports fatigue, Reports weakness Eyes: Denies irritation Ears, Nose, Mouth, and Throat: Reports sore throat, Denies bleeding gums Cardiovascular: Reports chest pain, Reports shortness of breath, Denies chest pain with activity, Denies radiating jaw, neck or arm pain Respiratory: Reports cough, Reports pain on inspiration, Denies coughing up blood Gastrointestinal: Denies abdominal pain, Denies black, tarry stools, Denies vomiting blood Genitourinary: Denies blood in urine Skin/Breast: Denies lesions Neurologic: Denies convulsions Psychiatric: Reports depression, Denies confusion, Denies panic attacks Hematologic/Lymphatic: Denies easy bruising Allergic/Immunologic: Denies hives PMFSH - History History Provided By: Patient - Medical History Medical History: Medical History (Last Reviewed 04/09/18 @ 08:55 by Nayla Hutchins) AIDS Coronary artery disease Decreased vision Diabetes HIV (human immunodeficiency virus infection) History of dental problems History of nephrolithiasis History of pancreatitis Hyperlipemia Kidney stones Myocardial infarction Pneumocystis carinii pneumonia - Surgical History Surgical History: Surgical History (Last Reviewed 04/09/18 @ 08:55 by Nayla Hutchins) History of coronary artery stent placement History of lithotripsy Hx of cardiac cath - Family History Family History: Family History (Last Reviewed 04/03/18 @ 17:51 by Belle Stringer MD) Mother Family history of renal failure Grandparent No problems noted. Father Family history of coronary artery disease - Tobacco History Second Hand Smoke Exposure: No Tobacco Use In Past 30 Days: No (Quit earlier this year) Smoking Status: Former smoker Tobacco Type: Cigarettes - Alcohol History How Often Do You Have a Drink Containing Alcohol: Never - Substance Use History Substance History: No History of Abuse - Travel History Recent Travel in the [place] Within the Last 8 Weeks: No Recent Travel Out of the Country Within the Last 8 Weeks: No - Immunization History Tetanus Immunization: <5 Years Medications and Allergies Active Medications: Active Medications Acetaminophen (Tylenol) 650 mg PO Q4H PRN PRN Reason: Temp > 100.4 Last Admin: 04/09/18 11:25 Dose: 650 mg Al Hydroxide/Mg Hydroxide (Milk Of Magnesia Liq) 30 ml PO Q12H PRN PRN Reason: Mild Constipation Albuterol (Ventolin Hfa Inh) 2 puff INH Q4H PRN PRN Reason: SHORTNESS OF BREATH Aspirin (Ecotrin) 81 mg PO DAILY ELENA Last Admin: 04/09/18 08:36 Dose: 81 mg Atorvastatin Calcium (Lipitor) 40 mg PO HS ELENA Azithromycin (Zithromax) 1,200 mg PO WEEKLY ELENA Bisacodyl (Dulcolax Supp) 10 mg RECTAL DAILY PRN PRN Reason: SEVERE CONSITIPATION Lactulose (Lactulose Liq) 30 ml PO DAILY PRN PRN Reason: SEVERE CONSITIPATION Lidocaine HCl (Lidoderm 5% Patch.12 Hr) 1 patch T-DERMAL DAILY [facility] Last Admin: 04/09/18 08:37 Dose: Not Given Metformin HCl (Glucophage) 500 mg PO BIDPC [facility] Last Admin: 04/09/18 08:36 Dose: 500 mg Nystatin (Mycostatin Liq) 5 ml SWISH-SWAL QID [facility] Stop: 04/19/18 13:01 Ondansetron HCl (Zofran Odt) 4 mg PO Q6H PRN PRN Reason: NAUSEA OR VOMITING Last Admin: 04/09/18 11:25 Dose: 4 mg Patch Removal (Remove Old Patch) 1 each T-DERMAL HS [facility] Last Admin: 04/09/18 08:31 Dose: Not Given Prednisone (Deltasone) 20 mg PO BID [facility] Stop: 04/11/18 21:01 Last Admin: 04/09/18 08:36 Dose: 20 mg Prednisone (Deltasone) 20 mg PO DAILY [facility] Stop: 04/14/18 09:01 Prednisone (Deltasone) 10 mg PO DAILY [facility] Stop: 04/16/18 09:01 Sennosides (Senokot) 17.2 mg PO Q12H PRN PRN Reason: Moderate Constipation Sodium Chloride (Ns Flush) 2 ml IV.FLUSH PRN PRN PRN Reason: FLUSH AFTER USING IV ACCESS Temazepam (Restoril) 15 mg PO HS PRN PRN Reason: INSOMNIA Last Admin: 04/08/18 19:41 Dose: 15 mg Trimethoprim/Sulfamethoxazole (Bactrim Ds) 2 tab PO DAILY [facility] Last Admin: 04/09/18 08:36 Dose: 2 tab Allergies Allergy/AdvReac Type Severity Reaction Status Date / Time No Known Allergies Allergy Verified 04/03/18 16:43 Home Medications Medication Instructions Recorded Confirmed Type metformin 500 mg PO BID 03/11/18 04/08/18 History albuterol sulfate [Ventolin HFA] 2 puff INHALATION Q4H PRN 04/08/18 04/08/18 History sulfamethoxazole-trimethoprim 2 tab PO DAILY 04/08/18 04/08/18 History Advance Directives Living Will: Yes Healthcare Surrogate: Yes (His aunt Marsha) Today's verbally stated goals: The patient is looking forward to getting started on HIV medications, and he understands the importance of consistent treatment. He says he definitely would not want to be on life support machines and requests DNR status. Ethical and Legal Issues: There are no ethical issues that would impact his care were decision-making at this time. The patient has capacity for decision-making; he has designated his aunt Marsha [phone] as HCS. Physical Exam Vital Signs: Vital Signs - 24 hr 04/08/18 14:24 04/08/18 14:35 04/08/18 16:00 Temperature 99.9 F H Pulse Rate 87 82 Respiratory Rate 18 19 Blood Pressure 114/73 128/70 Pulse Oximetry 96 98 97 04/08/18 18:00 04/08/18 19:30 04/08/18 19:42 Temperature Pulse Rate 76 76 76 Respiratory Rate 20 20 18 Blood Pressure 117/76 116/69 Pulse Oximetry 97 96 96 04/08/18 20:00 04/08/18 20:28 04/09/18 00:00 Temperature 98.7 F 98.6 F Pulse Rate 77 74 Respiratory Rate 16 16 15 Blood Pressure 102/62 105/69 Pulse Oximetry 95 92 L 04/09/18 03:38 04/09/18 07:49 04/09/18 11:48 Temperature 98.2 F 98.5 F 98.2 F Pulse Rate 70 74 75 Respiratory Rate 16 16 18 Blood Pressure 100/62 103/69 115/75 Pulse Oximetry 97 94 L 94 L I&O: Intake & Output 04/07/18 04/08/18 04/09/18 04/10/18 06:59 06:59 06:59 06:59 Intake Total 500 / 500 Output Total 650 / 650 Balance -150 / -150 Weight 73.6 kg Physical Exam: CONSTITUTIONAL/GENERAL: This is a somewhat cachectic and weak patient, in no apparent distress. TUBES/LINES/DRAINS: Peripheral IV SKIN: No jaundice, rashes, or lesions. Ecchymoses on upper extremities. No wounds seen anteriorly. Skin temperature appropriate. Not diaphoretic. HEAD: Atraumatic. Normocephalic. EYES: Pupils equal and round and reactive. Extraocular motions intact. No scleral icterus. No injection or drainage. Fundi not examined. ENT: Hearing grossly normal. Nose without bleeding or purulent drainage. Oropharynx with typical thrush changes. NECK: Trachea midline. Supple, nontender. No palpable thyroid enlargement or nodularity. CARDIOVASCULAR: Regular rate and rhythm without murmurs, gallops, or rubs. No JVD. Peripheral pulses symmetric. RESPIRATORY/CHEST: Symmetric, unlabored respirations. Scattered rales bilateral in a few rhonchi. GASTROINTESTINAL: Abdomen soft, non-tender, nondistended. No hepato-splenomegaly , or palpable masses. No guarding. Bowel sounds present. GENITOURINARY: Without palpable bladder distension. MUSCULOSKELETAL: Extremities without clubbing, cyanosis, or edema. No joint tenderness or effusion noted. No calf tenderness. No mottling or clubbing. LYMPHATICS: No palpable cervical or supraclavicular adenopathy. NEUROLOGICAL: Awake and alert. Motor and sensory grossly within normal limits. Follows commands. Cognitively sharp. Moves all extremities. PSYCHIATRIC: No obvious anxiety/depression. no apparent hallucinations or other psychotic thought process. Diagnostic Tests Laboratory: Laboratory Results - last 72 hr 04/08/18 04/08/18 04/08/18 14:40 14:40 18:00 WBC 2.9 L RBC 3.80 L Hgb 10.6 L Hct 31.8 L MCV 83.8 MCH 27.9 MCHC 33.2 RDW 17.9 H Plt Count 121 L MPV 6.5 L Prelim Diff (Auto) Slide review pending Neut % (Auto) 77.9 H Lymph % (Auto) 11.3 Wood % (Auto) 6.0 Eos % (Auto) 3.5 Baso % (Auto) 1.3 Neut # (Auto) 2.2 Lymph # (Auto) 0.3 L [place] # (Auto) 0.2 Eos # (Auto) 0.1 Baso # (Auto) 0.0 WBC Differential Manual diff final Seg Neuts % (Manual) 87 H Band Neuts % (Manual) 4 Lymphocytes % (Manual) 3 L Monocytes % (Manual) 4 Eosinophils % (Manual) Myelocytes % (Man) 2 H Abs Neuts (Manual) 2.7 Differential Comment . Platelet Estimate Low L Platelet Morphology Normal Ovalocytes 1+ H Keratocytes Occ H Sodium 138 Potassium 3.6 Chloride 108 H Carbon Dioxide 23.4 Anion Gap 7 BUN 12 Creatinine 0.82 Estimated GFR Greater than 89 Random Glucose 147 H Calcium 7.0 L* Prot Corrected Calcium 7.4 L* Total Bilirubin 0.3 AST 13 L ALT 33 Alkaline Phosphatase 75 Troponin I 0.07 H Total Protein 6.4 D Albumin 2.3 L Urine Color Yellow Urine Clarity Clear Urine pH 6.0 Ur Specific [place] 1.014 Urine Protein 100 H Urine Glucose (UA) Negative Urine Ketones Negative Urine Occult Blood Negative Urine Nitrate Negative Urine Bilirubin Negative Urine Urobilinogen 4 or greater Ur Leukocyte Esterase Negative Urine RBC 1 Urine WBC 1 Ur Squamous Epith Cells 3 Hyaline Casts 1 Urine Mucus Few H Micro UA Comment Culture not ind Urine Culture Comments Culture not ind 04/09/18 04/09/18 06:00 06:00 WBC 2.7 L RBC 3.86 L Hgb 10.9 L Hct 32.2 L MCV 83.3 MCH 28.2 MCHC 33.9 RDW 17.9 H Plt Count 126 L MPV 6.7 L Prelim Diff (Auto) Slide review pending Neut % (Auto) 54.0 Lymph % (Auto) 28.9 Wood % (Auto) 7.3 Eos % (Auto) 8.8 H Baso % (Auto) 1.0 Neut # (Auto) 1.5 L Lymph # (Auto) 0.8 L [place] # (Auto) 0.2 Eos # (Auto) 0.2 Baso # (Auto) 0.0 WBC Differential Manual diff final Seg Neuts % (Manual) 62 Band Neuts % (Manual) 7 H Lymphocytes % (Manual) 15 Monocytes % (Manual) 11 H Eosinophils % (Manual) 2 Myelocytes % (Man) 3 H Abs Neuts (Manual) 1.9 Differential Comment . Platelet Estimate Low L Platelet Morphology Normal Ovalocytes 1+ H Keratocytes Sodium 136 Potassium 4.1 Chloride 104 Carbon Dioxide 25.2 Anion Gap 7 BUN 13 Creatinine 0.86 Estimated GFR Greater than 89 Random Glucose 103 Calcium 7.9 L D Prot Corrected Calcium Total Bilirubin AST ALT Alkaline Phosphatase Troponin I Total Protein Albumin Urine Color Urine Clarity Urine pH Ur Specific [place] Urine Protein Urine Glucose (UA) Urine Ketones Urine Occult Blood Urine Nitrate Urine Bilirubin Urine Urobilinogen Ur Leukocyte Esterase Urine RBC Urine WBC Ur Squamous Epith Cells Hyaline Casts Urine Mucus Micro UA Comment Urine Culture Comments Result Diagrams: 04/09/18 06:00 04/09/18 06:00 Imaging: Chest X-Ray 04/08/18 14:35 CONCLUSION: 1. Interstitial lung disease as previously documented. 2. No evidence of consolidating airspace disease or significant congestion. 3. Otherwise stable chest. Patient/Family Conference Family Conference Time: 48 Family Conference Location: Bedside Issues Discussed: * Palliative care role, purpose, approach * Additional medical, psychosocial, and spiritual history * Patients general health, functional status, and cognitive changes in the months leading up to the current hospitalization * Patient/family understanding of the current medical problems * Patient/family understanding of prognosis * Patients goals of care as best understood from advance directives and/or conversations and/or values * Current medical treatment options and benefits/burdens of those options * Likely scenarios comparing ongoing aggressive care with a transition to comfort measures only * Questions answered to the best of my ability * Palliative care contact information provided Assessment and Plan Pertinent Non-Medical Issues: Psychosocial: Has applied for disability, 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 Never , no children. Spiritual: Describes himself as spiritual but not connected with any particular denomination or clergy. Congregation background. Does not want plastics supervisor visits at this time. Legal: The patient has capacity for decision-making; he has designated his aunt Marhsa [phone] as [facility]. Ethical issues impacting care: None Important Contacts: Patient's aunt Marsha ([facility]) [phone] Prognosis: The patient's prognosis will be dependent on future effective treatment for his HIV and his ability and willingness to endure treatment consistently. Code Status: No Code DNR Plan: * DO NOT RESUSCITATE, per request of patient 04/09/18 * DECISION-MAKING: The patient has capacity for decision-making; he has designated his aunt Marsha [phone] as [facility]. * I telephoned and discussed the patient's illnesses and situation with the patient's aunt Marsha. * SYMPTOMS: The patient has some disease related chest discomfort at times. He has Tylenol available, but has not required much. I have no further pain medicine recommendations at this time. * Thrush: The patient has visible evidence of thrush, and I have written an order for nystatin. * GOALS: The patient clearly wants to start HIV meds VICKEY, and his goals are aggressive at this time short of resuscitation. He specifically requests DNR status. * Palliative Care will continue to follow the patient during this hospitalization. Time Spent Total Floor Time (mins): 79 Face to Face Time (mins): 51 >50% Time in Counseling or Coordination of Care: Yes Appreciation Thank you for the opportunity to participate in the care of Everette Gentile.
--- NOTE | 2018-04-09 15:49 | P.PN ---
Subjective Interval history: Follow up for HIV/AIDS, PCP pneumonia. Patient is currently doing well, on room air. No fever, chills. She reports shortness of breath on short ambulation. Physical Exam Vital signs: Vital Signs 04/08/18 16:00 04/08/18 18:00 04/08/18 19:30 Temperature Pulse Rate 82 76 76 Respiratory Rate 19 20 20 Blood Pressure 128/70 117/76 116/69 Pulse Oximetry 97 97 96 04/08/18 19:42 04/08/18 20:00 04/08/18 20:28 Temperature 98.7 F Pulse Rate 76 77 Respiratory Rate 18 16 16 Blood Pressure 102/62 Pulse Oximetry 96 95 04/09/18 00:00 04/09/18 03:38 04/09/18 07:49 Temperature 98.6 F 98.2 F 98.5 F Pulse Rate 74 70 74 Respiratory Rate 15 16 16 Blood Pressure 105/69 100/62 103/69 Pulse Oximetry 92 L 97 94 L 04/09/18 11:48 Temperature 98.2 F Pulse Rate 75 Respiratory Rate 18 Blood Pressure 115/75 Pulse Oximetry 94 L Intake & Output 04/08/18 04/09/18 04/09/18 18:59 06:59 18:59 Intake Total 500 / 500 Output Total 650 / 650 Balance 500 / 500 -650 / -650 Weight 76.657 kg 73.6 kg Intake: IV 500 / 500 NS Inj 500 ML @ Wide Open IV. 500 / 500 SIG BOLUS ONE Rx#:[id number] Output: Urine 650 / 650 Other: Date of Last Bowel Movement 04/08/18 Narrative: GENERAL: Alert, oriented x 3, NAD. On room air. SKIN: Warm and dry. HEAD: Normocephalic. EYES: No scleral icterus. No injection or drainage. NECK: Supple, trachea midline. No JVD or lymphadenopathy. CARDIOVASCULAR: Regular rate and rhythm without murmurs, gallops, or rubs. RESPIRATORY: Breath sounds equal bilaterally. No accessory muscle use. GASTROINTESTINAL: Abdomen soft, non-tender, nondistended. MUSCULOSKELETAL: No cyanosis, or edema. BACK: Nontender without obvious deformity. No CVA tenderness. Results - Labs CBC & Chem 7: 04/09/18 06:00 04/09/18 06:00 Laboratory Results - last 24 hr 04/08/18 04/08/18 04/08/18 14:40 14:40 18:00 WBC RBC Hgb Hct MCV MCH MCHC RDW Plt Count MPV Prelim Diff (Auto) Neut % (Auto) Lymph % (Auto) Am[place] % (Auto) Eos % (Auto) Baso % (Auto) Neut # (Auto) Lymph # (Auto) [place] # (Auto) Eos # (Auto) Baso # (Auto) WBC Differential Manual diff final Seg Neuts % (Manual) 87 H Band Neuts % (Manual) 4 Lymphocytes % (Manual) 3 L Monocytes % (Manual) 4 Eosinophils % (Manual) Myelocytes % (Man) 2 H Abs Neuts (Manual) 2.7 Differential Comment Platelet Estimate Low L Platelet Morphology Normal Ovalocytes 1+ H Keratocytes Occ H Sodium 138 Potassium 3.6 Chloride 108 H Carbon Dioxide 23.4 Anion Gap 7 BUN 12 Creatinine 0.82 Estimated GFR Greater than 89 POC Glucose Random Glucose 147 H Calcium 7.0 L* Prot Corrected Calcium 7.4 L* Total Bilirubin 0.3 AST 13 L ALT 33 Alkaline Phosphatase 75 Troponin I 0.07 H Total Protein 6.4 D Albumin 2.3 L Urine Color Yellow Urine Clarity Clear Urine pH 6.0 Ur Specific Mingo 1.014 Urine Protein 100 H Urine Glucose (UA) Negative Urine Ketones Negative Urine Occult Blood Negative Urine Nitrate Negative Urine Bilirubin Negative Urine Urobilinogen 4 or greater Ur Leukocyte Esterase Negative Urine RBC 1 Urine WBC 1 Ur Squamous Epith Cells 3 Hyaline Casts 1 Urine Mucus Few H Micro UA Comment Culture not ind Urine Culture Comments Culture not ind 04/09/18 04/09/18 04/09/18 06:00 06:00 14:37 WBC 2.7 L RBC 3.86 L Hgb 10.9 L Hct 32.2 L MCV 83.3 MCH 28.2 MCHC 33.9 RDW 17.9 H Plt Count 126 L MPV 6.7 L Prelim Diff (Auto) Slide review pending Neut % (Auto) 54.0 Lymph % (Auto) 28.9 Am[place] % (Auto) 7.3 Eos % (Auto) 8.8 H Baso % (Auto) 1.0 Neut # (Auto) 1.5 L Lymph # (Auto) 0.8 L [place] # (Auto) 0.2 Eos # (Auto) 0.2 Baso # (Auto) 0.0 WBC Differential Manual diff final Seg Neuts % (Manual) 62 Band Neuts % (Manual) 7 H Lymphocytes % (Manual) 15 Monocytes % (Manual) 11 H Eosinophils % (Manual) 2 Myelocytes % (Man) 3 H Abs Neuts (Manual) 1.9 Differential Comment . Platelet Estimate Low L Platelet Morphology Normal Ovalocytes 1+ H Keratocytes Sodium 136 Potassium 4.1 Chloride 104 Carbon Dioxide 25.2 Anion Gap 7 BUN 13 Creatinine 0.86 Estimated GFR Greater than 89 POC Glucose 244 H Random Glucose 103 Calcium 7.9 L D Prot Corrected Calcium Total Bilirubin AST ALT Alkaline Phosphatase Troponin I Total Protein Albumin Urine Color Urine Clarity Urine pH Ur Specific [place] Urine Protein Urine Glucose (UA) Urine Ketones Urine Occult Blood Urine Nitrate Urine Bilirubin Urine Urobilinogen Ur Leukocyte Esterase Urine RBC Urine WBC Ur Squamous Epith Cells Hyaline Casts Urine Mucus Micro UA Comment Urine Culture Comments - Imaging Chest X-Ray 04/08/18 14:35 CONCLUSION: 1. Interstitial lung disease as previously documented. 2. No evidence of consolidating airspace disease or significant congestion. 3. Otherwise stable chest. Assessment and Plan - Assessment (1) AIDS (acquired immune deficiency syndrome) Code(s): B20 - Human immunodeficiency virus [HIV] disease Status: Acute (2) PCP (pneumocystis carinii pneumonia) Code(s): B59 - Pneumocystosis Status: Acute - Plan Mr. Gentile is a pleasant 52 year old male with a history of HIV/AIDS and recently diagnosed PCP pneumonia who came back to the hospital due to weakness, exertional dyspnea. Generalized weakness PCP pneumonia HIV/AIDS - Change daily Bactrim to Bactrim DS 2 tablets Q8hrs, will continue this regimen for another 10 days or so. - Possible outpatient PT. - Continue HIV related prophylaxis with Azithromycin and Bactrim (after PCP treatment). - Health dept follow up for Anti-retroviral therapy. Exertional dyspnea Interstitial lung disease CAD - Exertional dyspnea is likely due to PCP PNA, Interstitial lung disease. - Will obtain Echocardiogram. No overt sign of CHF, however. - Will also obtain BNP. DNR. SCDs.
[2018-04-09] MEDS: Nystatin Liq 500,000 UNIT/5 ML UDC SWISH-SWAL SCH ×2 (17:00→21:36)
[2018-04-09] MEDS ORDERED: Dextrose 50% in Water 50 ML Vial IV.PUSH PRN (18:09)
[2018-04-09] MEDS: Insulin Detemir Inj 1,000 UNIT/10 ML Vial SQ SCH (21:37)
[2018-04-09] MEDS: Temazepam 15 MG Capsule PO PRN (21:37)
[2018-04-09] MEDS: Insulin NovoLOG Aspart Correctional Sugar Inj SQ SCH (21:38)
[2018-04-10] MEDS ORDERED: Aspirin 325 MG Tablet PO ONE (07:45)
--- NOTE | 2018-04-10 08:02 | XR ---
EXAM DATE: 04/10/2018 7:55 AM EDT AGE/SEX: 52 years / Male INDICATIONS: Chest pain and shortness of breath. CLINICAL DATA: This is the patient's initial encounter. Patient reports that signs and symptoms have been present for 3 days and indicates a pain score of 9/10. MEDICAL/SURGICAL HISTORY: Diabetes mellitus type II. Myocardial infarction. None. COMPARISON: [facility] – [place]ST 1V SINGLE AP, 04/08/2018. . FINDINGS: Redemonstration of mild interstitial prominence particularly in the left upper lung zone. No new foca l pleural or parenchymal opacities. Cardiomediastinal contours are within normal limits. Bony thorax is intact. CONCLUSION: 1. No acute abnormality or significant interval change. Electronically signed by: Ehsan Henderson MD 04/10/2018 8:01 AM EDT
[2018-04-10 08:11] LABS: Troponin I 0.02 ng/mL (0.02-0.05)
[2018-04-10] MEDS: predniSONE 20 MG Tablet PO SCH ×2 (09:13→21:22)
[2018-04-10] MEDS: Nystatin Liq 500,000 UNIT/5 ML UDC SWISH-SWAL SCH ×4 (09:14→21:23)
[2018-04-10] MEDS: Insulin NovoLOG Aspart Correctional Sugar Inj SQ SCH ×4 (09:15→21:23)
[2018-04-10] MEDS: Lidocaine 5% Patch T-DERMAL SCH (09:15)
[2018-04-10 14:33] LABS: Troponin I 0.02 ng/mL (0.02-0.05)
--- NOTE | 2018-04-10 14:42 | ECHRPT ---
Indication: HEART FAILURE, SEVERE SOB, HX CAD CONCLUSIONS Normal left ventricular size. Wall thickness is normal. The left ventricular systolic function is normal with an estimated ejection fraction of 55%. Trace mitral valve regurgitation. Aortic valve sclerosis is present. There is trace tricuspid valve regurgitation. The estimated pulmonary arterial pressure is 34 mmHg. BP: / HR: Rhythm: Sinus MEASUREMENTS (Male / Female) Normal Values Technical Quality:Fair 2D ECHO LV Diastolic Diameter PLAX 5.3 cm 4.2 - 5.9 / 3.9 - 5.3 cm LV Systolic Diameter PLAX 4.0 cm IVS Diastolic Thickness 0.9 cm 0.6 - 1.0 / 0.6 - 0.9 cm LVPW Diastolic Thickness 0.9 cm 0.6 - 1.0 / 0.6 - 0.9 cm LV Relative Wall Thickness 0.3 LVOT Diameter 2.4 cm Aortic Root Diameter 3.6 cm M-MODE AV Cusp Separation MM 2.3 cm DOPPLER LVOT Peak Velocity 82.7 cm/s LVOT Peak Gradient 2.7 mmHg LVOT Velocity Time Integral 15.8 cm Mitral E Point Velocity 37.0 cm/s Mitral A Point Velocity 76.5 cm/s Mitral E to A Ratio 0.5 TR Peak Velocity 244.0 cm/s TR Peak Gradient 23.8 mmHg Right Atrial Pressure 10.0 mmHg Pulmonary Artery Systolic Pressu 33.8 mmHg Right Ventricular Systolic Press 33.8 mmHg PV Peak Velocity 30.5 cm/s PV Peak Gradient 0.4 mmHg FINDINGS LEFT VENTRICLE Normal left ventricular size. Wall thickness is normal. The left ventricular systolic function is normal with an estimated ejection fraction of 55%. RIGHT VENTRICLE Normal right ventricular size and systolic function. LEFT ATRIUM The left atrial size is normal. RIGHT ATRIUM The right atrial size is normal. ATRIAL SEPTUM The interatrial septum not well visualized. AORTA The aortic root and proximal ascending aorta are normal in size on limited imaging. MITRAL VALVE Trace mitral valve regurgitation. AORTIC VALVE Aortic valve sclerosis is present. TRICUSPID VALVE There is trace tricuspid valve regurgitation. The estimated pulmonary arterial pressure is 33.8 mmHg. PULMONARY VALVE Trivial pulmonary valve regurgitation. VESSELS The inferior vena cava was not well visualized. PERICARDIUM No pericardial effusion. Malinda Smith MD, FACC (Electronically Signed) Final Date:10 April 2018 14:41
--- NOTE | 2018-04-10 15:40 | P.PN ---
Subjective Interval history: Follow up for HIV/AIDS, PCP pneumonia. Patient complains of chest pain and dyspnea on ambulation. No fever, chills. Physical Exam Vital signs: Vital Signs 04/09/18 16:00 04/09/18 20:00 04/09/18 23:52 Temperature 98.6 F 98.0 F 97.9 F Pulse Rate 76 68 71 Respiratory Rate 16 15 15 Blood Pressure 123/85 119/76 110/69 Pulse Oximetry 96 95 97 04/10/18 08:00 04/10/18 11:49 04/10/18 12:00 Temperature 97.4 F L 97.5 F L Pulse Rate 71 81 76 Respiratory Rate 18 16 Blood Pressure 104/71 101/69 Pulse Oximetry 97 96 Intake & Output 04/09/18 04/10/18 04/10/18 18:59 06:59 18:59 Weight 74.503 kg Other: # Voids 5 Date of Last Bowel Movement 04/08/18 04/08/18 # Bowel Movements 2 Narrative: GENERAL: Alert, oriented x 3, NAD. On room air. SKIN: Warm and dry. HEAD: Normocephalic. EYES: No scleral icterus. No injection or drainage. NECK: Supple, trachea midline. No JVD or lymphadenopathy. CARDIOVASCULAR: Regular rate and rhythm without murmurs, gallops, or rubs. RESPIRATORY: Breath sounds equal bilaterally. No accessory muscle use. GASTROINTESTINAL: Abdomen soft, non-tender, nondistended. MUSCULOSKELETAL: No cyanosis, or edema. BACK: Nontender without obvious deformity. No CVA tenderness. Results - Labs CBC & Chem 7: 04/09/18 06:00 04/09/18 06:00 Laboratory Results - last 24 hr 04/09/18 04/09/18 04/09/18 06:00 16:21 21:25 POC Glucose 207 H 127 H Total Creatine Kinase Troponin I B-Natriuretic Peptide 37 04/10/18 04/10/18 04/10/18 07:20 09:07 12:57 POC Glucose 206 H 147 H Total Creatine Kinase 23 L Troponin I 0.02 B-Natriuretic Peptide 04/10/18 13:48 POC Glucose Total Creatine Kinase 16 L Troponin I 0.02 B-Natriuretic Peptide - Imaging Impressions Chest X-Ray 04/10/18 00:00 CONCLUSION: 1. No acute abnormality or significant interval change. Assessment and Plan - Assessment (1) AIDS (acquired immune deficiency syndrome) Code(s): B20 - Human immunodeficiency virus [HIV] disease Status: Acute (2) PCP (pneumocystis carinii pneumonia) Code(s): B59 - Pneumocystosis Status: Acute - Plan Mr. Gentile is a pleasant 52 year old male with a history of HIV/AIDS and recently diagnosed PCP pneumonia who came back to the hospital due to weakness, exertional dyspnea. Generalized weakness PCP pneumonia HIV/AIDS - Change daily Bactrim to Bactrim DS 2 tablets Q8hrs, will continue this regimen for another 10 days or so. - Possible outpatient PT. - Continue HIV related prophylaxis with Azithromycin and Bactrim (after PCP treatment). - Health dept follow up for Anti-retroviral therapy. Exertional dyspnea Interstitial lung disease CAD - Exertional dyspnea is likely due to PCP PNA, Interstitial lung disease. - Echocardiogram done, report pending. No overt sign of CHF, however. - BNP 37. Patient's respiratory symptoms are likely due to interstitial lung disease. - Will wait for echo report. Troponins x 2 negative today. DNR. SCDs. Probable discharge on 04/11/2018.
[2018-04-10] MEDS: Acetaminophen 325 MG Tablet PO PRN (16:40)
--- NOTE | 2018-04-10 17:00 | ECG ---
Date Performed: 04/10/2018 Time Performed: 07:29:46 PTAGE: 52 years EKG: Sinus rhythm POSSIBLE LEFT ATRIAL ENLARGEMENT MARKED LEFT AXIS DEVIATION POSSIBLE ANTERIOR MYOCARDIAL INFARCTION ABNORMAL ECG Since the PREVIOUS TRACING , no significant change noted PREVIOUS TRACIN04/08/2018 14.25 DOCTOR: Elizabeth Bellamy Interpretating Date/Time 04/10/2018 17:00:02
[2018-04-10] MEDS: Insulin Detemir Inj 1,000 UNIT/10 ML Vial SQ SCH (21:22)
[2018-04-10] MEDS: Temazepam 15 MG Capsule PO PRN (21:24)
[2018-04-10 21:35] LABS: Troponin I 0.03 ng/mL (0.02-0.05)
[2018-04-11] MEDS: Acetaminophen 325 MG Tablet PO PRN (03:03)
[2018-04-11] MEDS: Insulin NovoLOG Aspart Correctional Sugar Inj SQ SCH (08:43)
[2018-04-11] MEDS: predniSONE 20 MG Tablet PO SCH (08:44)
[2018-04-11] MEDS: Nystatin Liq 500,000 UNIT/5 ML UDC SWISH-SWAL SCH (08:44)
[2018-04-11] MEDS: Lidocaine 5% Patch T-DERMAL SCH (08:44)
--- NOTE | 2018-04-11 12:35 | P.DS ---
Date of admission: 04/08/18 18:06 Primary care physician: No Primary Care Physician Brief History from admission: 52 y/o male with a history of AIDS, dm, htn, hld and cad presented back to the ER with weakness. Patient states he was discharged from the hospital yesterday and feels to week to care for himself. He lives at home with a roommate and there daughter and they can not care for him. He denies any other issues, no chest pain, sob, fever or chills. His last 2 admissions he was admitted for PCP pneumonia, he seems to be showing a trend of getting discharged and then returning because no one can care for him. He may benefit from a rehab facility , although patient states he is not going to one. DS: Diagnosis - Discharge Diagnosis (1) AIDS (acquired immune deficiency syndrome) Status: Acute (2) PCP (pneumocystis carinii pneumonia) Status: Acute DS: Medications - Discharge Medications Prescriptions: sulfamethoxazole-trimethoprim 1 tab PO DAILY 30 Days #30 tab DS: Summary Hospital Course: Mr. Gentile is a pleasant 52 year old male with a history of HIV/AIDS and recently diagnosed PCP pneumonia who came back to the hospital due to weakness, exertional dyspnea. Generalized weakness PCP pneumonia HIV/AIDS - Change daily Bactrim to Bactrim DS 2 tablets Q8hrs, will continue this regimen for another 7 days then continue once a day. - Possible outpatient PT. - Continue HIV related prophylaxis with Azithromycin and Bactrim (after PCP treatment). - Health dept follow up for Anti-retroviral therapy. Exertional dyspnea Interstitial lung disease CAD - Exertional dyspnea is likely due to PCP PNA, Interstitial lung disease. - Echocardiogram done, report pending. No overt sign of CHF, however. - BNP 37. Patient's respiratory symptoms are likely due to interstitial lung disease. - Echo shows EF 55%. Troponins were negative. DNR. SCDs. - Time Spent with Patient Total time spent providing and/or coordinating discharge services: Less than 30 minutes Exam Vital signs: Vital Signs 04/10/18 16:00 04/10/18 20:00 04/10/18 23:38 Temperature 97.5 F L 98.0 F 97.6 F Pulse Rate 76 72 72 Respiratory Rate 16 17 17 Blood Pressure 102/69 113/76 102/68 Pulse Oximetry 96 96 97 04/11/18 03:40 04/11/18 08:00 Temperature 97.7 F 98.8 F Pulse Rate 70 75 Respiratory Rate 16 18 Blood Pressure 102/71 97/68 L Pulse Oximetry 98 96 Intake & Output 04/10/18 04/11/18 04/11/18 18:59 06:59 18:59 Weight 74.503 kg Other: # Voids 2 Date of Last Bowel Movement 04/08/18 Narrative: GENERAL: Alert, NAD. SKIN: Warm and dry. HEAD: Normocephalic. EYES: No scleral icterus. No injection or drainage. NECK: Supple, trachea midline. No JVD or lymphadenopathy. CARDIOVASCULAR: Regular rate and rhythm without murmurs, gallops, or rubs. RESPIRATORY: Breath sounds equal bilaterally. No accessory muscle use. GASTROINTESTINAL: Abdomen soft, non-tender, nondistended. MUSCULOSKELETAL: No cyanosis, or edema. BACK: Nontender without obvious deformity. No CVA tenderness. Results Procedures completed during hospitalization: Echo 04/10/2018 CONCLUSIONS Normal left ventricular size. Wall thickness is normal. The left ventricular systolic function is normal with an estimated ejection fraction of 55%. Trace mitral valve regurgitation. Aortic valve sclerosis is present. There is trace tricuspid valve regurgitation. The estimated pulmonary arterial pressure is 34 mmHg. Labs on day of discharge: Labs from last 24 hours 04/11/18 04/11/18 04/10/18 08:42 03:02 20:45 POC Glucose 121 H 109 Total Creatine Kinase 16 L Troponin I 0.03 04/10/18 04/10/18 04/10/18 20:39 17:58 13:48 POC Glucose 176 H 187 H Total Creatine Kinase 16 L Troponin I 0.02 04/10/18 12:57 POC Glucose 147 H Total Creatine Kinase Troponin I - Impressions ITS Impressions Chest X-Ray 04/10/18 00:00 CONCLUSION: 1. No acute abnormality or significant interval change. Discharge Plan - Discharge Disposition Patient Disposition: 01 Discharge Home - Discharge Condition Condition: Good - Discharge Order Discharge Orders: Discharge Order (Routine); Ordered 04/11/18 Ordered By: Jennifer Lion - Discharge Details Anticipated Discharge Date: 04/11/18 - Physicians Team Primary Care Provider: Primary Care Physici,No Attending Provider: Jennifer Lion Other Providers: Roseanne Prado MD
--- NOTE | 2018-04-11 13:41 | ECG ---
Date Performed: 04/10/2018 Time Performed: 21:36:24 PTAGE: 52 years EKG: Sinus rhythm POSSIBLE LEFT ATRIAL ENLARGEMENT MARKED LEFT AXIS DEVIATION PROBABLE LATERAL MYOCARDIAL INFARCTION A BNORMAL ECG Since the PREVIOUS TRACING , no significant change noted PREVIOUS TRACIN04/10/2018 14.01 DOCTOR: Nic Chavez Interpretating Date/Time 04/11/2018 13:40:26
--- NOTE | 2018-04-11 13:41 | ECG ---
Date Performed: 04/10/2018 Time Performed: 14:01:52 PTAGE: 52 years EKG: Sinus rhythm LEFT ANTERIOR FASCICULAR BLOCK PROBABLE LATERAL MYOCARDIAL INFARCTION ABNORMAL ECG Since the PREVIOUS TRACING , no significant change noted PREVIOUS TRACIN04/10/2018 07.29 DOCTOR: Nic Chavez Interpretating Date/Time 04/11/2018 13:40:35
[2018-04-12] MEDS ORDERED: predniSONE 20 MG Tablet PO SCH (09:00)
[2018-04-15] MEDS ORDERED: predniSONE 10 MG Tablet PO SCH (09:00)
== END 2018-04-11 10:11 | disposition home or self-care (01) ==
LOC: NEPC 14:12 → NEPGCP 14:12 → NEDA 14:12 → NEPGCP 20:40
PROVIDERS: ADMIT Hospitalist; ATTEND Hospitalist
DX: I10 Essential (primary) hypertension; B20 Human immunodeficiency virus [HIV] disease; I25.10 Atherosclerotic heart disease of native coronary artery without angina pectoris; Z95.5 Presence of coronary angioplasty implant and graft; H54.7 Unspecified visual loss; I25.2 Old myocardial infarction; J84.9 Interstitial pulmonary disease, unspecified; B59 Pneumocystosis; I35.8 Other nonrheumatic aortic valve disorders; E11.9 Type 2 diabetes mellitus without complications; F17.210 Nicotine dependence, cigarettes, uncomplicated; Z79.82 Long term (current) use of aspirin; Z87.442 Personal history of urinary calculi; E78.5 Hyperlipidemia, unspecified; Z66 Do not resuscitate